=== PATIENT | female | born 1970 | race Caucasian/White ===

== ENCOUNTER 2018-05-04 01:43 | Outpatient (CLI) | payer BC, SELFPAY ==
--- NOTE | 2018-05-04 10:44 | DI.RAD_ITS ---
SYMPTOM/DIAGNOSIS: RT HIP PAIN X 10 MONTHS, ? OA, M25.551, G89.29 PELVIS AND RIGHT HIP: The hip joint spaces are well maintained. There is minimal acetabular spurring. There are mild degenerative changes of the inferior S-I joints. IMPRESSION: Mild degenerative changes.
== END 2018-05-04 02:03 ==
PROVIDERS: PCP Family Medicine; Visit Provider Nurse Practitioner Family
DX: M25.551 Pain in right hip (principal); M16.11 Unilateral primary osteoarthritis, right hip; G89.29 Other chronic pain
CPT/HCPCS: 73502

== ENCOUNTER 2018-07-30 00:25 | Outpatient (CLI) | payer BC, SELFPAY ==
--- NOTE | 2018-07-30 08:15 | DI.MAMMO_ITS ---
SYMPTOMS/DIAGNOSIS: SCREENING, Z12.39 MAMMOGRAMS: Mammograms were interpreted according to the usual protocol including computer analysis with CAD system, tomosynthesis and C view imaging. The breasts are heterogeneously dense. No dominant mass or clumped microcalcification is identified in either breast. Current examination is compared with previous examinations including July 2017 and there has been no gross interval change in appearance in comparison with the previous studies. CONCLUSION: No specific evidence of malignancy at this time. Routine screening examinations are suggested at yearly intervals in this age group according to the ACS/ACR guidelines. Category 1, breast density category C. MQSA ASSESSMENT OF FINDINGS: Negative. Category 1. Patient will receive a letter notifying them of these results. Bi-RADS category C. The breasts are heterogeneously dense, which may obscure small masses.
== END 2018-07-30 00:45 ==
PROVIDERS: PCP Family Medicine; Visit Provider Nurse Practitioner Women's Health
DX: Z12.31 Encounter for screening mammogram for malignant neoplasm of breast (principal)
CPT/HCPCS: 77063; 77067

== ENCOUNTER 2020-01-21 04:47 | Outpatient (CLI) | payer BC, SELFPAY ==
--- NOTE | 2020-01-21 16:22 | DI.MAMMO_ITS ---
EXAM: MAMMO SCREENING CLINICAL HISTORY: SCREENING, Z12.39 TECHNIQUE: Mammograms were interpreted according to the usual protocol including computer analysis w [facility] CAD system, tomosynthesis and C-view imaging. COMPARISON: FINDINGS: Breasts are heterogeneously dense. No dominant mass or clumped microcalcification is identified in e ither breast. Current examination is compared with previous examinations including July 2018 and ere has been no gross interval change in appearance in comparison with the prior studies. IMPRESSION: No specific evidence of malignancy at this time. Routine screening examinations are suggested at ye mark intervals due to the family history of breast carcinoma. BI-RADS Category 1 - Negative Breast Density - Category C - Heterogeneously dense
== END 2020-01-21 05:07 ==
PROVIDERS: PCP Family Medicine; Visit Provider Nurse Practitioner Women's Health
DX: Z12.31 Encounter for screening mammogram for malignant neoplasm of breast (principal); Z80.3 Family history of malignant neoplasm of breast
CPT/HCPCS: 77063; 77067

== ENCOUNTER 2020-03-31 05:00 | Outpatient (CLI) | payer BC, SELFPAY ==
[2020-03-31 16:15] LABS: Abs Immature Grans 0.01 10^3/uL (0.0-0.06); Absolute Basophil Count 0.05 10^3/uL (0.0-0.2); Absolute Eosinophil Count 0.05 10^3/uL (0.0-0.7); Absolute Lymphocyte Count 2.18 10^3/uL (1.2-3.4); Absolute Monocyte Count 0.57 10^3/uL (0.1-0.8); Absolute Neutrophil Count 3.72 10^3/uL (1.2-6.7); Basophils % 0.8; Eosinophils % 0.8; HCT 36.5 % (36.0-46.0); HGB 12.4 g/dL (11.2-15.7); Immature Grans % 0.2; Lymphocytes % 33.1; MCH 32.2 pg (27.0-33.0); MCV 94.8 fL (80-95); Monocytes % 8.7; Neutrophils % 56.4; Nucleated RBC 0 %; Platelet Count 210 10^3/uL (130-400); RBC 3.85 10^6/uL (3.93-5.22); RDW 12.4 % (11.7-14.6); WBC 6.58 10^3/uL (4.4-10.8)
[2020-03-31 17:24] LABS: ALT 22 U/L (14-59); AST 15 U/L (15-37); Albumin 3.6 g/dL (3.4-5.0); Alkaline Phosphatase 67 U/L (46-116); Anion Gap 8.7 mmol/L (3-11); BUN 16 mg/dL (7-18); Bilirubin, Total 0.3 mg/dL (0.2-1.0); CO2 26.3 mmol/L (21.0-32.0); CREATININE 0.98 mg/dL (0.55-1.02); Chloride 102 mmol/L (98-107); Ferritin 41 ng/mL (8-252); Glucose 94 mg/dL (74-106); Potassium 3.8 mmol/L (3.5-5.1); Sodium 137 mmol/L (136-145); TSH 2.03 uIU/mL (0.36-3.74); Total Protein 7.3 g/dL (6.4-8.2); Vitamin B12 891 pg/mL (193-986)
[2020-03-31 17:25] LABS: Folate > 20.0 ng/mL (8.6-20.0)
[2020-03-31 17:41] LABS: FREE T4 1.06 ng/dL (0.76-1.46)
[2020-03-31 17:56] LABS: Iron 63 ug/dL (50-170); Total Iron Binding Capacity 388 ug/dL (250-450); Transferrin Sat 16 % (15-50)
[2020-03-31 21:40] LABS: T3,Free 2.9 pg/mL (2.8-5.3)
[2020-04-04 16:34] LABS: 25-Hydroxy D Total 71 ng/mL; 25-Hydroxy D2 <4.0 ng/mL; 25-Hydroxy D3 71 ng/mL
== END 2020-03-31 05:20 ==
PROVIDERS: PCP Family Medicine; Visit Provider Naturopath
DX: R53.83 Other fatigue (principal); E55.9 Vitamin D deficiency, unspecified; R00.2 Palpitations
CPT/HCPCS: 36415; 80053; 82306; 82607; 82728; 82746; 83540; 83550; 83735; 84439; 84443; 84481; 85025

== ENCOUNTER 2021-03-30 00:20 | Outpatient (CLI) | payer BC, SELFPAY ==
--- NOTE | 2021-03-30 08:05 | DI.MAMMO_ITS ---
Exam(s) MAMMO SCREENING EXAM: MAMMO SCREENING CLINICAL HISTORY: SCREENING FOR BREAST CANCER Z12.39 TECHNIQUE: Bilateral full field digital CC and MLO mammographic images were obtained with 3D tomosyn thesis and utilizing computer aided detection (CAD). COMPARISON: Available for comparison. FINDINGS: Masses/Architectural Distortion: None seen. Microcalcifications: No suspicious pleomorphic-type are seen. Skin Thickening/Nipple Retraction: None. IMPRESSION: 1. No significant interval change with no specific features of malignancy noted. 2. Unless there is more urgent need, screening mammography is recommended, as per [employer] guidelines. BI-RADS Category 1 - Negative Breast Density - Category C - Heterogeneously dense Breast density category C or D implies that the patient has dense breast tissue. Dense breast tissue is very common and is not abnormal but dense breast tissue can make it harder to find cancer on a ma mmogram. Also, dense breast tissue may increase their breast cancer risk. This information about the result of the mammogram report was provided to the patient to raise their awareness. Use this report when you speak with the patient about their risks for breast cancer, which includes their family hist ory. At that time, you may recommend for more screening tests (Ultrasound or MRI) as they might be us eful based on their risk. A negative radiographic report should not delay biopsy if a dominant or clinically suspicious mass is present. Up to ten percent of cancers are not identified on mammography. A negative report may reinforce clinical impression. Adenosis and dense breasts may obscure an underlying neoplasm. False positive reports average 6 to 10%. Patient will receive a letter notifying them of these results.
== END 2021-03-30 00:40 ==
PROVIDERS: PCP Family Medicine; Visit Provider Nurse Practitioner Women's Health
DX: Z12.31 Encounter for screening mammogram for malignant neoplasm of breast (principal); R92.8 Other abnormal and inconclusive findings on diagnostic imaging of breast
CPT/HCPCS: 77063; 77067

== ENCOUNTER 2021-06-29 16:42 | Outpatient (REF) | payer BC, SELFPAY | END 2021-06-29 16:43 | disposition home or self-care (01) | LOC: LBN 16:42 | PROVIDERS: PCP Family Medicine; Visit Provider Family Medicine | DX: J34.89 Other specified disorders of nose and nasal sinuses (principal) | CPT/HCPCS: 87077; 87070; 87186; 87205 ==

== ENCOUNTER 2021-11-16 01:15 | Outpatient (CLI) | payer BC, SELFPAY ==
--- OUTSIDE RECORDS SUMMARY | 2021-11-16 01:18 | XMS_ITS | Clinical Summary ---
:1970 Author Organization [facility] [place] [address] Care Team Providers Name Role Phone Mariluz Vargas MD Primary Care Provider Allergies Active Allergy Reactions Severity Noted Date Comments Prochlorperazine muscle spas ms Sulfa (Sulfonamide Antibiotics) Rash Medications Medication Sig Dispensed Refills Start Date End Date Status DESOG-E.ESTRADIOL/E.ES Take by mouth 0 Active TRADIOL (KARIVA, 28, daily. ORAL) magnesium 250 mg Take by mouth 0 Active Tablet daily. cyanocobalamin, Inject as 0 Acti ve vitamin B-12, 1,000 directed. mcg/mL Solution cholecalciferol, Take 2,000 Units 0 Active Vitamin D3, by mouth every (CHOLECALCIFEROL, other day. VITAMIN D3,) 2,000 unit Capsule calcium citrate Take 1 tablet by 0 Active (CALCITRATE) 200 mg mouth daily. (950 mg) Tablet Active Problems Problem Noted Date Nephrolithiasis 07/09/2016 Recurrent UTI (urinary tract infection) 07/13/2015 IC (interstitial cystitis) 07/13/2015 Resolved Problems Problem Noted Date Resolved Date Recurrent UTI 08/13/2010 07/09/2016 Immunizations Name Administration Dates Next Due Moderna Covid-19 (Private Duty Rn 100mcg) Vaccine 03/28/2021, 2020, 07/18/2020 Family History Medical History Relation Comments Hyperlipidemia Father Alcohol Use Disorder Mother Mental Illness Mother Cancer Other in extended family Heart Disease Other in extended family Relation Status Comments Father Mother Other Social History Tobacco Use Types Packs/Day Years Used Date Never Smoker Smokeless Tobacco: Never Used Alcohol Use Standard Drinks/Week Comments Yes 1 (1 standard drink = 0.6 oz pure alcoho l) couple times a month Alcohol Habits Answer Date Recorded How often do you have a drink containing alcohol? Not asked How many drinks containing alcohol do you have on Not asked a typical day when you are drinking? How often do you have six or more drinks on one Not asked occasion? Comment: couple times a month 05/11/2019 Sex Assigned at Date Recorded Not on file Last Filed Vital Signs Vital Sign Reading Time Taken Comments Blood Pressure 105/64 05/11/2019 8:40 AM EST Pulse 60 05/11/2019 8:20 AM EST Temperature 36.6 ??C (97.9 ??F) 05/11/2019 7:13 AM EST Respiratory Rate 18 05/11/2019 8:50 AM EST Oxygen Saturation 99% 05/11/2019 8:50 AM EST Inhaled Oxygen Concentration - - Weight 56.7 kg (125 lb) 05/11/2019 7:13 AM EST Height 167.6 cm (5' 6) 05/11/2019 7:13 AM EST Body Mass Index 20.18 05/11/2019 7:13 AM EST Plan of Treatment Health Maintenance Due Date Last Done Comments HIV screen 1989 Hepatitis C Screening 1989 Tdap adult 1990 Tetanus vaccine 1990 HPV test 2001 PAP Smear 2001 Breast Cancer Share Decision Needed 2011 Breast Cancer screening 2021 Zoster vaccine (1 of 2) 2021 Covid-19 Vaccine (4 - Booster for 07/27/2021 03/28/2021, , Moderna series) 07/18/2020 Influenza (Flu) vaccine (1 of 1 - 12/20/2021 Influenza standard series) Colonoscopy 05/11/2029 05/11/2019, 05/11/2019 Medical Devices Implanted Type Area Contract Clerk Automobile Device Shelf Model / Identifier Expiration Serial / Lot Date Stent,Contour-Vl,[id number] ([id number]) - [id number] IMPLANTS DO NOT USE Pradeep 06/06/2019 [id number] / Implanted: Qty: 1 on 09/24/2016 by Raheem Murphy Jr., MD at [facility] Urological - / [id number] Insurance Payer Benefit Plan Subscriber ID Effective Dates Phone Address Type / Group [facility] [employer] [id number] 2018-[id number] [phone] [address] [employer] [place] [address] [facility] [id number] Advance Directives Latest Code Status on File Code Status Date Activated Date Inactivated Comments Full Code 09/24/2016 3:34 PM 09/24/2016 10:13 PM Does patient have capacity to make decision: Yes Care Teams Senior Hr Business Partner Relationship Specialty Start Date End Date Mariluz Vargas MD PCP - General Family Medicine 11/20/[address] [place], [place] [address]
--- OUTSIDE RECORDS SUMMARY | 2021-11-16 01:19 | XMS_ITS | Encounter Summary ---
:1970 Author Organization [facility] [place] [address] Care Team Providers Name Role Phone Mariluz Vargas MD Primary Care Provider Encounter Details Date Type Department Care Team Description 05/22/2016 Notes Only Urology at [facility] Arely Preciado, [facility] [place] [address] [address] [facility] [phone] UROLOGY DEPT. [place], [place] [address] (Wo rk) Social History Tobacco Use Types Packs/Day Years Used Date Never Smoker Smokeless Tobacco: Never Used Alcohol Use Standard Drinks/Week Comments Yes 1 (1 standard drink = 0.6 oz pure alcoho l) Sex Assigned at Date Recorded Not on file documented as of this encounter Progress Notes Arely Preciado APRN - 05/22/2016 7:26 AM EST Urine culture dated 04/23/2016 indicates 10-50 K e.coli. This is what she had in 03/2016 and did not opt for treatment as she felt ok. It is unclear if she was treated by [facility]/Dr. Strickland for this urinary infection. I will have my nurse call her to see how she is doing. documented in this encounter Plan of Treatment Not on filedocumented as of this encounter Visit Diagnoses Not on filedocumented in this encounter Care Teams Charcoal Burner Beehive Kiln Relationship Specialty Start Date End Date Mariluz Vargas MD PCP - General Family Medicine 11/20/[address] [place] [address] documented as of this encounter
--- OUTSIDE RECORDS SUMMARY | 2021-11-16 01:19 | XMS_ITS | Encounter Summary ---
:1970 Author Organization [facility] [place] [address] Care Team Providers Name Role Phone Mariluz Vargas MD Primary Care Provider Encounter Details Date Type Department Care Team Description 04/02/2016 Telephone Urology at [facility] Arely Preciado, [facility] [place] [address] [facility] [phone] UROLOGY DEPT. [place], [place] [address] (Wo rk) Social History Tobacco Use Types Packs/Day Years Used Date Never Smoker Smokeless Tobacco: Never Used Alcohol Use Standard Drinks/Week Comments Yes 1 (1 standard drink = 0.6 oz pure alcoho l) Sex Assigned at Date Recorded Not on file documented as of this encounter Miscellaneous Notes Telephone Encounter - Chrystal Holley - 04/02/2016 10:59 AM EST 04/02 LM for pt & entered a reminder Telephone Encounter - Arely Preciado APRN - 04/02/2016 9:12 AM EST Talked to Ms. Clouatre. She has no fever/chills or flank pain. She has urgency/frequency, but no hematuria or other symptoms. Her culture indicates: 03/28/2016: 10-50 K e.coli ackerman sensitive-she wanted macrobid called in, but will not start this 02/27/2016: e.coli 06/09/15: 10-50K e.coli tx with cefpodox 05/30/15: < 10 K gm neg 05/23/15: contam and no UA. 04/18/15: no growth 04/03/15: neg Repeat culture proves she clears. 03/15/15: 10-50 K e.coli ackerman sensitive 03/01/15: 50-99K e.coli tx with keflex We discussed her cultures have been intermittently positive. She states that this summer, she had symptoms with urgency/frequency and so may have had a UTI for longer than she has known. We discussed treatment options: monitoring vs treating and considering abx prophylaxis. She opts to defer treatment at this time and monitor her symptoms. I reviewed her 02/2016 CT. This shows nonobstructing stones on both sides. Contrast in kidneys and no kidney masses. The stones may or may not be infected. We discussed managing her stones surgically vs monitoring in 6 months with renal US. She prefers to defer and monitor. She will call if she changes her mind. We discussed cystoscopy, but if she has her stones managed, she would have ureteroscopy and laser lithotripsy likely, which would determine how her bladder looks. I offered her a cysto prior given her UTI history. She will decline for now. She will hydrate and monitor, she will try to do a homeopathic treatment to break up her stones. Sheknows we do not know what types of stones she has so the treatment may not help. epf with me in 6 months with renal US. Hydration with water. documented in this encounter Plan of Treatment Not on filedocumented as of this encounter Results US Retroperitoneal Complete (07/09/2016 1:11 PM EDT) Anatomical Region Laterality Modality Abdomen Ultrasound Specimen (Source) Anatomical Collection Method Collection Time Re ceived Time Location / / Volume Laterality 07/09/2016 1:06 PM EDT Impressions 07/09/2016 1:28 PM EDT ??Ultrasound Dictation: Small bilateral nonobstructive renal calculi, 2 each side largest 7mm ?Chelsea Glass MD Electronically Signed Final Report ?? 01:27 pm Narrative 07/09/2016 1:28 PM EDT Renal ?(Signed Final 07/09/2016 01:27 pm) PATIENT INFO: ID #: ? [id number] ?: ??[birth year] (46 yrs) Name: ? TARI Cabrales ? Visit Date: 07/09/2016 01:06 pm ? CLOUATRE PERFORMED BY: Performed By: ? Vandana LOWERY, ??Enio johnson Attending: ?Rufus VILLASENOR, Chelsea Boogie Referred By: ?QUENTIN MURPHY MD Location: ? [place] SERVICE(S) PROVIDED: ??URETRO - Retroperitoneal Complete - I [id number] ? [id number] INDICATIONS: ??changes in stone size from CT scan in ??02/2016. COMPARISON: CT scan: 03/14/16 RIGHT KIDNEY: Size (cm) ?L: ??8.8 Cortical Thickness: ?Normal Cortical Echogenicity: ?? Normal Hydronephrosis: ?No sonogr aphic evidence Comment: ?Two non-obstructing renal calculi located in the ? superior and inferior pole measuring 7mm each. LEFT KIDNEY: Size (cm) ?L: ??9.3 Cortical Thickness: ?Normal Cortical Echogenicity: ?? Normal Hydronephrosis: ?No sonogr aphic evidence Comment: ?Two non-obstructing renal calculi seen mid and ? inferior pole, larges t inferior pole measuring ??5mm. URINARY BLADDER: Pre-void (cm) ? L: ??6.5 ? A P: ??3.3 ? TV: ??5.8 Vol (ml): ?65.1 Comment: ?Partially distended, norm al contour Procedure Note Chelsea Hooper MD - 07/09/2016Formattchalo g of this note might be different from the original. Renal (Signed Final 07/09/2016 01:27 pm ) PATIENT INFO: ID #: [id number] : [birth year] (46 y rs) Name: TARI Cabrales Visit Date: 07/09/2016 0 1:06 pm CLOUATRE PERFORMED BY: Performed By: Ana Ross RDMS Attending: Chelsea Hooper MD Referred By: QUENTIN MURPHY MD Location: [place] SERVICE(S) PROVIDED: URETRO - Retroperitoneal Complete - IMG [id number] INDICATIONS: changes in stone size from CT scan in 02/2016. COMPARISON: CT scan: 03/14/16 RIGHT KIDNEY: Size (cm) L: 8.8 Cortical Thickness: Normal Cortical Echogenicity: Normal Hydronephrosis: No sonographic evidence Comment: Two non-obstructing renal calc desiree located in the superior and inferior pole measuring 7m m each. LEFT KIDNEY: Size (cm) L: 9.3 Cortical Thickness: Normal Cortical Echogenicity: Normal Hydronephrosis: No sonographic evidence Comment: Two non-obstructing renal calc desiree seen mid and inferior pole, largest inferior pole me asuring 5mm. URINARY BLADDER: Pre-void (cm) L: 6.5 AP: 3.3 TV: 5.8 Vol (ml): 65.1 Comment: Partially distended, normal co ntour IMPRESSION Ultrasound Dictation: Small bilateral n onobstructive renal calculi, 2 each side largest 7mm Chelsea Hooper MD Electronically Signed Final Report 07/09 01:27 pm Quentin Murphy Jr., MD IMG US GEN ORDERABLES documented in this encounter Visit Diagnoses Diagnosis Nephrolithiasis Calculus of kidney Nephrolithiasis Calculus of kidney documented in this encounter Care Teams House Sitter Relationship Specialty Start Date End Date Mariluz Vargas MD PCP - General Family Medicine 11/20/[address] [place] [address] documented as of this encounter
--- OUTSIDE RECORDS SUMMARY | 2021-11-16 01:19 | XMS_ITS | Encounter Summary ---
:1970 Author Organization [facility] [place] [address] Care Team Providers Name Role Phone Mariluz Vargas MD Primary Care Provider Encounter Details Date Type Department Care Team Description 05/07/2019 Telephone Gastroenterology at [facility] [place] [address] Social History Tobacco Use Types Packs/Day Years Used Date Never Smoker Smokeless Tobacco: Never Used Alcohol Use Standard Drinks/Week Comments Yes 1 (1 standard drink = 0.6 oz pure alcoho l) Sex Assigned at Date Recorded Not on file documented as of this encounter Miscellaneous Notes Telephone Encounter - Adalgisa Morrow - 05/07/2019 11:15 AM EST Adela Mosley [id number] Diagnosis/Indication: Rectal hemorrhage 1. Have you ever had a/an Colonoscopy before? Yes: Date 19 years ago in [place] If yes, did you have any problems with the procedure? No What type of sedation was used: Other: Unknown 2. Do you take any Blood Thinners? No 3. Do you have a Pacemaker or Defibrillator device? No 4. Are you a diabetic? No 5. Do you have any Allergies to Eggs, Latex or Medications? Yes: See EDH 6. Do you take any Oral Iron Supplements (Including multi-vitamins)? No 7. Do you have a history of three or more abdominal surgeries? No 8. Have you had a problem with sedation or anesthesia? No 9. Do you have a c-pap machine or oxygen tank? Neither 10. Do you take prescription narcotic pain medications? No 11. Say to patient: You must have a responsible libertarian who will drive you to your procedure, stay on campus for the entire duration of your procedure, and drive you home from your procedure? 12. Is there any other information you would like to give us to aid in scheduling? No Height: 5'6 Weight: 128 BMI: 20.7 Age:49 y.o. documented in this encounter Plan of Treatment Not on filedocumented as of this encounter Visit Diagnoses Not on filedocumented in this encounter Care Teams Capping Machine Operator Relationship Specialty Start Date End Date Mariluz Vargas MD PCP - General Family Medicine 11/20/[address] [place] [address] [address] [place] [address] documented as of this encounter
--- OUTSIDE RECORDS SUMMARY | 2021-11-16 01:19 | XMS_ITS | Encounter Summary ---
:1970 Author Organization [facility] [place] [address] Care Team Providers Name Role Phone Mariluz Vargas MD Primary Care Provider Encounter Details Date Type Department Care Team Description 03/26/2016 Telephone Urology at [facility] Arely Preciado, [facility] [place] [address] [facility] [phone] UROLOGY DEPT. [place], [place] [address] (Wo rk) Social History Tobacco Use Types Packs/Day Years Used Date Never Smoker Smokeless Tobacco: Never Used Alcohol Use Standard Drinks/Week Comments Yes 1 (1 standard drink = 0.6 oz pure alcoho l) Sex Assigned at Date Recorded Not on file documented as of this encounter Miscellaneous Notes Telephone Encounter - Chrystal Holley - 04/02/2016 8:41 AM EST Spoke with the Film Library, Images are loaded Telephone Encounter - Chrystal Holley - 03/27/2016 1:28 PM EST 03/[address] report & Images Called for urine results to be faxed to us Telephone Encounter - Arely Preciado APRN - 03/26/2016 3:24 PM EST Pt was put on abx for urine infection. She was in the ED-[facility]. For the past 2 months, she has had rectal cramping/also suprapubically. She had some sternal and back pain as well. When in ER, she had a CT done. She saw COPPER ETCHER and was told the CT showed that cysts, bilateral renal scarring and nonobstructing renal stones. Will get report and imaging. She will do repeat UA/culture 2 days after she finishesabx. Renal US in 2009 showed no stones. She is on keflex. Past cultures: U/A and Urine Culture History: 06/09/15: 10-50K e.coli tx with cefpodox 05/30/15: < 10 K gm neg 05/23/15: contam and no UA. 04/18/15: no growth 04/03/15: neg Repeat culture proves she clears. 03/15/15: 10-50 K e.coli ackerman sensitive 03/01/15: 50-99K e.coli tx with keflex She is not sure if a formal culture was sent at [facility]. Will get CT report and imaging and culture report. documented in this encounter Plan of Treatment Not on filedocumented as of this encounter Visit Diagnoses Not on filedocumented in this encounter Care Teams Multimedia Services Manager Relationship Specialty Start Date End Date Mariluz Vargas MD PCP - General Family Medicine 11/20/[address] [place] [address] documented as of this encounter
--- OUTSIDE RECORDS SUMMARY | 2021-11-16 01:19 | XMS_ITS | Encounter Summary ---
:1970 Author Organization [place] [address] Care Team Providers Name Role Phone Mariluz Vargas MD Primary Care Provider Reason for Visit Reason Comments Nephrolithiasis Encounter Details Date Type Department Care Team Description 10/01/2016 Office Visit Urology at [facility] Raheem Murphy Jr., Nephrolithiasis [facility] [place] [address] [facility] [phone] UROLOGY DEPT. [place], [place] [address] (Wo rk) Social History Tobacco Use Types Packs/Day Years Used Date Never Smoker Smokeless Tobacco: Never Used Alcohol Use Standard Drinks/Week Comments Yes 1 (1 standard drink = 0.6 oz pure alcoho l) Sex Assigned at Date Recorded Not on file documented as of this encounter Last Filed Vital Signs Vital Sign Reading Time Taken Comments Blood Pressure 120/66 10/01/2016 9:27 AM EDT Pulse 58 10/01/2016 9:27 AM EDT Temperature 36.6 ??C (97.9 ??F) 10/01/2016 9:27 AM EDT Respiratory Rate - - Oxygen Saturation 100% 10/01/2016 9:27 AM EDT Inhaled Oxygen Concentration - - Weight - - Height - - Body Mass Index - - documented in this encounter Procedure Notes Raheem Murphy Jr., MD - 10/01/2016 9:20 AM EDTAssociated Order(s): CYSTO, STENT REMOVAL Pre-Procedure Diagnose(s): Nephrolithiasis HPI: Adela Mosley is a 46 y.o. female who returns for bilateral ureteral stent removal after undergoing bilateral ureteroscopy. She had recurrent e coli UTIs and was referred by Arely Maguire APRN to obtain bilateral upper tract urine cultures and consider bilateral renal stone removal She underwent bilateral ureteroscopy on . Intraoperative findings were notable for negative bladder and bilateral renal pelvic urine cultures. Bilateral stones removed (right sided stone required lithotripsy and removal). Left sided stone culture negative; right sided stone culture revealed small volume ackerman-sensitive e coli.. She had a postoperative course notable for right sided stent pain. Shepresents today for planned stent removal. Past Medical History: Persistent E. Coli UTI Possible interstitial cystitis Genital HSV ?? Past Surgical History: LEEP 2005 for cervical cancer ?? Social History: , no children. 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 Non-smoker, non-drinker ?? Family History: Father has kidney stones Stone Analysis: Right: 100% Calcium oxalate monohydrate Left: 50% CaOx monohydrate; 40% CaPhos (apatite); 10% CaOx dihydrate We discussed the procedure, risks and planned benefit. We discussed the need to remove the stent as they cannot stay in indefinitely, as well as the risk of possible need for stent or nephrostomy replacement if there was any residual or future ureteral obstruction. Informed consent was obtained. Adela Mosley was taken to the cystoscopy room and prepped and draped by our urology nurse. Prophylactic antibiotic administration was confirmed. Topical viscous lidocaine gel was applied to the urethra for local anesthetic. A timeout was performed. Flexible cystoscopy was performed. The urethra waswithout abnormality. The bladder was entered and inspected. No focal mucosal abnormality was seen. The stents were seen emanating from each ureteral orifice. Eachwas grasped and extracted. Each was inspected and found to be intact. She tolerated the procedure well. I instructed Adela Mosley of the need to return in approximately 6 weeks for renal ultrasound to ensure that there is no residual hydronephrosis. I cautioned her to contact us immediately with increasing pain, fever, or chills as this could suggest obstruction and may need to be further evaluated on an urgent or emergent basis. I have asked her to call with any additional questions. Impression/Plan: Doing well s/p bilateral ureteroscopy . Stents removed without difficulty. 1) Plan reimaging in 6 weeks to assess for resolution of any hydronephrosis; plan follow up with Arely Maguire APRN 2)Mixed CaOx stone. We reviewedgeneral dietary modifications for those with CaOx stones. We discussed the role of a low oxalate, low sodium diet with increased hydration, targeting 2 liters urine output daily. We discussed role of 24h urine. She will consider and revisit if she wishes to proceed. documented in this encounter Plan of Treatment Not on filedocumented as of this encounter Procedures Procedure Name Priority Date/Time Associated Diagnosis Comme nts CYSTO, STENT Routine 10/01/2016 11:16 Nephrolithiasis Results for this REMOVAL AM EDT procedure are i n the results section. documented in this encounter Results Cysto, Stent Removal, clinic (10/01/2016 11:16 AM EDT) Narrative Raheem Murphy Jr., MD - 10/01/2016 11:1 6 AM EDT Raheem Murphy Jr., MD ? 10/01/2016 11:16 AM HPI: ??Adela Mosley is a 46 y.o. fe male who returns for bilateral ureteral stent removal after u ndergoing bilateral ureteroscopy. ?? She had recurrent e col i UTIs and was referred by Arely Maguire APRN to obtain bila teral upper tract urine cultures and consider bilateral renal st one removal She underwent bilateral ureteroscopy on . ??Intraoperative findings were notable for negative bladd er and bilateral renal pelvic urine cultures. Bilateral stones removed (right sided stone required lithotripsy and removal). Left sided stone culture negative; right sided stone culture reve aled small volume ackerman-sensitive e coli.. ??She had a ??pos toperative course notable for right sided stent pain. Shepresents today for planned stent removal. Past Medical History: Persistent E. Coli UTI Possible interstitial cystitis Genital HSV ?? Past Surgical History: LEEP 2006 for cervical cancer ?? Social History: , no children. 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 Non-smoker, non-drinker ?? Family History: Father has kidney stones Stone Analysis: Right: 100% Calcium oxalate monohydrate Left: 50% CaOx monohydrate; 40% CaPhos ( apatite); 10% CaOx dihydrate We discussed the procedure, risks and pl anned benefit. We discussed the need to remove the stent a s they cannot stay in indefinitely, as well as the risk of pos sible need for stent or nephrostomy replacement if there was any residual or future ureteral obstruction. Informed consent w as obtained. Adela Mosley was taken to the cystosc opy room and prepped and draped by our urology nurse. ??Prophylac tic antibiotic administration was confirmed. ??Topical viscous lidocaine gel was applied to the urethra for local anesthe tic. A timeout was performed. ??Flexible cystoscopy was per formed. ??The urethra was without abnormality. ??The bladder was e ntered and inspected. ??No focal mucosal abnormality was seen. ??Th e stents were seen emanating from each ureteral orifice. ?? Eachwas grasped and extracted. Each was inspected and found to be intact. ??She tolerated the procedure well. ?? I instructed ??Adela Mosley ??of the need to return in approximately 6 weeks for renal ultrasou nd to ensure that there is no residual hydronephrosis. ??I cauti oned her to contact us immediately with increasing pain, fever, or chills as this could suggest obstruction and may need to be f urther evaluated on an urgent or emergent basis. ??I have asked her to call with any additional questions. Impression/Plan: Doing well s/p bilatera l ureteroscopy . ??Stents removed without difficulty. 1) Plan reimaging in 6 weeks to assess f or resolution of any hydronephrosis; plan follow up with Akilah Maguire, TONYA 2)Mixed CaOx stone. We reviewedgeneral d ietary modifications for those with CaOx stones. We ??discussed t he role of ??a low oxalate, low sodium diet with increased hydration , targeting 2 liters urine output daily. ??We discussed role of 24h urine. She will consider and revisit if she wishes to pr oceed. Raheem Murphy Jr., MD UROLOGY ORDERABLES documented in this encounter Visit Diagnoses Diagnosis Nephrolithiasis Calculus of kidney documented in this encounter Care Teams Automatic Centrifugal Station Operator Relationship Specialty Start Date End Date Mariluz Vargas MD PCP - General Family Medicine 11/20/[address] [place] [address] [address] [place] [address] documented as of this encounter
--- OUTSIDE RECORDS SUMMARY | 2021-11-16 01:19 | XMS_ITS | Encounter Summary ---
:1970 [place] [address] Care Team Providers Name Role Phone Mariluz Vargas MD Primary Care Provider Encounter Details Date Type Department Care Team Description 09/24/2016 Hospital Encounter Same Day Program at [facility] Nephrolithiasis Ellen Cassidy Jr., MD [facility] DR Gomez UROLOGY DEPT. [place] [phone] Social History Tobacco Use Types Packs/Day Years Used Date Never Smoker Smokeless Tobacco: Never Used Alcohol Use Standard Drinks/Week Comments Yes 1 (1 standard drink = 0.6 oz pure alcoho l) Sex Assigned at Date Recorded Not on file documented as of this encounter Last Filed Vital Signs Vital Sign Reading Time Taken Comments Blood Pressure 124/74 09/24/2016 7:07 PM EDT Pulse 68 09/24/2016 7:07 PM EDT Temperature 36.6 ??C (97.9 ??F) 09/24/2016 5:59 PM EDT Respiratory Rate 16 09/24/2016 7:07 PM EDT Oxygen Saturation 100% 09/24/2016 7:07 PM EDT Inhaled Oxygen Concentration - - Weight 56.7 kg (125 lb) 09/24/2016 1:09 PM EDT Height 167.6 cm (5' 6) 09/24/2016 1:09 PM EDT Body Mass Index 20.18 09/24/2016 1:09 PM EDT documented in this encounter Discharge Instructions Discharge InstructionsToshia Gibson RN - 09/24/2016 6:29 PM EDT POST ANESTHESIA INSTRUCTIONS Go home, rest, use caution on stairs. Change positions slowly. Do not smoke if you are alone. Diet light to regular as tolerated today. If nausea occurs start with clear liquids and progress slowly. No driving, operating machinery, alcoholic beverages and no important decisions for 24 hours. Monitor IV site for signs and symptoms of infection: increasing redness, swelling, foul drainage, ifoccurs contact M.D. Patients who have had endotrachial tubes (this tube, used by anesthesia department, is passed down your throat after you are asleep, to ensure safe air passage during your operation). A sore throat is normal due to the tube. Cold liquids or soothing lozenges will help ease the discomfort. The generalized muscle aches are due to the medication given to you just before the tube is inserted. As the medication wears off, you may develop muscle soreness, which usually goes away in 12-24 hours. Patient InstructionsNelly Noguera MD - 09/24/2016 12:09 PM EDT DISCHARGE INSTRUCTIONS CALL YOUR PHYSICIAN IF: ?? You have a fever greater than 101 degrees F within one month of your surgery. ?? You have diarrhea or vomiting for more than 24 hours, or stop having bowel movements or passing gas. ?? You have worsening pain, not controlled with pain medication. ?? You have any other acute change in your health status. MEDICATIONS You have been prescribed an antibiotic (Cipro) to treat your infection. Complete your course of antibiotic therapy. Please complete the entire course as prescribed. You have been prescribed tamsulosin, which may help to decrease the discomfort associated with the indwelling stent. Please take this medication as prescribed. DRIVING RESTRICTIONS Do not operate a vehicle if you are too sore from surgery to enter or exit your vehicle comfortably,or if you are too sore to easily check your blind spot. ACTIVITIES Your activities may be determined by how well your tolerate the discomfort associated with your stent. Most patients experience some degree of discomfort, and this is normal. Symptoms include flank pain (increased during urination), frequency and urgency of urination, burning or pain in the bladder orurethral with urination, pelvic discomfort, and blood in the urine. To manage your stent symptoms, drink plenty of fluids (~2 liters daily) and take acetaminophen or ibuprofen. DIET Eat a well-balanced diet. Fresh fruits, vegetables and fiber-containing foods are recommended. This will assist in wound healing. COMFORT Some patients experience irritation or discomfort associated with the stent. Take your medication asneeded and prescribed. Slowly decrease your use of pain medication as pain lessens. CONTACT INFORMATION To contact your provider or change your appointment, please call the Urology clinic at during business hours or during off-hours. FOLLOW-UP APPOINTMENT You will be arrange for a stent removal in 10-14 days in the clinic. You will be contacted regardingthe exact date and time of this. If you do not hear from us in a timely manner, please call the Urology Clinic during business hours. You will also be arrange for a follow-up with Dr. Murphy in 6 weeks with a renal ultrasound beforehand. You will be contacted regarding the exact date and time of this. If you do not hear from us in a timely manner, please call the Urology Clinic during business hours. Please remember that you have a ureteral stent in place. A stent is not a permanent device and must be removed by your urologist; failure to remove a stent may result in the need for more procedures. documented in this encounter Medications at Time of Discharge Medication Sig Dispensed Refills Start Date End Date DESOG-E.ESTRADIOL/E.ESTRA Take by mouth daily. 0 DIOL (KARIVA, 28, ORAL) tamsulosin (FLOMAX) 0.4 Take 1 capsule by 90 tablet 3 09/2411/15/2016 mg Capsule, Sust. Release mouth daily. 24 hr ciprofloxacin (CIPRO) 500 Take 1 tablet by 14 tablet 0 08/201609/30/2016 mg Tablet mouth 2 times daily for 7 days. d-mannose Powder Take by mouth. 0 10/20 UNABLE TO FIND Estrogen cream 0 2016 fish oil-omega-3 fatty Take 2 g by mouth 0 02/25/2019 acids 1,000 mg Capsule daily. magnesium citrate Take by mouth. 0 Solution PROGESTERONE, BULK, by Misc.(Non-Drug; 0 11/15/2016 MISCIndications: topical Combo Route) route. cream Indications: topical cream documented as of this encounter H&P Notes Nelly Noguera MD - 09/24/2016 11:50 AM EDT Urology Pre-operative H&P Update ID: Tari Mosley is a 46 y.o. woman with non-obstructing bilateral renal stones, who prssents today for right (possibly left) ureteroscopy, laser lithotripsy and stent placement with Dr. Murphy. Subjective: Denies any change in health since last clinic visit on 09/04/2016. Denies chest pain, shortness of breath, nausea, vomiting, dysuria. She started taking Cipro 500 mg BID yesterday. Objective: General: pleasant, conversant, alert and oriented CV: RRR, no murmurs, rubs or gallops appreciated Pulm: CTAB Urine culture 09/23/2016 Escherichia coli 10,000 - 50,000 colonies/mL A/P: Tari Mosley is a 46 y.o. woman with non-obstructing bilateral renal stones, who prssents todayfor right (possibly left) ureteroscopy, laser lithotripsy and stent placement with Dr. Murphy. This procedure has been fully reviewed with the patient and written informed consent has been obtained. We wi ll proceed with planned operation. Nelly Noguera MD Urology PGY-3 Pager: [phone] documented in this encounter Miscellaneous Notes Op Note - Nelly Noguera MD - 09/24/2016 6:50 PM EDT Operative Note ?? Patient Name: Tari Mosley : [id number] MR#: [id number] ?? Case Date: 09/24/2016 ?? Surgeon: Surgeon(s) and Role: * Quentin Murphy Jr., MD - Primary * Nelly Noguera MD ?? Preoperative diagnosis: right renal stone ?? Postoperative diagnosis: bilateral renal stones ?? Procedure(s) (LRB): CYSTOURETEROSCOPY,DIAGNOSTIC,W/ LITHOTRIPSY INC. INSERTION OF INDWELLING URETERAL STENT (WRVU 8) (Right) CYSTOURETHROSCOPY, W\REMOVAL, MANIPULATION OF CALCULUS (WRVU 6.75) (Left) CYSTO, STENT PLACEMENT (WRVU 2.82) (Left) FLUOROSCOPY (WRVU 0.17) (N/A) MODIFIER HOLMIUM LASER (Right) ? Anesthesia: General ?? Findings: 1. Bilateral orthotopic UOs 2. No hydronephrosis bilateral on RPGs 3. Small stones in upper and mid calyces on the right, fragmented and extracted 4. 6 F x 28 cm right ureteral stent placed 5. Small lower pole stone on the left, extracted 6. 6 F V left ureteral stent placed 7. Cystoscopic bladder urine, left and right renal pelvis urine sent for culture 8. Right and left renal stones sent for culture and stone analysis ?? Complications: none ?? Estimated Blood Loss: minimal ? Fluids: Intraprocedure Crystalloid Total None PRBCs: none (See Anesthesia Record/Report for Other Blood Products) ? Urine Output: (no blood products) ?? Drains: 6 F x 26 cm right ureteral stent 6 F V left ureteral stent ?? Disposition: awakened from anesthesia, extubated and taken to the recovery room in a stable condition, having suffered no apparent untoward event. ?? Condition: doing well without problems ?? (Please see the Surgical Encounter Summary for any Implant and Specimen details pertinent to this patient.) ?? Infection Bundle used? N/A HPI/Surgica Indications: Tari Mosley is a 46 y.o. woman with non-obstructing bilateral renal stones, who prssents todayfor right (possibly left) ureteroscopy, laser lithotripsy and stent placement with Dr. Murphy. Description of Procedure: Tari Mosley was identified in the pre-operative holding area. Consent was verified. The correct side of the procedure was marked. The patient was taken to the operating room and placed supine on the operating table. General anesthesia was induced. The patient was then moved to the dorsal lithotomy position and prepped and draped in the usual sterile fashion. A timeout was performed involving all members of the OR team confirming the patient's identity and planned procedure. Preoperative antibiotics (2 grams Ancef and 80 mg Gent) were administered. A 22 Fr rigid cystoscope was inserted into the bladder and urine was collected and sent for culture.Cystitis cystica was identified along the mucosa of the trigone. UOs were orthotopic bilaterally with ureteral jets. Next, we inserted a 5 Fr pollack into the left UO and advanced the pollack without difficulty. Urinewas aspirated from the left renal pelvis for culture. Retrograde pyelogram was performed. No hydronephrosis was seen. The same procedure was performed on the right. A glidewire was then passed via the pollack in the right ureter without difficulty, and the pollack was removed. A semi-rigid ureteroscope was introduced. The ureter was navigated easily to the right renal pelvis. We then removed the semi-rigid scope. The flexible scope was used and navigated to the renal pelvis. Small renal stones were identified in the mid calyx, which were extracted using an NGagebasket. A larger stone was seen in the upper calyx, which was removed to the distal ureter. Holmium laser was used at 6 Hz and 6 J for fragmentation of the stone. The fragments were extracted using a NGage basket; these were collected and sent to Pathology as a specimen for stone analysis and stone culture. We then switched back to to the flexible scope. Retrograde pyelography was performed to assistin inspecting the entire pyelocaliceal system. No further stones were found. The ureteroscope was slowly removed to inspect the ureter; no further calculi were seen. Using the cystoscope, a 6 Fr x 26 cm ureteral stent was inserted over the wire. The proximal coil was visualized on fluoroscopy to be within the renal pelvis, and the distal coil was seen with direct visualization in the bladder. We then performed the same procedure on the left. A glidewire was passed via a pollack in the left ureter without difficulty, and the pollack was removed. A semi-rigid ureteroscope was introduced. The distal ureter was navigated easily, but there was resistance in the proximal ureter. We then placed awire via the scope and exchanged for a flexible ureteroscope, advanced under fluoroscopic guidance. One small renal stone was identified in the lower calyx, which was extracted using an NGage basket. This was sent to Pathology for culture and stone analysis. Retrograde pyelography was performed to assist in inspecting the entire pyelocaliceal system. No further stones were found. The ureteroscope was slowly removed to inspect the ureter; no further calculi were seen. Using the cystoscope, a 6 Fr V ureteral stent was inserted over the wire. The proximal coil was visualized on fluoroscopy to be within the renal pelvis, and the distal coil was seen with direct visualization in the bladder. The bladder was emptied. The cystoscope was removed. The patient tolerated the procedure well and was awakened from anesthesia with no adverse events. The patient was taken to the recovery area in stable condition. Dr. Murphy, the attending surgeon, was present for the entire procedure. Plan: 1. RTC in 10-14 days for stent removal 2. Follow-up intra-op urine cultures and treat if positive prior to stent removal 3. Follow-up with Dr. Murphy in 6 weeks with renal US prior Nelly Noguera MD Urology PGY-3 Pager: [phone] Brief Op Note - Nelly Noguera MD - 09/24/2016 5:53 PM EDT Brief Operative Note Patient Name: Tari Mosley : [id number] MR#: [id number] Case Date: 09/24/2016 Surgeon: Surgeon(s) and Role: * Quentin Murphy Jr., MD - Primary * Nelly Noguera MD Preoperative diagnosis: right renal stone Postoperative diagnosis: bilateral renal stones Procedure(s) (LRB): CYSTOURETEROSCOPY,DIAGNOSTIC,W/ LITHOTRIPSY INC. INSERTION OF INDWELLING URETERAL STENT (WRVU 8) (Right) CYSTOURETHROSCOPY, W\REMOVAL, MANIPULATION OF CALCULUS (WRVU 6.75) (Left) CYSTO, STENT PLACEMENT (WRVU 2.82) (Left) FLUOROSCOPY (WRVU 0.17) (N/A) MODIFIER HOLMIUM LASER (Right) Anesthesia: General Findings: 1. Bilateral orthotopic UOs 2. No hydronephrosis bilateral on RPGs 3. Small stones in upper and mid calyces on the right, fragmented and extracted 4. 6 F x 28 cm right ureteral stent placed 5. Small lower pole stone on the left, extracted 6. 6 F V left ureteral stent placed 7. Cystoscopic bladder urine, left and right renal pelvis urine sent for culture 8. Right and left renal stones sent for culture and stone analysis Complications: none Estimated Blood Loss: minimal Fluids: Intraprocedure Crystalloid Total None PRBCs: none (See Anesthesia Record/Report for Other Blood Products) Urine Output: (no blood products) Drains: 6 F x 26 cm right ureteral stent 6 F V left ureteral stent Disposition: awakened from anesthesia, extubated and taken to the recovery room in a stable condition, having suffered no apparent untoward event. Condition: doing well without problems (Please see the Surgical Encounter Summary for any Implant and Specimen details pertinent to this patient.) Infection Bundle used? N/A Associated attestation - Quentin Murphy Jr., MD - 09/24/2016 6:47 PM EDT I was present and I participated during the entire procedure. documented in this encounter Plan of Treatment Not on filedocumented as of this encounter Procedures Procedure Name Priority Date/Time Associated Comments Diagnosis ANAEROBIC CULTURE Routine 09/24/2016 6:08 Results for this PM EDT procedure are i n the results section. ANAEROBIC CULTURE Routine 09/24/2016 6:08 Results for this PM EDT procedure are i n the results section. TISSUE CULTURE, AEROBIC & Routine 09/24/2016 6:08 ANAEROBIC PM EDT TISSUE CULTURE, AEROBIC & Routine 09/24/2016 6:08 ANAEROBIC PM EDT TISSUE CULTURE Routine 09/24/2016 6:08 Results fo r this PM EDT procedure are i n the results section. TISSUE CULTURE Routine 09/24/2016 6:08 Results fo r this PM EDT procedure are i n the results section. URINE CULTURE Routine 09/24/2016 6:08 Results for this PM EDT procedure are i n the results section. XR FLUORO NO RAD <1HR - Routine 09/24/2016 6:07 R esults for this OR USE PM EDT procedure are i n the results section. KIDNEY STONE ANALYSIS Routine 09/24/2016 5:34 Res ults for this PM EDT procedure are i n the results section. KIDNEY STONE ANALYSIS Routine 09/24/2016 5:09 Res ults for this PM EDT procedure are i n the results section. URINE CULTURE Routine 09/24/2016 4:26 Results for this PM EDT procedure are i n the results section. URINE CULTURE Routine 09/24/2016 4:26 Results for this PM EDT procedure are i n the results section. MODIFIER HOLMIUM LASER Yes 09/24/2016 3:47 right renal sto ne PM EDT FLUOROSCOPY (WRVU 0.17) Yes 09/24/2016 3:[address] one PM EDT CYSTO, STENT PLACEMENT Yes 09/24/2016 3:47 right renal sto ne (WRVU 2.82) PM EDT CYSTOURETHROSCOPY WITH Yes 09/24/2016 3:47 right renal sto ne UTETEROSCOPY, W\REMOVAL, PM EDT MANIPULATION OF CALCULUS (WRVU 6.75) CYSTOURETEROSCOPY,DIAGNOS Yes 09/24/2016 3:47 right renal stone TIC,W/ LITHOTRIPSY INC. PM EDT INSERTION OF INDWELLING URETERAL STENT (WRVU 8) documented in this encounter Results US Retroperitoneal Complete (11/15/2016 1:08 PM EDT) Anatomical Region Laterality Modality Abdomen Ultrasound Specimen (Source) Anatomical Collection Method Collection Time Re ceived Time Location / / Volume Laterality 11/15/2016 1:09 PM EDT Impressions 11/15/2016 1:40 PM EDT ??Small, nonobstructing left interpolar renal stone.Both kidneys and bladder are otherwise mandi l.I have personally reviewed the image(s) and e residents interpretation andagree with the Aguila chris at 11/15/2016 1:31 PM ? Aguila albarran MD Electronically Signed Final Report ?? 01:39 pm Narrative 11/15/2016 1:40 PM EDT Renal ? (Signed Final 11/15/2016 01:39 pm) PATIENT INFO: ID #: ? [id number] ?: ??[birth year] (46 yrs) Name: ? TARI V ? Visit Date: 11/15/2016 01:09 pm ? CLOUATRE PERFORMED BY: Performed By: ? Juancho Romero RDMS Attending: ?iKrk VILLASENOR, Chris Martinez Referred By: ?QUENTIN MURPHY Location: ? [place] SERVICE(S) PROVIDED: ??URETRO - Retroperitoneal Complete - I [id number] ? [id number] INDICATIONS: ??s/p bilateral URS 09/24/2016. ?hydro COMPARISON: Ultrasound: RENAL/BLADDER 07/09/16 RIGHT KIDNEY: Size (cm) ?L: ??9.2 Cortical Thickness: ?Normal Cortical Echogenicity: ?? Normal Hydronephrosis: ?No sonogr aphic evidence Comment: ?No stone seen LEFT KIDNEY: Size (cm) ?L: ??11.0 Cortical Thickness: ?Normal Cortical Echogenicity: ?? Normal Hydronephrosis: ?No sonogr aphic evidence Comment: ?Single nonobstructing star al calculus seen in the ? mid pole measuring 3. 0 mm. URINARY BLADDER: Pre-void (cm) ? L: ??2.7 ? A P: ??3.7 ? TV: ??6.1 Vol (ml): ?31.9 Comment: ?Partially distended, norm al contour Procedure Note Aguila Bradley MD - 11/15/2016Format ting of this note might be different from the original. Renal (Signed Final 11/15/2016 01:39 pm ) PATIENT INFO: ID #: [id number] : [birth year] (46 y rs) Name: TARI Cabrales Visit Date: 11/15/2016 0 1:09 pm CLOUATRE PERFORMED BY: Performed By: Juancho Romero RDMS Attending: Aguila Bradley MD Referred By: QUENTIN MURPHY JR Location: [place] SERVICE(S) PROVIDED: URETRO - Retroperitoneal Complete - [facility] [id number] INDICATIONS: s/p bilateral URS 09/24/2016. ?hydro COMPARISON: Ultrasound: RENAL/BLADDER 07/09/16 RIGHT KIDNEY: Size (cm) L: 9.2 Cortical Thickness: Normal Cortical Echogenicity: Normal Hydronephrosis: No sonographic evidence Comment: No stone seen LEFT KIDNEY: Size (cm) L: 11.0 Cortical Thickness: Normal Cortical Echogenicity: Normal Hydronephrosis: No sonographic evidence Comment: Single nonobstructing renal ca lculus seen in the mid pole measuring 3.0 mm. URINARY BLADDER: Pre-void (cm) L: 2.7 AP: 3.7 TV: 6.1 Vol (ml): 31.9 Comment: Partially distended, normal co ntour IMPRESSION Small, nonobstructing left interpolar r enal stone.Both kidneys and bladder are otherwise mandi l.I have personally reviewed the image(s) and e residents interpretation andagree with the Aguila chris at 11/15/2016 1:31 PM Aguila Bradley MD Electronically Signed Final Report 11/15 01:39 pm Quentin Murphy Jr., MD IM US GEN ORDERABLES Anaerobic Culture (09/24/2016 6:08 PM EDT) [facility] Method Time Signature Anaerobic No anaerobic [facility] Culture organisms [facility] LABORATORY Specimen Anatomical Collection Method Collection Time Receive d Time (Source) Location / / Volume Laterality Specimen of 09/24/2016 6:08 PM 7 7:12 unknown material EDT PM EDT (specimen) Comment: LEFT RENAL CRUSHED STONE Resulting Agency Comment Spec In Lab Quentin Murphy Jr., MD MICROBIOLOGY - GENERAL ORDER PATRICK Performing Organization Address City/[facility]/ZIP Code Phon e Number [address] Tissue culture (09/24/2016 6:08 PM EDT) Component Value Ref Test Analysis Performed At Patholo gist Range Method Time Signature Tissue No growth ELLEN Culture [facility] LABORATORY Gram Stain No WBC's seen. ELLEN No microorganisms seen. [facility] LABORATORY Specimen Anatomical Collection Method Collection Time Receive d Time (Source) Location / / Volume Laterality Specimen of 09/24/2016 6:08 PM 7 7:12 unknown material EDT PM EDT (specimen) Comment: LEFT RENAL CRUSHED STONE Resulting Agency Comment Spec In Lab Quentin Murphy Jr., MD MICROBIOLOGY - GENERAL ORDER PATRICK Performing Organization Address City/[facility]/ZIP Code Phon e Number [address] Anaerobic Culture (09/24/2016 6:08 PM EDT) [facility] Method Time Signature Anaerobic No anaerobic [place] Culture organisms [facility] LABORATORY Specimen Anatomical Collection Method Collection Time Receive d Time (Source) Location / / Volume Laterality Specimen of 09/24/2016 6:08 PM 7 7:23 unknown material EDT PM EDT (specimen) Comment: RIGHT RENAL CRUSHED STONE Resulting Agency Comment Spec In Lab Quentin Murphy Jr., MD MICROBIOLOGY - GENERAL ORDER PATRICK Performing Organization Address City/[facility]/[place] [address] (ABNORMAL) Tissue culture (09/24/2016 6:08 PM EDT) Component Value Ref Test Analysis Performed At Patholo gist Range Method Time Signature Tissue Few Escherichia ELLEN Culture coli (A) [facility] LABORATORY Gram Stain Few White Blood Cells seen MA RY No microorganisms seen. [facility] LABORATORY Organism Escherichia coli ELLEN (A) [facility] LABORATORY Specimen Anatomical Collection Method Collection Time Receive d Time (Source) Location / / Volume Laterality Specimen of 09/24/2016 6:08 PM 7 7:23 unknown material EDT PM EDT (specimen) Comment: RIGHT RENAL CRUSHED STONE Resulting Agency Comment Spec In Lab Organism Antibiotic Method Susceptibility Escherichia coli Amikacin MICROSCAN METHOD Sensitive Escherichia coli Ampicillin MICROSCAN METHOD Sensitive Escherichia coli Ampicillin + Sulbactam MICROSCAN METHOD Sensiti ve Escherichia coli Aztreonam MICROS[facility] METHOD Sensitive Escherichia coli Cefazolin MICROSCAN METHOD Sensitive Escherichia coli Cefepime MICROSCAN METHOD Sensitive Escherichia coli Ceftazidime MICROSCAN METHOD Sensitive Escherichia coli Ceftriaxone MICR[facility] METHOD Sensitive Escherichia coli Cefuroxime MICROSCAN METHOD Sensitive Escherichia coli Ciprofloxacin MICROS[facility] METHOD Sensitive Escherichia coli Gentamicin MICROS[facility] METHOD Sensitive Escherichia coli Levofloxacin MICROS[facility] METHOD Sensitive Escherichia coli Meropenem MICROSCAN METHOD Sensitive Escherichia coli Piperacillin/Tazobactam MICROSCAN METHOD Sensit martin Escherichia coli Tetracycline MICROSCAN METHOD Sensitive Escherichia coli Tigecycline MICROSCAN METHOD Sensitive Escherichia coli Tobramycin MICROSCAN METHOD Sensitive Escherichia coli Trimethoprim/Sulfa MICROSCAN METHOD Sensitive Quentin Murphy Jr., MD MICROBIOLOGY - GENERAL ORDER PATRICK Performing Organization Address City/[facility] Phon e Number [address] Urine culture Cystoscopic Urine (09/24/2016 6:08 PM EDT) [facility] Method Time Signature Urine Culture No growth ELLEN CASSIDY (Less than [facility] 1,000 [facility] cfu/ml). LABORATORY Specimen Anatomical Collection Method Collection Time Receive d Time (Source) Location / / Volume Laterality Urine specimen 09/24/2016 6:08 PM 017 7:15 (specimen) EDT PM EDT Comment: RIGHT RENAL URINE Resulting Agency Comment Spec In Lab Quentin Murphy Jr., MD MICROBIOLOGY - GENERAL ORDER PATRICK Performing Organization Address City/[facility] Phon e Number [address] XR Fluoro No Rad <1Hr - OR Use (09/24/2016 6:07 PM EDT) Specimen (Source) Anatomical Location Collection Method / Collectio n Time Received Time / Laterality Volume Narrative DH RAD - 09/24/2016 6:07 PM EDT This order does not need a radiologist i nterpretation. ?? MD ERIC Cross Jr.G FLUORO ORDERABLES Performing Organization Address City/State/ZIP Code Phon e Number RAD BIN [place] Kidney Stone Analysis (09/24/2016 5:34 PM EDT) Component Value Ref Test Analysis Performed At [facility] Method Time Signature Kidney Stone ELLEN Analysis Test ? Result ?Flag ??Unit ??RefValue [employer] [facility] Kidney Stone Analysis [facility] ??Source: ?Lef t Renal LABORATORY ??1st Constituent: ?50% Calcium oxalate monohydrate ??2nd Constituent: ?40% Calcium phosphate (apatite) ??3rd Constituent: ?10% Calcium oxalate dihydrate ? ADDITIONAL INFORMATION ------ ?This test was developed and its performance characteri stics ?determined by [facility] in a manner consistent with CLIA ?requirements. This test has not been cleared or approv ed by ?the U.S. Food and Drug Administration. ?Test Performed by: ?[facility] [employer] [facility] ?[address] [place] [address] Specimen Anatomical Collection Method Collection Time Receive d Time (Source) Location / / Volume Laterality Calculus 09/24/2016 5:34 PM 7 8:56 specimen EDT AM EDT (specimen) Resulting Agency Comment Spec In Lab Quentin Murphy Jr., MD BODY FLUIDS AND STOOLS ORDER PATRICK Performing Organization Address City/[facility]/ZIP Code Phon [place] [address] Kidney Stone Analysis (09/24/2016 5:09 PM EDT) Component Value Ref Test Analysis Performed At [facility] Range Method Time Signature Kidney Stone ELLEN Analysis Test ? Result ?Flag ??Unit ??RefValue LANA [facility] Kidney Stone Analysis [facility] ??Source: ?Rig Renal LABORATORY ??1st Constituent: ?100% Calcium oxalate monohydrate ? ADDITIONAL INFORMATION ------ ?This test was developed and its performance characteri stics ?determined by [facility] in a manner consistent with CLIA ?requirements. This test has not been cleared or approv ed by ?the U.S. Food and Drug Administration. ?Test Performed by: ?[facility] ?[address] [place] [address] Specimen Anatomical Collection Method Collection Time Receive d Time (Source) Location / / Volume Laterality Calculus 09/24/2016 5:09 PM 7 8:56 specimen EDT AM EDT (specimen) Resulting Agency Comment Spec In Lab Quentin Murphy Jr., MD BODY FLUIDS AND STOOLS ORDER PATRICK Performing Organization Address City/State/ZIP Code Phon e Number [address] Urine culture (09/24/2016 4:26 PM EDT) [facility] gist Method Time Signature Urine Culture No growth ELLEN CASSIDY (Less than [address] cfu/ml). LABORATORY Specimen Anatomical Collection Method Collection Time Receive d Time (Source) Location / / Volume Laterality Urine specimen 09/24/2016 4:26 PM 017 7:27 (specimen) EDT PM EDT Comment: BLADDER URINE Resulting Agency Comment Spec In Lab Quentin Murphy Jr., MD MICROBIOLOGY - GENERAL ORDER PATRICK Performing Organization Address City/[facility]/ZIP Code Phon e Number [address] Urine culture (09/24/2016 4:26 PM EDT) [facility] Method Time Signature Urine Culture No growth ELLEN CASSIDY (Less than [address] cfu/ml). LABORATORY Specimen Anatomical Collection Method Collection Time Receive d Time (Source) Location / / Volume Laterality Urine specimen 09/24/2016 4:26 PM 017 7:24 (specimen) EDT PM EDT Comment: LEFT RENAL URINE Resulting Agency Comment Spec In Lab Quentin Murphy Jr., MD MICROBIOLOGY - GENERAL ORDER PATRICK Performing Organization Address City/[facility]/ZIP Code Phon e Number [address] documented in this encounter Visit Diagnoses Diagnosis Nephrolithiasis Calculus of kidney Nephrolithiasis Calculus of kidney documented in this encounter Administered Medications Inactive Administered Medications - up to 3 most recent administrations Medication Order MAR Action Action Date Dose Rate Site acetaminophen (TYLENOL) tablet Given 09/24/2016 7:45 PM EDT 1,00 0 mg 1,000 mg 1,000 mg, Oral, EVERY 6 HOURS PRN, Starting on Fri09/24/16 at 1938, Until Fri09/24/16 at 2213, Pain, Maximum dose of acetaminophen is 4000 mg from all sources in 24 hours., Routine fentaNYL 50mcg/mL injection Given 09/24/2016 6:54 PM EDT 25 mcg 25 mcg, Intravenous, EVERY 5 MIN PRN, Starting on 09/24/16 at 1811, Until e 09/24/16 at 1948, Pain, for 1-4 pain score, for 1-4 pain score Hold for respiratory rate less than 10 per minute. Maximum dose: 250 mcg over one hour., PACU Recovery, Routine Given 09/24/2016 6:00 PM EDT 25 mcg lactated Ringers infusion 1,000 New Bag 09/24/2016 1:30 PM EDT 1,000 mLs 100 mL/hr mL 1,000 mL, at 100 mL/hr, Intravenous, CONTINUOUS, Starting on Fri09/24/16 at 1330, Until Fri09/24/16 at 1948, Day of Surgery (Day of Procedure) documented in this encounter Active and Recently Administered Medications Times are shown in EDT. Scheduled Medication Order 09/22/2016 09/23/2016 09/24/2016 ceFAZolin (ANCEF) 2g in dextrose 5% 100 mL (COMPLETED) 1601 (Given - Provider: Ann Marie Hand CRNA) 2 g, Intravenous, ONCE, 1 dose, e at 1330, Administer over 30 Minutes, Day of Surgery (Day of Procedure), Indication for (Active or Suspected): Prophylaxis gentamicin (GARAMYCIN) 80 mg in sodium chloride 0.9% 102 mL (COM PLETED) 1601 (New Bag - Provider: Ann Marie Hand CRNA) 80 mg, Intravenous, ONCE, 1 dose, e 09/24/16 at 1330, Administer over 60 Minutes, This medication may have an associated drug lab level. Please check for lab orders. Warning Vesicant/Irritant Medicat ion , Day of Surgery (Day of Procedur e), Indication for (Active or Suspected): Prophylaxis Continuous Medication Order 09/22/2016 09/23/2016 09/24/2016 lactated Ringers infusion 1,000 mL (CANCELED) 1330 (New Bag - Provider: Starla Hoang RN)1749 (Anesthesia Volume Adjustment - Provider: Ann Marie Bautista CRNA) 1,000 mL, at 100 mL/hr, Intravenous, CON TINUOUS, Starting e 09/24/16 at 1330, Until Tu09/24/16 at 1948, Day of Surgery (Day of Procedure) PRN Medication Order 09/22/2016 09/23/2016 09/24/2016 acetaminophen (TYLENOL) tablet 1,000 mg 1945 (Given - Provider: Luna Messina, JENNIFER) 1,000 mg, Oral, EVERY 6 HOURS PRN, Start ing Fri09/24/16 at 1938, Until Fri09/24/16 at 2213, Pain, Maximum dose of acetaminophen is 4000 mg from all sources in 24 hours., Routine fentaNYL 50mcg/mL injection (CANCELED) 1800 (Given - Provider: Toshia Gibson, RN)1854 (Given - Provider: Toshia Gibson, RN) 25 mcg, Intravenous, EVERY 5 [address] PRN, St arting e 09/24/16 at 1811, Until Fri09/24/16 at 1948, Pain, for 1-4 pain score, for 1-4 pain score Hold for respiratory rate less than 10 per minute. Maximum dose: 250 mcg over one hour., PACU Recovery, Routine No Frequency Medication Order 09/22/2016 09/23/2016 09/24/2016 fentaNYL Citrate (PF) 100 mcg/2 mL (50 mcg/mL) syringe 1900 (Due) 1 dose, Starting e 09/24/16 at 1851, Unt il 09/25/16 at 0659, TOSHIA GIBSON: cabinet override documented in this encounter Care Teams Perfusionist Relationship Specialty Start Date End Date Mariluz Vargas MD PCP - General Family Medicine 11/20/[address] [place] [address] documented as of this encounter
--- OUTSIDE RECORDS SUMMARY | 2021-11-16 01:19 | XMS_ITS | Encounter Summary ---
:1970 Author Organization [place] [address] Care Team Providers Name Role Phone Mariluz Vargas MD Primary Care Provider Encounter Details Date Type Department Care Team Description 07/09/2016 Office Visit Urology at [facility] Dayron Jauregui, Recurrent UTI (urinary tract infection); [facility] TONYA Mcgee [address] [place], [place] CENTER [address] UROLOGY DEPT. [phone] [place], [place] [address] Social History Tobacco Use Types Packs/Day Years Used Date Never Smoker Smokeless Tobacco: Never Used Alcohol Use Standard Drinks/Week Comments Yes 1 (1 standard drink = 0.6 oz pure alcoho l) Sex Assigned at Date Recorded Not on file documented as of this encounter Last Filed Vital Signs Vital Sign Reading Time Taken Comments Blood Pressure 112/70 07/09/2016 1:27 PM EDT Pulse 63 07/09/2016 1:27 PM EDT Temperature - - Respiratory Rate - - Oxygen Saturation - - Inhaled Oxygen Concentration - - Weight 54.9 kg (121 lb) 07/09/2016 1:27 PM EDT Height 167.6 cm (5' 6) 07/09/2016 1:27 PM EDT Body Mass Index 19.53 07/09/2016 1:27 PM EDT documented in this encounter Progress Notes Arely Preciado, CELL OPERATION SUPERVISOR - 07/09/2016 1:40 PM EDT UROLOGY CLINIC History of Present Illness: Ms. Adela Mosley is a 46 year old woman here for follow up of UTIsand possibly IC. She was previously seen by urology in 2010 for e.coli UTIs. She underwent a normal renal U/S on 04/09/10; this also demonstrated a low PVR of 36 ccs. Her culture indicates: 04/23/2016: 10-50 K e.coli 04/17/2016: e.coli 03/28/2016: 10-50 K e.coli ackerman sensitive-she wanted macrobid called in, but will not start this 02/27/2016: e.coli 06/09/15: 10-50K e.coli tx with cefpodox 05/30/15: < 10 K gm neg 05/23/15: contam and no UA. 04/18/15: no growth 04/03/15: neg Repeat culture proves she clears. 03/15/15: 10-50 K e.coli ackerman sensitive 03/01/15: 50-99K e.coli tx with keflex She was dx with IC when she saw Rosaura, but was put on abx prophylaxis which worked. If she has a flare she is more irritated by the irritant foods. She has had an 02/2016 CT, nonobstructing stones bilaterally, no renal masses Renal US due in 08/2015 Cystoscopy has been discussed as had management of her stones with ureteroscopy/laser lithotripsy. She has opted to defer in the past. She feels she may be ready for this now Some intermittent UTI symptoms took full course of macrobid in early 06/2016 given dysuria and fatigue. Some symptoms today but she can overall manage them. No gross hematuria. She wonders if she passedstones in 02/2016. She has seen a homeopath, so will start a new med soon to see if this helps dissolve her stones. Her urinary/UTI symptoms are intermittent, mostly in the night and evening. In 05/2016, she had intercourse and had UTI symptoms, but delayed treatment and then did the abx in 06/2016. Hydrates still a ton +64 oz per day. Bowels are intermittent, eating habits changed a bit. With stress. She has IBS, no diverticulosis. She is very fatigued. She is on dmannos. She is on transdermal estrogen. She has been given a script for amitriptyline, but did not take this. She has noticed that her bladder is worse with lemon/cayenne pepper, or hi protein drink, sometimes exercise as well. cran has been ok. She voids every 1-2 hours during the day and double voids to get all of her urine out. Her stream isok. She wakes 1 time at night. Voiding often helps her symptoms. She drinks no coffee, rare 8 oz of dark tea intermittently but often none per day, 64 oz of water, except slightly less recently given her urge. PAST MEDICAL/SURGICAL HISTORY: Genital HSV Cervical cancer (?CIS) treated with LEEP 2005 , no regular menses now SOCIAL HISTORY: , no children. 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 She is a non-smoker, non-drinker. FAMILY HISTORY: Negative for cancers. Her father has kidney stones. PHYSICAL EXAM: General: Thin but healthy appearing woman, A+Ox3 in NAD. Abdomen: No CVA tenderness. Pelvic: deferred (02/2015: The external genitalia are normal with normal hair distribution and no lesions. The meatus is in a normal location with a normal configuration. There is no mobility of the bladder neck. The urethra is nontender. There are no urethral masses. The patient does not leak in the supine position with a valsalva and with coughing. There is a Gr. 0 cystocele and a Gr. 0 rectocele. There are no pelvic masses. The patient can Kegal effectively. Rectal: normal rectal tone and no rectal masses) Musculoskeletal: grossly normal Neurologic: grossly normal PVR with bladder scanner: deferred 64 cc on renal US today 02/2015: 20-30 cc with scanner U/A: Sent for culture Renal US: 06/2016; two stones, nonobstructing bilaterally. No renal masses. She empties her bladder well. IMPRESSION Ultrasound Dictation: Small bilateral nonobstructive renal calculi, 2 each side largest 7mm IMPRESSION: ??? Persistent e.coli UTIs and nonobstructing renal stones Urine for culture today. If positive, she will consider treatment prior to stone surgery At this time, she would like to consider surgical options for her stones to see if this helps her infections. We discussed her persistent e.coli and cystoscopy. She will defer in clinic but will have this at the time of ureteroscopy and laser lithotripsy if Dr. Murphy feels she is a candidate. We discussed risks of procedure, that it could be staged, also bleeding, infection, readmission, stroke, RI, , prolonged hospital stay, risk of injury to bladder, ureter, kidneys and surrounding structures. She understands one kidney would likely be done at a time, and that she will have a stent after procedure. She understands this. Hydration with water and timed voiding as she has been. Moderation of bowels She will stay on dmannose We discussed tx of culture and then 6 months of prophylaxis. She will consider this. She would liketo stay off abx if possible, but she is feeling fatigued enough that she would consider a intermediate project manager management option for her UTIs/stones. ??? OAB and mild KWAN Hydration with water and timed voiding every 2-3 hours We discussed the likelihood of fistula contributing to urine output, possible pneumaturia and vaginal discharge. She has had cervical cancer. We discussed imaging looking for a fistula. At this time, we will defer and she will track her symptoms. Cysto in the OR if she goes. She will call if she has questions or concerns, if she feels her symptoms are worsening. All questions answered to her apparent satisfaction. She will call me if she does not hear from me. Arely Jauregui APRN documented in this encounter Miscellaneous Notes Addendum Note - Roxi Hendricks LPN - 07/09/2016 2:32 PM EDT Addended by: ROXI HENDRICKS on: 07/09/2016 02:32 PM Modules accepted: Orders documented in this encounter Plan of Treatment Not on filedocumented as of this encounter Procedures Procedure Name Priority Date/Time Associated Diagnosis Comme nts URINE CULTURE Routine 07/09/2016 2:27 PM Recurrent UTI Results for this EDT (urinary tract procedure are in the infection) results section . documented in this encounter Results (ABNORMAL) Urine culture Clean Catch Urine (07/09/2016 2:27 PM EDT) [facility] Method Time Signature Urine Culture 10,000-49,000 NATALIA cfu/ml [facility] (A) [facility] Organism Escherichia NATALIA coli (A) [facility] Specimen (Source) Anatomical Collection Method Collection Time Re ceived Time Location / / Volume Laterality Urine specimen 07/09/2016 2:27 07/09/2016 2:48 obtained by clean PM EDT PM EDT catch procedure (specimen) Resulting Agency Comment Spec In Lab Organism [...] coli Meropenem MICROSCAN METHOD Sensitive Escherichia coli Nitrofurantoin MICROSCAN METHOD Sensitive Escherichia coli Piperacillin/Tazobactam MICROSCAN METHOD Sensit martin Escherichia coli Tetracycline MICROSCAN METHOD Sensitive Escherichia coli Tobramycin MICROSCAN METHOD Sensitive Escherichia coli Trimethoprim/Sulfa MICROSCAN METHOD Sensitive Isma Farooq III, MD MICROBIOLOGY - GENERAL ORDER PATRICK Performing Organization Address City/State/[place] [address] documented in this encounter Visit Diagnoses Diagnosis Recurrent UTI (urinary tract infection) Urinary tract infection, site not specif ied Nephrolithiasis Calculus of kidney documented in this encounter Care Teams Chief Psychology Relationship Specialty Start Date End Date Mariluz Vargas MD PCP - General Family Medicine 11/20/[address] [place] [address] documented as of this encounter
--- OUTSIDE RECORDS SUMMARY | 2021-11-16 01:19 | XMS_ITS | Encounter Summary ---
:1970 Author Organization [facility] [place] [address] Care Team Providers Name Role Phone Mariluz Vargas MD Primary Care Provider Encounter Details Date Type Department Care Team Description 03/05/2019 Telephone Dermatology at [facility] Roxi Gaona MD [address] [facility] [place] [address] [facility] [phone] [place], [place] [address] (Wo rk) Social History Tobacco Use Types Packs/Day Years Used Date Never Smoker Smokeless Tobacco: Never Used Alcohol Use Standard Drinks/Week Comments Yes 1 (1 standard drink = 0.6 oz pure alcoho l) Sex Assigned at Date Recorded Not on file documented as of this encounter Miscellaneous Notes Telephone Encounter - Kelly Morgan CCMA - 03/05/2019 5:29 PM EST Returned patient's call, okay per Dr. Dutton to d/c Joe's toothpaste and switch to baking soda. Encouraged her to follow up for new or worsening symptoms. Telephone Encounter - Luna Leach - 03/05/2019 2:10 PM EST Received call from Adela Samra Mosley stating that she thinks she is having an allergic reaction to the Joe's of Pamela Fennel toothpaste. Adela states that she is going to use straight baking soda, andwanted to verify that that would be ok. Please call [phone] documented in this encounter Plan of Treatment Not on filedocumented as of this encounter Visit Diagnoses Not on filedocumented in this encounter Care Teams Farebox Repairer Relationship Specialty Start Date End Date Mariluz Vargas MD PCP - General Family Medicine 11/20/[address] [place] [address] documented as of this encounter
--- OUTSIDE RECORDS SUMMARY | 2021-11-16 01:19 | XMS_ITS | Encounter Summary ---
:1970 Author Organization [facility] [place] [address] Care Team Providers Name Role Phone Mariluz Vargas MD Primary Care Provider Encounter Details Date Type Department Care Team Description 04/29/2017 Office Visit Urology at [facility] Alvaro Muñiz MD Nephrolithiasis [facility] [place] [address] NEPHROLOGY DEPT. [phone] [place], [place] [address] (Wo rk) Social History Tobacco Use Types Packs/Day Years Used Date Never Smoker Smokeless Tobacco: Never Used Alcohol Use Standard Drinks/Week Comments Yes 1 (1 standard drink = 0.6 oz pure alcoho l) Sex Assigned at Date Recorded Not on file documented as of this encounter Last Filed Vital Signs Vital Sign Reading Time Taken Comments Blood Pressure 110/70 04/29/2017 10:33 AM EST Pulse - - Temperature - - Respiratory Rate - - Oxygen Saturation - - Inhaled Oxygen Concentration - - Weight - - Height - - Body Mass Index - - documented in this encounter Progress Notes Alvaro Muñiz MD - 04/29/2017 11:00 AM EST 47 y/o woman seen at the request of for nephrolithiasis The patient had operative removal of bilateral nephrolithiasis because of recurrent UTIs, stone analysis revealed Right: 100% Calcium oxalate monohydrate Left: 50% CaOx monohydrate; 40% CaPhos (apatite); 10% CaOx dihydrate The patient had a 24hr urine collection in November of last year Has not had UTIs, some flank pain on right side 24hr urine in November 2016: 4.2liter, SSCaOx 4.2 Ca 245 Ox 55 citrate 730 SSCaP 0.53 pH 6.5 UA 628 Past Medical Hx: Nephrolithiasis HSV Cone biopsy for cervical cancer asthma Fam Hx: aunt had nephrolithiasis Soc Hx: , 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 magnesium 250 mg Tablet, Take by mouth., Disp: , Rfl: ??? cyanocobalamin, vitamin B-12, 1,000 mcg/mL Solution, Inject as directed., Disp: , Rfl: ??? cholecalciferol, Vitamin D3, (CHOLECALCIFEROL, VITAMIN D3,) 2,000 unit Capsule, Take by mouth., Disp: , Rfl: ??? potassium chloride (KAYCIEL) 20 mEq/15 mL Liquid, Take by mouth daily., Disp: , Rfl: ??? DESOG-E.ESTRADIOL/E.ESTRADIOL (KARIVA, 28, ORAL), Take by mouth daily., Disp: , Rfl: ??? fish oil-omega-3 fatty acids 1,000 mg Capsule, Take 2 g by mouth daily., Disp: , Rfl: Allergies Allergen Reactions ??? Prochlorperazine muscle spasms ??? Sulfa (Sulfonamide Antibiotics) Rash Physical exam: Most Recent Vitals: 04/29/17 1033 BP: 110/70 lean Normal color Lungs clears Heart regular rhythm, No costophrenic angle tenderness Abdomen soft Limbs no edema Labs: Results for CLOUATRE, ADELA V ( ) as of 04/29/2017 10:35 Ref. Range 11/15/2016 15:03 Sodium Latest Ref Range: 135 - 145 mmol/L 142 Potassium Latest Ref Range: 3.5 - 5.0 mmol/L 4.3 Chloride Latest Ref Range: 98 - 107 mmol/L 102 CO2 Latest Ref Range: 22 - 31 mmol/L 26 Anion Gap Latest Ref Range: 5 - 15 mmol/L 14 BUN Latest Ref Range: 8 - 18 mg/dL 15 Creatinine Latest Ref Range: 0.70 - 1.20 mg/dL 0.87 Estimated GFR Latest Ref Range: >=60 >60 Glucose Lvl Latest Ref Range: 65 - 199 mg/dL 103 Calcium Latest Ref Range: 8.5 - 10.5 mg/dL 9.5 Uric Acid Latest Ref Range: 2.5 - 6.5 mg/dL 4.9 Total Protein Latest Ref Range: 6.1 - 8.0 gm/dL 7.6 Albumin Latest Ref Range: 3.2 - 5.2 gm/dL 4.3 Total Bilirubin Latest Ref Range: 0.2 - 1.3 mg/dL 0.5 Alk Phos Latest Ref Range: 40 - 104 unit/L 55 AST Latest Ref Range: 0 - 30 unit/L 20 ALT Latest Ref Range: 0 - 30 unit/L 14 Renal ultrasound: INDICATIONS: history of nephrolithiasis and infected stone. ? stones or hydro COMPARISON: Ultrasound: 11/15/16 RIGHT KIDNEY: Size (cm) L: 9.7 Cortical Thickness: Normal Cortical Echogenicity: Normal Hydronephrosis: No sonographic evidence ?? LEFT KIDNEY: Size (cm) L: 10.3 Cortical Thickness: Normal Cortical Echogenicity: Normal Hydronephrosis: No sonographic evidence ?? URINARY BLADDER: Pre-void (cm) L: 5.1 AP: 1.9 TV: 5.8 Vol (ml): 29.4 ?? Comment: Partially distended, normal contour IMPRESSION 1. Normal renal parenchymal thickness and echogenicity bilaterally. Nohydronephrosis or nephrolithiasis.2. The previously noted sub-5 mm left nonobstructing nephrolithiasis is notvisualized on today's exam.3. Normal partially distended bladder.I have personally reviewed the image(s) and the residents interpretation andagree with the findings, Svitlana Thao MD at 04/29/2017 10:41 AM A/P: Patient with calcium oxalate/calcium phosphate stones with risk factor oxalate intake The patient is following a diet with multiple restriction, gluten, lactose, sugar which makes reducing oxalate more difficult Dietary advice was offered but she has her own java j2ee technical lead The patient is drinking plenty of water, was encouraged to persist with her efforts Recent operative stone extractions because of recurrent UTIs, the patient has no more UTI since RTC in a year documented in this encounter Plan of Treatment Not on filedocumented as of this encounter Visit Diagnoses Diagnosis Nephrolithiasis Calculus of kidney documented in this encounter Care Teams Bottom Ironer Relationship Specialty Start Date End Date Mariluz Vargas MD PCP - General Family Medicine 11/20/[address] [place] [address] documented as of this encounter
--- OUTSIDE RECORDS SUMMARY | 2021-11-16 01:19 | XMS_ITS | Encounter Summary ---
:1970 Author Organization [facility] [place] [address] Care Team Providers Name Role Phone Mariluz Vargas MD Primary Care Provider Encounter Details Date Type Department Care Team Description 10/14/2016 Notes Only Urology at [facility] José Luis Block MD [facility] [place] [address] UROLOGY DEPT [phone] [place], [place] [address] (Wo rk) Social History Tobacco Use Types Packs/Day Years Used Date Never Smoker Smokeless Tobacco: Never Used Alcohol Use Standard Drinks/Week Comments Yes 1 (1 standard drink = 0.6 oz pure alcoho l) Sex Assigned at Date Recorded Not on file documented as of this encounter Progress Notes Mayte Abbasi LNA - 10/14/2016 1:57 PM EDT Urine Culture on 10/11/2016 is a no treat per Dr. Mabry. Letter sent out Gram positive rina <10,000 colonies/ ml documented in this encounter Plan of Treatment Not on filedocumented as of this encounter Visit Diagnoses Not on filedocumented in this encounter Care Teams Senior Hardware Engineer Relationship Specialty Start Date End Date Mariluz Vargas MD PCP - General Family Medicine 11/20/[address] [place] [address] documented as of this encounter
--- OUTSIDE RECORDS SUMMARY | 2021-11-16 01:19 | XMS_ITS | Encounter Summary ---
:1970 [place] [address] Care Team Providers Name Role Phone Mariluz Vargas MD Primary Care Provider Encounter Details Date Type Department Care Team Description 03/15/2016 Hospital Encounter Radiology Library at [facility]t Mcclellan MD [facility] [place] [address] [place] [address] [phone] (Wo rk) Social History Tobacco Use Types Packs/Day Years Used Date Never Smoker Smokeless Tobacco: Never Used Alcohol Use Standard Drinks/Week Comments Yes 1 (1 standard drink = 0.6 oz pure alcoho l) Sex Assigned at Date Recorded Not on file documented as of this encounter Medications at Time of Discharge Medication Sig Dispensed Refills Start Date End Date d-mannose Powder Take by mouth. 0 10/20 UNABLE TO FIND Estrogen cream 0 2016 fish oil-omega-3 fatty Take 2 g by mouth 0 02/25/2019 acids 1,000 mg Capsule daily. magnesium citrate Take by mouth. 0 Solution PROGESTERONE, BULK, by Misc.(Non-Drug; 0 11/15/2016 MISCIndications: topical Combo Route) route. cream Indications: topical cream documented as of this encounter Plan of Treatment Not on filedocumented as of this encounter Procedures Procedure Name Priority Date/Time Associated Diagnosis Comme nts FILM LIBRARY Routine 03/15/2016 12:00 AM Pain Results for this STORAGE ONLY CT EST procedure ar e in ABDOMEN AND PELVIS the resul ts section. documented in this encounter Results Film Library- Storage Only CT Abdomen & Pelvis (03/15/2016 12:00 AM EST) Specimen (Source) Anatomical Location Collection Method / Collectio n Time Received Time / Laterality Volume Narrative [facility] - 03/27/2016 4:44 PM EST This exam is for storage only and is aut o-finalizing. Oliver Mcclellan MD IMG FILM LIBRARY ORDERABLES Performing Organization Address City/State/ZIP Code Phon e Number [place], [place] documented in this encounter Visit Diagnoses Diagnosis Pain Generalized pain documented in this encounter Care Teams Buttoner Relationship Specialty Start Date End Date Mariluz Vargas MD PCP - General Family Medicine 11/20/[address] [place] [address] documented as of this encounter
--- OUTSIDE RECORDS SUMMARY | 2021-11-16 01:19 | XMS_ITS | Encounter Summary ---
:1970 Author Organization [facility] [place] [address] Care Team Providers Name Role Phone Mariluz Vargas MD Primary Care Provider Encounter Details Date Type Department Care Team Description 04/04/2016 Orders Only Urology at [facility] Arely Preciado, [facility] [place] [address] [facility] [phone] UROLOGY DEPT. [place], [place] [address] (Wo rk) Social History Tobacco Use Types Packs/Day Years Used Date Never Smoker Smokeless Tobacco: Never Used Alcohol Use Standard Drinks/Week Comments Yes 1 (1 standard drink = 0.6 oz pure alcoho l) Sex Assigned at Date Recorded Not on file documented as of this encounter Plan of Treatment Not on filedocumented as of this encounter Visit Diagnoses Not on filedocumented in this encounter Care Teams Senior Linux Systems Engineer Relationship Specialty Start Date End Date Mariluz Vargas MD PCP - General Family Medicine 11/20/[address] [place], [place] [address] documented as of this encounter
--- OUTSIDE RECORDS SUMMARY | 2021-11-16 01:19 | XMS_ITS | Encounter Summary ---
:1970 Author Organization [facility] [place] [address] Care Team Providers Name Role Phone Mariluz Vargas MD Primary Care Provider Encounter Details Date Type Department Care Team Description 11/15/2016 Office Visit Urology at [facility] Dayron Hollins, Dg UTI (urinary tract infection); [facility] TONYA Mcgee Nephrolithiasis; Drive [facility] IC (interstitial [place]stitis) [place] [address] UROLOGY DEPT. [phone] [place], [place] [address] Social History Tobacco Use Types Packs/Day Years Used Date Never Smoker Smokeless Tobacco: Never Used Alcohol Use Standard Drinks/Week Comments Yes 1 (1 standard drink = 0.6 oz pure alcoho l) Sex Assigned at Date Recorded Not on file documented as of this encounter Last Filed Vital Signs Vital Sign Reading Time Taken Comments Blood Pressure 128/71 11/15/2016 2:26 PM EDT Pulse 52 11/15/2016 2:26 PM EDT Temperature 36.8 ??C (98.2 ??F) 11/15/2016 2:26 PM EDT Respiratory Rate - - Oxygen Saturation 100% 11/15/2016 2:26 PM EDT Inhaled Oxygen Concentration - - Weight - - Height - - Body Mass Index - - documented in this encounter Progress Notes Bowen Preciado, LAUNDRY PRESS OPERATOR - 11/15/2016 2:20 PM EDT UROLOGY CLINIC History of Present Illness: Ms. Tari Mosley is a 46 year old woman here for follow up of UTIsand possibly IC. She had surgery with Dr. Murphy to manage her stone and infection. Her stone was infected. Her repeat urine culture was contaminated. Stone formation: Kidney Stone Analysis ?? Source: ?Left Renal ?? 1st Constituent: ? 50% Calcium oxalate monohydrate ?? 2nd Constituent: ? 40% Calcium phosphate (apatite) ?? 3rd Constituent: ? 10% Calcium oxalate dihydrate She has no dysuria, but has bladder pressure, irritation, intermittent. Morning and night, but very minor. No gross hematuria. No fever/chills/flank pain. No pain with intercourse like she used to have. She was previously seen by urology in 2010 for e.coli UTIs. She underwent a normal renal U/S on 04/09/10; this also demonstrated a low PVR of 36 ccs. Her culture indicates: 10/14/2016: contam 09/24/2016: no growth 09/04/2016: e.coli 04/23/2016: 10-50 K e.coli 04/17/2016: e.coli 03/28/2016: 10-50 K e.coli ackerman sensitive-she wanted macrobid called in, but will not start this 02/27/2016: e.coli 06/09/15: 10-50K e.coli tx with cefpodox 05/30/15: < 10 K gm neg 05/23/15: contam and no UA. 04/18/15: no growth 04/03/15: neg Repeat culture proves she clears. 03/15/15: 10-50 K e.coli ackerman sensitive 03/01/15: 50-99K e.coli tx with keflex She overall feels a lot better. Her flank pain may be back related, but is less constant than it used to be. She was dx with IC when she [...] she may be ready for this now Hydrates still a ton +64 oz per day. Bowels are intermittent, eating habits changed a bit. With stress. She has IBS, no diverticulosis. Less fatigued overall. Feels she is starting to normalize. She is on dmannos. She is on transdermal estrogen. She has been given a script for amitriptyline, but did not take this. She has noticed that her bladder is worse with lemon/cayenne pepper, or hi protein drink, sometimes exercise as well. cran has been ok. Has not tried to restart irritant foods yet. PAST MEDICAL/SURGICAL HISTORY: Genital HSV Cervical cancer (?CIS) treated with LEEP 2005 Patient Active Problem List Diagnosis Code ??? Recurrent UTI (urinary tract infection) N39.0 ??? IC (interstitial cystitis) N30.10 ??? Nephrolithiasis N20.0 , no regular menses now SOCIAL HISTORY: , no children. 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 She is a non-smoker, non-drinker. FAMILY HISTORY: Negative for cancers. Her father has kidney stones. PHYSICAL EXAM: General: Thin but healthy appearing woman, A+Ox3 in NAD. Abdomen: No CVA tenderness. abd soft, tender suprapubically Pelvic: deferred (02/2015: The external genitalia are [...] grossly normal PVR with bladder scanner: deferred 32 cc on renal US today 02/2015: 20-30 cc with scanner U/A: neg but culture sent Renal US: 10/2016: renal US with one left 3 mm nonobstructing rneal stone per imaging and report 06/2016; two stones, nonobstructing bilaterally. No renal masses. She empties her bladder well. IMPRESSION Ultrasound Dictation: Small bilateral nonobstructive renal calculi, 2 each side largest 7mm IMPRESSION: ??? Persistent e.coli UTIs and nonobstructing renal stones, and OAB symptoms Urine for culture today. If negative, consider treatments for IC vs bladder irritation/oab Hydration with water and timed voiding as she has been, putting out 2 litres. Moderation of bowels and irritants She will stay on dmannose at this time Will defer prophylaxis at this time. Renal US in [address] Murphy in metabolic stone clinic We discussed metabolic workup and she wanted to pursue. Blood work ordered, form for litholink given. She will do this in the next month All questions answered to her apparent satisfaction. She will call me if she does not hear from me. Bowen Hollins APRN documented in this encounter Miscellaneous Notes Addendum Note - Adalgisa Butler RN - 11/15/2016 4:23 PM EDT Addended by: ADALGISA BUTLER on: 11/15/2016 04:23 PM Modules accepted: Orders Addendum Note - Dorothy Shen - 11/15/2016 2:58 PM EDT Addended by: DOROTHY SHEN on: 11/15/2016 02:58 PM Modules accepted: Orders documented in this encounter Plan of Treatment Not on filedocumented as of this encounter Procedures Procedure Name Priority Date/Time Associated Diagnosis Comme nts LAB SCAN 12/10/2016 12:00 Results for this AM EDT procedure are i n the results section. URINE CULTURE Routine 11/15/2016 6:18 Recurrent UTI (urinary R esults for this PM EDT tract infection) procedure a re in the results section. URIC ACID Routine 11/15/2016 3:03 Nephrolithiasis Results f or this PM EDT procedure are i n the results section. COMPREHENSIVE STAT 11/15/2016 3:03 Nephrolithiasis Results for this METABOLIC PANEL PM EDT procedure ar e in (NON-FASTING) the results section. documented in this encounter Results US Retroperitoneal Complete (04/29/2017 9:55 AM EST) Anatomical Region Laterality Modality Abdomen Ultrasound Specimen (Source) Anatomical Collection Method Collection Time Re ceived Time Location / / Volume Laterality 04/29/2017 9:54 AM EST Impressions 04/29/2017 10:49 AM EST ??1. ??Normal renal parenchymal thickne ss and echogenicity bilaterally. Nohydronephro sis or nephrolithiasis.2. ??The previously not ed sub-5 mm left nonobstructing nephrolithiasis is notvi sualized on today's exam.3. ??Normal partially dist ended bladder.I have personally reviewed the image(s) a nd the residents interpretation andagree with the findings, Svitlana Thao MD at 04/29/2017 10:41 A M ? Svitlana pérez MD Electronically Signed Final Report ?? 10:48 am Narrative 04/29/2017 10:49 AM EST Renal ? (Signed Final 04/29/2017 10:48 am) PATIENT INFO: ID #: ? [id number] ?: ??[birth year] (47 yrs) Name: ? TARI V ? Visit Date: 04/29/2017 09:54 am ? CLOUATRE PERFORMED BY: Performed By: ? Vandana LOWERY, ??Enio johnson Attending: ?Master VILLASENOR, Kieran Pratt. Resident: ? Heaven VILLASENOR, Krista Strange Referred By: ?BOWEN Noriega Location: ? [place] SERVICE(S) PROVIDED: ??URETRO - Retroperitoneal Complete - I [id number] ? [id number] INDICATIONS: ??history of nephrolithiasis and infect ed stone. ??? stones or hydro COMPARISON: Ultrasound: 11/15/16 RIGHT KIDNEY: Size (cm) ?L: ??9.7 Cortical Thickness: ?Normal Cortical Echogenicity: ?? Normal Hydronephrosis: ?No sonogr aphic evidence LEFT KIDNEY: Size (cm) ?L: ??10.3 Cortical Thickness: ?Normal Cortical Echogenicity: ?? Normal Hydronephrosis: ?No sonogr aphic evidence URINARY BLADDER: Pre-void (cm) ? L: ??5.1 ? A P: ??1.9 ? TV: ??5.8 Vol (ml): ?29.4 Comment: ?Partially distended, norm al contour Procedure Note Svitlana Thao MD - 04/29/2017Forma tting of this note might be different from the original. Renal (Signed Final 04/29/2017 10:48 am ) PATIENT INFO: ID #: [id number] : [birth year] (47 y rs) Name: TARI Cabrales Visit Date: 04/29/2017 0 9:54 am CLOUATRE PERFORMED BY: Performed By: Ana Ross RDMS Attending: Svitlana Thao MD Resident: Mejia Collado MD Referred By: BOWEN HOLLINS Location: [place] SERVICE(S) PROVIDED: URETRO - Retroperitoneal Complete - [facility] [id number] INDICATIONS: history of nephrolithiasis and infected stone. ? stones or hydro COMPARISON: Ultrasound: 11/15/16 RIGHT KIDNEY: Size (cm) L: 9.7 Cortical Thickness: Normal Cortical Echogenicity: Normal Hydronephrosis: No sonographic evidence LEFT KIDNEY: Size (cm) L: 10.3 Cortical Thickness: Normal Cortical Echogenicity: Normal Hydronephrosis: No sonographic evidence URINARY BLADDER: Pre-void (cm) L: 5.1 AP: 1.9 TV: 5.8 Vol (ml): 29.4 Comment: Partially distended, normal co ntour IMPRESSION 1. Normal renal parenchymal thickness a nd echogenicity bilaterally. Nohydronephro sis or nephrolithiasis.2. The previously noted sub-5 mm left nonobstructing nephrolithiasis is notvi sualized on today's exam.3. Normal partially disten ded bladder.I have personally reviewed the image(s) a nd the residents interpretation andagree with the findings, Svitlana Thao MD at 04/29/2017 10:41 A M Svitlana Thao MD Electronically Signed Final Report 04/29 10:48 am Bowen Hollins APRN IMG US GEN ORDERABLES SCAN DOC: LAB (12/10/2016 12:00 AM EDT) Narrative 12/10/2016 12:00 AM EDT This result has an attachment that is no t available. Ordered by an unspecified provider. Scanning Provider MEDIA MGR SCAN EXT ORDR/RSLT (ABNORMAL) Urine culture Clean Catch Urine (11/15/2016 6:18 PM EDT) [facility] Method Time Signature Urine Culture 1,000-9,000 NATALIA cfu/ml [facility] probable LABORATORY contaminant (A) Specimen (Source) Anatomical Collection Method Collection Time Re ceived Time Location / / Volume Laterality Urine specimen 11/15/2016 6:18 11/15/2016 6:18 obtained by clean PM EDT PM EDT catch procedure (specimen) Resulting Agency Comment Spec In Lab Bowen Hollins APRN MICROBIOLOGY - GENERAL ORDER PATRICK Performing Organization Address City/State/ZIP Code Phon e Number [place] [phone] [facility] [address] Uric acid (11/15/2016 3:03 PM EDT) athologist Signature Uric Acid 4.9 2.5 - 6.5 [facility] mg/dL [facility] LABORATORY Specimen Anatomical Collection Method Collection Time Receive d Time (Source) Location / / Volume Laterality Blood specimen 11/15/2016 3:03 PM 017 3:06 (specimen) EDT PM EDT Resulting Agency Comment Spec In Lab Bowen Dayron Hollins APRN CHEMISTRY ORDERABLES Performing Organization Address City/State/ZIP Code Phon e Number [address] Comprehensive metabolic panel (non-fasting) (11/15/2016 3:03 PM EDT) athologist Signature Glucose Lvl 103 65 - 199 [facility] mg/dL [facility] Comment: Diabetes: >=200 mg/dL plus symp toms BUN 15 8 - 18 mg/dL [facility] Creatinine 0.87 0.70 - 1.20 mg/dL [facility] Comment: Please note that the pediatric reference intervals supplied above were not validated at [facility]. Results from pediatri c patients should be interpreted in conjunction to the patient's age, height and muscle mass. Sodium 142 135 - 145 mmol/L [facility] Potassium 4.3 3.5 - 5.0 mmol/L [facility] Comment: Please note: ??Patients with WBC >100,00 0 may have falsely elevated Potassium levels. ??For accurate Potassium quantif ication in these patients send serum separator tube (gold top) for subsequent determinations. ??Contact the Clinical Chemistry Laboratory if there are any qu estions. Chloride 102 98 - 107 mmol/L [facility] CO2 26 22 - 31 mmol/L [facility] Anion Gap 14 5 - 15 mmol/L [facility] Calcium 9.5 8.5 - 10.5 mg/dL [facility] Total Protein 7.6 6.1 - 8.0 gm/dL [facility] Albumin 4.3 3.2 - 5.2 gm/dL [facility] AST 20 0 - 30 unit/L [facility] ALT 14 0 - 30 unit/L [facility] Alk Phos 55 40 - 104 unit/L [facility] Total Bilirubin 0.5 0.2 - 1.3 mg/dL [facility] Estimated GFR >60 >=60 [facility] Comment: This estimated GFR (eGFR) value was calc ulated using the MDRD equation which has been validated on patients between t he ages of 18 and 70. The MDRD should not be used to assess kidney function in patients < 18 years of age or in patients with extremes of body mass, or in patients with acute kidney failure. This value should be multiplied by 1.2 f or patients. For further information please copy and past e the following links into your internet browser. http://Lyft/DHnkdep http://Lyft/DHMCnkf Specimen Anatomical Collection Method Collection Time Receive d Time (Source) Location / / Volume Laterality Blood specimen 11/15/2016 3:03 PM 017 3:06 (specimen) EDT PM EDT Resulting Agency Comment Spec In Lab Bowen Hollins APRN CHEMISTRY ORDERABLES Performing Organization Address City/State/ZIP [place] [address] documented in this encounter Visit Diagnoses Diagnosis Recurrent UTI (urinary tract infection) Urinary tract infection, site not specif ied Nephrolithiasis Calculus of kidney IC (interstitial cystitis) Chronic interstitial cystitis Nephrolithiasis Calculus of kidney documented in this encounter Care Teams Patcher Bowling Ball Relationship Specialty Start Date End Date Mariluz Vargas MD PCP - General Family Medicine 11/20/[address] [place] [address] documented as of this encounter
--- OUTSIDE RECORDS SUMMARY | 2021-11-16 01:19 | XMS_ITS | Encounter Summary ---
:1970 Author Organization [facility] [place] [address] Care Team Providers Name Role Phone Mariluz Vargas MD Primary Care Provider Encounter Details Date Type Department Care Team Description 04/02/2016 Orders Only Urology at [facility] Arely Preciado, [facility] [place] [address] [facility] [phone] UROLOGY DEPT. [place], [place] [address] (Wo rk) Social History Tobacco [...] on filedocumented in this encounter Care Teams Program Associate Relationship Specialty Start Date End Date Mariluz Vargas MD PCP - General Family Medicine 11/20/[address] [place], [place] [address] documented as of this encounter
--- OUTSIDE RECORDS SUMMARY | 2021-11-16 01:19 | XMS_ITS | Encounter Summary ---
:1970 Author Organization [facility] [address] Care Team Providers Name Role Phone Mariluz Vargas MD Primary Care Provider Encounter Details Date Type Department Care Team Description 02/23/2016 Telephone Urology at [facility] Jocelyn Navarro, [place] [address] Social History Tobacco Use Types Packs/Day Years Used Date Never Smoker Smokeless Tobacco: Never Used Alcohol Use Standard Drinks/Week Comments Yes 1 (1 standard drink = 0.6 oz pure alcoho l) Sex Assigned at Date Recorded Not on file documented as of this encounter Miscellaneous Notes Telephone Encounter - Jocelyn Navarro LPN - 02/23/2016 10:54 AM EDT The patient said she was told by Arely Maguire APRN to give a first catch urine sample locally. The patient will do this tomorrow at [facility]. I have sent an order to them for culture and have added this to the weekend culture list. JOCELYN NAVARRO LPN documented in this encounter Plan of Treatment Not on filedocumented as of this encounter Visit Diagnoses Not on filedocumented in this encounter Care Teams Power And Recovery Supervisor Relationship Specialty Start Date End Date Mariluz Vargas MD PCP - General Family Medicine 11/20/15 [address] [place] [address] documented as of this encounter
--- OUTSIDE RECORDS SUMMARY | 2021-11-16 01:19 | XMS_ITS | Encounter Summary ---
:1970 Author Organization [facility] [place] [address] Care Team Providers Name Role Phone Mariluz Vargas MD Primary Care Provider Encounter Details Date Type Department Care Team Description 09/24/2016 Surgery Main Operating Room Quentin Murphy Jr., CYSTOURETEROSCOPY,[facility] OSTIC,W/ LITHOTRIPSY [facility]. INSERTION OF [facility] [address] [place] URETERAL [facility] UROLOGY DEPT. STENT ([address]) [place] [address] [place] [address] [phone] (Wo rk) Social History Tobacco Use Types Packs/Day Years Used Date Never Smoker Smokeless Tobacco: Never Used Alcohol Use Standard Drinks/Week Comments Yes 1 (1 standard drink = 0.6 oz pure alcoho l) Sex Assigned at Date Recorded Not on file documented as of this encounter Last Filed Vital Signs Vital Sign Reading Time Taken Comments Blood Pressure 119/74 09/24/2016 1:09 PM EDT Pulse 64 09/24/2016 1:09 PM EDT Temperature 37.4 ??C (99.3 ??F) 09/24/2016 1:09 PM EDT Respiratory Rate 12 09/24/2016 1:09 PM EDT Oxygen Saturation 100% 09/24/2016 1:09 PM EDT Inhaled Oxygen Concentration - - [...] operation. Nelly Noguera MD Urology PGY-3 Pager: [phone] documented in this encounter Miscellaneous Notes Op Note - Nelly Noguera MD - 09/24/2016 6:50 PM EDT Operative Note ?? Patient Name: Tari Mosley : [id number] MR#: [id number] ?? Case Date: 09/24/2016 ?? Surgeon: Surgeon(s) [...] prior Nelly Noguera MD Urology PGY-3 Pager: [phone] Brief Op Note - Nelly Noguera MD - 09/24/2016 5:53 PM EDT Brief Operative Note Patient Name: Tari Mosley : [id number] MR#: [id number] Case Date: 09/24/2016 Surgeon: Surgeon(s) and Role: [...] l.I have personally reviewed the image(s) and emily residents interpretation andagree with the Aguila chris at 11/15/2016 1:31 PM ? Aguila albarran MD Electronically Signed Final Report ?? 01:39 pm Narrative 11/15/2016 1:40 PM EDT Renal ? (Signed Final 11/15/2016 01:39 pm) PATIENT INFO: ID #: ? [id number] ?: ??[birth year] (46 yrs) Name: ? TARI Samra ? Visit Date: 11/15/2016 01:09 pm ? CLOUATRE PERFORMED BY: Performed By: ? Juancho Romero RDMS Attending: ?Kirk VILLASENOR, Chris Hatch. Referred By: ?QUENTIN MURPHY JR Location: ? [place] SERVICE(S) PROVIDED: ??URETRO - Retroperitoneal Complete - I [id number] ? [id number] INDICATIONS: ??s/p bilateral URS 09/24/2016. ?hydro COMPARISON: [...] 01:39 pm ) PATIENT INFO: ID #: [id number] : [birth year] (46 y rs) Name: TARI Cabrales Visit Date: 11/15/2016 0 1:09 pm CLOUATRE PERFORMED BY: Performed By: Juancho Romero RDMS Attending: Aguila Bradley MD Referred By: QUENTIN MURPHY Location: [place] SERVICE(S) PROVIDED: URETRO - Retroperitoneal Complete - [facility] [place] [id number] INDICATIONS: s/p bilateral URS 09/24/2016. ?hydro COMPARISON: [...] l.I have personally reviewed the image(s) and th e residents interpretation andagree with the Aguila chris at 11/15/2016 1:31 PM Aguila Bradley MD Electronically Signed Final Report 11/15 01:39 pm Quentin Murphy Jr., MD IM US GEN ORDERABLES Anaerobic Culture (09/24/2016 6:08 PM EDT) [facility] Method Time Signature Anaerobic No anaerobic [facility] Culture organisms [facility] LABORATORY Specimen Anatomical Collection Method Collection Time Receive d Time (Source) Location / / Volume Laterality Specimen of 09/24/2016 6:08 PM 7 7:12 unknown material EDT PM EDT (specimen) Comment: LEFT RENAL CRUSHED STONE Resulting Agency Comment Spec In Lab Quentin Murphy Jr., MD MICROBIOLOGY - GENERAL ORDER PATRICK Performing Organization Address City/State/[place] [address] Tissue culture (09/24/2016 6:08 PM EDT) Component Value Ref Test Analysis Performed At [facility] gist Range Method Time Signature Tissue No growth NATALIA Culture [facility] LABORATORY Gram Stain No WBC's seen. NATALIA No microorganisms seen. [facility] LABORATORY Specimen Anatomical Collection Method Collection Time Receive d Time (Source) Location / / Volume Laterality Specimen of 09/24/2016 6:08 PM 7 7:12 unknown material EDT PM EDT (specimen) Comment: LEFT RENAL CRUSHED STONE Resulting Agency Comment Spec In Lab Quentin Murphy Jr., MD MICROBIOLOGY - GENERAL ORDER PATRICK Performing Organization Address City/State/[place] [address] Anaerobic Culture (09/24/2016 6:08 PM EDT) [facility] gist Method Time Signature Anaerobic No anaerobic NATALIA GLIDDEN Culture organisms [facility] LABORATORY Specimen Anatomical Collection Method Collection Time Receive d Time (Source) Location / / Volume Laterality Specimen of 09/24/2016 6:08 PM 7 7:23 unknown material EDT PM EDT (specimen) Comment: RIGHT RENAL CRUSHED STONE Resulting Agency Comment Spec In Lab Quentin Murphy Jr., MD MICROBIOLOGY - GENERAL ORDER PATRICK Performing Organization Address City/State/[place] [address] (ABNORMAL) Tissue culture (09/24/2016 6:08 PM EDT) Component Value Ref Test Analysis Performed At [facility] DS [employer] Range Method Time Signature Tissue Few Escherichia NATALIA Culture coli (A) [facility] LABORATORY Gram Stain Few White Blood Cells seen MA RY No microorganisms seen. [facility] Organism Escherichia coli NATALIA (A) [facility] LABORATORY Specimen Anatomical Collection Method [...] - GENERAL ORDER PATRICK Performing Organization Address City/[facility] Code Phon e Number [address] Urine culture Cystoscopic Urine (09/24/2016 6:08 PM EDT) [facility] Method Time Signature Urine Culture No growth [facility] (Less than [facility] 1,000 [facility] cfu/ml). LABORATORY Specimen Anatomical Collection Method Collection Time Receive d Time (Source) Location / / Volume Laterality Urine specimen 09/24/2016 6:08 PM 017 7:15 (specimen) EDT PM EDT Comment: RIGHT RENAL URINE Resulting Agency Comment Spec In Lab Quentin Murphy Jr., MD MICROBIOLOGY - GENERAL ORDER PATRICK Performing Organization Address City/[facility] Code Phon e Number [address] XR Fluoro No Rad <1Hr - OR Use (09/24/2016 6:07 PM EDT) Specimen (Source) Anatomical Location Collection Method / Collectio n Time Received Time / Laterality Volume Narrative DH RAD - 09/24/2016 6:07 PM EDT This order does not need a radiologist i nterpretation. ?? Quentin Murphy Jr., IMG FLUORO ORDERABLES Performing Organization Address City/State/ZIP Code Phon e Number [place]IN B[place], [place] Kidney Stone Analysis (09/24/2016 5:34 PM EDT) Component Value Ref Test Analysis Performed At [facility] Range Method Time Signature Kidney Stone NATALIA Analysis Test ? Result ?Flag ??Unit ??RefValue [employer] [facility] Kidney Stone Analysis [facility] ??Source: ?Lef t Renal LABORATORY ??1st Constituent: ?50% Calcium oxalate monohydrate ??2nd Constituent: ?40% Calcium phosphate (apatite) ??3rd Constituent: ?10% Calcium oxalate dihydrate ? ADDITIONAL INFORMATION ------ ?This test was developed and its performance characteri stics ?determined by [facility] in a manner consistent with CLIA ?requirements. This test has not been cleared or approv ed by ?the U.S. Food and Drug Administration. ?Test Performed by: ?[facility] [employer] [facility] [place] [address] [place] [address] Specimen Anatomical Collection Method Collection Time Receive d Time (Source) Location / / Volume Laterality Calculus 09/24/2016 5:34 PM 7 8:56 specimen EDT AM EDT (specimen) Resulting Agency Comment Spec In Lab Quentin Murphy Jr., MD BODY FLUIDS AND STOOLS ORDER PATRICK Performing Organization Address City/State/ZIP Code Phon [place] [address] Kidney Stone Analysis (09/24/2016 5:09 PM EDT) Component Value Ref Test Analysis Performed At [facility] Range Method Time Signature Kidney Stone NATALIA Analysis Test ? Result ?Flag ??Unit ??RefValue LANA [facility] Kidney Stone Analysis [facility] ??Source: ?Rig Renal LABORATORY ??1st Constituent: ?100% Calcium oxalate monohydrate ? ADDITIONAL INFORMATION ------ ?This test was developed and its performance characteri stics ?determined by [facility] in a manner consistent with CLIA ?requirements. This test has not been cleared or approv ed by ?the U.S. Food and Drug Administration. ?Test Performed by: ?[facility] [employer] [facility] ?[address] [place] [address] Specimen Anatomical Collection Method Collection Time Receive d Time (Source) Location / / Volume Laterality Calculus 09/24/2016 5:09 PM 7 8:56 specimen EDT AM EDT (specimen) Resulting Agency Comment Spec In Lab Quentin Murphy Jr., MD BODY FLUIDS AND STOOLS ORDER PATRICK Performing Organization Address City/[facility]/ZIP Code Phon e Number [address] Urine culture (09/24/2016 4:26 PM EDT) [facility] Method Time Signature Urine Culture No growth NATALIA MARTE (Less than [address] cfu/ml). LABORATORY Specimen Anatomical Collection Method Collection Time Receive d Time (Source) Location / / Volume Laterality Urine specimen 09/24/2016 4:26 PM 017 7:27 (specimen) EDT PM EDT Comment: BLADDER URINE Resulting Agency Comment Spec In Lab Quentin Murphy Jr., MD MICROBIOLOGY - GENERAL ORDER PATRICK Performing Organization Address [facility]/ZIP Code Phon e Number [address] Urine culture (09/24/2016 4:26 PM EDT) [facility] Method Time Signature Urine Culture No growth NATALIA MARTE (Less than [address] cfu/ml). LABORATORY Specimen Anatomical Collection Method Collection Time Receive d Time (Source) Location / / Volume Laterality Urine specimen 09/24/2016 4:26 PM 017 7:24 (specimen) EDT PM EDT Comment: LEFT RENAL URINE Resulting Agency Comment Spec In Lab Quentin Murphy Jr., MD MICROBIOLOGY - GENERAL ORDER PATRICK Performing Organization Address City/[facility]/ZIP [facility] Phon e Number [address] documented in this encounter Visit Diagnoses Not on filedocumented in this encounter Administered Medications Inactive Administered [...] Intravenous, EVERY 5 MIN PRN, Starting on e 09/24/16 at 1811, Until e 09/24/16 at [...] at 100 mL/hr, Intravenous, CONTINUOUS, Starting on e 09/24/16 at 1330, Until Fri09/24/16 at 1948, Day of Surgery (Day of Procedure) documented in this encounter Active and Recently Administered Medications Times are shown in EDT. Scheduled Medication Order 09/22/2016 09/23/2016 09/24/2016 ceFAZolin (ANCEF) 2g in dextrose 5% 100 mL (COMPLETED) 1601 (Given - Provider: Ann Marie Hand CRNA) 2 g, Intravenous, ONCE, 1 dose, Tue at 1330, Administer over 30 Minutes, Day of Surgery (Day of Procedure), Indication for (Active or Suspected): Prophylaxis gentamicin (GARAMYCIN) 80 mg in sodium chloride 0.9% 102 mL (COM PLETED) 1601 (New Bag - Provider: Ann Marie Hand CRNA) 80 mg, Intravenous, ONCE, 1 dose, 09/24/16 at 1330, Administer over 60 Minutes, [...] Oral, EVERY 6 HOURS PRN, Start ing e 09/24/16 at 1938, Until 09/24/16 at 2213, Pain, Maximum dose of acetaminophen is 4000 mg from all sources in 24 hours., Routine fentaNYL 50mcg/mL injection (CANCELED) 1800 (Given - Provider: Toshia Gibson, RN)1854 (Given - Provider: Toshia Gibson, RN) 25 mcg, Intravenous, EVERY 5 MIN PRN, St arting e 09/24/16 at 1811, Until 09/24/16 at 1948, Pain, for 1-4 pain score, for 1-4 pain score Hold for respiratory rate less than 10 per minute. Maximum dose: 250 mcg over one hour., PACU Recovery, Routine No Frequency Medication Order 09/22/2016 09/23/2016 09/24/2016 fentaNYL Citrate (PF) 100 mcg/2 mL (50 mcg/mL) syringe 1900 (Due) 1 dose, Starting 09/24/16 at 1851, Unt il 09/25/16 at 0659, TOSHIA GIBSON: cabinet override documented in this encounter Care Teams Environmental Emergencies Planner Relationship Specialty Start Date End Date Mariluz Vargas MD PCP - General Family Medicine 11/20/[address] [place] [address] documented as of this encounter
--- OUTSIDE RECORDS SUMMARY | 2021-11-16 01:19 | XMS_ITS | Encounter Summary ---
:1970 Author Organization [facility] [place] [address] Care Team Providers Name Role Phone Mariluz Vargas MD Primary Care Provider Encounter Details Date Type Department Care Team Description 07/09/2016 Hospital Encounter Ultrasound at [facility] Quentin Murphy Nephrolithiasis [facility] [place] [address] UROLOGY DEPT. [phone] [place], [place] [address] Social History Tobacco Use Types [...] Name Priority Date/Time Associated Diagnosis Comme nts US RETROPERITONEAL Routine 07/09/2016 1:11 Nephrolithiasis Res ults for this COMPLETE PM EDT procedure are i n the results section. documented in this encounter Results US Retroperitoneal Complete (07/09/2016 [...] 01:27 pm) PATIENT INFO: ID #: ? [id number] ?: ??[birth year] (46 yrs) Name: ? ADELA Cabrales ? Visit Date: 07/09/2016 01:06 pm ? CLOUATRE PERFORMED BY: Performed By: ? Vandana LOWERY, ??Enio johnson Attending: ?Rufus VILLASENOR, Chelsea Boogie Referred By: ?QUENTIN MURPHY MD Location: ? [place] SERVICE(S) PROVIDED: ??URETRO - Retroperitoneal Complete - I [id number] ? [id number] INDICATIONS: ??changes in stone size from CT [...] contour Procedure Note Chelsea Hooper MD - 07/09/2016Formattin g of this note might be different from the original. Renal (Signed Final 07/09/2016 01:27 pm ) PATIENT INFO: ID #: [id number] : [birth year] (46 y rs) Name: ADELA Cabrales Visit Date: 07/09/2016 0 1:06 pm CLOUATRE PERFORMED BY: Performed By: Ana Ross RDMS Attending: Chelsea Hooper MD Referred By: QUENTIN MURPHY MD Location: [place] SERVICE(S) PROVIDED: URETRO - Retroperitoneal Complete - [facility] [id number] INDICATIONS: changes in stone size from CT [...] kidney documented in this encounter Care Teams Warehouse Receiving Clerk Relationship Specialty Start Date End Date Mariluz Vargas MD PCP - General Family Medicine 11/20/[address] [place] [address] [address] [place] [address] documented as of this encounter
--- OUTSIDE RECORDS SUMMARY | 2021-11-16 01:19 | XMS_ITS | Encounter Summary ---
:1970 Author Organization [facility] [place] [address] Care Team Providers Name Role Phone Mariluz Vargas MD Primary Care Provider Encounter Details Date Type Department Care Team Description 09/06/2016 Orders Only Urology at [facility] José Luis Block, Recurrent UTI (urinary [facility] MD tract infection) [place] [address] UROLOGY DEPT [place], [place] [address] Social History Tobacco Use Types Packs/Day Years Used Date Never Smoker Smokeless Tobacco: Never Used Alcohol Use Standard Drinks/Week Comments Yes 1 (1 standard drink = 0.6 oz pure alcoho l) Sex Assigned at Date Recorded Not on file documented as of this encounter Plan of Treatment Not on filedocumented as of this encounter Visit Diagnoses Diagnosis Recurrent UTI (urinary tract infection) Urinary tract infection, site not specif ied documented in this encounter Care Teams Research Editor Relationship Specialty Start Date End Date Mariluz Vargas MD PCP - General Family Medicine 11/20/[address] [place], [place] [id number] documented as of this encounter
--- OUTSIDE RECORDS SUMMARY | 2021-11-16 01:19 | XMS_ITS | Encounter Summary ---
:1970 Author Organization [facility] [place] [address] Care Team Providers Name Role Phone Mariluz Vargas MD Primary Care Provider Encounter Details Date Type Department Care Team Description 05/11/2019 Hospital Encounter Gastroenterology at [facility] Aguila Cervantes, [facility] [place] [address] [facility] [phone] CENTER GASTROENTEROLOGY [place], [place] [address] Social History Tobacco Use Types [...] Mass Index 20.18 05/11/2019 7:13 AM EST documented in this encounter Discharge Instructions Discharge Gabe Wong RN - 05/11/2019 8:30 AM EST Colonoscopy: What to Expect at Home Your Recovery Your doctor will talk to you about when you will need your next colonoscopy. Your doctor can help you decide how often you need to be checked. This will depend on the results of your test and your riskfor colorectal cancer. After the test, you may be bloated or have gas pains. You may need to pass gas. If a biopsy was doneor a polyp was removed, you may have streaks of blood in your stool (feces) for a few days. Problemssuch as heavy rectal bleeding may not occur until several weeks after the test. This isn't common. But it can happen after polyps are removed. This care sheet gives you a general idea about how long it will take for you to recover. But each person recovers at a different pace. Follow the steps below to get better as quickly as possible. How can you care for yourself at home? Activity Rest when you feel tired. ?? You can do your normal activities when it feels okay to do so. Diet ?? Follow your doctor's directions for eating. ?? Unless your doctor has told you not to, drink plenty of fluids. This helps to replace the fluidsthat were lost during the colon prep. ?? Do not drink alcohol. Medicines ?? Your doctor will tell you if and when you can restart your medicines. He or she will also give you instructions about taking any new medicines. ?? If you take blood thinners, such as warfarin (Coumadin), clopidogrel (Plavix), or aspirin, be sure to talk to your doctor. He or she will tell you if and when to start taking those medicines again.Make sure that you understand exactly what your doctor wants you to do. ?? If polyps were removed or a biopsy was done during the test, your doctor may tell you not to take aspirin or other anti-inflammatory medicines for a few days. These include ibuprofen (Advil, Motrin) and naproxen (Aleve). Other instructions ?? For your safety, do not drive or operate machinery until the medicine wears off and you can think clearly. Your doctor may tell you not to drive or operate machinery until the day after your test. ?? Do not sign legal documents or make major decisions until the medicine wears off and you can think clearly. The anesthesia can make it hard for you to fully understand what you are agreeing to. Additional Information for Sedation Patients For patients who received sedation: ?? You may have received medications before and/or during your procedure which effects your judgement and reaction time. ?? Do not drive, operate machinery, drink alcoholic beverages or make important decisions for 24 hours. ?? Be careful on stairs as you may be unsteady on your feet. ?? You may eat a regular diet as tolerated. ?? Do not smoke if you are alone. ?? IV site: Slight redness or tenderness is normal, you can use a warm compress if you would like. If tenderness and/or redness increase or if foul drainage occurs, please contact your Doctor. Please call [phone] before 8pm Mon-Fri with problems, questions or concerns. If you call after 8pm or on weekends, call the Hospital at [phone] and ask to speak to the Circular Knitter ultrasonic hand solderer and the dye automation operator will contact that person for you. When should you call for help? Call [phone] anytime you think you may need emergency care. For example, call if: ?? You passed out (lost consciousness). ?? You pass maroon or bloody stools. ?? You have trouble breathing. Call your doctor now or seek immediate medical care if: ?? You have pain that does not get better after you take pain medicine. ?? You are sick to your stomach or cannot drink fluids. ?? You have new or worse belly pain. ?? You have blood in your stools. ?? You have a fever. ?? You cannot pass stools or gas. Watch closely for changes in your health, and be sure to contact your doctor if you have any problems. Where can you learn more? [email or web address] View your After Visit Summary and more online at [email or web address] If you would like to provide feedback about your hospital experience, please call the Office of Patient and Family Relations at . If you have received this After Visit Summary in error, please immediately return it in person to the department, or notify the [facility] Privacy Office by calling toll free at between the hours of 8AM and 5PM to arrange for our retrieval of the documents at no cost to you. Content Version: 12.2 ?? [id number] [employer]. Care instructions adapted under license by [facility]. If you have questions about a medical condition or this instruction, always ask your healthcare professional. [employer] disclaims any warranty or liability for your use of this information. documented in this encounter Medications at Time of Discharge Medication Sig Dispensed Refills Start Date End Date calcium citrate Take 1 tablet by 0 (CALCITRATE) 200 mg (950 mouth daily. mg) Tablet magnesium 250 mg Tablet Take by mouth daily. 0 cyanocobalamin, vitamin Inject as directed. 0 B-12, 1,000 mcg/mL Solution cholecalciferol, Vitamin Take 2,000 Units by 0 D3, (CHOLECALCIFEROL, mouth every other VITAMIN D3,) 2,000 unit day. Capsule DESOG-E.ESTRADIOL/E.ESTRAD Take by mouth daily. 0 IOL (KARIVA, 28, ORAL) documented as of this encounter H&P Notes Deena Mclain PA - 05/11/2019 7:27 AM EST Patient Name: Adela Mosley Patient Age: 49 y.o. Birthdate: 1970 Admit date: 05/11/2019 Attending Physician: Aguila Cervantes MD Gastroenterology and Hepatology Pre-Procedure History and Physical Exam Procedure: Colonoscopy: Indication: Hematochezia Patient Active Problem List Diagnosis Code ??? Recurrent UTI (urinary tract infection) N39.0 ??? IC (interstitial cystitis) N30.10 ??? Nephrolithiasis N20.0 EXAM: HEENT: Airway examined, oropharynx clear Mallampati Score: II (soft palate, uvula, fauces visible) LUNGS: Clear to auscultation HEART: Regular rate and rhythm, normal S1, S2 ABDOMEN: Normal bowel sounds, soft, non tender, non distended, A/P Proceed with the planned endoscopic procedure. ASA 2 - Patient with mild systemic disease with no functional limitations Sedation Plan: moderate (conscious sedation) Risks and benefits of the procedure explained to the patient. Consent signed. Deena Mclain PA-C Section of Gastroenterology [place] [address] documented in this encounter Plan of Treatment Not on filedocumented as of this encounter Procedures Procedure Name Priority Date/Time Associated Comments Diagnosis SPECIMEN TO PATHOLOGY Routine 05/11/2019 8:25 AM Results for this EST procedure are i n the results section. SURGICAL PATHOLOGY Routine 05/11/2019 8:15 AM Res ults for this REPORT EST procedure are i n the results section. COLONOSCOPY FLEXIBLE, 05/11/2019 7:56 AM Rectal hemorr cathi WITH BX (WRVU 3.66) EST COLONOSCOPY Routine 05/11/2019 7:38 AM Results f or this EST procedure are i n the results section. documented in this encounter Results Specimen to Pathology (05/11/2019 8:25 AM EST) Specimen Anatomical Collection Method Collection Time Receive d Time (Source) Location / / Volume Laterality AP Specimen 05/11/2019 8:25 AM 0 8:25 EST AM EST Narrative [facility] - 05/11/2019 8:25 AM EST Specimen requisition ordered. ??Separate Pathology report to follow Aguila Cervantes MD PATHOLOGY/CYTOLOGY ORDERABLE S Performing Organization Address City/State/Z[place] [address] Surgical Pathology Report (05/11/2019 8:15 AM EST) Component Value Ref Test Analysis Performed At [facility] Method Time Signature Surgical [id number] ? Location: 4T; EA07; A [facility] Report The signing pathologist has (i) examined the relevant preparation(s) for the MEMORIAL specimen(s) and (ii) rendered or confirmed the diagnosis(es) . HOSPITAL LABORATORY . ?Surgic al Pathology DIAGNOSIS Random colon, ??biopsy: Colonic mucosa with focal no nspecific mild chronic inflammation in lamina propria. CR-[id number] Electronically signed by: ??Mariana Fox MD Verified: ??05/13/2019 ?Pathologist Performed at: ??-[facility] Dept. of Pathology, [place], [place] CLINICAL INFORMATION Specimen Submitted: A - Random colon Clinical History and Diagnosis: 49-year-old female with indeterminate hematochezia SPECIMEN PROCESSING A - Labeled/Fixative: Random colon, formalin. Quantity/Size: Multiple, 0.2-0.3 cm. Tissue Description: Soft, yellow-cassidy tissues. Sections/Processing: Submitted en toto ??in 2 cassettes labeled A1-A2. ??ejr Specimen (Source) Anatomical Collection Method Collection Time Re ceived Time Location / / Volume Laterality 05/11/2019 8:15 AM EST Aguila Cervantes MD PATHOLOGY/CYTOLOGY ORDERABLE S Performing Organization Address City/State/[place] [address] [facility] COLONOSCOPY (05/11/2019 7:38 AM EST) [facility] gist Method Time Signature COLONOSCOPY [facility] Endoscopy Procedure Date: 05/11/2019 7:38 AM ? Patient Name: Adela Mosley ? Date of : 1970 ? Age: 49 ? Order #: [id number] ? Instrument Name: [id number] ? Procedure: ? Colonoscopy Indications: ? Hematochezia, Alternating ? constipation and diarrhea, bu rning ? pain with defecation Providers: ? Aguila Cervantes MD, Lee singleton, ? RN, Simona Ingram, Indu Pardo MD: ?Mariluz Vargas MD Medicines: ? Midazolam 4 mg IV, Fentanyl 200 ? micrograms IV Complications: ? No immediate complications. Procedure: ? The procedure, indications, benefi ts, ? risks and alternatives were e xplained ? to the patient. Specifically ? discussed were potential ? complications including, but not ? limited to, bleeding, perfora tion, ? infection, missing a cancer, and ? adverse medication reactions. The ? patient was placed in the lef t ? lateral decubitus position, a nd a ? digital rectal exam was perfo rmed. ? The Colonoscope was inserted in the ? anus and under direct visuali zation, ? advanced to the terminal ileu m. ? Careful inspection was made a s the ? colonoscope was withdrawn. Th e ? colonoscopy was performed wit hernandezut ? difficulty. The patient arelis ated the ? procedure well. The quality o f the ? bowel preparation was evaluat ed using ? the BBPS ([place] Bowel Prepar ation ? Scale) with scores of: Right Colon = ? 3, Transverse Colon = 3 and L eft ? Colon = 3 (entire mucosa seen well ? with no residual staining, sm all ? fragments of stool or opaque liquid). ? The total BBPS score equals 9 . Scope ? withdrawal time was 10 minute s. ? Findings: ? The perianal and digital rectal examinations were ? normal. ? The colon (entire examined portion) appeared normal. ? Biopsies were taken with a cold forceps for histology . ? The terminal ileum appeared normal. ? Internal hemorrhoids were found during endoscopy. The ? hemorrhoids were medium-sized. ? Moderate Sedation: ? I was present during the intraservice time as ? documented by the sedation RN. Impression: ?- The entire examined colon is ? normal. Biopsied. ? - The examined portion of the ileum ? was normal. ? - Internal hemorrhoids. These are ? likely source of bleeding Recommendation: ?- Await pathology results. ? Add fiber to diet, Metamucil ? Attending Participation: ? I personally performed the entire procedure. ? Aguila Cervantes MD 05/11/2019 8:33:24 AM This report has been signed electronically. Number of Addenda: 0 Note Initiated On: 05/11/2019 7:38 AM Specimen (Source) Anatomical Collection Method Collection Time Re ceived Time Location / / Volume Laterality 05/11/2019 7:38 AM EST Mariluz Vargas MD GENERAL SURGICAL ORDERABLES Performing Organization Address City/State/ZIP Code Phon e Number [facility] documented in this encounter Visit Diagnoses Not on filedocumented in this encounter Administered Medications Inactive Administered Medications - up to 3 most recent administrations Medication Order MAR Action Action Date Dose Rate Site lactated ringers infusion New Bag 05/11/2019 7:22 AM EST 100 mL/hr 100 mL/hr 100 mL/hr, Intravenous, CONTINUOUS, Starting on Fri05/11/19 at 0730, Until Fri05/11/19 at 0857, Endoscopy (Day of Procedure) documented in this encounter Active and Recently Administered Medications Times are shown in EST. Continuous Medication Order 05/09/2019 05/10/2019 05/11/2019 lactated ringers infusion (CANCELED) 721 (New Bag - Provider: Estee Strickland RN) 100 mL/hr, at 100 mL/hr, Intravenous, CO NTINUOUS, Starting Fri05/11/19 at 0730, Until Fri05/11/19 at 0857, Endo (Day of Procedure) PRN Medication Order 05/09/2019 05/10/2019 05/11/2019 fentaNYL 50 mcg/mL multi-dose injection (CANCELED) 08 (Given - Provider: Lee Benites RN)0806 (Given - Provider: Lee Benites, RN)0809 (Given - Provider: Lee Benites RN)0812 (Given - Provider: Lee Benites, RN) ONCE PRN, Starting Fri05/11/19 at 0803, Until Fri05/11/19 at 1118, Intra- Operative (Intra-Procedure), Routine midazolam (PF) (VERSED) multi-dose injection (CANCELED) 08 (Given - Provider: Lee Benites RN)08 (Given - Provider: Lee Benites, RN)0812 (Given - Provider: Lee Benites, RN) ONCE PRN, Starting e 05/11/19 at 0803, Until Fri05/11/19 at 1118, Intra- Operative (Intra-Procedure), Routine documented in this encounter Care Teams Bark Tanner Relationship Specialty Start Date End Date Mariluz Vargas MD PCP - General Family Medicine 11/20/15 [address] [place] [address] documented as of this encounter
--- OUTSIDE RECORDS SUMMARY | 2021-11-16 01:19 | XMS_ITS | Encounter Summary ---
:1970 Author Organization [facility] [place] [address] Care Team Providers Name Role Phone Mariluz Vargas MD Primary Care Provider Encounter Details Date Type Department Care Team Description 09/18/2016 Orders Only Urology at [facility] Raheem Murphy Symptom involving [facility] MD [place] [address] UROLOGY DEPT. [place], [place] [address] Social History Tobacco Use Types Packs/Day Years Used Date Never Smoker Smokeless Tobacco: Never Used Alcohol Use Standard Drinks/Week Comments Yes 1 (1 standard drink = 0.6 oz pure alcoho l) Sex Assigned at Date Recorded Not on file documented as of this encounter Plan of Treatment Not on filedocumented as of this encounter Visit Diagnoses Diagnosis Symptom involving bladder documented in this encounter Care Teams Editing Internship Relationship Specialty Start Date End Date Mariluz Vargas MD PCP - General Family Medicine 11/20/[address] [place], [place] [address] documented as of this encounter
--- OUTSIDE RECORDS SUMMARY | 2021-11-16 01:19 | XMS_ITS | Encounter Summary ---
:1970 Author Organization [facility] [place] [address] Care Team Providers Name Role Phone Mariluz Vargas MD Primary Care Provider Encounter Details Date Type Department Care Team Description 12/23/2017 Office Visit [place] [facility] Dayron Hollins, Nephrolithiasis; [facility] TONYA Mcgee History [place] [address] UROLOGY DEPT. [place], [place] [address] (Wo rk) Social History Tobacco Use Types Packs/Day Years Used Date Never Smoker Smokeless Tobacco: Never Used Alcohol Use Standard Drinks/Week Comments Yes 1 (1 standard drink = 0.6 oz pure alcoho l) Sex Assigned at Date Recorded Not on file documented as of this encounter Last Filed Vital Signs Vital Sign Reading Time Taken Comments Blood Pressure 108/74 12/23/2017 2:13 PM EDT Pulse 69 12/23/2017 2:13 PM EDT Temperature - - Respiratory Rate - - Oxygen Saturation 100% 12/23/2017 2:13 PM EDT Inhaled Oxygen Concentration - - Weight - - Height - - Body Mass Index - - documented in this encounter Progress Notes Arely Preciado APRN - 12/23/2017 2:40 PM EDT HPI: Adela Mosley is a 47 year old woman who is here for follow up of UTIs. Her UTIs have resolved s/p treatment of Ca Ox/Ca Phos urolithiasis. She had recurrent e coli UTIs in [address] was found to have bilateral renal stones. She underwent bilateral ureteroscopy on 09/24/2016. Intraoperative findings were notable for negativebladder and bilateral renal pelvic urine cultures. Bilateral stones removed (right sided stone required lithotripsy and removal). Left sided stone culture negative; right sided stone culture revealed small volume ackerman- sensitive e coli. She is doing really well. No UTIs since I saw her last. No voiding issues. She feels great, does notfeel she has passed stones since she was last seen. Given her allergies, the oxalate restrictions are tough for her. However, she is putting out 2 litres of fluids, drinking water, with some intermittent lemon. She is pairing dairy with oxalates, moderating salt. She is doing the best she can and is being very mindful. Past Medical History: Persistent E. Coli UTI-resolved s/p stone management Possible interstitial cystitis Genital HSV Past Surgical History:LEEP 2006 for cervical cancer ; Bilateral ureteroscopy Social History: , no children. 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 Non-smoker, non-drinker Family History: Father has kidney stones DietHx: 64oz water/day ObHx: Physical Exam Constitutional: She is oriented to person, place, and time. She appears well- developed and well-nourished. No distress. Head: Normocephalic and atraumatic. Pulmonary/Chest: Effort normal. abd soft, nontender, no masses or CVA tenderness Neurological: She is alert and oriented to person, place, and time. Skin: She is not diaphoretic. Psychiatric: She has a normal mood and affect. Her behavior is normal. Imaging studies: 04/2017: renal US: no stones Stone Analysis: Right: 100% Calcium oxalate monohydrate Left: 50% CaOx monohydrate; 40% CaPhos (apatite); 10% CaOx dihydrate 24h urine: borderline hypercalciuria with mildly elevated urinary sodium Impression/Plan: Mixed CaOx stone. Persistent UTIs resolved s/p stone management We reviewed general dietary modifications for those with CaOx stones. She is working as well on these. We discussed her UTIs, she will call with symptoms or if she feels she is passing a stone US in 04/2018, then hopefully yearly checks. All questions answered to her apparent satisfaction. Arely Hollins APRN Urologic Surgery documented in this encounter Plan of Treatment Not on filedocumented as of this encounter Results US Retroperitoneal Complete (07/16/2018 2:56 PM EDT) Anatomical Region Laterality Modality Abdomen Ultrasound Specimen (Source) Anatomical Collection Method Collection Time Re ceived Time Location / / Volume Laterality 07/16/2018 2:57 PM EDT Impressions 07/16/2018 3:40 PM EDT ?? Comparison 04/29/2017. 1. ??Both kidneys appear normal in size and morphology with limited evaluation of superior and inferior pole on the right . There are areas of twinkle artifact that are not associated with discrete e chogenic foci and therefore no discrete renal calculi are identified. No eviden ce of pelviectasis. 2. ??Mildly distended bladder is normal in contour. Thank you for letting us participate in the care of this patient. For questions regarding this report, please contact t he number below. Electronically signed by: Sudha navas [facility] ([phone]), at 3:32 PM ? Sudha Das [facility] Physician Electronically Signed Final Report ?? 03:40 pm Narrative 07/16/2018 3:40 PM EDT Renal ?(Signed Final 07/16/2018 03:40 pm) PATIENT INFO: ID #: ? [id number] ?: ??[birth year] (48 yrs) Name: ? ADELA Cabrales ? Visit Date: 07/16/2018 02:57 pm ? CLOUATRE PERFORMED BY: Performed By: ? Juancho Romero RDMS Attending: ?Rosario VILLASENOR, Joselito Tavera Referred By: ?ARELY Noriega Location: ? [facility] SERVICE(S) PROVIDED: ??URETRO - Retroperitoneal Complete - I [id number] ? [id number] INDICATIONS: ??hx of nephrolithiasis-? new stone bur den COMPARISON: Ultrasound: RENAL / BLADDER 04/29/17 RIGHT KIDNEY: Size (cm) ?L: ??8.7 Cortical Thickness: ?Normal Cortical Echogenicity: ?? Normal Hydronephrosis: ?No sonogr aphic evidence Comment: ?Limited views due to over lying bowel gas. No renal ? calculi seen. LEFT KIDNEY: Size (cm) ?L: ??10.8 Cortical Thickness: ?Normal Cortical Echogenicity: ?? Normal Hydronephrosis: ?No sonogr aphic evidence Comment: ?No renal calculi seen. URINARY BLADDER: Pre-void (cm) ? L: ??2.3 ? A P: ??3.4 ? TV: ??5.6 Vol (ml): ?22.9 Comment: ?Partially distended, norm al contour Procedure Note Sudha Harris MD - 06/20 Renal (Signed Final 07/16/2018 03:40 pm ) PATIENT INFO: ID #: [id number] : [birth year] (48 y rs) Name: ADELA Cabrales Visit Date: 07/16/2018 0 2:57 pm CLOUATRE PERFORMED BY: Performed By: Juancho Romero RDMS Attending: Sudha Ponce MD Referred By: ARELY HOLLINS Location: [facility] SERVICE(S) PROVIDED: URETRO - Retroperitoneal Complete - [facility] [address]17 [id number] INDICATIONS: hx of nephrolithiasis-? new stone burde n COMPARISON: Ultrasound: RENAL / BLADDER 04/29/17 RIGHT KIDNEY: Size (cm) L: 8.7 Cortical Thickness: Normal Cortical Echogenicity: Normal Hydronephrosis: No sonographic evidence Comment: Limited views due to overlying bowel gas. No renal calculi seen. LEFT KIDNEY: Size (cm) L: 10.8 Cortical Thickness: Normal Cortical Echogenicity: Normal Hydronephrosis: No sonographic evidence Comment: No renal calculi seen. URINARY BLADDER: Pre-void (cm) L: 2.3 AP: 3.4 TV: 5.6 Vol (ml): 22.9 Comment: Partially distended, normal co ntour IMPRESSION Comparison 04/29/2017. 1. Both kidneys appear normal in size a nd morphology with limited evaluation of superior and inferior pole on the right . There are areas of twinkle artifact that are not associated with discrete e chogenic foci and therefore no discrete renal calculi are identified. No eviden ce of pelviectasis. 2. Mildly distended bladder is normal i n contour. Thank you for letting us participate in the care of this patient. For questions regarding this report, please contact t he number below. Electronically signed by: Sudha navas [facility] ([phone]), at 3:32 PM Sudha aDs, Staff Lisa hernandez Electronically Signed Final Report 07/16 03:40 pm Arely Hollins APRN IMG US GEN ORDERABLES documented in this encounter Visit Diagnoses Diagnosis Nephrolithiasis Calculus of kidney History of UTI Personal history of urinary (tract) infe ction Nephrolithiasis Calculus of kidney History of UTI Personal history of urinary (tract) infe ction documented in this encounter Care Teams Collet Gluer Relationship Specialty Start Date End Date Mariluz Vargas MD PCP - General Family Medicine 11/20/[address] [place] [address] documented as of this encounter
--- OUTSIDE RECORDS SUMMARY | 2021-11-16 01:19 | XMS_ITS | Encounter Summary ---
:1970 Author Organization [facility] [address] Care Team Providers Name Role Phone Mariluz Vargas MD Primary Care Provider Encounter Details Date Type Department Care Team Description 03/26/2016 Orders Only Urology at [facility] Dayron Jauregui, Kidney stones; [facility] TONYA Mcgee Acute UTI (urinary tract infection) [place] [address] UROLOGY DEPT. [place], [place] 0[address] Social History Tobacco Use Types Packs/Day Years Used Date Never Smoker Smokeless Tobacco: Never Used Alcohol Use Standard Drinks/Week Comments Yes 1 (1 standard drink = 0.6 oz pure alcoho l) Sex Assigned at Date Recorded Not on file documented as of this encounter Plan of Treatment Not on filedocumented as of this encounter Visit Diagnoses Diagnosis Kidney stones Calculus of kidney Acute UTI (urinary tract infection) Urinary tract infection, site not specif ied documented in this encounter Care Teams Chemical Machine Tender Relationship Specialty Start Date End Date Mariluz Vargas MD PCP - General Family Medicine 11/20/[address] [place], [place] [id number] documented as of this encounter
--- OUTSIDE RECORDS SUMMARY | 2021-11-16 01:19 | XMS_ITS | Encounter Summary ---
:1970 Author Organization [facility] [place] [address] Care Team Providers Name Role Phone Mariluz Vargas MD Primary Care Provider Encounter Details Date Type Department Care Team Description 07/04/2016 Telephone Urology at [facility] Arely Preciado, [facility] [place] [address] [facility] [phone] UROLOGY DEPT. [place], [place] [address] (Wo rk) Social History Tobacco Use Types Packs/Day Years Used Date Never Smoker Smokeless Tobacco: Never Used Alcohol Use Standard Drinks/Week Comments Yes 1 (1 standard drink = 0.6 oz pure alcoho l) Sex Assigned at Date Recorded Not on file documented as of this encounter Miscellaneous Notes Telephone Encounter - Arely Preciado APRN - 07/10/2016 7:40 AM EDT Discussed at visit yesterday. Telephone Encounter - Roseline Harris - 07/04/2016 8:49 AM EDT Pt called to ask about a test that checks the permeability of the mucosal layer of the bladder. Is there one, and if so, can she have it? Please call on [phone]. Thanks. documented in this encounter Plan of Treatment Not on filedocumented as of this encounter Visit Diagnoses Not on filedocumented in this encounter Care Teams Organizational Effectiveness Consultant Relationship Specialty Start Date End Date Mariluz Vargas MD PCP - General Family Medicine 11/20/[address] [place] [address] documented as of this encounter
--- OUTSIDE RECORDS SUMMARY | 2021-11-16 01:19 | XMS_ITS | Encounter Summary ---
:1970 Author Organization [facility] [place] [address] Care Team Providers Name Role Phone Mariluz Vargas MD Primary Care Provider Encounter Details Date Type Department Care Team Description 09/26/2016 Telephone Urology José Luis Block MD [facility] [place] [address] UROLOGY DEPT [phone] [place], [place] [address] (Wo rk) Social History Tobacco Use Types Packs/Day Years Used Date Never Smoker Smokeless Tobacco: Never Used Alcohol Use Standard Drinks/Week Comments Yes 1 (1 standard drink = 0.6 oz pure alcoho l) Sex Assigned at Date Recorded Not on file documented as of this encounter Miscellaneous Notes Telephone Encounter - José Luis Mabry MD - 09/26/2016 10:29 AM EDT Adela Mosley called again. She is still having pain. Her baseline is 3-4 but when she is due for another round of tylenol or motrin her pain shoots to a 10. She is miserable. Since the ibuprofen has worked well for her I suggested toradol for a few days. I told her to take the tylenol with this, and to not take ibuprofen until the toradol course is done. She'll try this and call back if it isn'tworking. I again discouraged narcotics for stent pain. documented in this encounter Plan of Treatment Not on filedocumented as of this encounter Visit Diagnoses Diagnosis Kidney stones Calculus of kidney documented in this encounter Care Teams Firer Bisque Kiln Relationship Specialty Start Date End Date Mariluz Vargas MD PCP - General Family Medicine 11/20/[address] [place] [address] [address] [place] [address] documented as of this encounter
--- OUTSIDE RECORDS SUMMARY | 2021-11-16 01:19 | XMS_ITS | Encounter Summary ---
:1970 Author Organization [facility] [place] [address] Care Team Providers Name Role Phone Mariluz Vargas MD Primary Care Provider Encounter Details Date Type Department Care Team Description 04/29/2017 Office Visit [place] [facility] [place] Raheem Murphy Jr., Nephrolithiasis [facility] [place] [address] [facility] [phone] UROLOGY DEPT. [place], [place] [address] (Wo rk) Social History Tobacco Use Types Packs/Day Years Used Date Never Smoker Smokeless Tobacco: Never Used Alcohol Use Standard Drinks/Week Comments Yes 1 (1 standard drink = 0.6 oz pure alcoho l) Sex Assigned at Date Recorded Not on file documented as of this encounter Last Filed Vital Signs Vital Sign Reading Time Taken Comments Blood Pressure 110/71 04/29/2017 10:20 AM EST Pulse 67 04/29/2017 10:20 AM EST Temperature - - Respiratory Rate - - Oxygen Saturation - - Inhaled Oxygen Concentration - - Weight - - Height - - Body Mass Index - - documented in this encounter Progress Notes Raheem Murphy Jr., MD - 04/29/2017 10:30 AM EST HPI: Adela Mosley is a 47 year old woman who returns to multi-disciplinary metabolic stone clinic for follow up regarding mixed CaOx/CaPhos urolithiasis. She had recurrent e coli UTIs and was referred by Arely Maguire APRN to obtain bilateral upper tract urine cultures and consider bilateral renal stone removal ?? She underwent bilateral ureteroscopy on . Intraoperative findings were notable for negative bladder and bilateral renal pelvic urine cultures. Bilateral stones removed (right sided stone required lithotripsy and removal). Left sided stone culture negative; right sided stone culture revealed small volume ackerman-sensitive e coli. In the interval since her last visit, she has been well. She denies interval UTI, stone passage, suspected renal colic, or new complaints. She is comfortable today. She notes right sidedshoulder / upper back pain (2-5/10), does not radiate, described as soreness Review of Systems Constitution: Negative for fever. Gastrointestinal: Negative for abdominal pain. Genitourinary: Negative for flank pain and hematuria. Past Medical History: Persistent E. Coli UTI Possible interstitial cystitis Genital HSV Past Surgical History:LEEP 2005 for cervical cancer ; Bilateral ureteroscopy Social History: , no children. 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 Non-smoker, non-drinker Family History: Father has kidney stones DietHx: 64oz water/day ObHx: Physical Exam Constitutional: She is oriented to person, place, and time. She appears well- developed and well-nourished. No distress. HENT: Head: Normocephalic and atraumatic. Cardiovascular: Normal rate. Pulmonary/Chest: Effort normal. Neurological: She is alert and oriented to person, place, and time. Skin: She is not diaphoretic. Psychiatric: She has a normal mood and affect. Her behavior is normal. Imaging studies: I independently reviewed the renal ultrasound from today. This reveals no evidence of hydronephrosis, hydroureter, or new stones. Stone Analysis: Right: 100% Calcium oxalate monohydrate Left: 50% CaOx monohydrate; 40% CaPhos (apatite); 10% CaOx dihydrate 24h urine: borderline hypercalciuria with mildly elevated urinary sodium Impression/Plan: Mixed CaOx stone. We reviewed general dietary modifications for those with CaOx stones. We reviewed her 24h urine and discussed role of low sodium diet with increased hydration, targeting 2 liters urine output daily. She will see Yong Lacey RD, ANGELO for nutrition consult as well. She wishes to continue follow up with Arely Maguire APRN. She will have annual renal u/s withher; will see us in multi-disciplinary metabolic stone clinic Prn Gwen Lacey RD - 04/29/2017 10:30 AM EST Nutrition Intervention for the Management of Kidney Stone Disease Assessment/Nutrition Diagnosis: Pt at increased nutritional lithogenic risk related to: - sub optimal fluid intake - sub optimal calcium intake not timed with meals - excessive sodium intake - intake of high-oxalate foods (with low calcium intake) 24-hour Urine Results (mL/24 hours): Oxalate 55, Calcium 245, Sodium 185 Estimated body mass index is 20.18 kg/(m^2) as calculated from the following: Height as of 09/24/16: 167.6 cm (5' 6). Weight as of 09/24/16: 56.7 kg (125 lb). Patient Interview: Adela is seen in kidney stone clinic for review of high oxalate foods and low sodium diet. She has cut out dairy and processed foods from her diet which relieved asthma, is gluten-free, and has been eating more nuts and high protein foods lately. Reviewed all sources of calcium-containing foods and highlighted non-dairy sources of Calcium: fortified OJ, rice milk or lactaid milk, fortified breakfast cereals, fish with bones (sardines/salmon). Adela feels that she could probably add in a cup of yogurt and a cup of fortified rice or coconut milk into her diet. We also reviewed high oxalate foods and many of these foods are ones that she loves and eats on a regular basis. Reducing oxalate intake is going to be a challenge for her, but increasing her calcium intake and reducing her sodium intake may help. Adela adds a lot of salt to her foods, but is not eating any processed foods currently. Discussed that 1 tsp of salt contains about 2300 mg of sodium. Recommend that she limit sodium intake to 2295-0593 mg per day. Intervention: - Recommended timing of dietary calcium with meals (3-400 grams/serving) - Instructed pt on Low Sodium Food Choices (under 2 grams/day) - Instructed pt on Low-Oxalate Food choices - Provided diet education materials on low sodium diet, low oxalate diet. Monitor/Evaluate: 1) Pt will try to add sources of calcium to her diet and reduce salt intake. 2) Follow up 24 hour urine analysis will show progress towards meeting goals ANGELO HSIEH documented in this encounter Plan of Treatment Not on filedocumented as of this encounter Visit Diagnoses Diagnosis Nephrolithiasis Calculus of kidney documented in this encounter Care Teams Satellite Installer Relationship Specialty Start Date End Date Mariluz Vargas MD PCP - General Family Medicine 11/20/15 [address] [place] [address] documented as of this encounter
--- OUTSIDE RECORDS SUMMARY | 2021-11-16 01:19 | XMS_ITS | Encounter Summary ---
:1970 Author Organization [facility] [place] [address] Care Team Providers Name Role Phone Mariluz Vargas MD Primary Care Provider Encounter Details Date Type Department Care Team Description 06/17/2016 Telephone Urology at [facility] Arely Preciado, [facility] [place] [address] [facility] [phone] UROLOGY DEPT. [place], [place] [address] (Wo rk) Social History Tobacco Use Types Packs/Day Years Used Date Never Smoker Smokeless Tobacco: Never Used Alcohol Use Standard Drinks/Week Comments Yes 1 (1 standard drink = 0.6 oz pure alcoho l) Sex Assigned at Date Recorded Not on file documented as of this encounter Miscellaneous Notes Telephone Encounter - Arely Preciado APRN - 06/21/2016 9:00 AM EST Pt has macrobid at home. She as culture dated 06/18/2016 which shows > 100 K e.coli ackerman sensitive to cipro, cefalosporins, macrobid, bactrim, amp, tobramycin. She has allergies to sulfa. Her culture indicates: 03/28/2016: 10-50 K e.coli ackerman sensitive-she wanted macrobid called in, but will not start this 02/27/2016: e.coli 06/09/15: 10-50K e.coli tx with cefpodox 05/30/15: < 10 K gm neg 05/23/15: contam and no UA. 04/18/15: no growth 04/03/15: neg Repeat culture proves she clears. 03/15/15: 10-50 K e.coli ackerman sensitive 03/01/15: 50-99K e.coli tx with keflex She has had an 02/2016 CT, nonobstructing stones bilaterally, no renal masses Renal US in 6 months. Cystoscopy has been discussed as had management of her stones with ureteroscopy/laser lithotripsy. She has opted to defer in the past. LM for her. Asked her to take the macrobid she has at home for full course, or call the urology resident family preservation worker. I asked her to call me about cystoscopy/stone mgt etc. Will wait to hear from her. Telephone Encounter - Arely Preciado APRN - 06/19/2016 2:41 PM EST We called the lab, the results are still pending. Will likely finalize tomorrow. Lm for her to call Telephone Encounter - Emperatriz Luke - 06/18/2016 8:24 AM EST Pt is looking for results of the urine sample given this morning at [facility]. Pt knows it will not be ready but leaving on vacation Friday and currently has medication -nitrofurantoin - to take. Pt is informing Arely of the UTI. Pt would like a call on her Cell Telephone Encounter - Ronan Rojas - 06/17/2016 4:08 PM EST Patient feels she has a UTI - needs slip sent to [facility] for first clean catch in morning on 06/18/16. Pt's #[phone]. documented in this encounter Plan of Treatment Not on filedocumented as of this encounter Visit Diagnoses Not on filedocumented in this encounter Care Teams Spray Painter Relationship Specialty Start Date End Date Mariluz Vargas MD PCP - General Family Medicine 11/20/15 [facility] [address] [place] [address] documented as of this encounter
--- OUTSIDE RECORDS SUMMARY | 2021-11-16 01:19 | XMS_ITS | Encounter Summary ---
:1970 Author Organization [facility] [place] [address] Care Team Providers Name Role Phone Mariluz Vargas MD Primary Care Provider Encounter Details Date Type Department Care Team Description 07/13/2016 Telephone Urology Franck Peter MD [facility] [place] [address] UROLOGY DEPT [phone] [place], [place] [address] (Wo rk) Social History Tobacco Use Types Packs/Day Years Used Date Never Smoker Smokeless Tobacco: Never Used Alcohol Use Standard Drinks/Week Comments Yes 1 (1 standard drink = 0.6 oz pure alcoho l) Sex Assigned at Date Recorded Not on file documented as of this encounter Miscellaneous Notes Telephone Encounter - Franck Peter MD - 07/13/2016 2:13 PM EDT I called Ms. Mosley with the following urine culture results: Urine Culture (Abnormal) 10,000-49,000 cfu/ml Escherichia coli Specimen Source Information Specimen Type: Clean Catch Urine Susceptibility Escherichia coli MICROSCAN METHOD Amikacin Sensitive Ampicillin Sensitive Ampicillin + Sulbactam Sensitive Aztreonam Sensitive Cefazolin Sensitive Cefepime Sensitive Ceftazidime Sensitive Ceftriaxone Sensitive Cefuroxime Sensitive Ciprofloxacin Sensitive Gentamicin Sensitive Levofloxacin Sensitive Meropenem Sensitive Nitrofurantoin Sensitive Piperacillin/Tazobactam Sensitive Tetracycline Sensitive Tobramycin Sensitive Trimethoprim/Sulfa Sensitive Plan is to treat prior to possible stone surgery. She has not yet decided whether to pursue surgery. No answer. Left message to call back. documented in this encounter Plan of Treatment Not on filedocumented as of this encounter Visit Diagnoses Not on filedocumented in this encounter Care Teams Senior Medical Technologist Relationship Specialty Start Date End Date Mariluz Vargas MD PCP - General Family Medicine 11/20/15 [address] [place] [address] documented as of this encounter
--- OUTSIDE RECORDS SUMMARY | 2021-11-16 01:19 | XMS_ITS | Encounter Summary ---
:[address] [facility] [place] [address] Care Team Providers Name Role Phone Mariluz Vargas MD Primary Care Provider Encounter Details Date Type Department Care Team Description 09/25/2016 Telephone Urology José Luis Block MD [facility] [place] [address] UROLOGY DEPT [phone] [place], [place] [address] (Wo rk) Social History Tobacco Use Types Packs/Day Years Used Date Never Smoker Smokeless Tobacco: Never Used Alcohol Use Standard Drinks/Week Comments Yes 1 (1 standard drink = 0.6 oz pure alcoho l) Sex Assigned at Date Recorded Not on file documented as of this encounter Miscellaneous Notes Telephone Encounter - José Luis Mabry MD - 09/25/2016 10:14 AM EDT Adela Mosley called. She is having right sided stent pain. She is s/p bilateral URS and LL withbilateral 6F stents. She started taking ibuprofen in addition to the tylenol and says now her pain is a 3. I told her to keep alternating these medications. I reminded her that she will not be completely pain free. I also told her to stay hydrated and that this will help with the stent irritation. documented in this encounter Plan of Treatment Not on filedocumented as of this encounter Visit Diagnoses Not on filedocumented in this encounter Care Teams Fire Marshal Refinery Relationship Specialty Start Date End Date Mariluz Vargas MD PCP - General Family Medicine 11/20/[address] [place] [address] [address] [place] [address] documented as of this encounter
--- OUTSIDE RECORDS SUMMARY | 2021-11-16 01:19 | XMS_ITS | Encounter Summary ---
:1970 Author Organization [facility] [place] [address] Care Team Providers Name Role Phone Mariluz Vargas MD Primary Care Provider Encounter Details Date Type Department Care Team Description 04/29/2017 Hospital Encounter Ultrasound at [facility] [place] Shania, Nephrolithiasis [facility] [place] [address] UROLOGY DEPT. [phone] [place], [place] [address] Social History Tobacco Use Types Packs/Day Years Used Date Never Smoker Smokeless Tobacco: Never Used Alcohol Use Standard Drinks/Week Comments Yes 1 (1 standard drink = 0.6 oz pure alcoho l) Sex Assigned at Date Recorded Not on file documented as of this encounter Medications at Time of Discharge Medication Sig Dispensed Refills Start Date End Date magnesium 250 mg Tablet Take by mouth daily. 0 cyanocobalamin, vitamin Inject as directed. 0 B-12, 1,000 mcg/mL Solution cholecalciferol, Vitamin Take 2,000 Units by 0 D3, (CHOLECALCIFEROL, mouth every other VITAMIN D3,) 2,000 unit day. Capsule DESOG-E.ESTRADIOL/E.ESTRA Take by mouth daily. 0 DIOL (KARIVA, 28, ORAL) potassium chloride Take by mouth daily. 0 02/25/2019 (NAVYA) 20 mEq/15 mL Liquid fish oil-omega-3 fatty Take 2 g by mouth 0 02/25/2019 acids 1,000 mg Capsule daily. documented as of this encounter Plan of Treatment Not on filedocumented as of this encounter Procedures Procedure Name Priority Date/Time Associated Diagnosis Comme nts US RETROPERITONEAL Routine 04/29/2017 9:55 Nephrolithiasis Res ults for this COMPLETE AM EST procedure are i n the results [...] 10:48 am) PATIENT INFO: ID #: ? [id number] ?: ??[birth year] (47 yrs) Name: ? TARI V ? Visit Date: 04/29/2017 09:54 am ? CLOUATRE PERFORMED BY: Performed By: ? Vandana LOWERY, ??Enio johnson Attending: ?Master VILLASENOR, Kieran Stephens Resident: ? Heaven VILLASENOR, Krista Strange Referred By: ?BOWEN Noriega Location: ? [place] SERVICE(S) PROVIDED: ??URETRO - Retroperitoneal Complete - I [id number] ? [id number] INDICATIONS: ??history of nephrolithiasis and infect ed [...] 10:48 am ) PATIENT INFO: ID #: [id number] : [birth year] (47 y rs) Name: TARI Cabrales Visit Date: 04/29/2017 0 9:54 am CLOUATRE PERFORMED BY: Performed By: Ana Ross RDMS Attending: Svitlana Thao MD Resident: Mejia Collado MD Referred By: BOWEN HOLLINS Location: [place] SERVICE(S) PROVIDED: URETRO - Retroperitoneal Complete - [facility] [id number] INDICATIONS: history of nephrolithiasis and infected stone. [...] Bowen Hollins APRN IMG US GEN ORDERABLES documented in this encounter Visit Diagnoses Diagnosis Nephrolithiasis Calculus of kidney documented in this encounter Care Teams Rn Admission Relationship Specialty Start Date End Date Mariluz Vargas MD PCP - General Family Medicine 11/20/[address] [place] [address] documented as of this encounter
--- OUTSIDE RECORDS SUMMARY | 2021-11-16 01:19 | XMS_ITS | Encounter Summary ---
:1970 Author Organization [facility] [place] [address] Care Team Providers Name Role Phone Mariluz Vargas MD Primary Care Provider Encounter Details Date Type Department Care Team Description 09/23/2016 Telephone [place] [facility] [place] Feliz Okeefe, [place] [address] Social History Tobacco Use Types Packs/Day Years Used Date Never Smoker Smokeless Tobacco: Never Used Alcohol Use Standard Drinks/Week Comments Yes 1 (1 standard drink = 0.6 oz pure alcoho l) Sex Assigned at Date Recorded Not on file documented as of this encounter Miscellaneous Notes Telephone Encounter - Feliz Malloy LPN - 09/23/2016 3:42 PM EDT Recent urine culture results relayed to patient via telephone. Rx for Cipro 500mg BID x7 days e-faxed to pharmacy per verbal order Dr. Torrez. 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 Escherichia coli 10,000 - 50,000 colonies/mL FELIZ MALLOY LPN documented in this encounter Plan of Treatment Not on filedocumented as of this encounter Visit Diagnoses Not on filedocumented in this encounter Care Teams Cnc Router Operator Relationship Specialty Start Date End Date Mariluz Vargas MD PCP - General Family Medicine 11/20/15 [address] [place] [address] documented as of this encounter
--- OUTSIDE RECORDS SUMMARY | 2021-11-16 01:19 | XMS_ITS | Encounter Summary ---
:1970 Author Organization [facility] [place] [address] Care Team Providers Name Role Phone Mariluz Vargas MD Primary Care Provider Encounter Details Date Type Department Care Team Description 05/11/2019 Surgery Gastroenterology at [facility] Aguila Cervantes, COLONOSCOPY FLEXIBLE, [facility] Teja bone MD WITH BX (WRVU 3.66) [place] [address] [facility] [phone] DR GASTROENTEROLOGY [place], [place] [address] Social History Tobacco Use Types [...] 7:13 AM EST Respiratory Rate 18 05/11/2019 8:40 AM EST Oxygen Saturation 97% 05/11/2019 8:40 AM EST Inhaled Oxygen Concentration - - [...] occurs, please contact your Doctor. Please call [phone] before 8pm Mon-Fri with problems, questions or concerns. If you call after 8pm or on weekends, call the Hospital at [phone] and ask to speak to the Manager Critical Care Unit fitness consultant and the low pressure kettle operator will contact that person for you. When should you call for help? Call [phone] anytime you think you may need emergency [...] any problems. Where can you learn more? [facility] View your After Visit Summary and more online at [email or web address] If you would like to provide feedback about your hospital experience, please call the Office of Patient and Family Relations at . If you have received this After Visit Summary in error, please immediately return it in person to the department, or notify the - Privacy Office by calling toll free at between the hours of 8AM and 5PM to arrange for our retrieval of the documents at no cost to you. Content Version: 12.2 ?? [id number] [employer]. Care instructions adapted under license by [facility]. If you have questions about a medical condition or this instruction, always ask your healthcare professional. [employer] disclaims any warranty or liability for your [...] Mclain PA-C Section of Gastroenterology [place] [address] documented in this encounter Plan of Treatment [...] AM 0 8:25 EST AM EST Narrative [facility] - 05/11/2019 8:25 AM EST Specimen requisition ordered. ??Separate Pathology report to follow Aguila Cervantes MD PATHOLOGY/CYTOLOGY ORDERABLE S Performing Organization Address City/State/[place] [address] Surgical Pathology Report (05/11/2019 8:15 AM EST) Component Value Ref Test Analysis Performed At [facility] Range Method Time Signature Surgical [id number] ? Location: 4T; EA07; A [facility] Report The signing pathologist has (i) examined the relevant preparation(s) for the MEMORIAL specimen(s) and (ii) rendered or confirmed the diagnosis(es) . HOSPITAL LABORATORY . ?Surgic al Pathology DIAGNOSIS Random colon, ??biopsy: Colonic mucosa with focal no nspecific mild chronic inflammation in lamina propria. CR-PX Electronically signed by: ??Mariana Fox MD Verified: ??05/13/2019 ?Pathologist Performed at: ??-[facility] Dept. of Pathology, [place], [place] CLINICAL INFORMATION Specimen Submitted: A - [...] Organization Address City/State/[place] [address] [facility] [address] COLONOSCOPY (05/11/2019 7:38 AM EST) [facility] Method Time Signature COLONOSCOPY [facility] Endoscopy Procedure Date: 05/11/2019 7:38 AM ? Patient Name: Adela Mosley ? Date of : 1970 ? Age: 49 ? Order #: [id number] ? Instrument Name: [id number] ? Procedure: ? Colonoscopy Indications: ? Hematochezia, Alternating ? constipation and diarrhea, bu rning ? pain with defecation Providers: ? Aguila Cervantes MD, Lee singleton, ? RN, Simona K. Indu Ingram MD: ?Mariluz Vargas MD Medicines: ? Midazolam [...] Th e ? colonoscopy was performed wit hout ? difficulty. The patient arelis ated the ? procedure well. The quality o f the ? bowel preparation was evaluat ed using ? the BBPS (Marsing Bowel Prepar ation ? Scale) with scores [...] MAR Action Action Date Dose Rate Site fentaNYL 50 mcg/mL multi-dose Given 05/11/2019 8:12 AM EST 50 mc g injection ONCE PRN, Starting on Fri05/11/19 at 0803, Until Fri05/11/19 at 1118, Intra-Operative (Intra-Procedure), Routine Given 05/11/2019 8:09 AM EST 50 mcg Given 05/11/2019 8:06 AM EST 50 mcg lactated ringers infusion New Bag 05/11/2019 7:22 AM EST 100 mL/hr 100 mL/hr 100 mL/hr, Intravenous, CONTINUOUS, Starting on Fri05/11/19 at 0730, Until Fri05/11/19 at 0857, Endoscopy (Day of Procedure) midazolam (PF) (VERSED) multi-dose injec tion Given 05/11/2019 8:12 AM EST 1 mg ONCE PRN, Starting on Fri05/11/19 at 0803, Until Fri05/11/19 at 1118, Intra-Operative (Intra-Procedure), Routine Given 05/11/2019 8:06 AM EST 1 mg Given 05/11/2019 8:03 AM EST 2 mg documented in this encounter Active and Recently Administered Medications Times are shown in EST. Continuous Medication Order 05/09/2019 05/10/2019 05/11/2019 lactated ringers infusion (CANCELED) 0722 (New Bag - Provider: Estee Strickland RN) 100 mL/hr, at 100 mL/hr, Intravenous, CO NTINUOUS, Starting Fri05/11/19 at 0730, Until Fri05/11/19 at 0857, Endo (Day of Procedure) PRN Medication Order 05/09/2019 05/10/2019 05/11/2019 fentaNYL 50 mcg/mL multi-dose injection (CANCELED) 0803 (Given - Provider: Lee Benites RN)0806 (Given - Provider: Lee Benites RN)0809 (Given - Provider: Lee Benites RN)0812 (Given - Provider: Lee Benites RN) ONCE PRN, Starting 05/11/19 at 0803, Until 05/11/19 at 1118, Intra- Operative (Intra-Procedure), Routine midazolam (PF) (VERSED) multi-dose injection (CANCELED) 08 (Given - Provider: Lee Benites RN)08 (Given - Provider: Lee Benites RN)08 (Given - Provider: Lee Benites RN) ONCE PRN, Starting 05/11/19 at 0803, Until 05/11/19 at 1118, Intra- Operative (Intra-Procedure), Routine documented in this encounter Care Teams First Aid Teacher Relationship Specialty Start Date End Date Mariluz Vargas MD PCP - General Family Medicine 11/20/[address] [place] [address] [address] [place] [address] documented as of this encounter
--- OUTSIDE RECORDS SUMMARY | 2021-11-16 01:19 | XMS_ITS | Encounter Summary ---
:1970 Author Organization [facility] [place] [address] Care Team Providers Name Role Phone Mariluz Vargas MD Primary Care Provider Encounter Details Date Type Department Care Team Description 07/16/2018 Office Visit Urology at [facility] Dayron Jauregui, Recurrent UTI (urinary tract infection); [facility] TONYA Mcgee [address] [place], [place] CENTER [address] UROLOGY DEPT. [phone] [place] [id number] Social History Tobacco Use Types Packs/Day Years Used Date Never Smoker Smokeless Tobacco: Never Used Alcohol Use Standard Drinks/Week Comments Yes 1 (1 standard drink = 0.6 oz pure alcoho l) Sex Assigned at Date Recorded Not on file documented as of this encounter Last Filed Vital Signs Vital Sign Reading Time Taken Comments Blood Pressure 115/74 07/16/2018 3:42 PM EDT Pulse 59 07/16/2018 3:42 PM EDT Temperature 36.8 ??C (98.2 ??F) 07/16/2018 3:42 PM EDT Respiratory Rate 16 07/16/2018 3:42 PM EDT Oxygen Saturation 95% 07/16/2018 3:42 PM EDT Inhaled Oxygen Concentration - - Weight - - Height - - Body Mass Index - - documented in this encounter Progress Notes Arely Preciado, SHREDDER TENDER PEAT - 07/16/2018 3:40 PM EDT HPI: Adela Mosley is a [...] she can and is being very mindful. She is using a vaginal compounded estrace cream, started about a year ago. She was having vaginal changes. Had a colposcopy and had a dry cervix and erosion. Past Medical History: Persistent E. Coli UTI-resolved s/p stone management Possible interstitial cystitis Genital HSV Past Surgical History:LEEP 2006 for cervical cancer ; Bilateral ureteroscopy Social History: , no children. 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 Non-smoker, non-drinker Family History: Father has [...] affect. Her behavior is normal. Imaging studies: 06/2018: renal US: no obvious stones. Report pending 04/2017: renal US: no stones Stone Analysis: Right: 100% Calcium oxalate monohydrate Left: 50% CaOx monohydrate; 40% CaPhos (apatite); 10% CaOx dihydrate 24h urine: borderline hypercalciuria with mildly elevated urinary sodium Impression/Plan: Mixed CaOx stone. Persistent UTIs resolved s/p stone management We reviewed general dietary modifications for those with CaOx stones. She is working as well on these. No obvious stones on imaging today. Will wait for report We discussed her UTIs, she will call with symptoms or if she feels she is passing a stone US in 06/2020 if normal today All questions answered to her apparent satisfaction. Addendum: renal US report: IMPRESSION Comparison 04/29/2017. 1. Both kidneys appear normal in size and morphology with limited evaluation of superior and inferior pole on the right. There are areas of twinkle artifact that are not associated with discrete echogenic foci and therefore no discrete renal calculi are identified. No evidence of pelviectasis. 2. Mildly distended bladder is normal in contour. No change in plan Arely Jauregui APRN Urologic Surgery documented in this encounter Plan of Treatment Not on filedocumented as of this encounter Visit Diagnoses Diagnosis Recurrent UTI (urinary tract infection) Urinary tract infection, site not specif ied Nephrolithiasis Calculus of kidney documented in this encounter Care Teams Cable Worker Helper Relationship Specialty Start Date End Date Mariluz Vargas MD PCP - General Family Medicine 11/20/[address] [place] [address] [address] [place] [address] documented as of this encounter
--- OUTSIDE RECORDS SUMMARY | 2021-11-16 01:19 | XMS_ITS | Encounter Summary ---
:1970 Author Organization [facility] [place] [address] Care Team Providers Name Role Phone Mariluz Vargas MD Primary Care Provider Reason for Visit Reason Comments Skin Lesion Encounter Details Date Type Department Care Team Description 02/25/2019 Office Visit Dermatology at [facility] oRxi Dutton, Al lergic contact dermatitis, unspecified trigger; Road Fibrous papule of nose [address] [place] [address] [address] [facility] [place], [place] [address] Social History Tobacco Use Types Packs/Day Years Used Date Never Smoker Smokeless Tobacco: Never Used Alcohol Use Standard Drinks/Week Comments Yes 1 (1 standard drink = 0.6 oz pure alcoho l) Sex Assigned at Date Recorded Not on file documented as of this encounter Progress Notes Roxi Dutton MD - 02/25/2019 2:45 PM EST DERMATOLOGY NEW PATIENT NOTE Date of service: 02/25/2019 Adela Mosley : 1970 Provider: Roxi Dutton MD Chief Complaint Patient presents with ??? 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 female, new patient, self-referred, here today for evaluation and treatment of a subtle red rash near the border of her vermilion lip, present and unchanged for several years. Rarely pruritic or symptomatic. Cleared with trial of OTC hydrocortisone cream, but recurred soon after discontinuing. Also notes a lesion on her columnella that intermittently scabs and becomes tender present x years.. 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 Started in September, when she had a cortisone shot. face became hot, red, and sore. Spreads to the ears, hands, knees, elbows and joints. Interestingly, area above lip thatshe presents for today also flared during this episode. ADR Prochlorperazine and Sulfa (sulfonamide antibiotics) MEDS Current Outpatient Medications Medication Sig Dispense Refill ??? calcium citrate (CALCITRATE) 200 mg (950 mg) Tablet Take 1 tablet by mouth daily. ??? magnesium 250 mg Tablet Take by mouth daily. ??? cyanocobalamin, vitamin B-12, 1,000 mcg/mL Solution Inject as directed. ??? cholecalciferol, Vitamin D3, (CHOLECALCIFEROL, VITAMIN D3,) 2,000 unit Capsule Take 2,000 Units by mouth every other day. ??? DESOG-E.ESTRADIOL/E.ESTRADIOL (KARIVA, 28, ORAL) Take by mouth daily. No current facility-administered medications for this visit. ROS General: feeling well Skin: denies other skin complaints EXAM General: NAD, pleasant, cooperative Skin: A focused skin examination of the face, significant for??the following: Significant skin findings: A. Columnella: 0.3 cm dome-shaped pink papule. B. Right vermilion border: Very subtle mild erythema. ASSESSMENT/PLAN A. Fibrous Papule - Benign. Patient reassured. - Patient will consider referral to Sudha Schmidt MD, for cosmetic removal. B. Favor Allergic Contact Dermatitis - Discontinue all skin care products contacting affected area. - Recommended fennel-flavored Joe's of shital toothpaste and plain Vaseline for lip emollient. - Patient may continue application of OTC hydrocortisone cream twice daily for 2 weeks PRN. FOLLOW UP: PRN. Instructed patient to call with questions or concerns. I am documenting this encounter acting as the scribe for and in the presence of Dr. Dutton: CODIE Corey and Andrew Nunez I performed the above scribed service and agree with the accuracy of the documentation in this encounter. Roxi Dutton MD Section of Dermatology [facility] cc: Mariluz Vargas MD documented in this encounter Plan of Treatment Not on filedocumented as of this encounter Visit Diagnoses Diagnosis Allergic contact dermatitis, unspecified trigger Fibrous papule of nose Benign neoplasm of skin of other and uns pecified parts of face documented in this encounter Care Teams Resource Forester Relationship Specialty Start Date End Date Mariluz Vargas MD PCP - General Family Medicine 11/20/[address] [place] [address] [address] [facility] [address] [place] [address] documented as of this encounter
--- OUTSIDE RECORDS SUMMARY | 2021-11-16 01:19 | XMS_ITS | Encounter Summary ---
:1970 Author Organization [facility] [place] [address] Care Team Providers Name Role Phone Mariluz Vargas MD Primary Care Provider Encounter Details Date Type Department Care Team Description 04/01/2016 Telephone Urology at [facility] Arely Preciado, [facility] [place] [address] [facility] [phone] UROLOGY DEPT. [place], [place] [address] (Wo rk) Social History Tobacco Use Types Packs/Day Years Used Date Never Smoker Smokeless Tobacco: Never Used Alcohol Use Standard Drinks/Week Comments Yes 1 (1 standard drink = 0.6 oz pure alcoho l) Sex Assigned at Date Recorded Not on file documented as of this encounter Miscellaneous Notes Telephone Encounter - Roxi Le LPN - 04/01/2016 3:57 PM EST Message left about urine sample to give clinic a call. Roxi documented in this encounter Plan of Treatment Not on filedocumented as of this encounter Visit Diagnoses Not on filedocumented in this encounter Care Teams Control Systems Designer Relationship Specialty Start Date End Date Mariluz Vargas MD PCP - General Family Medicine 11/20/[address] [place] [address] documented as of this encounter
--- OUTSIDE RECORDS SUMMARY | 2021-11-16 01:19 | XMS_ITS | Encounter Summary ---
:1970 Author Organization [facility] [place] [address] Care Team Providers Name Role Phone Mariluz Vargas MD Primary Care Provider Encounter Details Date Type Department Care Team Description 02/29/2016 Orders Only Urology at [facility] Rut Gonzales MD [facility] [address] [place] [address] UROLOGY [phone] [place], [place] [address] (Wo rk) Social History Tobacco Use Types Packs/Day Years Used Date Never Smoker Smokeless Tobacco: Never Used Alcohol Use Standard Drinks/Week Comments Yes 1 (1 standard drink = 0.6 oz pure alcoho l) Sex Assigned at Date Recorded Not on file documented as of this encounter Progress Notes Allyn Sunshine RN - 02/29/2016 12:31 PM EST [facility] Urine culture results from 02/27/16: >100,000 Escherichia Coli Called Adela to review recent urine culture and order antibiotics (Keflex 500mg QID x7 days) per Dr. Gonzales. Adela would like to hold off an taking antibiotics now as she is asymptomatic and has been getting recurring bladder bacteria. She is going to be consulting a Window Shade Cutter And Mounter as well. She will start taking her D- Mannos again and push fluids. We reviewed signs and symptoms of a UTI/ kidney infection. I instructed her to call [facility]OMAS if she gets symptoms. She is also taking Cranberry concentrate. Allyn Sunshine, RN documented in this encounter Plan of Treatment Not on filedocumented as of this encounter Visit Diagnoses Not on filedocumented in this encounter Care Teams Family Nurse Practitioner Relationship Specialty Start Date End Date Mariluz Vargas MD PCP - General Family Medicine 11/20/[address] [place] [address] documented as of this encounter
--- OUTSIDE RECORDS SUMMARY | 2021-11-16 01:19 | XMS_ITS | Encounter Summary ---
:1970 Author Organization [facility] [place] [address] Care Team Providers Name Role Phone Mariluz Vargas MD Primary Care Provider Encounter Details Date Type Department Care Team Description 09/25/2016 Telephone Urology at [facility] Raheem Murphy Jr., MD [facility] [place] [address] UROLOGY DEPT. [phone] [place], [place] [address] (Wo rk) Social History Tobacco Use Types Packs/Day Years Used Date Never Smoker Smokeless Tobacco: Never Used Alcohol Use Standard Drinks/Week Comments Yes 1 (1 standard drink = 0.6 oz pure alcoho l) Sex Assigned at Date Recorded Not on file documented as of this encounter Miscellaneous Notes Telephone Encounter - Adalgisa Lee - 10/15/2016 8:55 AM EDT Pt called looking for her urine culture results. You can give her a call at [phone]. Thank you. Telephone Encounter - Cortney Dotson - 09/25/2016 8:17 AM EDT Pt had surgery 09/24 called to report she is in a lot of pain. 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 documented in this encounter Plan of Treatment Not on filedocumented as of this encounter Visit Diagnoses Not on filedocumented in this encounter Care Teams Intermediate Accountant Relationship Specialty Start Date End Date Mariluz Vargas MD PCP - General Family Medicine 11/20/[address] [place] [address] [address] [place] [address] documented as of this encounter
--- OUTSIDE RECORDS SUMMARY | 2021-11-16 01:19 | XMS_ITS | Encounter Summary ---
:1970 Author Organization [facility] [place] [address] Care Team Providers Name Role Phone Mariluz Vargas MD Primary Care Provider Encounter Details Date Type Department Care Team Description 07/10/2016 Telephone Urology at [facility] Arely Preciado, [facility] [place] [address] [facility] [phone] UROLOGY DEPT. [place], [place] [address] (Wo rk) Social History Tobacco Use Types Packs/Day Years Used Date Never Smoker Smokeless Tobacco: Never Used Alcohol Use Standard Drinks/Week Comments Yes 1 (1 standard drink = 0.6 oz pure alcoho l) Sex Assigned at Date Recorded Not on file documented as of this encounter Miscellaneous Notes Telephone Encounter - Arely Preciado TONYA - 07/10/2016 2:36 PM EDT Reviewed her case and persistent e.coli UTIs with Dr. Murphy. She would like to consider surgical therapies for her stones to see if this helps moderate her UTIs. She prefers to stay off abx prophylaxis if possible Dr. Murphy kindly reviewed her imaging. He notes the CT is with contrast, so we may miss small stones on that and the renal US. However, he is willing to try staged ureteroscopy with stents and selectiveurine cultures if needed. He also discussed repeat stone protocol CT. He is willing to see her if she would like. At this time, she will consider her options and let me know what she decides. We again discussed that given her stones in both kidneys, she could have staged procedures and this could end up being 3 total surgeries. documented in this encounter Plan of Treatment Not on filedocumented as of this encounter Visit Diagnoses Not on filedocumented in this encounter Care Teams Psych Therapist Relationship Specialty Start Date End Date Mariluz Vargas MD PCP - General Family Medicine 11/20/[address] [place] [address] [address] [place] [address] documented as of this encounter
--- OUTSIDE RECORDS SUMMARY | 2021-11-16 01:19 | XMS_ITS | Encounter Summary ---
:1970 Author Organization [facility] [place] [address] Care Team Providers Name Role Phone Mariluz Vargas MD Primary Care Provider Reason for Visit Reason Comments Nephrolithiasis Encounter Details Date Type Department Care Team Description 09/04/2016 Office Visit Urology at [facility] [place] Quentin Murphy Jr., Nephrolithiasis [facility] [place] [address] [facility] [phone] UROLOGY DEPT. [place], [place] [address] (Wo rk) Social History Tobacco Use Types Packs/Day Years Used Date Never Smoker Smokeless Tobacco: Never Used Alcohol Use Standard Drinks/Week Comments Yes 1 (1 standard drink = 0.6 oz pure alcoho l) Sex Assigned at Date Recorded Not on file documented as of this encounter Last Filed Vital Signs Vital Sign Reading Time Taken Comments Blood Pressure 115/73 09/04/2016 4:36 PM EDT Pulse 65 09/04/2016 4:36 PM EDT Temperature - - Respiratory Rate - - Oxygen Saturation - - Inhaled Oxygen Concentration - - Weight 56.7 kg (125 lb) 09/04/2016 4:36 PM EDT Height 167.6 cm (5' 6) 09/04/2016 4:36 PM EDT Body Mass Index 20.18 09/04/2016 4:36 PM EDT documented in this encounter Progress Notes Nelly Noguera MD - 09/04/2016 4:30 PM EDT UROLOGY CLINIC NOTE HPI: Adela Mosley is a 46 year old female with persistent E. Coli UTIs in the setting of small bilateral nonobstructive renal calculi, 2 on each side with the largest measuring 7 mm on the left. She isseen as a referral from Arely Jauregui APRN, who she sees for recurrent UTIs and possible interstitial cystitis. She thinks she may have passed a couple of stones in the past, the most recent episode this last . She has never required a procedure for stones. Today, she denies any current flank pain, nausea, vomiting or hematuria. She does report current mild dysuria, but does not think she has a full blown infection right now. She does report occasional right-sided back/flank pain, mild in severity, intermittent in occurence. She thinks that her UTIs have gotten less frequent/intense since starting back on the control pill as a form of estrogen replacement. Past Medical History: Persistent E. Coli UTI Possible interstitial cystitis Genital HSV Past Surgical History: LEEP 2006 for cervical cancer Social History: , no children. 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 Non-smoker, non-drinker Family History: Father has kidney stones Review of Systems Constitution: Negative for chills and fever. Cardiovascular: Negative for chest pain. Respiratory: Negative for shortness of breath. Gastrointestinal: Negative for abdominal pain, nausea and vomiting. Physical Exam Constitutional: She is oriented to person, place, and time. She appears well- developed and well-nourished. No distress. HENT: Head: Normocephalic and atraumatic. Eyes: No scleral icterus. Cardiovascular: Normal rate and regular rhythm. No murmur heard. Pulmonary/Chest: Effort normal and breath sounds normal. No respiratory distress. She has no wheezes. She has no rales. She exhibits no tenderness. Abdominal: Soft. She exhibits no distension. There is no tenderness. There is no rebound and no guarding. Genitourinary: Genitourinary Comments: No CVA tenderness bilaterally Neurological: She is alert and oriented to person, place, and time. Skin: Skin is warm. Psychiatric: She has a normal mood and affect. Her behavior is normal. Imaging: We have reviewed the renal US from June which shows a possible right upper pole renal stone, a right lower pole stone, and at least 1 left renal stone. I have also reviewed the CT from February 2016, which shows one non-obstructing stone on the left and two non-obstructing stones on the right. Impression/Plan: 1. Bilateral, non-obstructing renal stones in the setting of persistent E. Coli infections. We discussed how the the stones might be harboring the E. Coli and leading to the persistent infections. We discussed how removing the stones may or may not help with the persistent infections. We also discussed how her right- sided flank pain is likely not due to a stone, as she does not have any obstructing stones on the renal US. She is interested in pursuing right/possible ureteroscopy with laser lithotripsy with stent placement. We will have her meet with our manufacturing scheduler and schedule the surgery at her earliest convenience. We will collect urine today for culture for pre-operative counseling. Nelly Noguera MD Urology PGY-3 Pager: [phone] STAFF ADDENDUM: I saw and examined Adela Mosley with Dr. Noguera, have independently reviewed her imaging studies, and concur with history, exam, impression, and plan as noted and amended above. QUENTIN MURPHY JR, MD Quentin Murphy Jr., MD - 09/04/2016 4:30 PM EDT I saw and examined Adela Mosley with Dr. Noguera and have independently reviewed her imaging studies. I agree with history, exam, impression, and plan as noted. We reviewed at length that removal of stones may not eliminate her UTIs. She wishes to begin with right ureteroscopy (possible bilateral), understands this may require multiple stages. documented in this encounter Plan of Treatment Not on filedocumented as of this encounter Procedures Procedure Name Priority Date/Time Associated Diagnosis Comme nts URINE CULTURE Routine 09/04/2016 6:13 PM Nephrolithiasis Resul ts for this EDT procedure are i n the results section . documented in this encounter Results (ABNORMAL) Urine culture Clean Catch Urine (09/04/2016 6:13 PM EDT) [facility] Method Time Signature Urine Culture Greater than NATALIA 100,000 cfu/ml [facility] () [facility] Organism Escherichia NATALIA coli (A) [facility] Specimen (Source) Anatomical Collection Method Collection Time Re ceived Time Location / / Volume Laterality Urine specimen 09/04/2016 6:13 09/04/2016 6:13 obtained by clean PM EDT PM EDT [...] Organization Address City/State/ZIP [place] [address] documented in this encounter Visit Diagnoses Diagnosis Nephrolithiasis Calculus of kidney documented in this encounter Care Teams Hat Conditioner Relationship Specialty Start Date End Date Mariluz Vargas MD PCP - General Family Medicine 11/20/[address] [place] [address] documented as of this encounter
--- OUTSIDE RECORDS SUMMARY | 2021-11-16 01:19 | XMS_ITS | Encounter Summary ---
:1970 Author Organization [facility] [place] [address] Care Team Providers Name Role Phone Mariluz Vargas MD Primary Care Provider Encounter Details Date Type Department Care Team Description 07/16/2018 Hospital Encounter [place] [facility] Dayron Shania, Nephrolithiasis; [facility] TONYA Mcgee History of UTI Drive [facility] [address] UROLOGY DEPT. [phone] [place] [id number] Social History Tobacco Use Types Packs/Day Years [...] magnesium 250 mg Tablet Take by mouth 0 daily. cyanocobalamin, vitamin Inject as 0 B-12, 1,000 mcg/mL Solution directed. cholecalciferol, Vitamin Take 2,000 Units 0 D3, (CHOLECALCIFEROL, by mouth every VITAMIN D3,) 2,000 unit other day. Capsule DESOG-E.ESTRADIOL/E.ESTRADI Take by mouth 0 OL (KARIVA, 28, ORAL) daily. cyclobenzaprine (FLEXERIL) 0 9 02/25/2019 5 mg Tablet potassium chloride Take by mouth 0 10/2018 (KAYCIEL) 20 mEq/15 mL daily. Liquid fish oil-omega-3 fatty Take 2 g by mouth 0 02/25/2019 acids 1,000 mg Capsule daily. documented as of this encounter Plan of Treatment Not on filedocumented as of this encounter Procedures Procedure Name Priority Date/Time Associated Comments Diagnosis US RETROPERITONEAL Routine 07/16/2018 2:56 Nephrolithias is Results for this COMPLETE PM EDT History of UTI procedure are in the results section. documented in this encounter Results US Retroperitoneal Complete (07/16/2018 [...] below. Electronically signed by: Sudha navas [facility] ([phone]), at 3:32 PM ? Froy Desir Physician Electronically Signed Final Report ?? 03:40 pm Narrative 07/16/2018 3:40 PM EDT Renal ?(Signed Final 07/16/2018 03:40 pm) PATIENT INFO: ID #: ? [id number] ?: ??[birth year] (48 yrs) Name: ? TARI Cabrales ? Visit Date: 07/16/2018 02:57 pm ? CLOUATRE PERFORMED BY: Performed By: ? Juancho Romero RDMS Attending: ?Rosario VILLASENOR, Joselito Tavera Referred By: ?BOWEN Noriega Location: ? [facility] SERVICE(S) PROVIDED: ??URETRO - Retroperitoneal Complete - I [id number] ? [id number] INDICATIONS: ??hx of nephrolithiasis-? new stone bur [...] 03:40 pm ) PATIENT INFO: ID #: [id number] : [birth year] (48 y rs) Name: TARI Cabrales Visit Date: 07/16/2018 0 2:57 pm CLOUATRE PERFORMED BY: Performed By: Juancho Romero RDMS Attending: Sudha Ponce MD Referred By: BOWNE HOLLINS Location: [facility] SERVICE(S) PROVIDED: URETRO - Retroperitoneal Complete [place] [facility] [id number] INDICATIONS: hx of nephrolithiasis-? new stone burde [...] below. Electronically signed by: Sudha navas [facility] ([phone]), at 3:32 PM Sudha Das, Staff Lisa hernandez Electronically Signed Final Report 07/16 03:40 pm Bowen Hollins APRN IMG US GEN ORDERABLES documented in this encounter Visit Diagnoses Diagnosis Nephrolithiasis Calculus of kidney History of UTI Personal history of urinary (tract) infe ction documented in this encounter Care Teams Electroplater Relationship Specialty Start Date End Date Mariluz Vargas MD PCP - General Family Medicine 11/20/[address] [place] [address] documented as of this encounter
--- OUTSIDE RECORDS SUMMARY | 2021-11-16 01:19 | XMS_ITS | Encounter Summary ---
:1970 Author Organization [facility] [place] [address] Care Team Providers Name Role Phone Mariluz Vargas MD Primary Care Provider Encounter Details Date Type Department Care Team Description 09/06/2016 Telephone [place] [facility] [place] [address] [facility] [phone] UROLOGY DEPT. [place], [place] [address] (Wo rk) Social History Tobacco Use Types Packs/Day Years Used Date Never Smoker Smokeless Tobacco: Never Used Alcohol Use Standard Drinks/Week Comments Yes 1 (1 standard drink = 0.6 oz pure alcoho l) Sex Assigned at Date Recorded Not on file documented as of this encounter Miscellaneous Notes Telephone Encounter - Palmira Reyes LNA - 09/06/2016 3:25 PM EDT Returned patient's call to discuss urine culture results: ?? Urine Culture (Abnormal) Greater than 100,000 cfu/ml Escherichia coli ? Specimen Source Information ? Specimen Type: Clean Catch Urine ? Susceptibility ? Escherichia coli ? MICROSCAN METHOD ? Amikacin Sensitive ? Ampicillin Sensitive ? Ampicillin + Sulbactam Sensitive ? Aztreonam Sensitive ? Cefazolin Sensitive ? Cefepime Sensitive ? Ceftazidime Sensitive ? Ceftriaxone Sensitive ? Cefuroxime Sensitive ? Ciprofloxacin Sensitive ? Gentamicin Sensitive ? Levofloxacin Sensitive ? Meropenem Sensitive ? Nitrofurantoin Sensitive ? Piperacillin/Tazobactam Sensitive ? Tetracycline Sensitive ? Tobramycin Sensitive ? Trimethoprim/Sulfa Sensitive Patient will take Macrobid 100 mg PO BID X [address] Mabry. Patient will do follow up urine culture 48 hour after ABX course. Telephone Encounter - Emperatriz Luke - 09/06/2016 3:07 PM EDT Pt is returning nurses phone call about urine culture results. Please call [phone] documented in this encounter Plan of Treatment Not on filedocumented as of this encounter Visit Diagnoses Not on filedocumented in this encounter Care Teams Ballpoint Pens Assembler Relationship Specialty Start Date End Date Mariluz Vargas MD PCP - General Family Medicine 11/20/[address] [place] [address] documented as of this encounter
--- OUTSIDE RECORDS SUMMARY | 2021-11-16 01:19 | XMS_ITS | Encounter Summary ---
:1970 Author Organization [facility] [place] [address] Care Team Providers Name Role Phone Mariluz Vargas MD Primary Care Provider Encounter Details Date Type Department Care Team Description 11/15/2016 Hospital Encounter Ultrasound at [facility] [place] Quentin Murphy Nephrolithiasis [facility] [place] [address] UROLOGY DEPT. [phone] [place], [place] [address] Social History Tobacco Use Types [...] mouth daily. 0 DIOL (KARIVA, 28, ORAL) fish oil-omega-3 fatty Take 2 g by mouth 0 02/25/2019 acids 1,000 mg Capsule daily. documented as of this encounter Plan of Treatment Not on filedocumented as of this encounter Procedures Procedure Name Priority Date/Time Associated Diagnosis Comme nts US RETROPERITONEAL Routine 11/15/2016 1:08 Nephrolithiasis Res ults for this COMPLETE PM [...] 01:39 pm) PATIENT INFO: ID #: ? [id number] ?: ??[birth year] (46 yrs) Name: ? ADELA V ? Visit Date: 11/15/2016 01:09 pm ? CLOUATRE PERFORMED BY: Performed By: ? Juancho Romero RDMS Attending: ?Kirk VILLASENOR, Chris Martinez Referred By: ?QUENTIN MURPHY JR Location: ? [place] SERVICE(S) PROVIDED: ??URETRO - Retroperitoneal Complete - I [id number] ? [id number] INDICATIONS: ??s/p bilateral URS 09/24/2016. ?hydro COMPARISON: [...] 01:39 pm ) PATIENT INFO: ID #: [id number] : [birth year] (46 y rs) Name: ADELA Cabrales Visit Date: 11/15/2016 0 1:09 pm CLOUATRE PERFORMED BY: Performed By: Juancho Romero RDMS Attending: Aguila Bradley MD Referred By: QUENTIN MURPHY JR Location: [place] SERVICE(S) PROVIDED: URETRO - Retroperitoneal Complete - [facility] [id number] INDICATIONS: s/p bilateral URS 09/24/2016. ?hydro COMPARISON: [...] 11/15 01:39 pm Quentin Murphy Jr., [email or web address] GEN ORDERABLES documented in this encounter Visit Diagnoses Diagnosis Nephrolithiasis Calculus of kidney documented in this encounter Care Teams Assistant Infant Toddler Teacher Relationship Specialty Start Date End Date Mariluz Vargas MD PCP - General Family Medicine 11/20/[address] [place] [address] documented as of this encounter
--- OUTSIDE RECORDS SUMMARY | 2021-11-16 01:19 | XMS_ITS | Encounter Summary ---
:1970 [place] [address] Care Team Providers Name Role Phone Mariluz Vargas MD Primary Care Provider Encounter Details Date Type Department Care Team Description 09/24/2016 Anesthesia Event Main Operating Room Bonifacio Taylor MD [facility] [place] [address] Chris Sosa MD [facility] [place] [address] [place] [address] Anesthesia Record Procedure Summary Procedure Name Responsible Anesthesia Start Anesthesia Stop Anesthesiologist Time Time CYSTOURETEROSCOPY,Gal Mccray MD 09/24/16 1545 10/05 1800 GNOSTIC,W/ LITHOTRIPSY INC. INSERTION OF INDWELLING URETERAL STENT (WRVU 8) (Right Ureter) Events Date Time Event Comment 09/24/2016 1333 1545 AN Verify 1545 Start 1548 An Start Data 1552 An Induction 1553 An Intubation 1559 Anesthesia Ready 1608 Procedure Start 1649 Handoff Intra-procedure anesthesia care was transferred afte r review of the patient's history, current anesthetic/surgical status and plan, accord ing to the [facility] Provider Handoff Checklis t. 1750 Extubation/LMA Out 1754 an stop data 1800 Recovery or ICU Handoff Patient care was transferred to the destination unit staff after review of the patient's medica l history, current anesthetic/surgi gianluca status and plan, according to the Provider Handoff Checklist. 1800 Stop Name Total Propofol 300 mg Propofol INF 398.32 mg fentaNYL 25 mcg Midazolam 2 mg IV Lidocaine 100 mg Dexamethasone 8 mg Ondansetron 8 mg ePHEDrine 15 mg ceFAZolin (ANCEF) 2g in dextrose 5% 100 mL 2 g gentamicin (GARAMYCIN) 80 mg in sodium chloride 0.9% 1 02 mL 80 mg Ketorolac 30 mg lactated Ringers infusion 1,000 mL 800 mL Agents Name O2 Air N2O Sevoflurane (et) Blood No blood administrations on file. Lines, Drains, and Airways Type Details Placement Removal PIV 09/24/16; 1314; cephalic 09/24/16 1314 by Hoang, 09/24/16 194 by vein (lateral side of JENNIFER Duran Del la R, RN arm), right; dxpx-ekh-dhtrtv catheter system; 20 gauge; jennifer Duffy; 09/24/16; 1946 Supraglottic Mask Ventilation: Not 09/24/16 1552 by Peace, 1754 by Attempted (0); LMA Type: SOUTH Sunshine Sarah J, CRNA iGelevi; LMA Size: 3; Inserted by: SOUTH Hand documented in this encounter Social History Tobacco Use Types Packs/Day Years Used Date Never Smoker Smokeless Tobacco: Never Used Alcohol Use Standard Drinks/Week Comments Yes 1 (1 standard drink = 0.6 oz pure alcoho l) Sex Assigned at Date Recorded Not on file documented as of this encounter OR Notes Anesthesia Postprocedure Evaluation - Gal Taylor MD - 09/24/2016 6:12 PM EDT [facility] Department of Anesthesiology Post-procedure Note Patient: Adela V Clouatre Procedure Summary Date Anesthesia Start Anesthesia Stop Room / Location 09/24/16 1545 1800 [facility] MAIN OR Procedure Diagnosis Surgeon Responsible Provider CYSTOURETEROSCOPY,DIAGNOSTIC,W/ LITHOTRIPSY INC. INSERTION OF INDWELLING URETERAL STENT (WRVU 8) (Right Ureter); CYSTOURETHROSCOPY, W\REMOVAL, MANIPULATION OF CALCULUS (WRVU 6.75) (Left Ureter); CYSTO, STENT PLACEMENT (WRVU 2.82) (Left Ureter); FLUOROSCOPY (WRVU 0.17) (N/A ); MODIFIER HOLMIUM LASER (R ight ) (right renal stone) Raheem Murphy Jr., MD Yen, Christopher A, MD All Anesthesia Providers: Anesthesiologist: Chris Hidalgo MD; Gal Taylor MD DIGITAL COMPOSER: Ann Marie Bautista CRNA; Ann Marie Hand CRNA Last (1hr) Vitals: BP Temp Pulse Resp SpO2 Patient Location: PACU/[facility] Level of Consciousness: Conscious but Sleepy Pain Management: Satisfactory Analgesia PONV: None Cardiovascular Status: At Baseline and Hemodynamically Stable Respiratory Status: At Baseline Postoperative Fluid Status: Intravascular EUvolemia Possible Anesthetic Complications: NONE apparent at time of evaluation Final Primary Anesthesia Type: General (The anesthetic type performed was the same as planned.) Comments: Anesthesia Preprocedure Evaluation - Chris Hidalgo MD - 09/24/2016 1:32 PM EDT Pre-Anesthesia Evaluation for: Adela Mosley a 46 y.o. female. Procedure(s): CYSTOURETEROSCOPY,DIAGNOSTIC,W/ LITHOTRIPSY INC. INSERTION OF INDWELLING URETERAL STENT (WRVU 8) MODIFIER HOLMIUM LASER Patient Active Problem List Diagnosis ??? Nephrolithiasis ??? Recurrent UTI (urinary tract infection) ??? IC (interstitial cystitis) Past Medical History: Diagnosis Date ??? Abnormal PFTs (pulmonary function tests) reports 70% of predicted- h/o multiple URIs, allergies, used to use several inhalers ??? Hypoglycemia ??? Multiple food allergies ??? Reactive airway disease pt reports h/o asthma, but does not use inhalers regularly now by choice; was on Advair in past ??? Toxoplasmosis 2003 Past Surgical History: Procedure Laterality Date ??? CERVIX REMOVAL 08/2006 cone biopsy Social History Substance Use Topics ??? Smoking status: Never Smoker ??? Smokeless tobacco: Never Used ??? Alcohol use 0.6 oz/week 1 Standard drinks or equivalent per week History Drug Use No Allergies Allergen Reactions ??? Prochlorperazine muscle spasms ??? Sulfa (Sulfonamide Antibiotics) Rash Medications: MAR and/or home medications have been reviewed. Physical Exam: Vitals: 09/24/16 1309 BP: 119/74 Pulse: 64 Resp: 12 Temp: 37.4 ??C (99.3 ??F) Body mass index is 20.18 kg/(m^2). Height: 167.6 cm (5' 6) Weight - Scale: 56.7 kg (125 lb) Airway Assessment: Mallampati: I TM distance: >3 FB Neck ROM: full Cardiovascular Assessment: cardiovascular exam normal Pulmonary Assessment: breath sounds clear to auscultation pulmonary exam normal Dental Assessment: - normal exam Misc Assessment: Anesthesia Plan: ASA 1 general, with a(n) inhalational and intravenous induction Pt seen chart reviewed Cysto litho PMHx; -CAD -SOB -CP, good exercise tolerance -HTN -DM +RAD Rare exercise induced -Liver/kidney disease -URI -GERD NPO Anes Hx - for complications R & B reviewed Plan Gen LMA Region - Other Informed Consent: Anesthetic plan and risks discussed with patient and spouse. Use of blood products discussed with patient and spouse who consented to blood products. Plan discussed with DIGITAL COMPOSER. PAT Staff Note documented in this encounter Plan of Treatment Not on filedocumented as of this encounter Visit Diagnoses Not on filedocumented in this encounter Administered Medications Inactive Administered Medications - up to 3 most recent administrations Medication Order MAR Action Action Date Dose Rate Site ceFAZolin (ANCEF) 2g in dextrose 5% Given 09/24/2016 4:01 PM EDT 2 g 100 mL 2 g, Intravenous, ONCE, 1 dose, On Fri09/24/16 at 1330, Administer over 30 Minutes, Day of Surgery (Day of Procedure), Indication for (Active or Suspected): Prophylaxis dexamethasone (DECADRON) injection Given 09/24/2016 3:59 PM EDT 8 mg Intravenous, PRN, Starting on Fri09/24/16 at 1559, Until Fri09/24/16 at 1800, Anesthesia Intra-op, Routine ePHEDrine 5 mg/mL multi-dose injection Given 09/24/2016 5:04 PM EDT 5 mg Intravenous, PRN, Starting on Fri09/24/16 at 1619, Until Fri09/24/16 at 1800, Anesthesia Intra-op, Routine Given 09/24/2016 4:37 PM EDT 5 mg Given 09/24/2016 4:19 PM EDT 5 mg fentaNYL 50 mcg/mL multi-dose injection Given 09/24/2016 4:32 PM EDT 25 mcg Intravenous, PRN, Starting on Fri09/24/16 at 1632, Until Fri09/24/16 at 1800, Pain, Anesthesia Intra-op, Routine gentamicin (GARAMYCIN) 80 mg in sodium New Bag 09/24/2016 4:01 PM EDT 80 mg chloride 0.9% 102 mL 80 mg, Intravenous, ONCE, 1 dose, On Fri09/24/16 at 1330, Administer over 60 Minutes, This medication may have an associated drug lab level. Please check for lab orders. Warning Vesicant/Irritant Medication , Day of Surgery (Day of Procedure), Indication for (Active or Suspected): Prophylaxis ketorolac (TORADOL) injection Given 09/24/2016 5:46 PM EDT 30 mg PRN, Starting on Fri09/24/16 at 1746, Until Fri09/24/16 at 1800, Pain, Anesthesia Intra-op, Routine lidocaine (PF) (XYLOCAINE) 100 mg/5 mL (2 %) Given 09/2016 3:52 PM EDT 100 mg injection Intravenous, PRN, Starting on Fri09/24/16 at 1552, Until Fri09/24/16 at 1800, Anesthesia Intra-op, Routine midazolam (PF) (VERSED) 1 mg/mL multi-dose Given 09/24/2016 3:45 PM EDT 2 mg injection Intravenous, PRN, Starting on Fri09/24/16 at 1545, Until Fri09/24/16 at 1800, Sleep, Anesthesia Intra-op, Routine ondansetron (ZOFRAN) injection Given 09/24/2016 5:39 PM EDT 8 mg Intravenous, PRN, Starting on Fri09/24/16 at 1739, Until Fri09/24/16 at 1800, Nausea, Anesthesia Intra-op, Routine propofol (DIPRIVAN) 10 mg/mL bolus injection Given 7 5:44 PM EDT 20 mg (Anesthesia) Intravenous, PRN, Starting on Fri09/24/16 at 1552, Until Fri09/24/16 at 1800, Anesthesia Intra-op Given 09/24/2016 5:24 PM EDT 20 mg Given 09/24/2016 4:53 PM EDT 30 mg propofol (DIPRIVAN) infusion Rate/Dose 09/24/2016 4:53 75 mcg/kg/min 25.5 mL/hr Intravenous, CONTINUOUS PRN, Change PM EDT Starting on Fri09/24/16 at 1555, Until Fri09/24/16 at 1800, Anesthesia Intra-op, Routine New Bag 09/24/2016 3:55 PM EDT 50 mcg/kg/min 17 mL/hr documented in this encounter Care Teams Crime Analyst Relationship Specialty Start Date End Date Mariluz Vargas MD PCP - General Family Medicine 11/20/[address] [place] [address] documented as of this encounter
--- OUTSIDE RECORDS SUMMARY | 2021-11-16 01:20 | XMS_ITS | Encounter Summary ---
:1970 [place] [address] Care Team Providers Name Role Phone Mariluz Vargas MD Primary Care Provider Reason for Visit Reason Comments Skin Check Encounter Details Date Type Department Care Team Description 11/20/2015 Office Visit Dermatology at [facility] Teja Farmer MD Milia; [facility] Vergara angioma; [address] [place] [address] [facility] [phone] [address]-DERMATOLOGY [place], [place] [address] Social History Tobacco Use Types Packs/Day Years Used Date Never Smoker Smokeless Tobacco: Never Used Alcohol Use Standard Drinks/Week Comments Yes 1 (1 standard drink = 0.6 oz pure alcoho l) Sex Assigned at Date Recorded Not on file documented as of this encounter Patient Instructions Patient InstructionsMax Sears, DONOVAN - 11/20/2015 8:30 AM EDT Caring for Your Skin Sun Protection Exposure to ultraviolet (UV) light--from the sun or tanning beds--is the most common modifiable riskfactor for skin cancer. In fact, most skin cancers are found in locations where sun exposure is highest (e.g., face, ears, and hands). Furthermore, UV exposure is associated with skin aging, including wrinkles, brown spots, and leathery skin. Recommendations ?? Generously apply a broad-spectrum water-resistant sunscreen with a Sun Protection Factor (SPF) of30 or more to all exposed skin. ?? Reapply sunscreen every 2 hours, even on cloudy days, and after swimming or sweating. ?? Preferred sunscreens: Sunscreens work by either forming a physical or a chemical barrier to ultraviolet light. Zinc oxide or Titanium dioxide are physical barriers to the sun. We recommend sunscreens that contain at least one physical barrier. Look for these brands: Neutrogena, Blue Lizard, [place] Baby, Russell, Naga VILLASENOR. ?? Wear protective clothing. Long-sleeved shirts, pants, a wide-brimmed hat and sunglasses are all excellent choices. Some companies produce great, breathable SPF clothing (Coolibar, LL Snell, Fridays) ?? Seek shade. The sun's rays are strongest between 10a.m. And 4 p.m. Dry Skin Care Dry skin is more problematic in the winter, when the humidity is lower. Taking measures to maintain the skin's moisture will decrease dryness and itching. Recommendations ?? Bathe in lukewarm water. Wash the skin gently (avoid vigorous scrubbing); use Dove or CeraVe soapto wash dirty areas. Avoid harsh soaps such as Mallorie Spring, Ivory, or Dial as these can be drying. ?? Immediately after bathing, apply a bland, preferably fragrance-free moisturizer to your skin. Ointments work better than creams, which work better than lotions. Look for the following brands: Vaseline 100% petroleum jelly, Vanicream, Neutrogena, CeraVe, Cetaphil, Aveeno, Lubriderm, or Eucerin. ?? For itchy areas, you can apply hydrocortisone 1% cream (wtct-kqu-cxhqtyn product) for 1-2 weeks. Do not use this medication on your face. Skin Cancer screening The incidence of skin cancer has increased dramatically in the past 20 years. The most common skin cancer types include basal cell carcinoma and squamous cell carcinoma. These often look like new moles, and they might be tender, scaly, or prone to bleeding. The most deadly form of skin cancer is melanoma, and it can affect people of all ages and skin types. Recommendations ?? We recommend performing a skin self-examination monthly to become familiar with your moles. This will help you to detect new or changing moles earlier. ?? Remember the ABCDE's of melanoma: ?? Asymmetry - Melanoma tends to grow in an asymmetric (uneven) fashion ?? Border - The border in melanoma tends to be uneven or jagged ?? Color - Melanomas often have different colors (e.g., dark brown, black, red) ?? Diameter - Look for moles that are larger than 0.6 cm (the size of a pencil eraser) ?? Evolution - This is perhaps the most important feature. Any mole that is rapidly growing or changing should be evaluated. documented in this encounter Progress Notes Neville Farmer MD - 11/20/2015 8:30 AM EDT DERMATOLOGY - NEW PATIENT NOTE Date of service: 11/20/2015 Adela Mosley : 1970 Dermatology Resident Note: Neville Farmer MD Chief Complaint Patient presents with ??? Skin Check Ms. Adela Mosley is a 45 y.o. female. This is a new patient to me. Self-referred. HPI: Ms. Mosley presents for a full skin exam. She states concern about lesions on the: - Left shoulder - First appeared about 2-3 years ago. States it originally appeared as a bryson.Confirms picking at it and it would bleed and heal over but the bryson appearance would recur shortly after the scab healed over. States the most recent appearance was more raised and would catch onclothing and be slightly painful. - Dorsal nose - dark brown patch. Inquiring about sun damage. She does wear sunscreen, SPF 15-50, when out in the sun. She confirms use of protective clothing when in the sun, such as hats, mostly to shade her face. She confirms a history of blistering sunburns. She denies any history of tanning bed use. 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 Past Skin History: No known relevant skin history Medical History: Patient Active Problem List Diagnosis Code ??? Recurrent UTI N39.0 ??? Recurrent UTI (urinary tract infection) N39.0 ??? IC (interstitial cystitis) N30.10 Medications: Current Outpatient Prescriptions on File Prior to Visit Medication Sig Dispense Refill ??? UNABLE TO FIND Estrogen cream ??? fish oil-omega-3 fatty acids 1,000 mg Capsule Take 2 g by mouth daily. ??? magnesium citrate Solution Take by mouth. ??? PROGESTERONE, BULK, MISC by Misc.(Non-Drug; Combo Route) route. Indications: topical cream ??? d-mannose Powder Take by mouth. No current facility-administered medications on file prior to visit. Allergies: Allergies Allergen Reactions ??? Prochlorperazine muscle spasms ??? Sulfa (Sulfonamide Antibiotics) Rash Family History: Family h/o melanoma, or Non Melanoma Skin Cancer - Father - unsure of exact diagnosis - likely NMSC No known family h/o atopy, psoriasis, or other skin disease Social/Occupational History: Occupation: [employer] Review of Systems: General: Feels well Skin: As per HPI; no other skin concerns Examination: Constitutional: Patient was alert, well-appearing and in no noticeable distress. Skin: A full skin examination was performed. This includes the head, neck, face and scalp including behind the ears. The chest, abdomen, back, and axillae, as well as the arms, hands, palms, fingers. Legs, feet, toes and soles were also examined. Buttocks and breasts were also examined with patient consent. Genitalia were not examined. Specific skin findings: 1. Left shoulder: 0.1cm firm, round, white subcutaneous papule. 2. Trunk: Multiple, scattered 0.2-0.4cm bright red, well-demarcated papules. 3. Trunk and extremities: few, 0.3-0.5cm, medium-brown, evenly-pigmented macules and papules. All with regular pigment pattern on dermoscopy. No pigmented lesions suspicious for melanoma. Diagnosis/Assessment/Treatment Plan: 1. Milia: likely, but could not be certain and this was discussed with her. Discussed performing a bx to remove the lesion and verify diagnosis, but explained that the site will be replaced with a scar. After discussion, the pt. Elected to continue to monitor for changes and call and been seen if changes occur or if she decides to have the lesion removed. 2. Vergara Angiomas: Benign, patient reassured. 3. Melanocytic nevi: few benign appearing nevi - patient reassured. - The nature of sun-induced photo-aging and skin cancers was discussed. Discussed the importance of sun avoidance. Sun protection strategies including protective clothing (such as awide-brimmed hat), and the use and frequent reapplication of a broad-spectrum (UVA + UVB) sunscreen with an SPF > 30 were advised. Patient was instructed to observe closely for any skin damage/changes, and call if such occurs. - Discussed warning signs for skin cancer, including the ABCDE's of melanoma. - Educational information provided via pamphlet. AVS printed and handed to the patient upon departure. RTC PRN. Instructed to call for questions, concerns. I am documenting this encounter acting as the scribe for and in the presence of MD [facility] I performed the above scribed service and agree with the accuracy of the documentation in this encounter, Neville Farmer MD Reviewed and signed by Neville Farmer MD Resident in Dermatology [facility] Staff dynamometer tester: Elly Haq MD Section of Dermatology [facility] Elly Haq MD - 11/20/2015 8:30 AM EDT I was the supervising physician working with dermatology resident Dr. Tor Farmer in the dermatology clinic during this patient visit. The level of Resident supervision for this patient visit was indirect supervision with direct supervision immediately available. (definition: [facility] GME Policy Statement on Graduate Medical Education, Supervision of Graduate Medical Trainees) I was immediately available to Dr. Farmer for questions and discussion regarding this visit. I have reviewed his encounter note details and level of service. ELLY HAQ MD Staff Physician documented in this encounter Plan of Treatment Not on filedocumented as of this encounter Visit Diagnoses Diagnosis Milia Sebaceous cyst Vergara angioma Nevus, non-neoplastic Multiple benign nevi Benign neoplasm of skin, site unspecifie d documented in this encounter Care Teams Child Development Assistant Relationship Specialty Start Date End Date Mariluz Vargas MD PCP - General Family Medicine 11/20/[address] [place] [address] documented as of this encounter
--- OUTSIDE RECORDS SUMMARY | 2021-11-16 01:20 | XMS_ITS | Encounter Summary ---
:1970 Author Organization [facility] [place] [address] Care Team Providers Name Role Phone Rocio Jose MD Primary Care Provider Encounter Details Date Type Department Care Team Description 04/20/2015 Notes Only Urology at [facility] Arely Preciado, [facility] [place] [address] [facility] [phone] UROLOGY DEPT. [place], [place] [address] (Wo rk) Social History Tobacco Use Types Packs/Day Years Used Date Never Smoker Sex Assigned at Date Recorded Not on file documented as of this encounter Progress Notes Jocelyn Navarro LPN - 04/20/2015 8:44 AM EST Urine culture collected 04/18 from [facility] is a no growth. A letter has been printed and sent to the patient's home address. JOCELYN NAVARRO LPN documented in this encounter Plan of Treatment Not on filedocumented as of this encounter Visit Diagnoses Not on filedocumented in this encounter Care Teams Change Manager Relationship Specialty Start Date End Date Rocio Jose MD PCP - General 05/21/10 08/20/15 [address] [place] [address] documented as of this encounter
--- OUTSIDE RECORDS SUMMARY | 2021-11-16 01:20 | XMS_ITS | Encounter Summary ---
:1970 Author Organization [facility] Address [facility] [place] [address] Care Team Providers Name Role Phone Rocio Jose MD Primary Care Provider Reason for Visit Consultation (Routine) - Closed Specialty Diagnoses / Procedures Referred By Contact Refer red To Contact Urology Diagnoses urgency of urination Mariluz Vargas MD [facility] [address] [place], [place] [address] [place] [address] Phone: Fax: Referral ID Status Reason Start Date Expiration Date Visits V isits Requested Authorized [id number] Closed Consult, 01/31/2015 01/31/2016 2 2 [facility] Encounter Details Date Type Department Care Team Description 03/01/2015 Office Visit Urology at [facility] Arely Preciado, Recurrent UTI [facility] [place] [address] [facility] [phone] UROLOGY DEPT. [place], [place] [address] (Wo rk) Social History Tobacco Use Types Packs/Day Years Used Date Never Smoker Sex Assigned at Date Recorded Not on file documented as of this encounter Last Filed Vital Signs Vital Sign Reading Time Taken Comments Blood Pressure 108/38 03/01/2015 9:23 AM EST Pulse 73 03/01/2015 9:23 AM EST Temperature 36.9 ??C (98.4 ??F) 03/01/2015 9:23 AM EST Respiratory Rate 18 03/01/2015 9:23 AM EST Oxygen Saturation 100% 03/01/2015 9:23 AM EST Inhaled Oxygen Concentration - - Weight 55.8 kg (123 lb) 03/01/2015 9:23 AM EST Height 168.9 cm (5' 6.5) 03/01/2015 9:23 AM EST Body Mass Index 19.56 03/01/2015 9:23 AM EST documented in this encounter Patient Instructions Patient InstructionsArely Preciado APRN - 03/01/2015 9:57 AM EST Behavioral Therapies The following foods may increase bladder overactivity and contribute to your lower urinary tract symptoms, as well as urinary incontinence. Please moderate in your diet: Alcohol, coffee, tea, citrus fruits and juices, tomatoes, spicy foods, sugar, honey, chocolate, onions, artificial sweeteners (especially nutrasweet), vinegar, aged or fermented foods, highly acidic foods Some fruits may contribute as well: apples, cantaloupe, strawberries, cranberries, grapes, guava, peaches, pineapples and plums Chamomile or peppermint teas are ok. Blueberry and pear juice are ok Please limit fluid to 64 oz per day, mostly water. Cut back on fluids after 6 pm (preferrably sips). If you have dry mouth, try sugar free candies, gum, or oral moisurizers (ie. Biotene) Timed void every 2 hours during the day, double void (take time to feel you empty fully) by getting up and sitting back down, or changing position. Remember, the best time to void is PRIOR to having the urge. Move your bowels daily. Take a fiber supplement like metamucil, or you could try Miralax. Please usethese per the recommendations on the back of the package. Kegels: 3 sets of 10, 3 times per day. Consciously tighten your pelvic floor prior to cough, laugh or sneeze to compress the urethra and minimize leakage Quick flicks: quick kegels to counteract urinary urgency and suppress bladder contractions. When youget the sense of urge, kegel 3-4 quick times. Wait for the urge to subside and then walk slowly to the bathroom. [place] no more than 3 times per week. Void prior to and at least after intercourse. Further Treatment Options pls see your business services intern as planned for your cervical cancer Please get a urine culture when you have an increase in urinary symptoms (burning, fever/chills, kidney pain, blood in your urine) so that we may fax an order to your local hospital or have you come here for a urine culture. This allows us to follow your urine culture results. If your cultures remain positive, we will do some additional testing. If you have intermittent infections that clear, we will consider antibiotic prophylaxis daily for 6 months, postcoitally or self treatment. If your cultures remain negative, we will treat for presumptive IC or pelvic pain syndrome. Therapies would include amitriptyline, neurontin, atarax, feldene, NSAIDS (motrin), elmiron, elmiron instillations or cysto/hydrodistention Please call us to have a repeat urine culture done 2 days after you finish antibiotic therapy. Call us if you have blood in your urine that you can see at any time. If you have persistent urinary infections, we may onsider cranberry tablets or an antibiotic at bedtime to help prevent infections. documented in this encounter Progress Notes Chrystal Holley - 03/08/2015 11:39 AM EST Pt is scheduled to return on 07/04/15 Arely Preciado APRN - 03/01/2015 9:30 AM EST UROLOGY CLINIC NEW PATIENT ASSESSMENT Patient Name: Adela Mosley Patient Primary Care/Referring Provider: Rocio Jose MD History of Present Illness: Ms. Adela Mosley is a 45 year old woman, seen at the request of Rocio Jose MD who presents for evaluation and assessment of urinary urgency. Her notes have been reviewed. Ms. Sherman was last seen at [facility] in 07/2010 by ERMIAS Suárez for e.coli UTIs. Her history included at that time 3 positive e.coli UTIs and then UTI symptoms with 2 negative cultures (onewith <10,000 GNR and one with GPF thought to be a contaminant). She underwent a normal renal U/S on 04/09/10; this also demonstrated a low PVR of 36 ccs. U/A and Urine Culture History: None more recent on file 05/28/10: U/A: 0-1 WBCs, 0 RBCs 05/18/10: U/A: 5-10 WBCs, 20-30 RBCs. Culture: 10-50,000 E. coli 04/10/10: U/A: 0-1 WBC, 0-2 RBCs 04/04/10: Dipstick: many WBCs 02/23/10: Dipstick: trace WBCs She states that she was tentatively dx with IC when she saw Rosaura, but was put on abx prophylaxis postcoitally which worked well for her. She would have intermittent bladder symptoms, but they would resolve on their own and she could manage them. Initially, she states her infections were related to control issues. She does have a history of cervical cancer and sees her DROP WORKER next week. In 07/2014, she saw her PCP for worsening urgency/fequency. The character of her symptoms changed. She started to have more immediacy. She does not leak urine. No bladder pain with holding. Her symptomswere mostly noticeable with travelling or if she woke at night and had to void. She saw her PCP and was given a script for amitriptyline, but she did not take this. She felt she could manage her symptoms without medications. In 09/2014, she started to have even more urge and immediacy. No incontinence still. No gross hematuria. She has not had a urine culture that she knows of recently. No fever/chills, dysuria. She does have odorous and cloudy urine. She voids every 1-2 hours during the day and double voids to get all of her urine out. Her stream is ok. She wakes 1 time at night. She feels quick flicks help her urge at times. She moves her bowels daily, no change, soft, sometimes a few times per day She drinks no coffee, rare 8 oz of dark tea intermittently but often none per day, 64 oz of water, except slightly less recently given her urge. She does note that she has KWAN every other month, with her menses, when she has a tampon in place. This is not particularly bothersome, she just notices it. She can manage it fine. GENERAL HEALTH: Good REVIEW OF SYSTEMS: -- CONST - No fevers, chills, weight loss/gain, excessive fatigue. She feels hot most of the time. -- PROPERTY PRESERVATION SPECIALIST - No headaches, dizziness or loss of consciousness. -- RS - No cough, wheeze or breathing difficulties. -- CVS - No chest pain, palpitations or PORTER. No claudication or ankle swelling. -- GI - Normal appetite and bowels. No nausea, vomiting, abdominal pain, constipation, blood per rectum. PAST MEDICAL/SURGICAL HISTORY: Genital HSV Cervical cancer (?CIS) treated with LEEP 2005 , no regular menses now SOCIAL HISTORY: , no children. 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 She is a non-smoker, non-drinker. FAMILY HISTORY: Negative for cancers. Her father has kidney stones. PHYSICAL EXAM: General: Thin but healthy appearing woman, A+Ox3 in NAD. Neck: supple without LAD. Abdomen: benign without masses, rebound, guarding, or tenderness. No hepatosplenogmegaly. No CVA tenderness. Extremities: well perfused without pedal edema. Pelvic: The external genitalia are normal with normal [...] a Gr. 0 rectocele. There are no pelvicmasses. The patient can [place] effectively. Rectal: normal rectal tone and no rectal masses Musculoskeletal: grossly normal Neurologic: grossly normal PVR with bladder scanner: 20-30 cc with scanner U/A: +WBCs, nitrites-UA/culture sent IMPRESSION: ??? Recurrent UTIs in the past ??? OAB and mild KWAN, but it appears she has an infection today ? IC in the past PLAN: ??? Call with sx of a UTI and we will do a culture at that time, increase in urge as well ??? We will treat per her cx results today and see if that helps her urge/immediacy ??? We discussed timed and double voiding, hydration with water, bladder irritants, moderation of bowels ??? We will defer meds for urgency at this time and see if her symptoms resolve with UTI tx. She will defer therapies for her KWAN. This is really not particularly bothersome ??? We discussed that IC is a dx of exclusion. She may have this. However, she also has a history ofUTIs and was having recurrent UTIs prior to her cultures where no bacteria was seen, so she could have had continued bladder irritation at that time that was resolving from the UTIs. We discussed that we would have an ongoing discussion about this as time goes on and will continue to monitor her cultures. ??? We could also consider postcoital abx or daily prophylaxis if she does have true UTIs that clear. If her UTIs do not clear, CT and cystoscopy ??? F/U in 4 months, sooner with concerns. All questions answered to his apparent satisfaction. Arely Jauregui APRN documented in this encounter Plan of Treatment Not on filedocumented as of this encounter Procedures Procedure Name Priority Date/Time Associated Comments Diagnosis URINALYSIS WITH Routine 03/01/2015 10:34 AM Recurrent UTI Resu lts for this REFLEX CULTURE EST procedure are in the results section. URINE CULTURE Routine 03/01/2015 10:34 AM Recurrent UTI Result s for this EST procedure are i n the results section. documented in this encounter Results (ABNORMAL) Urinalysis with reflex Culture (03/01/2015 10:34 AM EST) [facility] Method Time Signature Glucose UA Negative Negative CERNER mg/dL MILLENNIUM Protein UA Negative Negative CERNER mg/dL MILLENNIUM Bilirubin UA Negative Negative CERNER mg/dL MILLENNIUM Comment: Clinical correlation required for positi ve Urine Bilirubin results as false positive may occur with some drugs and d rug related products. If a false positive is suspected a serum total bili hoyt should be considered if clinically indicated. Urobilinogen UA Normal Normal mg/dL CERNER MILL ENNIUM pH UA 6.0 5.0 - 8.0 [facility] Blood UA Small (A) Negative mg/dL CERNER MILLENNI UM Ketones UA Negative Negative mg/dL [facility] IUM Nitrite UA Positive (A) Negative [facility] MILL[facility]U M Leukocytes UA Large (A) Negative mcL [facility] Appearance UA Hazy (A) Clear CERNER MILLENNIU M Spec [place] UA 1.019 1.002 - 1.030 [facility] MIL LENNIUM Color UA Yellow Yellow [facility] MILL[facility] RBC UA 5 (H) 0 - 4 /HPF [facility] MILLENNIUM WBC UA >182 (H) 0 - 5 /HPF [facility] MILLENNIUM Bacteria UA Many (A) None /HPF [facility] MILLENNIUM Trans Epith UA <1 <=1 /HPF [facility] MILLENNI UM Culture Reflexed Dup Culture [facility] MILL ENNIUM Specimen Anatomical Collection Method Collection Time Receive d Time (Source) Location / / Volume Laterality Urine specimen 03/01/2015 10:34 5 (specimen) AM EST 11:50 AM EST Resulting Agency Comment Spec In Lab Boone Rodriguez MD URINE ORDERABLES Performing Organization Address City/State/[place] [address] CERNER JENNIFERENNIUM (ABNORMAL) Urine culture Clean Catch Urine (03/01/2015 10:34 AM EST) [facility] Method Time Signature Urine Culture 50,000-99,000 [facility] cfu/ml [facility] Escherichia coli (A) Organism Escherichia CERNER coli (A) MILLENNIUM Specimen (Source) Anatomical Collection Method Collection Time Re ceived Time Location / / Volume Laterality Urine specimen 03/01/2015 10:34 5 obtained by clean AM EST 12:[address] catch procedure (specimen) Resulting Agency Comment Spec [...] Sensitive Escherichia coli Trimethoprim/Sulfa MICROSCAN METHOD Sensitive Boone Rodriguez MD MICROBIOLOGY - GENERAL ORDER PATRICK Performing Organization Address City/State/[place] [address] [facility] documented in this encounter Visit Diagnoses Diagnosis Recurrent UTI Urinary tract infection, site not specif ied documented in this encounter Care Teams Type Copy Examiner Relationship Specialty Start Date End Date Rocio Jose MD PCP - General 05/21/10 08/20/15 [address] [place] [address] documented as of this encounter
--- OUTSIDE RECORDS SUMMARY | 2021-11-16 01:20 | XMS_ITS | Encounter Summary ---
:1970 Author Organization [place] [address] Care Team Providers Name Role Phone Rocio Jose MD Primary Care Provider Encounter Details Date Type Department Care Team Description 05/29/2015 Telephone Urology Dima Piña MD [facility] [place] [address] UROLOGY DEPT [phone] [place], [place] [address] (Wo rk) Social History Tobacco Use Types Packs/Day Years Used Date Never Smoker Sex Assigned at Date Recorded Not on file documented as of this encounter Miscellaneous Notes Telephone Encounter - Dima Piña - 05/29/2015 8:16 AM EST Patient calling with s/s of UTI. Some back pain but ut improved after a bath and she feels better this morning. She will drop a urine culture off locally ([facility]) and she would like to hold off on antibiotics until culture results are back which is reasonable. documented in this encounter Plan of Treatment Not on filedocumented as of this encounter Visit Diagnoses Not on filedocumented in this encounter Care Teams Data Officer Relationship Specialty Start Date End Date Rocio Jose MD PCP - General 05/21/10 08/20/15 [address] [place] [address] documented as of this encounter
--- OUTSIDE RECORDS SUMMARY | 2021-11-16 01:20 | XMS_ITS | Encounter Summary ---
:1970 Author Organization [place] [address] Care Team Providers Name Role Phone Rocio Jose MD Primary Care Provider Reason for Visit Reason Comments Other Encounter Details Date Type Department Care Team Description 03/21/2015 Telephone Urology at [facility] Arely Preciado, [facility] [place] [address] [facility] [phone] UROLOGY DEPT. [place], [place] [address] (Wo rk) Social History Tobacco Use Types Packs/Day Years Used Date Never Smoker Sex Assigned at Date Recorded Not on file documented as of this encounter Miscellaneous Notes Telephone Encounter - Arely Preciado APRN - 03/21/2015 5:03 PM EST ----- Message from Chrystal Holley sent at 03/21/2015 11:25 AM EST ----- Regarding: Please call with test results Contact: urine results: 03/15/15: 10-50 K e.coli ackerman sensitive 03/01/15: 50-99K e.coli tx with keflex She has a yeast infection from the first abx. Will give her diflucan 200 mg po x 1, and then repeat dose in 4 days. She will consider vaginal monistat as well cipro 500 mg po twice daily x 10 days, repeat culture 2 days later. Pt content with plan. documented in this encounter Plan of Treatment Not on filedocumented as of this encounter Visit Diagnoses Not on filedocumented in this encounter Care Teams Pool Finisher Relationship Specialty Start Date End Date Rocio Jose MD PCP - General 05/21/10 08/20/15 [address] [place] [address] documented as of this encounter
--- OUTSIDE RECORDS SUMMARY | 2021-11-16 01:20 | XMS_ITS | Encounter Summary ---
:1970 Author Organization [facility] [place] [address] Care Team Providers Name Role Phone Rocio Jose MD Primary Care Provider Reason for Visit Reason Comments Follow-up Encounter Details Date Type Department Care Team Description 08/08/2015 Office Visit Obstetrics and Aimee Gonzalez, Vaginal irritation; Gynecology at [facility] MD Dyspareunia (CODE) [facility] [place] [address] OBSTETRICS & [phone] GYNECOLOGY [place], [place] [address] Social History Tobacco Use Types Packs/Day Years Used Date Never Smoker Alcohol Use Standard Drinks/Week Comments Yes 1 (1 standard drink = 0.6 oz pure alcoho l) Sex Assigned at Date Recorded Not on file documented as of this encounter Last Filed Vital Signs Vital Sign Reading Time Taken Comments Blood Pressure 102/64 08/08/2015 7:56 AM EDT Pulse - - Temperature - - Respiratory Rate - - Oxygen Saturation - - Inhaled Oxygen Concentration - - Weight 58.1 kg (128 lb) 08/08/2015 7:56 AM EDT Height - - Body Mass Index 20.35 03/01/2015 9:23 AM EST documented in this encounter Progress Notes Aimee Gonzalez MD - 08/08/2015 8:04 AM EDT Subjective: Adela Mosley is a 45 y.o. G0 premenopausal female Who returns in f/u of dyspareunia, vaginal discharge, and ?recurrent UTI. Please see my note from 05/23/15 for further history. She has continued her care wth Dr Gisell Strickland at [facility] as well as with Urology at [facility]. Interval hx: She had a good trip to [facility] shortly after her last visit here.. Everything seems to be getting better, not completely better. After doing some Journaling, she made some changes:. Was not changing large tampon often enough, is, using smaller ones now with more changes, also pantiliners.Using less soap, fewer products. Continues to have mucus discharge that is enough ot be problematic, requires her to wipe it out of her underwear, etc. Menses more regular. When finishing menstrual flow, urine becomes smelly, nasty and discharge comes back. Sitz bath in vinegar and water addresses it. Better if pats, not wipes. Being gentle is working. Started back on estrogen and progesterone transdermal creams about 2 months ago; applies to belly and inner thighs. Is aware of option to resume OC but is concerned about possible side effects. Last OCused was Kariva but when used a different generic->had bladder issues. [place], hut something hard in there- Discussed possibility that he is running into her pubicbone, cervix, or posterior uterus. Working with Urology; using D-mannose. 6mos suppressive antibx also recommended but she has chosen not to begin this as wants to avoid effects on vaginal rina. E coli has been more consistently growing from urine cultures. Unclear if interstitial cystitis also; amitryptline offered in past but she has not used. Brief exam Cmo & President: Patient's last menstrual period was 07/29/2015..On OCs for 25 yrs with regular menses- breast tenderness, menorrhagia (changing 4x/hr), back pain, mood lability. Went on OCs around age 21 (did nottolerate at age 17). Went off OCs 3- 4 yrs ago and since then menses started regularly. Used homeopathic meds when came off pills with decreasing amounts of progesterone(over breasts or elbows) and estrogen cream applied to back (over kidneys), wondered if perimenopausal. . Sexually active, using vsectomy for control since 2012. Denies post-coital bleeding. Last PAP 04/18/15 WNL, neg HR HPV (NILM/neg annually x past 3 yrs in records that were sent). Significant history of abnormal paps:see below. No history of other STD's. No new sexual partners. Past OB-Cmo & President Hx:G0. Pap 2005 in [place] HS[place], moved to [place]. 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 Normal since with annual Paps, last 04/04. Review of Systems ROS:See HPI above Patient's medications, allergies, past medical, surgical, social and family histories were reviewed and updated as appropriate. 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 Pelvic exam-External genitalia including Barth[place], urethral, and [place]'s glands are within normal limits; no erythema, lesions, whitening , or thickening of tissues. Vaginalwalls are pink, moist and well rugated. Minimal vaginal discharge noted. The cervix with ectropion Tried to evaluate for hard area noted with intercourse. Pt used her finger to try to illustrate how far up it was. It is clearly above the hymen but it is not clear whether the hard sensation is from her cervix, the posterior uterus, edge of her levator ani or a prominent vaginal rugation. No painor tenderness on exam. Assessment: Assessment: Generally healthy 45 y.o. with complex of symptoms suggestive of either interstitial cystitis or relatively frequent UTI's perhaps exacerbated by vaginitis.Some of her symptoms may be part of normal menstrual cycling (mucus changes). Some improvement over last several months with hygiene changes. Plan: Plan: 6 mo f/u or Prn.Knows that she is due for a pap in 04/05. Aimee Gonzalez M.D. documented in this encounter Plan of Treatment Not on filedocumented as of this encounter Visit Diagnoses Diagnosis Vaginal irritation Unspecified noninflammatory disorder of vagina Dyspareunia (CODE) documented in this encounter Care Teams Machine Leather Trimmer Relationship Specialty Start Date End Date Rocio Jose MD PCP - General 05/21/10 08/20/15 [address] [place] [address] documented as of this encounter
--- OUTSIDE RECORDS SUMMARY | 2021-11-16 01:20 | XMS_ITS | Encounter Summary ---
:1970 Author Organization [facility] [place] [address] Care Team Providers Name Role Phone Rocio Jose MD Primary Care Provider Encounter Details Date Type Department Care Team Description 05/26/2015 Telephone Urology at [facility] Arely Preciado [facility] [place] [address] [facility] [phone] UROLOGY DEPT. [place], [place] [address] (Wo rk) Social History Tobacco Use Types Packs/Day Years Used Date Never Smoker Sex Assigned at Date Recorded Not on file documented as of this encounter Miscellaneous Notes Telephone Encounter - Gabe Alonzo RN - 05/26/2015 4:36 PM EST Verified patient name and date of Called pt as requested by Arely Jauregui in regards to her recent urine culture results. Pt says she is not having any UTI symptoms today but she had them yesterday. Pt says she had urinary frequency and pressure but denies fever, flank pain, burning, urgency and nausea. Pt says she has these offand on symptoms frequently. Told pt that Arely will be made aware and that the office will call her with any further instructions. Pt verbalized understanding. documented in this encounter Plan of Treatment Not on filedocumented as of this encounter Visit Diagnoses Not on filedocumented in this encounter Care Teams District Agent Relationship Specialty Start Date End Date Rocio Jose MD PCP - General 05/21/10 08/20/15 [address] [place] [address] documented as of this encounter
--- OUTSIDE RECORDS SUMMARY | 2021-11-16 01:20 | XMS_ITS | Encounter Summary ---
:1970 Author Organization [facility] Address [facility] [address] [place] [address] Care Team Providers Name Role Phone Rocio Jose MD Primary Care Provider Reason for Referral Consultation (Routine) - Closed Specialty Diagnoses / Procedures Referred By Contact Refer red To Contact Obstetrics and Diagnoses Cervical cancer Dayron Jauregui [facility] Return Agent 5l Gynecology TONYA Mcgee [facility] [address] [place], [place] UROLOGY DEPT. [id number] [place] [address] Referral ID Status Reason Start Date Expiration Date Visits V isits Requested Authorized [id number] Closed Consult, 03/10/2015 03/09/2016 1 1 Test & Treat Reason for Visit Reason Comments Other Encounter Details Date Type Department Care Team Description 03/10/2015 Telephone Urology at [facility] [place] Arely Preciado, [facility] [place] [address] [facility] [phone] UROLOGY DEPT. 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 Ongoing sales service route manager issues. She has a sales service route manager provider, but prefers to move her care to [facility] [place], preferrably with Dr. Aimee Gonzalez or a sales service route manager onc provider. Referral placed per pt request. documented in this encounter Plan of Treatment Scheduled Referrals Name Type Priority Associated Diagnoses Order S chedule Referral to Ob-Pond Worker Outpatient Referral Routine Cervical cancer Ordered: 03/10/2015 documented as of this encounter Visit Diagnoses Diagnosis Cervical cancer Malignant neoplasm of cervix uteri, unsp ecified site documented in this encounter Care Teams Archivist Military History Relationship Specialty Start Date End Date Rocio Jose MD PCP - General 05/21/10 08/20/15 [address] [place] [address] documented as of this encounter
--- OUTSIDE RECORDS SUMMARY | 2021-11-16 01:20 | XMS_ITS | Encounter Summary ---
:1970 Author Organization [facility] [place] [address] Care Team Providers Name Role Phone Rocio Jose MD Primary Care Provider Encounter Details Date Type Department Care Team Description 08/30/2010 External Results Urology at [facility] Rosaura Greenberg, [facility] [place] [address] [facility] [phone] UROLOGY DEPT. [place], [place] [address] Social History Tobacco Use Types Packs/Day Years Used Date Never Assessed Sex Assigned at Date Recorded Not on file documented as of this encounter Progress Notes Rosaura Greenberg PA - 08/30/2010 11:56 AM EDT I received the following urine culture results from [facility]: 05/18/10: 10,000-50,000 CFU E. Coli (ackerman sensitive) 04/10/10: No growth 02/23/10: <10,000 GNRs 01/26/10: <10,000 CFU GP rina 01/10/10: >100,000 CFU E. Coli (ackerman sensitive) 11/06/09: 10,000-50,000 CFU E. Coli (ackerman sensitive) Given that she has had 3 symptomatic UTIs within the last 6 months, if she continues to become infected going forward, I will arrange for a cystoscopy to exclude bladder stones and try treating her with a longer course of antibiotics (6 months) to try and break the cycle. She has had a normal renal U/S already. Rosaura Greenberg PA-C documented in this encounter Plan of Treatment Not on filedocumented as of this encounter Visit Diagnoses Not on filedocumented in this encounter Care Teams Laundrette Owner Relationship Specialty Start Date End Date Rocio Jose MD PCP - General 05/21/10 08/20/15 [address] [place] [address] documented as of this encounter
--- OUTSIDE RECORDS SUMMARY | 2021-11-16 01:20 | XMS_ITS | Encounter Summary ---
:1970 Author Organization [facility] Address [address] [place] [address] Care Team Providers Name Role Phone Rocio Jose MD Primary Care Provider Encounter Details Date Type Department Care Team Description 03/03/2015 Orders Only Urology at [facility] Boone Rodriguez MD Acute UTI ([facility] tra ct infection) [place] [address] UROLOGY [phone] [place], [place] [address] Social History Tobacco Use Types Packs/Day Years Used Date Never Smoker Sex Assigned at Date Recorded Not on file documented as of this encounter Plan of Treatment Not on filedocumented as of this encounter Visit Diagnoses Diagnosis Acute UTI (urinary tract infection) Urinary tract infection, site not specif ied documented in this encounter Care Teams Stage Director Relationship Specialty Start Date End Date Rocio Jose MD PCP - General 05/21/10 08/20/15 [address] [place], [place] [address] documented as of this encounter
--- OUTSIDE RECORDS SUMMARY | 2021-11-16 01:20 | XMS_ITS | Encounter Summary ---
:1970 Author Organization [facility] [place] [address] Care Team Providers Name Role Phone Mariluz Vargas MD Primary Care Provider Encounter Details Date Type Department Care Team Description 01/19/2016 Telephone [place] [facility] Arely Preciado, [facility] [place] [address] [facility] [phone] UROLOGY DEPT. [place], [place] [address] (Wo rk) Social History Tobacco Use Types Packs/Day Years Used Date Never Smoker Smokeless Tobacco: Never Used Alcohol Use Standard Drinks/Week Comments Yes 1 (1 standard drink = 0.6 oz pure alcoho l) Sex Assigned at Date Recorded Not on file documented as of this encounter Miscellaneous Notes Telephone Encounter - Cortney Dotson - 01/19/2016 1:25 PM EDT SECOND CALL TO SCHEDULE FOLLOW UP WITH ARELY. LEFT MESSAGE AND WILL SEND A LETTER documented in this encounter Plan of Treatment Not on filedocumented as of this encounter Visit Diagnoses Not on filedocumented in this encounter Care Teams Fine Unhairer Relationship Specialty Start Date End Date Mariluz Vargas MD PCP - General Family Medicine 11/20/15 [address] [place] [address] documented as of this encounter
--- OUTSIDE RECORDS SUMMARY | 2021-11-16 01:20 | XMS_ITS | Encounter Summary ---
:1970 Author Organization [facility] [place] [address] Care Team Providers Name Role Phone Rocio Jose MD Primary Care Provider Encounter Details Date Type Department Care Team Description 07/13/2015 Office Visit Urology at [facility] [place] Dayron Jauregui, Recurrent UTI (urinary tract infection); [facility] TONYA Mcgee IC (interstitial cystitis) [place] [address] UROLOGY DEPT. [phone] [place], [place] [address] Social History Tobacco Use Types Packs/Day Years Used Date Never Smoker Alcohol Use Standard Drinks/Week Comments Yes 1 (1 standard drink = 0.6 oz pure alcoho l) Sex Assigned at Date Recorded Not on file documented as of this encounter Last Filed Vital Signs Vital Sign Reading Time Taken Comments Blood Pressure 107/63 07/13/2015 1:05 PM EDT Pulse 55 07/13/2015 1:05 PM EDT Temperature - - Respiratory Rate - - Oxygen Saturation 100% 07/13/2015 1:05 PM EDT Inhaled Oxygen Concentration - - Weight 53.5 kg (118 lb) 07/13/2015 1:05 PM EDT Height - - Body Mass Index 18.76 03/01/2015 9:23 AM EST documented in this encounter Progress Notes Chrystal Holley - 07/14/2015 11:01 AM EDT Reminder entered Arely Preciado APRN - 07/13/2015 12:51 PM EDT UROLOGY CLINIC History of Present Illness: Ms. Adela Mosley is a 45 year old woman here for follow up of UTIs. She was previously seen by urology in 2010 for e.coli UTIs. She underwent a normal renal U/S on 04/09/10; this also demonstrated a low PVR of 36 ccs. U/A and Urine Culture History: 06/09/15: 10-50K [...] more irritated by the irritant foods. She is on transdermal estrogen. She has been given a script for amitriptyline, but did not take this. She is not sure if her UTIs are related to intercourse. She had bladder symptoms yesterday, uncomfortable. No dysuria. She has urgency. No blood. Bowels are ok. Has bloating at times. She voids every 1-2 hours during the day and double voids to get all of her urine out. Her stream isok. She wakes 1 time at night. Voiding often helps her symptoms. She just ordered dmannos but has not started taking it. She drinks no coffee, rare 8 oz of dark tea intermittently but often none per day, 64 oz of water, except slightly less recently given her urge. PAST MEDICAL/SURGICAL HISTORY: Genital HSV Cervical cancer (?CIS) treated with LEEP 2005 , no regular menses now SOCIAL HISTORY: , no children. 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 She is a non-smoker, non-drinker. FAMILY HISTORY: Negative for cancers. Her father has kidney stones. PHYSICAL EXAM: General: Thin but healthy appearing woman, A+Ox3 in NAD. Neck: supple without LAD. Abdomen: benign without masses, rebound, guarding, or tenderness. No hepatosplenogmegaly. No CVA tenderness. Extremities: well perfused without pedal edema. Pelvic: deferred (02/2015: The external genitalia are [...] grossly normal PVR with bladder scanner: deferred 02/2015: 20-30 cc with scanner U/A: neg, she opts to not have her urine sent for culture IMPRESSION: ??? Recurrent UTIs Call with sx of a UTI and we can do a culture. We discussed postcoital or 6 months of prophylaxis. She defers. She will try control/estrace, dmannos and will call with persistent infection sytmpoms. She will take probiotics Hydration with water and timed voiding as she has been ??? OAB and mild KWAN, but it appears she has an infection today Hydration with water and timed voiding every 2-3 hours ? IC We discussed amitriptyline for her sx. She prefers not to try this epf in 6 months, sooner with concerns All questions answered to his apparent satisfaction. 20 min spent with pt with 15 min spent in discussion Arely Jauregui APRN documented in this encounter Plan of Treatment Not on filedocumented as of this encounter Visit Diagnoses Diagnosis Recurrent UTI (urinary tract infection) Urinary tract infection, site not specif ied IC (interstitial cystitis) Chronic interstitial cystitis documented in this encounter Care Teams Furnace Combination Analyst Relationship Specialty Start Date End Date Rocio Jose MD PCP - General 05/21/10 08/20/15 [address] [place] [address] documented as of this encounter
--- OUTSIDE RECORDS SUMMARY | 2021-11-16 01:20 | XMS_ITS | Encounter Summary ---
:1970 Author Organization [facility] Address [facility] [place] [address] Care Team Providers Name Role Phone Rocio Jose MD Primary Care Provider Reason for Visit Reason Comments Dyspareunia Consultation (Routine) - Closed Specialty Diagnoses / Procedures Referred By Contact Refer red To Contact Obstetrics and Diagnoses Cervical cancer Dayron Vásquez [facility] [place] 5[place] Gynecology TONYA Mcgee [address] [facility] [address] DR Aguilar [place] UROLOGY DEPT. [id number] [place] [address] Referral ID Status Reason Start Date Expiration Date Visits V isits Requested Authorized [id number] Closed Consult, 03/10/2015 03/09/2016 1 1 Test & Treat Encounter Details Date Type Department Care Team Description 05/23/2015 Office Visit Obstetrics and Oliver Mcclellan MD [facility] [place] [address] Vulvovaginal discomfort; Gynecology at [facility] Aimee Gonzalez MD [facility] OBSTETRICS & [place] [address] Dysuria; [facility] Cervical polyp; Drive [place] of [place] [id number] Social History Tobacco Use Types Packs/Day Years Used Date Never Smoker Alcohol Use Standard Drinks/Week Comments Yes 1 (1 standard drink = 0.6 oz pure alcoho l) Sex Assigned at Date Recorded Not on file documented as of this encounter Last Filed Vital Signs Vital Sign Reading Time Taken Comments Blood Pressure 122/70 05/23/2015 8:09 AM EST Pulse - - Temperature - - Respiratory Rate - - Oxygen Saturation - - Inhaled Oxygen Concentration - - Weight 59.8 kg (131 lb 14.4 oz) 05/23/2015 8:09 AM EST Height - - Body Mass Index 20.97 03/01/2015 9:23 AM EST documented in this encounter Progress Notes Aimee Gonzalez MD - 05/23/2015 8:10 AM EST Subjective: Adela Mosley is a 45 y.o. G0 premenopausal female who presents for new patient evaluation withthe following complaints/concerns: ? Recurrent vs persistent E.coli UTIs, vaginitis, dyspareunia, and ?cervical cancer. Has had care wth Dr Gisell Strickland at [facility] as well as with Urology at [facility] A) UTI's- Reports she has been seen in Urology for past 3 yrs, saw Radha Vásquez. Put on antibx, at least 2 rounds. Has had multiple U/A' s, but many without F/u culture. Unclear to me from her recounting whether sx are usually associated with positive culture results or not, and whether it is the same pathogen, or whether she has been given diagnosis of Interstitial cystitis. Clearly has recurrence of some sx with sex. No hematuria. (Records sent from Dr Strickland document several negative U/As in [id number], as well as +urine cultures in 10/28 and 12/29 with pansensitive E.coli.) B) Vaginitis- reports having had and been treated for yeast (diflucan). Since took antibiotics for UTI, has had vaginal sx- ?yeast vs vaginosis. Was on metronidazole in 2013 B) Dyspareunia.- Sometimes feels like razorblades, sometimes lots of burning. Has tried K-Y jelly, organic olive oil, saliva as lubricants. No benefit. Last sexually active without discomfort about a year ago. Last attempt at intercourse approx 1-2 wksago. At last application administrator visit, very burny. Right now everything is relatively calm, but she is sore to wipe. Has not used estrogen products in vaginal area. Has used acidifying agent, Rephresh, prn, using every 3 d or after bleeding. It does not seem to have been that helpful consistently. C) Discharge- thicker, heavier, sometimes cottage cheesy , so you know your pH is off. Has not noticed consistent change through menstrual cycle . Does ebb and flow. Yellowish/greenish. Some days more runny, can run down legs.Tempted to change underwear at work because of amount of discharge. In reviewing her use of different products, she notes no recent changes. 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 Uses pantiliners- [place]. Usually wears a thong for underwear, tries to wear cotton as much as can. 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 D) Oral cold sores, on Valcyclovir Head Worker: No LMP recorded..On OCs for 25 yrs with regular menses- breast tenderness, menorrhagia (changing 4x/hr), back pain, mood lability. Went on OCs around age 21 (did not tolerate at age 17). Went off OCs 3-4 yrs ago and since then menses started regularly. Used homeopath when came off pills with decreasing amounts of progesterone(over breasts or elbows) and estrogen cream applied to back (over kidneys), wondered if perimenopausal. Now off homeopathic medsx 8 months ; has Less regular menses with bleeding episodes lasting 2 wks. Erratic spotting. Sexually active, using vsectomy for control since 2012. Denies post-coital bleeding. Last PAP 04/18/15 WNL, neg HR HPV (NILM/neg annually x past 3 yrs in records that were sent). 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 No history of STD's. No new sexual partners. 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 Colposcopy 04/27 --> LEEP 06/25 Margins not clear->cold knife cone 08/25 for ?microinvasive vs CIN3. Normal since with annual Paps, last 04/04. Review of Systems ROS: Notes pelvic/bladder pressure frequently (see above), also that she has a long hx of pulmonary issues and has PFT's at 70% but is not currently using any meds for asthma; has been on Advair and multiple inhalers in past. Multiple allergies including food sensitivities- dairy. Denies n/v, change in bowel(diarrhea/constipation, BRBPR) habits. Denies heart(CP, palp), kidney, emotional problems. Patient's medications, allergies, past medical, surgical, social and family histories were reviewed and updated as appropriate. Social Hx: Lives with in [facility]. 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 Back- without CVA or spinal tenderness. Abdomen- soft, without hepatosplenomegaly, masses, or tenderness. Pelvic exam- External genitalia including Bartholin, urethral, and [place]'s glands are within normal limits; no erythema, lesions, whitening , or thickening of tissues. Vaginalwalls are pink, moist and well rugated. Minimal vaginal discharge noted. The cervix with ectropion and small polyp, easily twisted off. Yeast culture taken from vagina. Bimanual exam- Anterior vaginal wall mildly tender. Uterus is small, mobile, and non-tender. Adnexa are without masses, nodularity, or tenderness. Rectovaginal exam-Confirms the above. Assessment: Assessment: Generally healthy 45 y.o. with complex of symptoms suggestive of either interstitial cystitis or relatively frequent UTI's perhaps exacerbated by vaginitis.On exam today, most notable finding was bladder tenderness; no evidence of vulvovaginitis on exam today. Yeast culture done to r/o nonalbicans types. Plan: Plan: Will send for path reports for cone biopsy to be able to public relations counselor appropriately; it appears annual paps for h/o HSIL as Dr Strickland has been doing; HR HPV probably not necessary with every pap. I willnotify her of the results of her path and cultures. Encouraged to minimize products on vulva, rinse t horoughly, use probiotics and allow her normal vaginal floira to reestablish, Encouraged to avoid intercourse for several weeks to minimize discomfort, and to use lubricant when resumes intercourse. I would be happy to see her in f/u if she desires. Aimee Gonzalez M.D. documented in this encounter Plan of Treatment Not on filedocumented as of this encounter Procedures Procedure Name Priority Date/Time Associated Diagnosis Comme nts SPECIMEN TO Routine 05/23/2015 2:52 PM Cervical poly p Results for this PATHOLOGY (NON-OR) EST History of abnormal pr ocedure are in cervical Pap smear the resul ts section. SURGICAL PATHOLOGY Routine 05/23/2015 2:52 PM Res ults for this REPORT EST procedure are i n the results section. YEAST CULTURE Routine 05/23/2015 2:52 PM Vulvovaginal Results for this EST discomfort procedure are i n the results section. URINALYSIS WITH Routine 05/23/2015 8:25 AM Dysuria Result s for this REFLEX CULTURE EST procedure are in the results section. POCT URINE DIPSTICK Routine 05/23/2015 8:25 AM Dysuria Re sults for this EST procedure are i n the results section. URINE CULTURE Routine 05/23/2015 8:25 AM Dysuria Results for this EST procedure are i n the results section. documented in this encounter Results Surgical Pathology Report (05/23/2015 2:52 PM EST) [facility] Method Time Signature Surgical [id number] ? Location: [address] [place] [address] Pathology [facility] Report The signing pathologist has (i) examined the relevant preparation(s) for the specimen(s) and (ii) rendered or confirmed the diagnosis(es) . . ?Surgic al Pathology DIAGNOSIS Benign endocervical polyp. 05/25/15 ARS 05/25/15 Verified by: ? Josefina VILLASENOR, Jus Muse ?Pathologist ?(Electronic Signature ) The attending pathologist whose signature appears on this re port has reviewed all diagnostic slides and has edited the gross and/ or microscopic portion of the report in star dering the final pathologic diagnosis. CLINICAL INFORMATION Specimen Submitted: A - Cervix Clinical History: Cervical polyp found on exam; some postcoital bleeding Clinical Diagnosis: Cervical polyp SPECIMEN PROCESSING A - Labeled/Fixative: Patient demographics, formalin. Quantity/Size: Single, 0.5 x 0.4 x 0.4 cm. Tissue Description: Polypoid, pink and red soft tissue. Sections/Processing: Bisected. (T1) ??pps Specimen (Source) Anatomical Collection Method Collection Time Re ceived Time Location / / Volume Laterality 05/23/2015 2:52 PM EST Aimee Gonzalez MD PATHOLOGY/CYTOLOGY ORDERABLE S Performing Organization Address [facility]/ZIP Code Phon e Number [address] AWAIS RODRIGUEZENNIUM Specimen to Pathology (NON-OR) (05/23/2015 2:52 PM EST) Specimen Anatomical Collection Method Collection Time Receive d Time (Source) Location / / Volume Laterality AP Specimen 05/23/2015 2:52 PM 6 2:52 EST PM EST Narrative CERNER MILLENNIUM - 05/23/2015 2:[address] Specimen requisition ordered. ??Separate Pathology report to follow Aimee Gonzalez MD PATHOLOGY/CYTOLOGY ORDERABLE S Performing Organization Address [facility]/[place] [address] CERNER MILLENNIUM Yeast culture Vaginal (05/23/2015 2:52 PM EST) [facility] gist Method Time Signature Yeast Culture No Yeast CERNER isolated MILLENNIUM Specimen Anatomical Collection Method Collection Time Receive d Time (Source) Location / / Volume Laterality Vaginal 05/23/2015 2:52 PM 6 3:51 EST PM EST Resulting Agency Comment Spec In Lab Aimee Gonzalez MD MICROBIOLOGY - GENERAL ORDER PATRICK Performing Organization Address City/[facility]/[place] [address] CERNER MILLENNIUM (ABNORMAL) Urinalysis with reflex Culture (05/23/2015 8:25 AM EST) [facility] Method Time Signature Glucose UA Negative Negative [...] Normal mg/dL CERNER MILL ENNIUM pH UA 7.0 5.0 - 8.0 CERNER MILLENNIUM Blood UA Negative Negative mg/dL CERNER MILLENNI UM Ketones UA Negative Negative mg/dL CERNER MILLENN IUM Nitrite UA Negative Negative CERNER MILLENNIUM Leukocytes UA Moderate (A) Negative mcL CERNER MIL LENNIUM Appearance UA Clear Clear CERNER MILLENNIU M Spec [place] UA 1.011 1.002 - 1.030 CERNER MIL LENNIUM Color UA Straw Yellow CERNER MILLENNIUM RBC UA 1 0 - 4 /HPF CERNER MILLENNIUM WBC UA 45 (H) 0 - 5 /HPF CERNER MILLENNIUM Squam Epith UA 1 <=4 /HPF CERNER MILLENNI UM Culture Reflexed Dup Culture CERNER MILL ENNIUM Specimen Anatomical Collection Method Collection Time Receive d Time (Source) Location / / Volume Laterality Urine specimen 05/23/2015 8:25 AM 016 9:46 (specimen) EST AM EST Resulting Agency Comment Spec In Lab Aimee Gonzalez MD URINE ORDERABLES Performing Organization Address City/[facility]/[place] [address] CERNER MILLENNIUM (ABNORMAL) POCT urine dipstick (05/23/2015 8:25 AM EST) P athologist Signature POC Sp [place] 1.015 1.002 - 1.030 POC pH, UA 7 5.0 - 8.5 POC Leuk, UA 1+ Negative - Negative POC Nitrite, neg Negative - UA Negative POC Protein, nge Negative - UA Negative mg/dL POC Glucose, neg Normal - UA Normal mg/dL POC Ketone, UA neg Negative - Negative POC Urobil, UA neg 0.2 - 1.0 mg/dL POC Bili, UA neg Negative - Negative POC Blood, UA trace Negative - Negative morales/uL Specimen (Source) Anatomical Collection Method Collection Time Re ceived Time Location / / Volume Laterality 05/23/2015 8:25 AM EST Aimee Gonzalez MD POINT OF CARE TEST ORDERABLE S (ABNORMAL) Urine culture Clean Catch Urine (05/23/2015 8:25 AM EST) Patholo gist Method Time Signature Urine Culture 1,000-9,000 cfu/ml mixed mucosal rina CERNER 1,000-9,000 cfu/ml Gram Negative organisms [facility] Note: Multiple bacterial morphotypes pre sent. Suggest appropriate recollection with timely delivery to the laboratory, if clinically signif icant. (A) Specimen (Source) Anatomical Collection Method Collection Time Re ceived Time Location / / Volume Laterality Urine specimen 05/23/2015 8:25 05/23/2015 obtained by clean AM EST 10:[address] catch procedure (specimen) Resulting Agency Comment Spec In Lab Aimee Gonzalez MD MICROBIOLOGY - GENERAL ORDER PATRICK Performing Organization Address City/State/[place] [address] [facility] documented in this encounter Visit Diagnoses Diagnosis Vulvovaginal discomfort Unspecified symptom associated with fema le genital organs Dysuria Cervical polyp Mucous polyp of cervix History of abnormal cervical Pap smear Personal history of other genital system and obstetric disorders documented in this encounter Care Teams Chef Manager Relationship Specialty Start Date End Date Rocio Jose MD PCP - General 05/21/10 08/20/15 [address] [place] [address] documented as of this encounter
--- OUTSIDE RECORDS SUMMARY | 2021-11-16 01:20 | XMS_ITS | Encounter Summary ---
:1970 Author Organization [facility] [place] [address] Care Team Providers Name Role Phone Rocio Jose MD Primary Care Provider Reason for Visit Reason Comments Follow-up reoccuring UTI's Encounter Details Date Type Department Care Team Description 08/13/2010 Follow-Up Urology at [facility] Rosaura Greenberg Recurrent UTI (Primary [facility] B, [place] Dx) [place] [address] UROLOGY DEPT. [place], [place] [address] Social History Tobacco Use Types Packs/Day Years Used Date Never Assessed Sex Assigned at Date Recorded Not on file documented as of this encounter Last Filed Vital Signs Vital Sign Reading Time Taken Comments Blood Pressure 106/66 08/13/2010 3:37 PM EDT Pulse 65 08/13/2010 3:37 PM EDT Temperature - - Respiratory Rate - - Oxygen Saturation - - Inhaled Oxygen Concentration - - Weight 56.7 kg (125 lb) 08/13/2010 3:37 PM EDT Height - - Body Mass Index - - documented in this encounter Progress Notes Jackie Joy LPN - 08/13/2010 5:29 PM EDT Addended by: JACKIE JOY on: 08/13/2010 Modules accepted: Orders Rosaura Greenberg PA - 08/13/2010 3:45 PM EDT History of Present Illness: Ms. Adela Doan is a 40 year old woman who returns for follow up of recurrent UTIs. She was last seen here in May 2010. The patient presents with a history of 3 E. coli UTIs since last summer. She also had UTI symptoms with 2 negative cultures (one with <10,000 GNR and one with GPF thought to be a contaminant). We donot have all of these culture results available to us; the patient states that they were done at [facility] in [facility] but a request to obtain those records was unsuccessful. Reportedly her E.coli was pansensitive per her PCP. She reportedly has had negative cultures following treatment. Shehas been treated with both Cipro and Bactrim (with the latter she developed a rash). She has also tried treating herself homeopathically with cranberry pills and another homeopathic medication. She underwent a normal renal U/S with no evidence of stones on 04/09/10; this also demonstrated a low PVR of36 ccs. When she is symptomatic she complains of mild intermittent dysuria, frequency up to 4x/hour and nocturia 4x/night, burning after urination, pelvic pressure, and a sense of incomplete emptying. S he also has some right flank/low back pain last summer when the urinary symptoms started but this improved following chiropractic manipulation. Within a week of her last visit, she had a spell with her usual symptoms (dysuria, urethral burning, bladder discomfort and urgency) and took Cipro prophylactically x 5 days with resolution of her symptoms. She did not do a culture because she was leaving for a cruise around that time. She subsequently read on line that many people have had recurrent bladder symptoms on the generic brand of her OCPs. She asked her PCP to change her to brand name Kariva and she is now on her 3rd pack of pills. Since that time she has had symptoms post-intercourse despite taking Macrobid each time. She has been having intercourse <3x/week. Her symptoms recurred on 07/19 and she self-treated with Macrobid x 7 days with complete resolution of her symptoms. She did do a post-treatment culture on 07/26 but we have not yet received those results. Over the last week she has had intercourse twice but chose NOT to take prophylactic antibiotics and has not had recurrent symptoms. She also has not had symptoms with her last period which is when her symptoms tend to be the worst. She attributes this to the change inOCP brand. Currently she is asymptomatic. She denies frequency, urgency, dysuria, nocturia, gross hem aturia. She feels she is emptying normally. She is moving her bowels normally once per day. She has been drinking more water and moderating bladder irritants. There is no history of kidney stones. She is sexually active with one partner. She has a history of genital HSV and HPV with cervical cancer (?CIS) treated with a LEEP in 2005, cone biopsy in 2006. Shedenies other STDs. She uses OCPs for control. She does not use spermicides/jellies/foam. She cannot definitively relate her UTIs to intercourse though she thinks it may make her symptoms worse. She practices post-coital voiding every time. Daily fluid Intake: 64 oz. water, green or peppermint tea. No coffee, soda, juice. Alcohol rarely. U/A and Urine Culture History: 06/01/10: U/A: 2 WBCs, < 1 RBC. Culture: No growth 05/28/10: U/A: 0-1 WBCs, 0 RBCs 05/18/10: U/A: 5-10 WBCs, 20-30 RBCs. Culture: 10-50,000 E. coli 04/10/10: U/A: 0-1 WBC, 0-2 RBCs 04/04/10: Dipstick: many WBCs 02/23/10: Dipstick: trace WBCs REVIEW OF SYSTEMS: Reviewed, no new symptoms since her last visit. PAST MEDICAL/SURGICAL HISTORY: Genital HSV Cervical cancer (?CIS) treated with LEEP 2005 3-4 episodes of gastroenteritis in the last year Allergies Chronic sinus pressure Spondylolisthesis PHYSICAL EXAM: General: Thin but healthy appearing woman, A+Ox3 in NAD. Neck: supple without LAD. Abdomen: benign without masses, rebound, guarding, or tenderness. No hepatosplenogmegaly. No CVA tenderness. No suprapubic tenderness. Extremities: well perfused without pedal edema. U/A: Negative with no WBCs, RBCs IMPRESSION: Recurrent UTIs, likely relapse rather than reinfection PLAN: We again reviewed the options for prophylactic antibiotics, including post- coital, self-treating with symptoms, and long-term daily prophylaxis x 6 months. She would prefer not to be on long-term antibiotics. For now she will continue to limit intercourse to <3x/week. She will also self- treat with 7 daysof Macrobid 100 mg BID with symptoms but will notify us before she starts self-treating so that we can fax a requisition to her local lab to obtain a urine culture at that time. We will also fax an order for post- treatment cultures to document sterility. In the interim, she is going to try and obtain her previous culture results to send to me for review since I have been unsuccessful in obtaining them, even with her faxed release form. If she has documented past infections and continues to become infected going forward, I will arrange for a cystoscopy to exclude bladder stones and try treating her w ith a longer course of antibiotics (6 months) to try and break the cycle. We reviewed behavioral therapies for LUTS including timed voiding, double voiding, hydration with water, moderation of bladder irritants, moderation of bowels, limiting fluids after 6 pm. F/U in 6 months, sooner with concerns. Rosaura Greenberg PA-C documented in this encounter Procedure Notes Provider, Scanning - 09/05/2010 1:53 PM EDTAssociated Order(s): SCAN DOC: MICROBIOLOGY Provider, Scanning - 09/05/2010 1:53 PM EDTAssociated Order(s): SCAN DOC: MICROBIOLOGY documented in this encounter Plan of Treatment Not on filedocumented as of this encounter Procedures Procedure Name Priority Date/Time Associated Diagnosis Comme nts MICROBIOLOGY SCAN 09/05/2010 1:53 PM Resu lts for this EDT procedure are i n the results section. MICROBIOLOGY SCAN 09/05/2010 1:53 PM Resu lts for this EDT procedure are i n the results section. URINE CULTURE Routine 08/13/2010 5:29 PM Recurrent UTI Results for this EDT procedure are i n the results section. documented in this encounter Results SCAN DOC: MICROBIOLOGY (09/05/2010 1:53 PM EDT) Narrative 09/05/2010 1:53 PM EDT Procedure Note Provider, Scanning - 09/05/2010 1:53 PM EDT Scanning Provider MEDIA MGR SCAN EXT ORDR/RSLT SCAN DOC: MICROBIOLOGY (09/05/2010 1:53 PM EDT) Narrative 09/05/2010 1:53 PM EDT Procedure Note Provider, Scanning - 09/05/2010 1:53 PM EDT Scanning Provider MEDIA MGR SCAN EXT ORDR/RSLT Urine culture Clean Catch Urine (08/13/2010 5:29 PM EDT) [facility] Method Time Signature Urine Culture CERNER ? Patient Name: ADELA DOAN ? Ordered By: ROSEANN RODRIGUEZ [facility] ? MR#: [id number] ?LOC: ??5B ? /Sex: ??1970 (40 years), ? Female ? PROCEDURE: Urine Culture ?SOURCE: U CC ? COLLECTED: 08/13/2010 17:29 ? STARTED: 08/13/2010 18:05 ? FINAL REPORT ? Final Report ? Verified:08/14/2010 15:04 ? No growth (Less than 1,000 cfu/ml). ? Specimen (Source) Anatomical Collection Method Collection Time Re ceived Time Location / / Volume Laterality Urine specimen 08/13/2010 5:29 08/13/2010 6:05 obtained by clean PM EDT PM EDT catch procedure (specimen) Roseann Rodriguez MD MICROBIOLOGY - GENERAL ORDER PATRICK Performing Organization Address City/State/[place] [address] [facility] documented in this encounter Visit Diagnoses Diagnosis Recurrent UTI - Primary Urinary tract infection, site not specif ied documented in this encounter Care Teams Steam Pipe Fitter Relationship Specialty Start Date End Date Rocio Jose MD PCP - General 05/21/10 08/20/[address] [place] [id number] documented as of this encounter
--- OUTSIDE RECORDS SUMMARY | 2021-11-16 01:20 | XMS_ITS | Encounter Summary ---
:1970 Author Organization [place] [address] Care Team Providers Name Role Phone Rocio Jose MD Primary Care Provider Encounter Details Date Type Department Care Team Description 09/27/2010 External Results Urology at [facility] Rosaura Greenberg [facility] [place] [address] [facility] [phone] UROLOGY DEPT. [place], [place] [address] Social History Tobacco Use Types Packs/Day Years Used Date Never Assessed Sex Assigned at Date Recorded Not on file documented as of this encounter Progress Notes Rosaura Greenberg PA - 09/27/2010 10:27 AM EDT I received the following results from [facility]: U/A (05/28/10): 0-1 WBC, 0 RBC, no bacteria U/A (07/27/10): 0-1 WBC, 0-1 RBC, no bacteria I received a note from the patient that she has been relatively asymptomatic since her last visit. Rosaura Greenberg PA-C documented in this encounter Plan of Treatment Not on filedocumented as of this encounter Visit Diagnoses Not on filedocumented in this encounter Care Teams Automobile Mechanic Assistant Relationship Specialty Start Date End Date Rocio Jose MD PCP - General 05/21/10 08/20/15 [address] [place] [address] documented as of this encounter
--- OUTSIDE RECORDS SUMMARY | 2021-11-16 01:20 | XMS_ITS | Encounter Summary ---
:1970 Author Organization [facility] [place] [address] Care Team Providers Name Role Phone Rocio Jose MD Primary Care Provider Encounter Details Date Type Department Care Team Description 04/07/2015 Notes Only Urology at [facility] Arely Preciado, [facility] [place] [address] [facility] [phone] UROLOGY DEPT. [place], [place] [address] (Wo rk) Social History Tobacco Use Types Packs/Day Years Used Date Never Smoker Sex Assigned at Date Recorded Not on file documented as of this encounter Progress Notes Palmira Reyes LNA - 04/07/2015 1:33 PM EST Urine culture from [facility] on 04/04/2015 will be a no treat per Dr. Hankins 10,000-50,000 gram positive mixed rina documented in this encounter Plan of Treatment Not on filedocumented as of this encounter Visit Diagnoses Not on filedocumented in this encounter Care Teams Hospital Plan Administrator Relationship Specialty Start Date End Date Rocio Jose MD PCP - General 05/21/10 08/20/15 [address] [place] [address] documented as of this encounter
--- OUTSIDE RECORDS SUMMARY | 2021-11-16 01:20 | XMS_ITS | Encounter Summary ---
:1970 Author Organization [facility] [place] [address] Care Team Providers Name Role Phone Rocio Jose MD Primary Care Provider Encounter Details Date Type Department Care Team Description 06/01/2010 Office Visit Urology at [facility] Fazal Byrne PA [facility] Teja [facility] [place] [address] UROLOGY DEPT. [phone] [place], [place] [address] Social History Tobacco Use Types Packs/Day Years Used Date Never Assessed Sex Assigned at Date Recorded Not on file documented as of this encounter Plan of Treatment Not on filedocumented as of this encounter Procedures Procedure Name Priority Date/Time Associated Comments Diagnosis URINALYSIS WITH Routine 06/01/2010 12:23 PM Resul ts for this REFLEX CULTURE EST procedure are in the results section. URINE CULTURE Routine 06/01/2010 11:00 AM Results for this EST procedure are i n the results section. documented in this encounter Results URINALYSIS WITH MICROSCOPIC (06/01/2010 12:23 PM EST) [facility] Method Time Signature Glucose UA Negative Negative CERNER mg/dL MILLENNIUM Protein UA Negative mg/dL CERNER MILLENNIUM Bilirubin UA Negative Negative CERNER mg/dL MILLENNIUM Urobilinogen UA Normal mg/dL CERNER MILLENNIUM pH UA 6.0 5.0 - 8.0 CERNER MILLENNIUM Blood UA Negative mg/dL CERNER MILLENNIUM Ketones UA Negative mg/dL CERNER MILLENNIUM Nitrite UA Negative CERNER MILLENNIUM Leukocytes UA Negative mcL CERNER MILLENNIUM Appearance UA Clear Clear CERNER MILLENNIUM Spec Perrin UA 1.006 1.002 - CERNER 1.030 MILLENNIUM Color UA Yellow Yellow CERNER MILLENNIUM RBC UA <1 0 - 4 /HPF CERNER MILLENNIUM WBC UA 2 0 - 5 /HPF CERNER MILLENNIUM Specimen Anatomical Collection Method Collection Time Receive d Time (Source) Location / / Volume Laterality Urine specimen 06/01/2010 12:23 1 (specimen) PM EST 12:23 PM EST Fazal MONSON URINE ORDERABLES Performing Organization Address City/State/ZIP Code Phon e Number [place] [phone] CERNER MILLENNIUM URINE CULTURE (06/01/2010 11:00 AM EST) [facility] Method Time Signature Urine Culture CERNER ? Patient Name: OLIMPIA, ADELA L ? Or dered By: FAZAL BYRNE ? MR#: [id number] ?LOC: ??5B ? /Sex: ??1970 (40 years), ? Female ? PROCEDURE: Urine Culture ?SOURCE: T CC ? COLLECTED: 06/01/2010 11:00 ? STARTED: 06/01/2010 12:09 ? FINAL REPORT ? Final Report ? Verified:06/02/2010 07:32 ? No growth (Less than 1,000 cfu/ml). ? Specimen (Source) Anatomical Collection Method Collection Time Re ceived Time Location / / Volume Laterality Urine specimen 06/01/2010 11:00 1 obtained by clean AM EST 12:[address] catch procedure (specimen) Fazal MONSON MICROBIOLOGY - GENERAL ORDER PATRICK Performing Organization Address City/State/ZIP Code Phon e Number [address] [facility] documented in this encounter Visit Diagnoses Not on filedocumented in this encounter Care Teams Manager Case Relationship Specialty Start Date End Date Rocio Jose MD PCP - General 05/21/10 08/20/[address] [place] [id number] documented as of this encounter
--- OUTSIDE RECORDS SUMMARY | 2021-11-16 01:20 | XMS_ITS | Encounter Summary ---
:1970 Author Organization [facility] [place] [address] Care Team Providers Name Role Phone Rocio Jose MD Primary Care Provider Encounter Details Date Type Department Care Team Description 04/18/2015 Notes Only Urology at [facility] [place] [address] Social History Tobacco Use Types Packs/Day Years Used Date Never Smoker Sex Assigned at Date Recorded Not on file documented as of this encounter Progress Notes Maxi Walls LPN - 04/18/2015 11:19 AM EST Lab called requesting an order for urine culture. Patient stated that Arely Maguire told patient that anytime she felt that she was having symptoms to come for a urine culture. Order faxed for urine culture. documented in this encounter Plan of Treatment Not on filedocumented as of this encounter Visit Diagnoses Not on filedocumented in this encounter Care Teams Corporate Quality Manager Relationship Specialty Start Date End Date Rocio Jose MD PCP - General 05/21/10 08/20/15 [address] [place], [place] [id number] documented as of this encounter
--- OUTSIDE RECORDS SUMMARY | 2021-11-16 01:20 | XMS_ITS | Encounter Summary ---
:1970 Author Organization [facility] [place] [address] Care Team Providers Name Role Phone Rocio Jose MD Primary Care Provider Encounter Details Date Type Department Care Team Description 06/02/2015 Telephone Urology at [facility] Arely Preciado [facility] [place] [address] [address] [facility] [phone] UROLOGY DEPT. [place], [place] [address] (Wo rk) Social History Tobacco Use Types Packs/Day Years Used Date Never Smoker Sex Assigned at Date Recorded Not on file documented as of this encounter Miscellaneous Notes Telephone Encounter - Gabe Alonzo RN - 06/02/2015 4:16 PM EST Lab order faxed to [facility] Lab Telephone Encounter - Gabe Alonzo RN - 06/02/2015 2:36 PM EST Verified patient name and date of Pt returned call and agrees with the plan. Pt would like order sent to [facility] Lab Telephone Encounter - Gabe Alonzo RN - 06/02/2015 2:22 PM EST Left message on pt's voicemail asking her to call back regarding her urine culture results. When pt calls office will tell her that the results of the urine culture are negative and that Arely Jauregui recommends she submit a first of the day urine sample because this one may have been diluted. documented in this encounter Plan of Treatment Not on filedocumented as of this encounter Visit Diagnoses Diagnosis Other symptoms involving urinary system( 788.99) Other symptoms involving urinary system documented in this encounter Care Teams Regional Sales Consultant Relationship Specialty Start Date End Date Rocio Jose MD PCP - General 05/21/10 08/20/15 [address] [place] [address] documented as of this encounter
--- OUTSIDE RECORDS SUMMARY | 2021-11-16 01:20 | XMS_ITS | Encounter Summary ---
:1970 Author Organization [facility] Address [facility] [place] [address] Care Team Providers Name Role Phone Rocio Jose MD Primary Care Provider Encounter Details Date Type Department Care Team Description 05/24/2010 Office Visit Allergy at [facility] Gabe Virgen MD [facility] [place] [address] ALLERGY AND IMMUNOLOGY [phone] [place], [place] [address] (Wo rk) Social History Tobacco Use Types Packs/Day Years Used Date Never Assessed Sex Assigned at Date Recorded Not on file documented as of this encounter Procedure Notes Provider, Scanning - 09/28/2010 10:43 AM EDTAssociated Order(s): SCAN DOC: LAB documented in this encounter Plan of Treatment Not on filedocumented as of this encounter Procedures Procedure Name Priority Date/Time Associated Diagnosis Comme nts LAB SCAN 09/28/2010 10:43 AM Results for this EDT procedure are i n the results section . C4 COMPLEMENT Routine 05/24/2010 3:06 PM Results for this EST procedure are i n the results section . documented in this encounter Results SCAN DOC: LAB (09/28/2010 10:43 AM EDT) Narrative 09/28/2010 10:43 AM EDT Procedure Note Provider, Scanning - 09/28/2010 10:43 AM EDT Scanning Provider MEDIA MGR SCAN EXT ORDR/RSLT C4 COMPLEMENT (05/24/2010 3:06 PM EST) P athologist Signature C4 Complement 38 10 - 40 CERNER mg/dL MILLENNIUM Specimen Anatomical Collection Method Collection Time Receive d Time (Source) Location / / Volume Laterality Blood specimen 05/24/2010 3:06 PM 011 3:09 (specimen) EST PM EST Gabe Virgen MD CHEMISTRY ORDERABLES Performing Organization Address City/State/[place] [address] CERNER MILLENNIUM documented in this encounter Visit Diagnoses Not on filedocumented in this encounter Care Teams Ice Platform Supervisor Relationship Specialty Start Date End Date Rocio Jose MD PCP - General 05/21/10 08/20/15 [address] [place] [address] documented as of this encounter
--- OUTSIDE RECORDS SUMMARY | 2021-11-16 01:20 | XMS_ITS | Encounter Summary ---
:1970 Author Organization [facility] [place] [address] Care Team Providers Name Role Phone Rocio Jose MD Primary Care Provider Encounter Details Date Type Department Care Team Description 03/03/2015 Telephone Urology at [facility] Boone Rodriguez MD [facility] [place] [address] UROLOGY [phone] [place], [place] [address] (Wo rk) Social History Tobacco Use Types Packs/Day Years Used Date Never Smoker Sex Assigned at Date Recorded Not on file documented as of this encounter Miscellaneous Notes Telephone Encounter - Gabe Alonzo RN - 03/03/2015 2:11 PM EST Verified patient name and date of Called pt and gave pt her urine culture results and instructions for treatment and return instructions for follow-up urine culture as per Arely Jauregui. Pt requesting that the lab order be sent to [facility] and the medication, keflex 500mg po 4 x daily for 7 days be sent to [facility] in [facility]. Medication order sent to [facility] as requested and lab order faxed to [facility]. Lab results: Abnormal Status: Final result 03/03/2015 8:44 AM Component Results Component Value Urine Culture (Abnormal) 50,000-99,000 cfu/ml Escherichia coli Specimen Source Clean Catch Urine Susceptibility Escherichia coli MICROSCAN METHOD Amikacin Sensitive Ampicillin Sensitive Ampicillin + Sulbactam Sensitive Aztreonam Sensitive Cefazolin Sensitive Cefepime Sensitive Ceftazidime Sensitive Ceftriaxone Sensitive Cefuroxime Sensitive Ciprofloxacin Sensitive Gentamicin Sensitive Levofloxacin Sensitive Meropenem Sensitive Nitrofurantoin Sensitive Piperacillin/Tazobactam Sensitive Tetracycline Sensitive Tobramycin Sensitive Trimethoprim/Sulfa Sensitive documented in this encounter Plan of Treatment Not on filedocumented as of this encounter Visit Diagnoses Not on filedocumented in this encounter Care Teams Tire Recapping Machine Operator Relationship Specialty Start Date End Date Rocio Jose MD PCP - General 05/21/10 08/20/15 [address] [place] [address] documented as of this encounter
--- OUTSIDE RECORDS SUMMARY | 2021-11-16 01:20 | XMS_ITS | Encounter Summary ---
:1970 Author Organization [facility] [place] [address] Care Team Providers Name Role Phone Rocio Jose MD Primary Care Provider Reason for Visit Reason Comments Other Encounter Details Date Type Department Care Team Description 06/09/2015 Telephone Urology at [facility] [place] [address] [facility] [phone] UROLOGY DEPT. [place], [place] [address] (Wo rk) Social History Tobacco Use Types Packs/Day Years Used Date Never Smoker Sex Assigned at Date Recorded Not on file documented as of this encounter Miscellaneous Notes Addendum Note - Olga Saldivar RN - 06/12/2015 12:54 PM EST Addended by: OLGA SALDVIAR on: 06/12/2015 12:54 PM Modules accepted: Orders Telephone Encounter - Olga Saldivar RN - 06/12/2015 12:52 PM EST Verified patient name and date of Notified pt that a script for cefpodoxime 100 mg PO BID x 7 days was sent to [facility] in [facility]. Also advised pt to always give a first morning urine as the urine specimen if symptoms re-occur. Pt verbalized understanding. Telephone Encounter - Arely Preciado APRN - 06/09/2015 3:57 PM EST Pt supposed to leave first morning urine for culture. The first morning sample was done at [facility] yesterday. The med is Nitrofurantoin [place]-MCR that worked for her. Adela is about to leave for vacation on Friday evening, and won't be back until 06/25. She would like to get a script in before then for abx if necessary or to take with her. She has an appt on 07/04/15with id. Will keep that until we get her culture results. documented in this encounter Plan of Treatment Not on filedocumented as of this encounter Visit Diagnoses Not on filedocumented in this encounter Care Teams Steam Press Operator Relationship Specialty Start Date End Date Rocio Jose MD PCP - General 05/21/10 08/20/15 [address] [place] [address] documented as of this encounter
--- OUTSIDE RECORDS SUMMARY | 2021-11-16 01:20 | XMS_ITS | Encounter Summary ---
:1970 Author Organization [facility] [place] [address] Care Team Providers Name Role Phone Rocio Jose MD Primary Care Provider Reason for Visit Reason Onset Date Comments Dysuria 03/21/2015 Encounter Details Date Type Department Care Team Description 03/21/2015 Telephone Obstetrics and Gynecology at Tory Jennings Dysuria [facility] [place] [address] Social History Tobacco Use Types Packs/Day Years Used Date Never Smoker Sex Assigned at Date Recorded Not on file documented as of this encounter Miscellaneous Notes Telephone Encounter - Tory Jennings RN - 03/21/2015 12:51 PM EST Caller: Tory Jennings RN Learning Needs Assessment Reviewed: Yes Subjective Patient presents with: Dysuria Objective/Assessment Patient has been having menopause symptoms and recently had BV. She had called in with UTI symptoms. Attempting to call patient back. Symptom onset:NA Duration:NA Characteristics:UTI symptoms Aggravating factors:NA Relieving factors:NA Timing:Na Severity:NA Pertinent Past Medical History:Recurrent UTI's Plan Intervention/Plan/ Follow Up: Attempted to call patient and message left for patient to call back toclinic. Awaiting call back from patient. documented in this encounter Plan of Treatment Not on filedocumented as of this encounter Visit Diagnoses Not on filedocumented in this encounter Care Teams Technology Lab Teacher Relationship Specialty Start Date End Date Rocio Jose MD PCP - General 05/21/10 08/20/15 [address] [place] [address] documented as of this encounter
--- OUTSIDE RECORDS SUMMARY | 2021-11-16 01:21 | XMS_ITS | Encounter Summary ---
:1970 Author Organization [facility] Address [address] [place] [address] Care Team Providers Name Role Phone Unavailable Primary Care Provider Unavailable Encounter Details Date Type Department Care Team Description 12/02/2007 Before PRISM Converted [facility], Visit (Maple) Maple conversion ELECTRIC STOP INSTALLER [address] [place] [address] Social History Tobacco Use Types Packs/Day Years Used Date Never Assessed Sex Assigned at Date Recorded Not on file documented as of this encounter Plan of Treatment Not on filedocumented as of this encounter Procedures Procedure Name Priority Date/Time Associated Comments Diagnosis HPV DETECTION, HIGH Routine 12/02/2007 7:49 Resul ts for this RISK TYPES EDT procedure are i n the results section. CYTOPATHOLOGY Routine 12/02/2007 0:00 Results for this EDT procedure are i n the results section. documented in this encounter Results HUMAN PAPILLOMA VIRUS DNA TEST (12/02/2007 7:49 EDT) Specimen Description Cervix, ThinPrep MICHELINE Oakes AB vial Result Negative for HPV [facility] types 16, 18, 31, 33, 35, 39, 45, 51, 52, 56, 58, 59, and 68. Report Status Final [facility] [id number] Specimen Performing Organization Address City/State/ZIP Code Phon e Number [facility] [address] [place] [address] SERVICES [facility] [address] [place] [address] CYTOPATHOLOGY (12/02/2007 0:00 EDT) Pathology Report: CYTOPATHOLOGY REPORT ? [facility] ? LAB Reports generated via electr onic interface contain original data; ? however they are lacking the format of the original report. ? Caution should be taken when reading/interpreting unformatted reports. ? Name: ? ADELA DOAN L ? Accession #: ? [id number] ? : ? 1970 (Age: 37) ??F ?Collect Date: ? 12/02/2007 ? Location: ? [facility] ? Receive Date: ? 12/03/2007 ? Provider: ?DREA M RO WLETT ELECTRIC STOP INSTALLER ? Copy to: ? Specimen/Source: ? ThinPrep Pap Test, Cervix/Endocervix, processed on [employer] ThinPrep Imaging System, wit h manual evaluation ? Last Menstrual Period: ? 08/06/08 ? Hormonal/Contraceptive Statu s: ? Oral contraceptives ? Previous Gynecologic Patholo gy: ? YASHIRA III: 04/07 & 05/07 ? YASHIRA II: 04/07 ? Treatment History: ? Cervical biopsy: 06/25 YASHIRA I II with endocervical gland ext. ? LEEP: A-1 YASHIRA III suspicious for microinvasive sq. cell ca. B-1 YASHIRA II 2-ectocx. & endocx. margins neg. for H G dysplasia ? Cone biopsy: 1-YASHIRA III 2-no def. invasion 3-margins ??(More) ? Other: ? Additional clinical informat ion: / & 02/08 paps neg. ? SPECIMEN ADEQUACY ? Satisfactory for Eval uation ? - transformation zone compon ent present ? GENERAL CATEGORIZATION ? Epithelial Cell Abnor mality ? INTERPRETATION ? Squamous Cell Abnorma lity - Atypical squamous cells, undetermined ? significance (ASC-US). ? EDUCATIONAL NOTES/RECOMMENDA TIONS ? FOR[facility]LY [facility] recommends follo wing the 2005 Consensus Guidelines for the Management of Women with Abnormal Cervi gianluca Cancer Screening Tests (JLGTD, ? 2007;11(4):201-222). ??Conse nsus guidelines are available online at ? www.ASCCP.org. ? Document reviewed and electr onically signed by: ? Abdelmonem Elhosseiny , MD ? Report Date: ??08/18/ 2008 13:53 ? End of Report ? Specimen Performing Organization Address City/State/ZIP Code Phon e Number [facility] [address] [place] [address] SERVICES [facility] [address] [place] [address] documented in this encounter Visit Diagnoses Not on filedocumented in this encounter
--- OUTSIDE RECORDS SUMMARY | 2021-11-16 01:21 | XMS_ITS | Encounter Summary ---
:1970 Author Organization [facility] Address [address] [place] [address] Care Team Providers Name Role Phone Unavailable Primary Care Provider Unavailable Encounter Details Date Type Department Care Team Description 09/03/2006 Results Only [facility] - Leana Strickland MD Maple conversion [address] [place] [address] [place] [address] Social History Tobacco Use Types Packs/Day Years Used Date Never Assessed Sex Assigned at Date Recorded Not on file documented as of this encounter Plan of Treatment Not on filedocumented as of this encounter Procedures Procedure Name Priority Date/Time Associated Diagnosis Comme nts SURGICAL PATHOLOGY Routine 09/03/2006 0:00 EDT Re sults for this procedure are i n the results section. documented in this encounter Results SURGICAL PATHOLOGY (09/03/2006 0:00 EDT) Pathology Report: SURGICAL PATHOLOGY REPORT [facility] Reports generated via electronic interface contain allen ginal data; LAB however they are lacking the format of the original re port. Caution should be taken when reading/interpreting unfo rmatted reports. Name: ? ADELA DOAN ? Accession #: ? [id number] ? : ? 1970 (Age: 36) ??F ? Collect Date: ? 09/03/2006 ? Location: ? [facility] ? Receive Date: ? 007 ? Provider: SANDIE STRICKLAND MD Copy to: SOCO CAZARES MD ? Final Pathologic Diagnosis: ? Cervix, cone biopsy: 1. ?Focal resid ual high grade squamous intraepithelial lesion (YASHIRA III). 2. ? No definitive invasion identified. See commen t. ? 3. ?? Margins of resection negative for dysplas ia. ? 4. ?? Acute and chron ic cervicitis with features of previous biopsy site. Comment: ? The residual high grade squamous intraepithelia l lesion is focal and present on section (A5). ??T here is a single focus identified which measures 0.25 mm in greatest dimension which has a suggestion of paradoxical maturation. No definitive invasion, however , is identified. ??Deeper levels have been examined on section (A5) and this gely e was reviewed at the intradepartmental consultation conference. ??(Dr. Canales)/[facility] Document reviewed and electronically signed by: KRISTIE CANALES MD Report ??Date: 09/05/2006 17:02 By the signature above, the attending physician certif ies that he/she has personally conducted a gross and/or microscopic examin ation of the described specimens and rendered or confirmed the above diagnosi s. Specimen(s) Received: ? Cervical cone bx (suture @ twelve o'clock ??sma ll piece) Clinical History: ? YASHIRA III microinvasive; squamous cell carcinoma Gross Description: ? Received in formalin labelled Veilleux and c ervical cone bx is an oriented conization of cervi x measuring 2.4 cm from 12 to 6 o'clock, 0.9 cm from 3 to 9 o'clock, and is excised to a depth of 1.2 cm. ? ?There is a suture designating the 12 o'clock aspect as per the accompany ing requisition slip. There is a central 1.2 cm patent os. ??T he ectocervix is last-white, smooth to wrinkled. ??There are 0.5 cc of attached cassidy-last, muc inous material. ??The endocervical margin is inked black and ectocervical inked blue. ??Also received is a cassidy-last, rubbery portion of cervix measuring 1.2 x 0.8 cm and is excised to a depth of 0.3 cm. ??One aspect is surfaced by a ta n, smooth to wrinkled mucosa. ??The endocervical margin is inked black and ectocervical inked blue. The annular tissue is radially sectioned from 12 to 11 o'clock and is entirely submitted as (A1) ??(A7) wit h the 12 o'clock aspect in cassette (A1) progressing to the 11 o'clock aspect in cassette (A7). ??The additional portion of cervix is serially sectioned and entirely submitted as (A8) and (A9). ??The attached mucinous material is submitted as (A10). ??(Liang suárez)/[facility] End of Report Specimen Performing Organization Address City/State/ZIP Code Phon e Number [facility] [address] [phone] SERVICES [facility] [address] [place] [address] documented in this encounter Visit Diagnoses Not on filedocumented in this encounter
--- OUTSIDE RECORDS SUMMARY | 2021-11-16 01:21 | XMS_ITS | Encounter Summary ---
:1970 Author Organization [facility] Address [address] [place] [address] Care Team Providers Name Role Phone Unavailable Primary Care Provider Unavailable Encounter Details Date Type Department Care Team Description 01/30/2011 Results Only [facility] Tania Webster, MADELINE Laboratory Services - [address] [address] Social History Tobacco Use Types Packs/Day Years Used Date Never Assessed Sex Assigned at Date Recorded Not on file documented as of this encounter Plan of Treatment Not on filedocumented as of this encounter Procedures Procedure Name Priority Date/Time Associated Diagnosis Comme nts PAP TEST- RESULT Routine 01/30/2011 0:00 EDT Resu lts for this ONLY procedure are i n the results section. documented in this encounter Results PAP TEST- RESULT ONLY (01/30/2011 0:00 EDT) Pathology Report: CYTOPATHOLOGY REPORT [facility] Reports generated via electronic interface contain allen ginal data; however they are lacking the format of the original re port. Caution should be taken when reading/interpreting unfo rmatted reports. Name: ? ADELA DOAN ? Accession #: ? [id number] ? : ? 1970 (Age: 41) ??F ?Collect Da te: ? 01/30/2011 ? Location: ? [facility] ? Receive Date: ? 011 ? Provider: TANIA WEBSTER LICENSED PRACTICAL NURSE INSTRUCTOR Copy to: KRISTIE PIZANO MD ? Final Report SPECIMEN ADEQUACY ? Satisfactory for Evaluation - transformation zone component present GENERAL CATEGORIZATION ? Negative for Intraepithelial Lesion or Malignan cy ?? Last Menstural Period: 01/15/11 Previous Gynecologic Pathology: YASHIRA III: 06/25 ASC-US: 11/26 Treatment History: Miscellaneous treatment: cold knife 06/25- YASHIRA III Cone biopsy Other: Additional clinical information: 01/10/10 pap ne gative, - HPV Specimen/Source: ??Pap Test, Cervix/Endocervix, ThinPr ep Imaging System with manual evaluation Document reviewed and electronically signed by: ? Lydia Disla, [facility](ASCP) ? Report ??Date: 02/07/2011 11:13 HPV with Pap Test ? Date Ordered: ? 02/07/2011 ? Status: ?? Signed Out ?Date Complete: ? 02/11/2011 ? By: ??S ystem Interface ? Date Reported: ? 02/11/2011 ? Interpretation RESULT: Negative for HPV types 16, 18, 31, 33, 35, 39, 45, 51, 52, 56, 58, 59, and 68. Comments Document reviewed and electronically signed by: ? System Interface ? Report date: 02/11/2011 By the signature above, the attending physician certif ies that he/she has personally conducted a gross and/or microscopic examin ation of the described specimens and rendered or confirmed the above diagnosi s. End of Report Specimen Performing Organization Address City/State/ZIP Code Phon e Number [facility] [address] [place] [address] SERVICES [facility] [address] [place] [address] documented in this encounter Visit Diagnoses Not on filedocumented in this encounter
--- OUTSIDE RECORDS SUMMARY | 2021-11-16 01:21 | XMS_ITS | Encounter Summary ---
:1970 Author Organization [facility] Address [address] [place] [address] Care Team Providers Name Role Phone Unavailable Primary Care Provider Unavailable Encounter Details Date Type Department Care Team Description 05/27/2007 Results Only [facility] - Tania Dyson NP conversion [address] [id number] Social History Tobacco Use Types Packs/Day Years Used Date Never Assessed Sex Assigned at Date Recorded Not on file documented as of this encounter Plan of Treatment Not on filedocumented as of this encounter Procedures Procedure Name Priority Date/Time Associated Diagnosis Comme nts CYTOPATHOLOGY Routine 05/27/2007 0:00 EST Results for this procedure are i n the results section . documented in this encounter Results CYTOPATHOLOGY (05/27/2007 0:00 EST) Pathology Report: CYTOPATHOLOGY REPORT [facility] Reports generated via electronic interface contain allen ginal data; however they are lacking the format of the original re port. Caution should be taken when reading/interpreting unfo rmatted reports. Name: ? ADELA DOAN ? Accession #: ? [id number] : ? 1970 (Age: 37) ??F ?Collect Date: ? 09/2007 Location: ? [facility] ? Receive Date : ? 05/28/2007 Provider: ?TANIA RAMESH HOOF AND SHOE INSPECTOR Copy to: ? Specimen/Source: ? ThinPrep Pap Test, Cervix/Endocervix, processed on [employer] ThinPrep Imaging System, with manual evaluation Last Menstrual Period: ? 05/12/07 Hormonal/Contraceptive Status: ? Oral contraceptives Treatment History: ? LEEP: 07/26 suspicious for micro-invasive sq. cell ca- cold knife cone Other: ? Additional clinical information: 12/26 pap neg. ? SPECIMEN ADEQUACY ? Satisfactory for Evaluation - transformation zone component present GENERAL CATEGORIZATION ? Negative for Intraepithelial Lesion or Malignan cy INTERPRETATION ? Reactive cellular karuna nges associated with inflammation present (includes repair). ? Document reviewed and electronically signed by: ? KRISTIE CANALES MD ? Report Date: ??06/02/2007 18:11 End of Report Specimen Performing Organization Address City/State/ZIP Code Phon e Number [facility] [address] [place] [address] SERVICES [facility] [address] [place] [address] documented in this encounter Visit Diagnoses Not on filedocumented in this encounter
--- OUTSIDE RECORDS SUMMARY | 2021-11-16 01:21 | XMS_ITS | Encounter Summary ---
:1970 Author Organization [facility] Address [address] [place] [address] Care Team Providers Name Role Phone Unavailable Primary Care Provider Unavailable Encounter Details Date Type Department Care Team Description 03/02/2014 Results Only [facility] Gisell Strickland MD Laboratory Services - [address] [place] [address] [address] [place] [address] Social History Tobacco Use Types Packs/Day Years Used Date Never Assessed Sex Assigned at Date Recorded Not on file documented as of this encounter Plan of Treatment Not on filedocumented as of this encounter Procedures Procedure Name Priority Date/Time Associated Diagnosis Comme nts PAP TEST- RESULT Routine 03/02/2014 0:00 EST Resu lts for this ONLY procedure are i n the results section. documented in this encounter Results PAP TEST- RESULT ONLY (03/02/2014 0:00 EST) Pathology Report: CYTOPATHOLOGY REPORT [facility] Reports generated via electronic interface contain allen ginal data; SERVICES however they are lacking the format of the original re port. Caution should be taken when reading/interpreting unfo rmatted reports. Name: ? ADELA DOAN ? Accession #: ? [id number] ? : ? 1970 (Age: 44) ??F ?Collect Da te: ? 03/02/2014 ? Location: ? [facility] ? Receive Date: ? 014 ? Provider: GISELL STRICKLAND MD Copy to: GABY MITCHELL MD ? Final Report SPECIMEN ADEQUACY ? Satisfactory for Evaluation - transformation zone component present GENERAL CATEGORIZATION ? Negative for Intraepithelial Lesion or Malignan cy INTERPRETATION ? Reactive cellular karuna nges associated with inflammation present (includes repair). Previous Gynecologic Pathology: YASHIRA III: 2006 Specimen/Source: ??Pap Test, Cervix/Endocervix, ThinPr ep Imaging System with manual evaluation Document reviewed and electronically signed by: ? ERIN BRO MD ? Report ??Date: 03/13/2014 09:27 HPV with Pap Test ? Date Ordered: ? 03/11/2014 ? Status: ?? Signed Out ?Date Complete: ? 03/15/2014 ? By: ??S ystem Interface ? Date Reported: ? 03/15/2014 ? Interpretation RESULT: Negative for HPV. No E6 or E7 mRNA is detected from HPV types 16,18,31,3 3,35, 39,45,51,52,56,58,59,66, and 68 by performance improvement analyst media hany amplification. Comments Document reviewed and electronically signed by: ? System Interface ? Report date: 03/15/2014 By the signature above, the attending physician certif ies that he/she has personally conducted a gross and/or microscopic examin ation of the described specimens and rendered or confirmed the above diagnosi s. End of Report Specimen Performing Organization Address City/State/ZIP Code Phon e Number [facility] [address] [place] [address] SERVICES documented in this encounter Visit Diagnoses Not on filedocumented in this encounter
--- OUTSIDE RECORDS SUMMARY | 2021-11-16 01:21 | XMS_ITS | Encounter Summary ---
:1970 Author Organization [facility] Address [address] [place] [address] Care Team Providers Name Role Phone Unavailable Primary Care Provider Unavailable Encounter Details Date Type Department Care Team Description 07/31/[address] [facility] - Leana Strickland MD Maple conversion [address] [place] [address] [place] [address] Social History Tobacco Use Types Packs/Day Years Used Date Never Assessed Sex Assigned at Date Recorded Not on file documented as of this encounter Plan of Treatment Not on filedocumented as of this encounter Procedures Procedure Name Priority Date/Time Associated Diagnosis Comme [facility] SURGICAL PATHOLOGY Routine 07/31/2006 0:00 EDT Re sults for this procedure are i n the results section. documented in this encounter Results SURGICAL PATHOLOGY (07/31/2006 0:00 EDT) Pathology Report: SURGICAL PATHOLOGY REPORT TOBIAS Maggie MCKINLEY Reports generated via electronic interface contain geo ginal data; LAB however they are lacking the format of the original re port. Caution should be taken when reading/interpreting unfo rmatted reports. Name: ? ADELA DOAN ? Accession #: ? [id number] ? : ? 1970 (Age: 36) ??F ? Collect Date: ? 07/31/2006 ? Location: ? [facility] ? Receive Date: ? 007 ? Provider: SANDIE STRICKLAND MD Copy to: ? Final Pathologic Diagnosis: A. ?Cervix, 6 o'clock, LEEP: 1. 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 See comment. ? - High grade squamous intraepithe lial lesion extends to tissue edge. ? B. ?? Cervix, 12 o'clock, LEEP: ?1. ?? Focal h igh grade squamous intraepithelial lesion (YASHIRA II). ?2. ?? Ectocer vical and endocervical margins negative for high grade dysplasia. Comment: ? Specimen (A) consists only of endocervical tissue with patchy involvement by high grade squamous intraepithelial lesion. The foc us in question shows paradoxical maturation and an irregular interface with surrounding tissue, raising the suspicion for microinvasion. The area in q uestion is partially obscured by chronic follicular cervicitis. ??Lack of s pecimen orientation precludes assessment of margins, but high grade dyspla peter extends to one cauterized tissue edge in (A). ??Clinical correl ation is essential. ??Cautery artifact obscures portion of both specimens. ??This ca se was reviewed at intradepartmental consultation conferenc e. Deeper levels have been examined in (A). Dr. Rocio Alcantar has seen this case in consultati on and concurs. ??(Dr. Patiño)/[facility] Document reviewed and electronically signed by: Juan Patiño MD Report ??Date: 08/05/2006 14:54 By the signature above, the attending physician certif ies that he/she has personally conducted a gross and/or microscopic examin ation of the described specimens and rendered or confirmed the above diagnosi s. Specimen(s) Received: A. ?LEEP 6:00 B. ? LEEP 12:00 Clinical History: ? 06/25/06 cx bx ??YASHIRA III; control pills; LM P: 07/16/06 Gross Description: ? Received in formalin labelled Zeus and LEEP 6:00 is an unoriented, 0.9 cm in diameter product o f a focally fragmented partial LEEP excision excised to a maximum depth of 0.1 cm. ??The muco sa is pink-cassidy and nodular; there is a marked amount of cautery artifact. ??Geo entation of the ecto- and endocervical regions cannot be determined . ??The specimen is trisected and entirely submitted as (A). Received in formalin aura brittany Schulz and LEEP 12:00 is an unoriented 1.3 x 1.0 cm product of a partial LEEP excision excised to a maximum depth of 0.3 cm. The mucosa is white-cassidy, smo oth and glistening along one half and cassidy-brown and granular along the opposing half. ??The orientation of the ecto- and endocervical region cannot be determined. ??The specimen is quadris ected and entirely submitted as (B1) and (B2). ??(Sagrario Prajapati)/[facility] End of Report Specimen Performing Organization Address City/State/ZIP Code Phon e Number [facility] [address] [place] [address] SERVICES [facility] [address] [place] [address] documented in this encounter Visit Diagnoses Not on filedocumented in this encounter
--- OUTSIDE RECORDS SUMMARY | 2021-11-16 01:21 | XMS_ITS | Encounter Summary ---
:1970 Author Organization [facility] Address [address] [place] [address] Care Team Providers Name Role Phone Unavailable Primary Care Provider Unavailable Encounter Details Date Type Department Care Team Description 06/25/2006 Results Only [facility] - Leana Strickland MD Maple conversion [address] [place] [address] [place] [address] Social History Tobacco Use Types Packs/Day Years Used Date Never Assessed Sex Assigned at Date Recorded Not on file documented as of this encounter Plan of Treatment Not on filedocumented as of this encounter Procedures Procedure Name Priority Date/Time Associated Diagnosis Comme [facility] SURGICAL PATHOLOGY Routine 06/25/2006 0:00 EST Re sults for this procedure are i n the results section. documented in this encounter Results SURGICAL PATHOLOGY (06/25/2006 0:00 EST) Pathology Report: SURGICAL PATHOLOGY REPORT [facility] Reports generated via electronic interface contain allen ginal data; LAB however they are lacking the format of the original re port. Caution should be taken when reading/interpreting unfo rmatted reports. Name: ? ADELA DOAN ? Accession #: ? [id number] ? : ? 1970 (Age: 36) ??F ? Collect Date: ? 06/25/2006 ? Location: ? [facility] ? Receive Date: ? 007 ? Provider: SANDIE STRICKLAND MD Copy to: ? Final Pathologic Diagnosis: ? Cervix, 6 o'clock, biopsy: - High grade squamous intraepithelial le lolly (YASHIRA III) with endocervical gland extension. Document reviewed and electronically signed by: Iona Mccauley MD Report ??Date: 06/27/2006 16:23 By the signature above, the attending physician certif ies that he/she has personally conducted a gross and/or microscopic examin ation of the described specimens and rendered or confirmed the above diagnosi s. Specimen(s) Received: ? Cx bx @ 6:00 Clinical History: ? Colpo; 03/18/06 Pap ??ASCUS, (+) HPV on BCP; LM P: 06/18/06 Gross Description: ? Received in formalin labelled [place]illeux and cx bx at 6 o'clock is a 0.5 x 0.3 x 0.2 cm pale cassidy glis tening portion of mucosa. ??The specimen is submitted intact in one cassette. ??(Sagrario Del Castillo/[facility] End of Report Specimen Performing Organization Address City/State/ZIP Code Phon e Number [facility] [address] [place] [address] SERVICES [facility] [address] [place] [address] documented in this encounter Visit Diagnoses Not on filedocumented in this encounter
--- OUTSIDE RECORDS SUMMARY | 2021-11-16 01:21 | XMS_ITS | Encounter Summary ---
:[address] [facility] Address [address] [place] [address] Care Team Providers Name Role Phone Unavailable Primary Care Provider Unavailable Encounter Details Date Type Department Care Team Description 01/29/2012 Results Only [facility] Tania Webster, MADELINE Laboratory Services - [address] [address] Social History Tobacco Use Types Packs/Day Years Used Date Never Assessed Sex Assigned at Date Recorded Not on file documented as of this encounter Plan of Treatment Not on filedocumented as of this encounter Procedures Procedure Name Priority Date/Time Associated Diagnosis Comme nts PAP TEST- RESULT Routine 01/29/2012 0:00 EDT Resu lts for this ONLY procedure are i n the results section. documented in this encounter Results PAP TEST- RESULT ONLY (01/29/2012 0:00 EDT) Pathology Report: CYTOPATHOLOGY REPORT [facility] Reports generated via electronic interface contain allen ginal data; however they are lacking the format of the original re port. Caution should be taken when reading/interpreting unfo rmatted reports. Name: ? ADELA DOAN ? Accession #: ? [id number] : ? 1970 (Age: 42) ??F ?Collect Date: ? 01/19 Location: ? [facility] ? Receive Date : ? 01/31/2012 Provider: ?TANIA WEBSTER ICT SALES REPRESENTATIVE Copy to: ? Specimen/Source: ? Pap Test, Cervix/Endocervix, ThinPrep Imaging System with manual evaluation Last Menstrual Period: ? 01/08/2012 Hormonal/Contraceptive Status: ? Oral contraceptives Previous Gynecologic Pathology: ? YASHIRA III: pt hx microinvasion ASC-US: 2007 Treatment History: ? LEEP: cold knife cone 08/25 Other: ? Additional clinical information: paps hpv negative sin ce ? SPECIMEN ADEQUACY ? Satisfactory for Evaluation - transformation zone component present GENERAL CATEGORIZATION ? Negative for Intraepithelial Lesion or Malignan cy ? Document reviewed and electronically signed by: ? GLORIA Dowling(ASCP) ? Report Date: ??02/05/2012 13:27 End of Report Specimen Performing Organization Address City/State/ZIP Code Phon e Number [facility] [address] [place] [address] SERVICES [facility] [address] [place] [address] documented in this encounter Visit Diagnoses Not on filedocumented in this encounter
--- OUTSIDE RECORDS SUMMARY | 2021-11-16 01:21 | XMS_ITS | Encounter Summary ---
:1970 Author Organization [facility] Address [address] [place] [address] Care Team Providers Name Role Phone Gabe Oscar MD Primary Care Provider Unavailable Encounter Details Date Type Department Care Team Description 03/31/2020 Lab Requisition [facility] Outr Resulting Lab, Pathology & Laboratory Provider [facility] [address] [place] [address] Social History Tobacco Use Types Packs/Day Years Used Date Never Assessed Sex Assigned at Date Recorded Not on file documented as of this encounter Plan of Treatment Not on filedocumented as of this encounter Procedures Procedure Name Priority Date/Time Associated Diagnosis Comme nts T3 FREE Routine 03/31/2020 16:02 EST Results for this procedure are i n the results section . documented in this encounter Results T3 FREE (03/31/2020 16:02 EST) Pathologist Sig nature T3, Free 2.9 2.8 - 5.3 pg/mL [facility] Specimen Blood - Venous blood (substance) Performing Organization Address City/State/ZIP Code Phon e Number [facility] [address] [place] [address] SERVICES documented in this encounter Visit Diagnoses Not on filedocumented in this encounter Care Teams Income Tax Return Preparer Relationship Specialty Start Date End Date Gabe Oscar MD PCP - General 02/25/15 documented as of this encounter
--- OUTSIDE RECORDS SUMMARY | 2021-11-16 01:21 | XMS_ITS | Clinical Summary ---
:1970 Author Organization [facility] Address [address] [place] [address] Care Team Providers Name Role Phone Gabe Oscar MD Primary Care Provider Unavailable Social History Tobacco Use Types Packs/Day Years Used Date Never Assessed Sex Assigned at Date Recorded Not on file Plan of Treatment Not on file Care Teams Bookkeeper Relationship Specialty Start Date End Date Gabe Oscar MD PCP - General 02/25/15
--- OUTSIDE RECORDS SUMMARY | 2021-11-16 01:21 | XMS_ITS | Encounter Summary ---
:1970 Author Organization [facility] Address [address] [place] [address] Care Team Providers Name Role Phone Unavailable Primary Care Provider Unavailable Encounter Details Date Type Department Care Team Description 02/01/2013 Results Only [facility] Tania Webster, MADELINE Laboratory Services - [address] [address] Social History Tobacco Use Types Packs/Day Years Used Date Never Assessed Sex Assigned at Date Recorded Not on file documented as of this encounter Plan of Treatment Not on filedocumented as of this encounter Procedures Procedure Name Priority Date/Time Associated Diagnosis Comme nts PAP TEST- RESULT Routine 02/01/2013 0:00 EDT Resu lts for this ONLY procedure are i n the results section. documented in this encounter Results PAP TEST- RESULT ONLY (02/01/2013 0:00 EDT) Pathology Report: CYTOPATHOLOGY REPORT [facility] Reports generated via electronic interface contain allen ginal data; however they are lacking the format of the original re port. Caution should be taken when reading/interpreting unfo rmatted reports. Name: ? ADELA DOAN ? Accession #: ? [id number] ? : ? 1970 (Age: 43) ??F ?Collect Da te: ? 02/01/2013 ? Location: ? [facility] ? Receive Date: ? 013 ? Provider: TANIA WEBSTER SANITARY INSPECTOR Copy to: TANA GIRON MD ? Final Report SPECIMEN ADEQUACY ? Satisfactory for Evaluation - transformation zone component present GENERAL CATEGORIZATION ? Negative for Intraepithelial Lesion or Malignan cy INTERPRETATION ? Reactive cellular karuna nges associated with inflammation present (includes repair). Last Menstrual Period: 01/21/2013 Previous Gynecologic Pathology: YASHIRA III: PHX Treatment History: Cone biopsy: COLD KNIFE 2006 Specimen/Source: ??Pap Test, Cervix/Endocervix, ThinPr ep Imaging System with manual evaluation Document reviewed and electronically signed by: ? MINDY STARR MD PHD ? Report ??Date: 02/08/2013 13:38 HPV with Pap Test ? Date Ordered: ? 02/08/2013 ? Status: ?? Signed Out ?Date Complete: ? 02/10/2013 ? By: ??S ystem Interface ? Date Reported: ? 02/10/2013 ? Interpretation RESULT: Negative for HPV. No E6 or E7 mRNA is detected from HPV types 16,18,31,3 3,35, 39,45,51,52,56,58,59,66, and 68 by electric arc welder media hany amplification. Comments Document reviewed and electronically signed by: ? System Interface ? Report date: 02/10/2013 By the signature above, the attending physician certif ies that he/she has personally conducted a gross and/or microscopic examin ation of the described specimens and rendered or confirmed the above diagnosi s. End of Report Specimen Performing Organization Address City/State/ZIP Code Phon e Number [facility] [address] [place] [address] SERVICES [facility] [address] [place] [address] documented in this encounter Visit Diagnoses Not on filedocumented in this encounter
--- OUTSIDE RECORDS SUMMARY | 2021-11-16 01:21 | XMS_ITS | Encounter Summary ---
:1970 Author Organization [facility] Address [address] [place] [address] Care Team Providers Name Role Phone Unavailable Primary Care Provider Unavailable Encounter Details Date Type Department Care Team Description 12/14/2008 Orders Only [facility] Laboratory Eleni Webster, SILVERWARE BUFFING MACHINE OPERATOR Services - [place] [address] [address] Social History Tobacco Use Types Packs/Day Years Used Date Never Assessed Sex Assigned at Date Recorded Not on file documented as of this encounter Plan of Treatment Not on filedocumented as of this encounter Procedures Procedure Name Priority Date/Time Associated Comments Diagnosis HPV DETECTION, HIGH Routine 12/14/2008 9:47 Resul ts for this RISK TYPES EDT procedure are i n the results section. CYTOPATHOLOGY Routine 12/14/2008 0:00 Results for this EDT procedure are i n the results section. documented in this encounter Results HUMAN PAPILLOMA VIRUS DNA TEST (12/14/2008 9:47 EDT) Specimen Description Cervix, ThinPrep [facility] AB vial Result Negative for HPV [facility] types 16, 18, 31, 33, 35, 39, 45, 51, 52, 56, 58, 59, and 68. Report Status Final [facility] 12/28/2008 Specimen Performing Organization Address City/State/ZIP Code Phon e Number [facility] [address] [place] [address] SERVICES [facility] [address] [place] [address] CYTOPATHOLOGY (12/14/2008 0:00 EDT) Pathology Report: CYTOPATHOLOGY REPORT ? [facility] ? LAB Reports generated via electr onic interface contain original data; ? however they are lacking the format of the original report. ? Caution should be taken when reading/interpreting unformatted reports. ? Name: ? ADELA DOAN L ? Accession #: ? [id number] ? : ? 1970 (Age: 38) ??F ?Collect Date: ? 12/14/2008 ? Location: ? [facility] ? Receive Date: ? 12/15/2008 ? Provider: ?DREA M RO WLETT SILVERWARE BUFFING MACHINE OPERATOR ? Copy to: ? Specimen/Source: ? Pap Test, Cervix/Endocervix, ThinPrep Imaging System ? with manual evaluation ? Last Menstrual Period: ? 8/5/09 ? Previous Gynecologic Patholo gy: ? YASHIRA III: 3/07 ? YASHIRA II: 2 ectocx and endocx. margins neg for HG dysplasia ? ASC-US: 8/08 ? Treatment History: ? Cervical biopsy: with endocx . gland ext 3/07 ? 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 Cone biopsy: no. def. invasi on margins ? Other: ? Additional clinical informat ion: 9/07, 2/08 paps neg, HPV neg 8/08 ? HPVDX - HPV testing requeste d regardless of diagnosis on current ThinPrep Pap ?? test. ? SPECIMEN ADEQUACY ? Satisfactory for Eval uation ? - transformation zone compon ent present ? GENERAL CATEGORIZATION ? Negative for Intraepi thelial Lesion or Malignancy ? Document reviewed and electr onically signed by: ? Hemalatha Alejandro, CT(ASCP) ? Report Date: ??09/02/ 2009 15:33 ? End of Report ? Specimen Performing Organization Address City/State/ZIP Code Phon e Number [facility] [address] [place] [address] SERVICES [facility] [address] [place] [address] documented in this encounter Visit Diagnoses Not on filedocumented in this encounter
--- OUTSIDE RECORDS SUMMARY | 2021-11-16 01:21 | XMS_ITS | Encounter Summary ---
:1970 Author Organization [facility] Address [address] [place] [address] Care Team Providers Name Role Phone Unavailable Primary Care Provider Unavailable Encounter Details Date Type Department Care Team Description 01/10/2010 Results Only [facility] Tania Webster, MADELINE Laboratory Services - [address] [address] Social History Tobacco Use Types Packs/Day Years Used Date Never Assessed Sex Assigned at Date Recorded Not on file documented as of this encounter Plan of Treatment Not on filedocumented as of this encounter Procedures Procedure Name Priority Date/Time Associated Diagnosis Comme nts CYTOPATHOLOGY Routine 01/10/2010 0:00 EDT Results for this procedure are i n the results section . documented in this encounter Results CYTOPATHOLOGY (01/10/2010 0:00 EDT) Pathology Report: CYTOPATHOLOGY REPORT ? [facility] ? LAB Reports generated via [employer] interface contain original data; ? however they are lacking the format of the original report. ? Caution should be taken when reading/interpreting unformatted reports. ? Name: ? RAYSHAWNVIRGINIAELIO, ADELA L ? Accession #: ? [id number] ? : ? 1970 (Age: 40) ??F ?Collect Date: ? 01/10/2010 ? Location: ? [facility] ? R eceive Date: ? 01/11/2010 ? Provider: TANIA M GADIEL COVERING MACHINE OPERATOR HELPER ? Copy to: ? Final Report ? SPECIMEN ADEQUACY ? Satisfactory for Eval uation ? - transformation zone compon ent present ? GENERAL CATEGORIZATION ? Negative for Intraepi thelial Lesion or Malignancy ? Last Menstural Period: 9*1/1 0 ? Hormonal/Contraceptive statu s: Oral contraceptives: user ? Treatment History: Cervical biopsy: 06/25 with endocx. gland extension ? 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 Cone biopsy: no def. invasio n margins ? Other: Additional clinical i nformation: 12/26, 05/29 paps negative, 11/26 and 11/27 pap neg. HPV neg ? HPVDX - HPV testing requeste d regardless of diagnosis on current ThinPrep Pap ?? test. ? Specimen/Source: ??Pap Test, Cervix/Endocervix, ThinPrep Imaging System with ? manual evaluation ? Document reviewed and electr onically signed by: ? Hemalatha Alejandro, CT(ASCP) ? Report ??Date: 09/29/ 2010 13:18 ? HPV with Pap Test ? Date Ordered: ? 0 01/17/2010 ? Status: ?? Signed Out ?Date Complete: ? 01/22/2010 ? By: ??System Interface ? Date Reported: ? 01/22/2010 ? Interpretation ? RESULT: Negative for HPV typ es 16, 18, 31, 33, 35, 39, 45, 51, 52, ? 56, 58, 59, and 68. ? Comments ? Document reviewed and electr onically signed by: ? System Interface ? Report date: 10/20 10 ? By the signature above, the attending physician certifies that he/she has ? personally conducted a gross and/or microscopic examination of the described ? specimens and rendered or co nfirmed the above diagnosis. ? End of Report ? Specimen Performing Organization Address City/State/ZIP Code Phon e Number [facility] [address] [place] [address] SERVICES [facility] [address] [place] [address] documented in this encounter Visit Diagnoses Not on filedocumented in this encounter
[2021-11-16 14:11] LABS: ESR 4 mm/hr (0-20)
[2021-11-16 15:40] LABS: Ferritin 32 ng/mL (8-252)
[2021-11-16 20:18] LABS: Vitamin D 25 Total 44.1 ng/mL (30-100)
[2021-11-16 22:07] LABS: Rheumatoid Factor <8.6 IU/mL (<12.0)
[2021-11-16 23:01] LABS: LH 7.3 mIU/mL (See Note)
[2021-11-19 09:44] LABS: EBNA IgG Positive (Negative); EBV Interpretation (See Note); VCA IgG Positive (Negative); VCA IgM Negative (Negative)
[2021-11-19 14:39] LABS: ANA Interpretation Positive (Negative); ANA Titer Pattern 1:160 Homogeneous
[2021-11-20 09:39] LABS: EBV EA IgG Positive (Negative)
== END 2021-11-16 01:16 | disposition home or self-care (01) ==
LOC: LBO 01:15
PROVIDERS: PCP Nurse Practitioner Family; Visit Provider Naturopath
DX: E55.9 Vitamin D deficiency, unspecified (principal); N92.6 Irregular menstruation, unspecified; R49.9 Unspecified voice and resonance disorder
CPT/HCPCS: 36415; 82306; 85652; 86663; 82728; 83001; 83002; 86038; 86140; 86431; 86664; 86665

== ENCOUNTER → 2021-12-19 01:48 | Outpatient (CLI) | payer BC, SELFPAY ==
--- NOTE | 2021-12-19 08:15 | DI.RAD_ITS ---
Exam(s) XR LUMBAR SPINE COMPLETE EXAM: XR LUMBAR SPINE COMPLETE CLINICAL HISTORY: chronic low back pain, M54.50, G89.29. TECHNIQUE: 2D digital imaging was performed. COMPARISON: CT ABD PELVIS WITH CONTRAST from 03/14/2016 FINDINGS: Five views There are no compression fractures but there is significant anterolisthesis L5 upon S1 due to pars de fects at L5 level. There is 1.2 cm anterior slippage of L5 upon S1 as well as advanced narrowing of the disc space at this level. L4-5 and other disc spaces above this level exhibit normal height. Fa cet joints unremarkable. Sacroiliac joints unremarkable. IMPRESSION: Significant anterolisthesis L5 upon S1 due to pars defects at L5 level. Also advanced disc space lucia rowing at L5-S1 level. If clinically indicated follow-up flexion and extension lateral views can be performed to determine the true amount of slippage of L5 upon S1 during everyday activity. I note that pars defects were evident at L5 level on an abdominal CT scan of the femora 2015 but ther e is only minimal anterior slippage of L5 upon S1 at that time and no disc space narrowing at this le jaime. In addition, if clinically indicated MRI can be performed to determine amount of disc involvement and amount of foraminal stenosis/impingement of exiting nerve roots at this level. DATA REPOSITORY: RADIATION DOSE DELIVERED:
== END ==
PROVIDERS: PCP Nurse Practitioner Family; Visit Provider Nurse Practitioner Family
DX: M54.59 Other low back pain (principal); G89.29 Other chronic pain; M43.16 Spondylolisthesis, lumbar region; M51.37 Other intervertebral disc degeneration, lumbosacral region
CPT/HCPCS: 72110

== ENCOUNTER 2022-01-04 01:39 | Outpatient (CLI) | payer BC, SELFPAY ==
--- OUTSIDE RECORDS SUMMARY | 2022-01-04 01:40 | XMS_ITS | Encounter Summary ---
:1970 Author Organization [facility] Address [address] [place] [address] Care Team Providers Name Role Phone Unavailable Primary Care Provider Unavailable Encounter Details Date Type Department Care Team Description 12/14/2008 Orders Only [facility] Eleni Webster, VARNISH MIXER Services - [place] [address] [address] Social History Tobacco Use Types [...] Organization Address City/State/ZIP Code Phon e Number [facility] [address] [place] [address] SERVICES [facility] [address] [place] [address] CYTOPATHOLOGY (12/14/2008 0:00 EDT) Pathology Report: CYTOPATHOLOGY REPORT ? [facility] ? LAB Reports generated via electr onic interface contain original data; ? however they are lacking the format of the original report. ? Caution should be taken when reading/interpreting unformatted reports. ? Name: ? ADELA DOAN L ? Accession #: ? [id number] ? : ? 1970 (Age: 38) ??F ?Collect Date: ? 12/14/2008 ? Location: ? [facility] ? Receive Date: ? 12/15/2008 ? Provider: ?DREA M RO WLETT VARNISH MIXER ? Copy to: ? Specimen/Source: ? Pap [...] Organization Address City/State/ZIP Code Phon e Number [facility] [address] [place] [address] SERVICES [facility] [address] [place] [address] documented in this encounter Visit Diagnoses Not on filedocumented in this encounter
--- OUTSIDE RECORDS SUMMARY | 2022-01-04 01:40 | XMS_ITS | Encounter Summary ---
:1970 Author Organization [facility] Address [address] [place] [address] Care Team Providers Name Role Phone Unavailable Primary Care Provider Unavailable Encounter Details Date Type Department Care Team Description 12/02/2007 Before PRISM Converted [facility] - Manohar Webster, Visit (Maple) Maple conversion OR RN [address] [place] [address] Social History Tobacco Use Types Packs/Day Years [...] 68. Report Status Final [facility] [id number] Specimen Performing Organization Address City/State/ZIP Code Phon e Number [facility] [address] [place] [address] SERVICES [facility] [address] [place] [address] CYTOPATHOLOGY (12/02/2007 0:00 EDT) Pathology Report: CYTOPATHOLOGY REPORT ? [facility] ? LAB Reports generated via electr onic interface contain original data; ? however they are lacking the format of the original report. ? Caution should be taken when reading/interpreting unformatted reports. ? Name: ? ADELA DOAN L ? Accession #: ? [id number] ? : ? 1970 (Age: 37) ??F ?Collect Date: ? 12/02/2007 ? Location: ? [facility] ? Receive Date: ? 12/03/2007 ? Provider: ?DERA M RO WLETT OR RN ? Copy to: ? Specimen/Source: ? ThinPrep [...] significance (ASC-US). ? EDUCATIONAL NOTES/RECOMMENDA TIONS ? [facility] recommends follo wing the 2005 Consensus Guidelines [...] Organization Address City/State/ZIP Code Phon e Number [facility] [address] [place] [address] SERVICES [facility] [address] [place] [address] documented in this encounter Visit Diagnoses Not on filedocumented in this encounter
--- OUTSIDE RECORDS SUMMARY | 2022-01-04 01:40 | XMS_ITS | Encounter Summary ---
:1970 Author Organization [facility] [place] [address] Care Team Providers Name Role Phone Mariluz Vargas MD Primary Care Provider Encounter Details Date Type Department Care Team Description 05/11/2019 Hospital Encounter Gastroenterology at [facility] Aguila Cervantes, [facility] [place] [address] [facility] [phone] CENTER GASTROENTEROLOGY [place], [place] [address] Social History Tobacco Use Types [...] documented in this encounter Discharge Instructions Discharge Gaeb Wong RN - 05/11/2019 8:30 AM EST [...] occurs, please contact your Doctor. Please call [phone] before 8pm Mon-Fri with problems, questions or concerns. If you call after 8pm or on weekends, call the Hospital at [phone] and ask to speak to the Operations Research Manager abalone fisherman and the picked edge sewing machine operator will contact that person for you. When should you call for help? Call [phone] anytime you think you may need emergency [...] After Visit Summary and more online at [email or web address] If you would like to provide feedback about your hospital experience, please call the Office of Patient and Family Relations at . If you have received this After Visit Summary in error, please immediately return it in person to the department, or notify the [facility] Privacy Office by calling toll free at between the hours of 8AM and 5PM to arrange for our retrieval of the documents at no cost to you. Content Version: 12.2 ?? [id number] [employer]. Care instructions adapted under license by [facility]. If you have questions about a medical condition or this instruction, always ask your healthcare professional. [employer] disclaims any warranty or liability for your [...] Mclain PA-C Section of Gastroenterology [place] [address] documented in this encounter Plan of Treatment [...] AM 0 8:25 EST AM EST Narrative [facility] - 05/11/2019 8:25 AM EST Specimen requisition ordered. ??Separate Pathology report to follow Aguila Cervantes MD PATHOLOGY/CYTOLOGY ORDERABLE S Performing Organization Address City/State/ZIP [place] [address] Surgical Pathology Report (05/11/2019 8:15 AM EST) Component Value Ref Test Analysis Performed At [facility] Method Time Signature Surgical [id number] ? Location: 4T; EA07; [facility] Report The signing pathologist has (i) examined the relevant preparation(s) for the [facility]IAL specimen(s) and (ii) rendered or confirmed the diagnosis(es) . HOSPITAL LABORATORY . ?Surgic al Pathology DIAGNOSIS Random colon, ??biopsy: Colonic mucosa with focal no nspecific mild chronic inflammation in lamina propria. CR-PX Electronically signed by: ??Mariana Fox MD Verified: ??05/13/2019 ?Pathologist Performed at: ??-[facility] Dept. of Pathology, [place], [place] CLINICAL INFORMATION Specimen Submitted: A - [...] Organization Address City/State/ZIP [place] [address] [facility] [address] COLONOSCOPY (05/11/2019 7:38 AM EST) [facility] gist Method Time Signature COLONOSCOPY [facility]OVATION Endoscopy Procedure Date: 05/11/2019 7:38 AM ? Patient Name: Adela Mosley ? Date of : 1970 ? Age: 49 ? Order #: [id number] ? Instrument Name: [id number] ? Procedure: ? Colonoscopy Indications: ? Hematochezia, [...] was evaluat ed using ? the BBPS ([place] Bowel Prepar ation ? Scale) with scores [...] Routine documented in this encounter Care Teams Escalator Operator Relationship Specialty Start Date End Date Mariluz Vargas MD PCP - General Family Medicine 11/20/15 [address] [place] [address] documented as of this encounter
--- OUTSIDE RECORDS SUMMARY | 2022-01-04 01:40 | XMS_ITS | Encounter Summary ---
:1970 Author Organization [facility] [place] [address] Care Team Providers Name Role Phone Mariluz Vargas MD Primary Care Provider Encounter Details Date Type Department Care Team Description 03/05/2019 Telephone Dermatology at [facility] Roxi Gaona MD [address] [facility] [place] [address] [facility] [phone] [place], [place] [address] (Wo rk) Social History Tobacco [...] that that would be ok. Please call [phone] documented in this encounter Plan of Treatment Not on filedocumented as of this encounter Visit Diagnoses Not on filedocumented in this encounter Care Teams Pipe Puller Relationship Specialty Start Date End Date Mariluz Vargas MD PCP - General Family Medicine 11/20/[address] [place] [address] documented as of this encounter
--- OUTSIDE RECORDS SUMMARY | 2022-01-04 01:40 | XMS_ITS | Encounter Summary ---
:1970 Author Organization [facility] Address [address] [place] [address] Care Team Providers Name Role Phone Unavailable Primary Care Provider Unavailable Encounter Details Date Type Department Care Team Description 02/01/2013 Results Only [facility] Tania Webster, MADELINE Laboratory Services - [address] [address] Social History Tobacco Use Types [...] ADELA DOAN ? Accession #: ? [id number] ? : ? 1970 (Age: 43) ??F ?Collect Da te: ? 02/01/2013 ? Location: ? [facility] ? Receive Date: ? 013 ? Provider: TANIA WEBSTER TMD TEACHER ASSISTANT Copy to: TANA GIRON MD ? Final [...] types 16,18,31,3 3,35, 39,45,51,52,56,58,59,66, and 68 by furniture duster media hany amplification. Comments Document reviewed and electronically signed by: ? System Interface ? Report date: 02/10/2013 By the signature above, the attending physician certif ies that he/she has personally conducted a gross and/or microscopic examin ation of the described specimens and rendered or confirmed the above diagnosi s. End of Report Specimen Performing Organization Address City/State/ZIP Code Phon e Number [facility] [address] [place] [address] SERVICES [facility] [address] [place] [address] documented in this encounter Visit Diagnoses Not on filedocumented in this encounter
--- OUTSIDE RECORDS SUMMARY | 2022-01-04 01:40 | XMS_ITS | Clinical Summary ---
:1970 Author Organization [facility] Address [address] [place] [address] Care Team Providers Name Role Phone Gabe Oscar MD Primary Care Provider Unavailable Encounters Date Type Specialty Care Team Description 11/16/2021 Lab Requisition Clinical Laboratory Outr Resulting Lab , Provider from Last 3 Months Social History Tobacco Use Types Packs/Day Years Used Date Never Assessed Sex Assigned at Date Recorded Not on file Plan of Treatment Not on file Procedures Procedure Name Priority Date/Time Associated Comments Diagnosis LH Routine 11/16/2021 13:45 Results for this EDT procedure are i n the results section. FSH Routine 11/16/2021 13:45 Results for this EDT procedure are i n the results section. DAV-NARAYAN PANEL Routine 11/16/2021 13:45 Resul ts for this EDT procedure are i n the results section. RHEUMATOID FACTOR Routine 11/16/2021 13:45 Result s for this EDT procedure are i n the results section. ANTI NUCLEAR AB Routine 11/16/2021 13:45 Results for this (MARIANNA), IFA EDT procedure are i n the results section. from Last 3 Months Results (ABNORMAL) DAV-NARAYAN PANEL (11/16/2021 13:45 EDT) EBV VCA IgM, Antibody NegativeComment: Negative [facility] Absence of CENTER LABORATORY detectable VCA IgM SERVICES antibodies. EBV VCA IgG, Antibody Positive Negative [facility] (A)Comment: [facility]ENTER [facility] Presence of SERVICES detectable VCA IgG antibodies. EBNA IgG Antibody Positive Negative [facility] (A)Comment: CENTER LAB[facility]ORY Presence of SERVICES detectable EBNA IgG antibodies. EBV Interpretation Results would [facility] indicate past [facility]ENTER [facility] infection with SERVICES Dav-Narayan virus Specimen Blood - Venous blood (substance) Performing Organization Address City/State/ZIP Code Phon e Number [facility] [address] [place] [address] SERVICES RHEUMATOID FACTOR (11/16/2021 13:45 EDT) Pathologist Sig nature Rheumatoid Factor <8.6 <12.0 IU/mL [facility] SERVICES Specimen Blood - Venous blood (substance) Performing Organization Address [facility] Phon e Number [facility] [address] [place] [address] SERVICES (ABNORMAL) ANTI NUCLEAR AB (MARIANNA), IFA (11/16/2021 13:45 EDT) MARIANNA Interpretation Positive (A) Negative [facility] Comment: [facility] For titers greater than or e qual to 1:160 (except the centromere and nucleolar patterns) it is recommended that specific follow-up autoantibody testing ??(such as for dsDNA and Extractable Nuclear Antig SERVICES ens) be performed on all diffuse and/or speckled patterns NOTE: For add-on testing dsD NA is stable for 7 days refrigerated while Extractable Nuclear Antigens are only stable for 48 hours refrigerated. MARIANNA Titer and Pattern 1:[address] LABORATORY SERVICES Specimen Blood - Venous blood (substance) Narrative [facility] SERVICES - 11/19/2021 14:34 EDT Results were obtained with the INOVA NOV A Lite HEp-2 MARIANNA Kit by indirect immunofluorescence. Performing Organization Address City/[facility] Code Phon e Number [facility] [address] [place] [address] SERVICES LH (11/16/2021 13:45 EDT) Luteinizing Hormone 7.3 See Note [facility] MEDICAL Comment: mIU/mL CENTER [facility] NOTE: SERVICES Female Reference Ranges: Pre-Pubertal: ?<6.0 mIU/mL Menstruating: Follicular Phase(-12 to -4 days: ??1.9 - 12.5 mIU/mL Midcycle(-3 to +2 days): ?8.7 - 76.3 mIU/ mL Luteal Phase(+4 to +12 days): ? 0.5 - 16.9 mIU/mL Post Menopausal: 15.9 - 54.0 mIU/mL Specimen Blood - Venous blood (substance) Performing Organization Address [facility] Phon e Number [facility] [address] [place] [address] SERVICES FSH (11/16/2021 13:45 EDT) Pathologist Robert lee FSH 5.0 See Note mIU/mL [facility] SERVICES Specimen Blood - Venous blood (substance) Narrative [facility] SERVICES - 11/16/2021 22:56 EDT NOTE: Female FSH Reference Ranges (>= 13 Menst ruating): PHYSIOLOGICAL STATUS ? REFE RENCE RANGE ? ---- Follicular (-12 to -4 days): ?? 2.5 - 1 0.2 mIU/mL Midcycle (-3 to +2 days): ?3.4 - 33.4 mIU/mL Luteal (+4 to +12 days): ? 1.5 - 9.1 mIU/mL Postmenopausal: ? 23.0 - 116.3 mIU/mL Reference Ranges for female patients <13 years old have not been established. Performing Organization Address City/[facility] Code Phon e Number [facility] [address] [place] [address] SERVICES from Last 3 Months Care Teams Pedigree Researcher Relationship Specialty Start Date End Date Gabe Oscar MD PCP - General 02/25/15
--- OUTSIDE RECORDS SUMMARY | 2022-01-04 01:40 | XMS_ITS | Encounter Summary ---
:1970 Author Organization [facility] Address [address] [place] [address] Care Team Providers Name Role Phone Unavailable Primary Care Provider Unavailable Encounter Details Date Type Department Care Team Description 09/03/2006 Results Only [facility] - Leana Strickland MD Maple conversion [address] [place] [address] [place] [address] Social History Tobacco Use Types Packs/Day Years [...] ADELA DOAN ? Accession #: ? [id number] ? : ? 1970 (Age: 36) ??F [...] reviewed at the intradepartmental consultation conference. ??(Dr. Canales)/[facility] Document reviewed and electronically signed by: [...] mucinous material is submitted as (A10). ??(Liang suárez)/[facility] End of Report Specimen Performing Organization Address City/State/ZIP Code Phon e Number [facility] [address] [place] [phone] SERVICES [facility] [address] [place] [address] documented in this encounter Visit Diagnoses Not on filedocumented in this encounter
--- OUTSIDE RECORDS SUMMARY | 2022-01-04 01:40 | XMS_ITS | Encounter Summary ---
:1970 Author Organization [facility] Address [address] [place] [address] Care Team Providers Name Role Phone Unavailable Primary Care Provider Unavailable Encounter Details Date Type Department Care Team Description 01/10/2010 Results Only [facility] Tania Webster, MADELINE Laboratory Services - [address] [address] Social History Tobacco Use Types [...] ALL EN ? LAB Reports generated via Backlift interface contain original data; ? however they are lacking the format of the original report. ? Caution should be taken when reading/interpreting unformatted reports. ? Name: ? RAYSHAWNVIRGINIAELIO, ADELA L ? Accession #: ? [id number] ? : ? 1970 (Age: 40) ??F ?Collect Date: ? 01/10/2010 ? Location: ? [facility] ? R eceive Date: ? 01/11/2010 ? Provider: TANIA M GADIEL PIPE BOWLS PAINT TRIMMER ? Copy to: ? Final Report ? [...] Organization Address City/State/ZIP Code Phon e Number [facility] [address] [place] [address] SERVICES [facility] [address] [place] [address] documented in this encounter Visit Diagnoses Not on filedocumented in this encounter
--- OUTSIDE RECORDS SUMMARY | 2022-01-04 01:40 | XMS_ITS | Clinical Summary ---
:1970 Author Organization [facility] [place] [address] Care Team Providers Name Role Phone Mariluz [...] Name Administration Dates Next Due Moderna Covid-19 (Bone Density Technician 100mcg) Vaccine 03/28/2021, 2020, 07/18/2020 Family History [...] 05/11/2019, 05/11/2019 Medical Devices Implanted Type Area School Fundraising Director Device Shelf Model / Identifier Expiration Serial / Lot Date Stent,Contour-Vl,[id number] ([id number]) - [id number] IMPLANTS DO NOT USE Pradeep 06/06/2019 [id number] / Implanted: Qty: 1 on 09/24/2016 by Raheem Murphy Jr., MD at [facility] Urological - / [id number] Insurance Payer Benefit Plan Subscriber ID Effective Dates Phone Address Type / Group [facility] [id number] 2018-[id number] [phone] [address] BLUE [employer]IELD t [address] [facility] [id number] Advance Directives Latest Code Status on File Code Status Date Activated Date Inactivated Comments Full Code 09/24/2016 3:34 PM 09/24/2016 10:13 PM Does patient have capacity to make decision: Yes Care Teams Chief Medical Technologist Relationship Specialty Start Date End Date Mariluz Vargas MD PCP - General Family Medicine 11/20/[address] [place], [place] [address]
--- OUTSIDE RECORDS SUMMARY | 2022-01-04 01:40 | XMS_ITS | Encounter Summary ---
:1970 Author Organization [facility] [address] Care Team Providers Name Role Phone Mariluz Vargas MD Primary Care Provider Encounter Details Date Type Department Care Team Description 05/07/2019 Telephone Gastroenterology at [facility] [place] [place] [address] Social History Tobacco Use Types Packs/Day Years Used Date Never Smoker Smokeless Tobacco: Never Used Alcohol Use Standard Drinks/Week Comments Yes 1 (1 standard drink = 0.6 oz pure alcoho l) Sex Assigned at Date Recorded Not on file documented as of this encounter Miscellaneous Notes Telephone Encounter - Adalgisa Morrow - 05/07/2019 11:15 AM EST Adela Mosley [id number] Diagnosis/Indication: Rectal hemorrhage 1. Have you ever had a/an Colonoscopy before? Yes: Date 19 years ago in [place] If yes, did you have any problems [...] to patient: You must have a responsible constitution party who will drive you to your procedure, [...] on filedocumented in this encounter Care Teams Judo Teacher Relationship Specialty Start Date End Date Mariluz Vargas MD PCP - General Family Medicine 11/20/[address] [place] [address] [address] [place] [address] documented as of this encounter
--- OUTSIDE RECORDS SUMMARY | 2022-01-04 01:40 | XMS_ITS | Encounter Summary ---
:1970 Author Organization [facility] Address [address] [place] [address] Care Team Providers Name Role Phone Unavailable Primary Care Provider Unavailable Encounter Details Date Type Department Care Team Description 01/30/2011 Results Only [facility] Tania Webster, MADELINE Laboratory Services - [address] [address] Social History Tobacco Use Types [...] ADELA DOAN ? Accession #: ? [id number] ? : ? 1970 (Age: 41) ??F ?Collect Da te: ? 01/30/2011 ? Location: ? [facility] ? Receive Date: ? 011 ? Provider: TANIA WEBSTER SYSTEM CONFIGURATION SPECIALIST Copy to: KRISTIE PIZANO MD ? Final [...] and electronically signed by: ? Lydia Disla, [facility](ASCP) ? Report ??Date: 02/07/2011 11:13 HPV with [...] City/State/ZIP Code Phon e Number [facility] [address] [place] [address] SERVICES [facility] [address] [place] [address] documented in this encounter Visit Diagnoses Not on filedocumented in this encounter
--- OUTSIDE RECORDS SUMMARY | 2022-01-04 01:40 | XMS_ITS | Encounter Summary ---
:1970 Author Organization [facility] Address [address] [place] [address] Care Team Providers Name Role Phone Unavailable Primary Care Provider Unavailable Encounter Details Date Type Department Care Team Description 07/31/2006 Results Only [facility] - Leana Strickland MD Maple conversion [address] [place] [address] [place] [address] Social History Tobacco Use Types Packs/Day Years Used Date Never Assessed Sex Assigned at Date Recorded Not on file documented as of this encounter Plan of Treatment Not on filedocumented as of this encounter Procedures Procedure Name Priority Date/Time Associated Diagnosis Comme [facility] SURGICAL PATHOLOGY Routine 07/31/2006 0:00 EDT Re [...] ADELA DOAN ? Accession #: ? [id number] ? : ? 1970 (Age: 36) ??F [...] case in consultati on and concurs. ??(Dr. Patiño)/[facility] Document reviewed and electronically signed by: Juan [...] entirely submitted as (B1) and (B2). ??(Sagrario Prajapati)/[facility] End of Report Specimen Performing Organization Address City/State/ZIP Code Phon e Number [facility] [address] [place] [address] SERVICES [facility] [address] [place] [address] documented in this encounter Visit Diagnoses Not on filedocumented in this encounter
--- OUTSIDE RECORDS SUMMARY | 2022-01-04 01:40 | XMS_ITS | Encounter Summary ---
:1970 Author Organization [facility] [place] [address] Care Team Providers Name Role Phone Mariluz Vargas MD Primary Care Provider Encounter Details Date Type Department Care Team Description 05/11/2019 Surgery [place] at [facility] Aguila Cervantes, COLONOSCOPY FLEXIBLE, [facility] Teja bone MD WITH BX (WRVU 3.66) [place] [address] [facility] [phone] DR GASTROENTEROLOGY [place], [place] [address] Social History Tobacco Use Types [...] occurs, please contact your Doctor. Please call [phone] before 8pm Mon-Fri with problems, questions or concerns. If you call after 8pm or on weekends, call the Hospital at [phone] and ask to speak to the Machine Molder talent acquisition program manager and the tool planer set up operator will contact that person for you. When should you call for help? Call [phone] anytime you think you may need emergency [...] any problems. Where can you learn more? [facility] View your After Visit Summary and more online at [email or web address] If you would like to provide feedback [...] cost to you. Content Version: 12.2 ?? [id number] [employer]. Care instructions adapted under license by [facility]. If you have questions about a medical condition or this instruction, always ask your healthcare professional. [employer] disclaims any warranty or liability for your [...] Mclain PA-C Section of Gastroenterology [place] [address] documented in this encounter Plan of Treatment [...] AM 0 8:25 EST AM EST Narrative [facility] - 05/11/2019 8:25 AM EST Specimen requisition ordered. ??Separate Pathology report to follow Aguila Cervantes MD PATHOLOGY/CYTOLOGY ORDERABLE S Performing Organization Address City/State/[place] [address] Surgical Pathology Report (05/11/2019 8:15 AM EST) Component Value Ref Test Analysis Performed At [facility] Range Method Time Signature Surgical [id number] ? Location: 4T; EA07; A [facility] Report The signing pathologist has (i) examined the relevant preparation(s) for the MEMORIAL specimen(s) and (ii) rendered or confirmed the diagnosis(es) . HOSPITAL LABORATORY . ?Surgic al Pathology DIAGNOSIS Random colon, ??biopsy: Colonic mucosa with focal no nspecific mild chronic inflammation in lamina propria. CR-PX Electronically signed by: ??Mariana Fox MD Verified: ??05/13/2019 ?Pathologist Performed at: ??-[facility] Dept. of Pathology, [place], [place] CLINICAL INFORMATION Specimen Submitted: A - [...] Organization Address City/State/[place] [address] [facility] [address] COLONOSCOPY (05/11/2019 7:38 AM EST) [facility] Method Time Signature COLONOSCOPY [facility] PROVATION Endoscopy Procedure Date: 05/11/2019 7:38 AM ? Patient Name: Adela Mosley ? Date of : 1970 ? Age: 49 ? Order #: [id number] ? Instrument Name: [id number] ? Procedure: ? Colonoscopy Indications: ? Hematochezia, [...] was evaluat ed using ? the BBPS (Moira Bowel Prepar ation ? Scale) with scores [...] Routine documented in this encounter Care Teams Back Shoe Operator Relationship Specialty Start Date End Date Mariluz Vargas MD PCP - General Family Medicine 11/20/[address] [place] [address] [address] [place] [address] documented as of this encounter
--- OUTSIDE RECORDS SUMMARY | 2022-01-04 01:40 | XMS_ITS | Encounter Summary ---
:1970 Author Organization [facility] [place] [address] Care Team Providers Name Role Phone Mariluz Vargas MD Primary Care Provider Reason for Visit Reason Comments Skin Lesion Encounter Details Date Type Department Care Team Description 02/25/2019 Office Visit Dermatology at [facility] Roxi Dutton, Al lergic contact dermatitis, unspecified trigger; Road Fibrous papule of nose [address] [place] [address] [facility] [place], [place] [address] Social History Tobacco Use Types [...] No known Social History: Marital status: 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 female, [...] encounter. Roxi Dutton MD Section of Dermatology [facility] cc: Mariluz Vargas MD documented in this encounter Plan of Treatment Not on filedocumented as of this encounter Visit Diagnoses Diagnosis Allergic contact dermatitis, unspecified trigger Fibrous papule of nose Benign neoplasm of skin of other and uns pecified parts of face documented in this encounter Care Teams Endocrinology Nurse Relationship Specialty Start Date End Date Mariluz Vargas MD PCP - General Family Medicine 11/20/[address] [place] [address] [address] [facility] 1 [place] [address] documented as of this encounter
--- OUTSIDE RECORDS SUMMARY | 2022-01-04 01:40 | XMS_ITS | Encounter Summary ---
:1970 Author Organization [facility] Address [address] [place] [address] Care Team Providers Name Role Phone Unavailable Primary Care Provider Unavailable Encounter Details Date Type Department Care Team Description 06/25/2006 Results Only [facility] - Leana Strickland MD Maple conversion [address] [place] [address] [place] [address] Social History Tobacco Use Types Packs/Day Years Used Date Never Assessed Sex Assigned at Date Recorded Not on file documented as of this encounter Plan of Treatment Not on filedocumented as of this encounter Procedures Procedure Name Priority Date/Time Associated Diagnosis Comme [facility] SURGICAL PATHOLOGY Routine 06/25/2006 0:00 EST Re [...] ? ADELA DOAN ? Accession #: ? [id number] ? : ? 1970 (Age: 36) ??F [...] submitted intact in one cassette. ??(Sagrario Del Castillo/[facility] End of Report Specimen Performing Organization Address City/State/ZIP Code Phon e Number [facility] [address] [place] [address] SERVICES [facility] [address] [place] [address] documented in this encounter Visit Diagnoses Not on filedocumented in this encounter
--- OUTSIDE RECORDS SUMMARY | 2022-01-04 01:40 | XMS_ITS | Encounter Summary ---
:[address] [facility] Address [address] [place] [address] Care Team Providers Name Role Phone Gabe Oscar MD Primary Care Provider Unavailable Encounter Details Date Type Department Care Team Description 03/31/2020 Lab Requisition [facility] Outr Resulting Lab, Pathology & Laboratory Provider [facility] [address] [place] [address] Social History Tobacco Use Types Packs/Day Years [...] T3, Free 2.9 2.8 - 5.3 pg/mL [facility] SERVICES Specimen Blood - Venous blood (substance) Performing Organization Address City/State/ZIP Code Phon e Number [facility] [address] [place] [address] SERVICES documented in this encounter Visit Diagnoses Not on filedocumented in this encounter Care Teams Inspector Canned Food Reconditioning Relationship Specialty Start Date End Date Gabe Oscar MD PCP - General 02/25/15 documented as of this encounter
--- OUTSIDE RECORDS SUMMARY | 2022-01-04 01:40 | XMS_ITS | Encounter Summary ---
:1970 Author Organization [facility] Address [address] [place] [address] Care Team Providers Name Role Phone Gabe Oscar MD Primary Care Provider Unavailable Encounter Details Date Type Department Care Team Description 04/18/2015 Results Only [facility] Gisell Strickland MD [phone] [address] [place] [address] Social History Tobacco Use Types Packs/Day Years Used Date Never Assessed Sex Assigned at Date Recorded Not on file documented as of this encounter Plan of Treatment Not on filedocumented as of this encounter Procedures Procedure Name Priority Date/Time Associated Diagnosis Comme nts PAP TEST- RESULT Routine 04/18/2015 0:00 EST Resu lts for this ONLY procedure are i n the results section. documented in this encounter Results PAP TEST- RESULT ONLY (04/18/2015 0:00 EST) Pathology Report: CYTOPATHOLOGY REPORT [facility] Reports generated via electronic interface contain allen ginal data; SERVICES however they are lacking the format of the original re port. Caution should be taken when reading/interpreting unfo rmatted reports. Name: ? ADELA DOAN ? Accession #: ? [id number] ? : ? 1970 (Age: [age]) ??F ?Collect Da te: ? 04/18/2015 ? Location: ? [facility] ? Receive Date: ? 015 ? Provider: GISELL STRICKLAND MD Copy to: GABY MITCHELL MD ? Final Report SPECIMEN ADEQUACY ? Satisfactory for Evaluation - transformation zone component present GENERAL CATEGORIZATION ? Negative for Intraepithelial Lesion or Malignan cy INTERPRETATION ? Reactive cellular karuna nges associated with inflammation present (includes repair). Previous Gynecologic Pathology: YASHIRA III Treatment History: LEEP: H/O Specimen/Source: ??Pap Test, Cervix/Endocervix, ThinPr ep Imaging System with manual evaluation Document reviewed and electronically signed by: ? KIKA ACEVEDO MD ? Report ??Date: 04/26/2015 18:12 HPV with Pap Test ? Date Ordered: ? 04/26/2015 ? Status: ?? S igned Out ?Date Complete: ? 04/28/2015 ? By: ??Sys tem Interface ? Date Reported: ? 04/28/2015 ? Interpretation RESULT: Negative for HPV. No E6 or E7 mRNA is detected from HPV types 16,18,31,3 3,35, 39,45,51,52,56,58,59,66, and 68 by community health worker media hany amplification. Comments Document reviewed and electronically signed by: ? System Interface ? Report date: 04/28/2015 By the signature above, the attending physician certif ies that he/she has personally conducted a gross and/or microscopic examin ation of the described specimens and rendered or confirmed the above diagnosi s. End of Report Specimen Performing Organization Address City/State/ZIP Code Phon e Number [facility] [address] [place] [address] SERVICES documented in this encounter Visit Diagnoses Not on filedocumented in this encounter Care Teams Workday Manager Relationship Specialty Start Date End Date Gabe Oscar MD PCP - General 02/25/15 documented as of this encounter
--- OUTSIDE RECORDS SUMMARY | 2022-01-04 01:40 | XMS_ITS | Encounter Summary ---
:1970 Author Organization [facility] Address [address] [place] [address] Care Team Providers Name Role Phone Unavailable Primary Care Provider Unavailable Encounter Details Date Type Department Care Team Description 01/12/2007 Results Only [facility] - Leana Strickland MD Maple conversion [address] [place] [address] [place] [address] Social History Tobacco Use Types Packs/Day Years Used Date Never Assessed Sex Assigned at Date Recorded Not on file documented as of this encounter Plan of Treatment Not on filedocumented as of this encounter Procedures Procedure Name Priority Date/Time Associated Diagnosis Comme nts CYTOPATHOLOGY Routine 01/12/2007 0:00 EDT Results for this procedure are i n the results section . documented in this encounter Results CYTOPATHOLOGY (01/12/2007 0:00 EDT) Pathology Report: CYTOPATHOLOGY REPORT [facility] Reports generated via electronic interface contain allen ginal data; however they are lacking the format of the original re port. Caution should be taken when reading/interpreting unfo rmatted reports. Name: ? ADELA DOAN ? Accession #: ? [id number] : ? 1970 (Age: 37) ??F ?Collect Date: ? 12/21 Location: ? [facility] ? Receive Date : ? 01/13/2007 Provider: ?SANDIE STRICKLAND MD Copy to: ? Specimen/Source: ? ThinPrep Pap Test, Cervix/Endocervix, processed on EidoSearch ThinPrep Imaging System, with manual evaluation Last Menstrual Period: ? 12/17/06 Previous Gynecologic Pathology: ? YASHIRA III: Microinvasive squamous cell carcinoma Other: ? HPVA - HPV testing requested if ASC-US on the current ThinPrep Pap test. ? SPECIMEN ADEQUACY ? Satisfactory for Evaluation - transformation zone component present GENERAL CATEGORIZATION ? Negative for Intraepithelial Lesion or Malignan cy INTERPRETATION ? Reactive cellular karuna nges associated with inflammation present (includes repair). ? Document reviewed and electronically signed by: ? VERNON BARNETT MD [facility] ? Report Date: ??01/19/2007 16:55 End of Report Specimen Performing Organization Address City/State/ZIP Code Phon e Number [facility] [address] [place] [address] SERVICES [facility] [address] [place] [address] documented in this encounter Visit Diagnoses Not on filedocumented in this encounter
--- OUTSIDE RECORDS SUMMARY | 2022-01-04 01:40 | XMS_ITS | Encounter Summary ---
:1970 Author Organization [facility] Address [address] [place] [address] Care Team Providers Name Role Phone Unavailable Primary Care Provider Unavailable Encounter Details Date Type Department Care Team Description 01/29/2012 Results Only [facility] Tania Webster, MADELINE Laboratory Services - [address] [address] Social History Tobacco Use Types [...] ? ADELA DOAN ? Accession #: ? [id number] : ? 1970 (Age: 42) ??F ?Collect Date: ? 01/19 Location: ? [facility] ? Receive Date : ? 01/31/2012 Provider: ?TANIA WEBSTER NEUROSCIENTIST Copy to: ? Specimen/Source: ? Pap Test, [...] Organization Address City/State/ZIP Code Phon e Number [facility] [address] [place] [address] SERVICES [facility] [address] [place] [address] documented in this encounter Visit Diagnoses Not on filedocumented in this encounter
--- OUTSIDE RECORDS SUMMARY | 2022-01-04 01:41 | XMS_ITS | Encounter Summary ---
:1970 Author Organization [facility] [place] [address] Care Team Providers Name Role Phone Rocio Jose MD Primary Care Provider Reason for Visit Reason Comments Follow-up Encounter Details Date Type Department Care Team Description 08/08/2015 Office Visit Obstetrics and Aimee Gonzalez, Vaginal irritation; Gynecology at [facility] MD Dyspareunia (CODE) [facility] [address] [place] [address] OBSTETRICS & [phone] GYNECOLOGY [place], [place] [address] Social History Tobacco Use [...] her care wth Dr Gisell Strickland at [facility] as well as with Urology at [facility]. Interval hx: She had a good trip to [facility] shortly after her last visit [...] when used a different generic->had bladder issues. [place], hut something hard in there- Discussed [...] but she has not used. Brief exam Senior Tax Specialist: Patient's last menstrual period was 07/29/2015..On OCs [...] other STD's. No new sexual partners. Past OB-Senior Tax Specialist Hx:G0. Pap 2005 in [place], moved to [place]. 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 Normal since with annual Paps, last 04/04. Review of Systems ROS:See HPI above Patient's medications, allergies, past medical, surgical, social and family histories were reviewed and updated as appropriate. 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 Pelvic exam-External genitalia including Bartholin, urethral, and Boron's glands are within normal limits; no erythema, [...] (CODE) documented in this encounter Care Teams Assembler Garment Form Relationship Specialty Start Date End Date Rocio Jose MD PCP - General 05/21/10 08/20/15 [address] [place] [address] documented as of this encounter
--- OUTSIDE RECORDS SUMMARY | 2022-01-04 01:41 | XMS_ITS | Encounter Summary ---
:1970 Author Organization [facility] [place] [address] Care Team Providers Name Role Phone Mariluz Vargas MD Primary Care Provider Encounter Details Date Type Department Care Team Description 01/19/2016 Telephone [place] [facility] Arely Preciado, [facility] [place] [address] [facility] [phone], [place] [address] (Wo rk) Social History Tobacco [...] on filedocumented in this encounter Care Teams Slurry Tank Tender Relationship Specialty Start Date End Date Mariluz Vargas MD PCP - General Family Medicine 11/20/15 [address] [place] [address] documented as of this encounter
--- OUTSIDE RECORDS SUMMARY | 2022-01-04 01:41 | XMS_ITS | Encounter Summary ---
:1970 Author Organization [facility] [place] [address] Care Team Providers Name Role Phone Mariluz Vargas MD Primary Care Provider Reason for Visit Reason Comments Nephrolithiasis Encounter Details Date Type Department Care Team Description 10/01/2016 Office Visit Urology at [facility] Raheem Murphy Jr., Nephrolithiasis [facility] [place] [address] [facility] [phone] UROLOGY DEPT. [place], [place] [address] (Wo rk) Social History Tobacco [...] Social History: , no children. 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 Non-smoker, non-drinker ?? Family History: Father [...] kidney documented in this encounter Care Teams Ampoule Sealer Relationship Specialty Start Date End Date Mariluz Vargas MD PCP - General Family Medicine 11/20/[address] [place] [address] [address] [place] [address] documented as of this encounter
--- OUTSIDE RECORDS SUMMARY | 2022-01-04 01:41 | XMS_ITS | Encounter Summary ---
:1970 Author Organization [facility] [place] [address] Care Team Providers Name Role Phone Rocio Jose MD Primary Care Provider Reason for Visit Reason Comments Other Encounter Details Date Type Department Care Team Description 06/09/2015 Telephone Urology at [facility] Arely Preciado, [facility] [place] [address] [facility] [phone] UROLOGY DEPT. [place], [place] [address] (Wo rk) Social History Tobacco Use Types Packs/Day Years Used Date Never Smoker Sex Assigned at Date Recorded Not on file documented as of this encounter Miscellaneous Notes Addendum Note - Olga Saldivar RN - 06/12/2015 12:54 PM EST Addended by: OLGA SALDIVAR on: 06/12/2015 12:54 PM Modules accepted: Orders Telephone Encounter - Olga Saldivar RN - 06/12/2015 12:52 PM EST Verified patient name and date of Notified pt that a script for cefpodoxime 100 mg PO BID x 7 days was sent to [facility] in [facility]. Also advised pt to always give a first morning urine as the urine specimen if symptoms re-occur. Pt verbalized understanding. Telephone Encounter - Arely Preciado APRN - 06/09/2015 3:57 PM EST Pt supposed to leave first morning urine for culture. The first morning sample was done at [facility] yesterday. The med is Nitrofurantoin [place]-MCR that worked for her. Adela is about to leave for vacation on Friday evening, and won't be back until 06/25. She would like to get a script in before then for abx if necessary or to take with her. She has an appt on 07/04/15with hi. Will keep that until we get her culture results. documented in this encounter Plan of Treatment Not on filedocumented as of this encounter Visit Diagnoses Not on filedocumented in this encounter Care Teams Handbell Choir Director Relationship Specialty Start Date End Date Rocio Jose MD PCP - General 05/21/10 08/20/15 [address] [place] [address] documented as of this encounter
--- OUTSIDE RECORDS SUMMARY | 2022-01-04 01:41 | XMS_ITS | Encounter Summary ---
:1970 Author Organization [facility] [place] [address] Care Team Providers Name Role Phone Mariluz Vargas MD Primary Care Provider Encounter Details Date Type Department Care Team Description 12/23/2017 Office Visit Urology at [facility] Dayron Hollins, Nephrolithiasis; [facility] TONYA Mcgee [place] [address] UROLOGY DEPT. [place], [place] [address] (Wo rk) Social History Tobacco [...] Social History: , no children. 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 Non-smoker, non-drinker Family History: Father has [...] below. Electronically signed by: Sudha navas [facility] [place] ([phone]), at 3:32 PM ? Sudha Das [facility] Physician Electronically Signed Final Report ?? 03:40 pm Narrative 07/16/2018 3:40 PM EDT Renal ?(Signed Final 07/16/2018 03:40 pm) PATIENT INFO: ID #: ? [id number] ?: ??[birth year] (48 yrs) Name: ? ADELA Cabrales ? Visit Date: 07/16/2018 02:57 pm ? CLOUATRE PERFORMED BY: Performed By: ? Juancho Romero RDMS Attending: ?Rosario VILLASENOR, Joselito Tavera Referred By: ?ARELY Noriega Location: ? [place] SERVICE(S) PROVIDED: ??URETRO - Retroperitoneal Complete - I [id number] ? [id number] INDICATIONS: ??hx of nephrolithiasis-? new stone bur [...] 03:40 pm ) PATIENT INFO: ID #: [id number] : [birth year] (48 y rs) Name: ADELA Cabrales Visit Date: 07/16/2018 0 2:57 pm CLOUATRE PERFORMED BY: Performed By: Juancho Romero RDMS Attending: Sudha Ponce MD Referred By: ARELY HOLLINS Location: [place] SERVICE(S) PROVIDED: URETRO - Retroperitoneal Complete - [facility] [id number] INDICATIONS: hx of nephrolithiasis-? new stone burde [...] below. Electronically signed by: Sudha navas [facility] [place] ([phone]), at 3:32 PM Sudha Das, Staff Lisa hernandez Electronically Signed Final Report 07/16 03:40 pm Arely Hollins APRN IMG US GEN ORDERABLES documented in this encounter Visit Diagnoses Diagnosis Nephrolithiasis Calculus of kidney History of UTI Personal history of urinary (tract) infe ction Nephrolithiasis Calculus of kidney History of UTI Personal history of urinary (tract) infe ction documented in this encounter Care Teams Pesticide Applicator Relationship Specialty Start Date End Date Mariluz Vargas MD PCP - General Family Medicine 11/20/[address] [place] [address] documented as of this encounter
--- OUTSIDE RECORDS SUMMARY | 2022-01-04 01:41 | XMS_ITS | Encounter Summary ---
:1970 [place] [address] Care Team Providers Name Role Phone Mariluz Vargas MD Primary Care Provider Encounter Details Date Type Department Care Team Description 09/24/2016 Anesthesia Event Main Operating Room Bonifacio Taylor MD [facility] [place] [address] [facility] [place] [address] [place] [address] Anesthesia Record Procedure Summary Procedure Name [...] status and plan, accord ing to the [facility] Provider Handoff Checklis t. 1750 Extubation/LMA Out [...] Duran Del la R, RN arm), right; qbcw-fww-qlzfih catheter system; 20 gauge; jennifer Duffy; 09/24/16; [...] Taylor MD - 09/24/2016 6:12 PM EDT [facility] Department of Anesthesiology Post-procedure Note Patient: Adela V Clouatre Procedure Summary Date Anesthesia Start Anesthesia Stop Room / Location 09/24/16 1545 1800 [facility] OR [facility] MAIN OR Procedure Diagnosis Surgeon Responsible Provider [...] Anesthesiologist: Chris Hidalgo MD; Gal Taylor MD EMPLOYMENT SECURITY OFFICER: Ann Marie Bautista CRNA; Ann Marie Hand CRNA Last (1hr) Vitals: BP Temp Pulse Resp SpO2 Patient Location: PACU/[facility] Level of Consciousness: Conscious but Sleepy Pain [...] consented to blood products. Plan discussed with EMPLOYMENT SECURITY OFFICER. PAT Staff Note documented in this encounter [...] mL/hr documented in this encounter Care Teams Assembler Camper Relationship Specialty Start Date End Date Mariluz Vargas MD PCP - General Family Medicine 11/20/[address] [place] [address] documented as of this encounter
--- OUTSIDE RECORDS SUMMARY | 2022-01-04 01:41 | XMS_ITS | Encounter Summary ---
:1970 [place] [address] Care Team Providers Name Role Phone Mariluz Vargas MD Primary Care Provider Reason for Visit Reason Comments Skin Check Encounter Details Date Type Department Care Team Description 11/20/2015 Office Visit Dermatology at [facility] Teja Farmer MD Milia; [facility] Vergara angioma; [address] [place] [address] [facility] [phone] RD-DERMATOLOGY [place], [place] [address] Social History Tobacco Use Types Packs/Day Years Used Date Never Smoker Smokeless Tobacco: Never Used Alcohol Use Standard Drinks/Week Comments Yes 1 (1 standard drink = 0.6 oz pure alcoho l) Sex Assigned at Date Recorded Not on file documented as of this encounter Patient Instructions Patient InstructionsMax Seras, DONOVAN - 11/20/2015 8:30 AM EDT Caring [...] areas, you can apply hydrocortisone 1% cream (vdin-xzd-trepder product) for 1-2 weeks. Do not use [...] or other skin disease Social/Occupational History: Occupation: [employer] Review of Systems: General: Feels well Skin: [...] in the presence of MD Max García [facility] I performed the above scribed service and agree with the accuracy of the documentation in this encounter, Neville Farmer MD Reviewed and signed by Neville Framer MD Resident in Dermatology [facility] Staff pleating supervisor: Elly Haq MD Section of Dermatology [facility] Elly Haq MD - 11/20/2015 8:30 AM EDT I was the supervising physician working with dermatology resident Dr. Tor Farmer in the dermatology clinic during this patient visit. The level of Resident supervision for this patient visit was indirect supervision with direct supervision immediately available. (definition: [facility] GME Policy Statement on Graduate Medical Education, [...] d documented in this encounter Care Teams It Sales Representative Relationship Specialty Start Date End Date Mariluz Vargas MD PCP - General Family Medicine 11/20/[address] [place] [address] documented as of this encounter
--- OUTSIDE RECORDS SUMMARY | 2022-01-04 01:41 | XMS_ITS | Encounter Summary ---
:1970 Author Organization [facility] [place] [address] Care Team Providers Name Role Phone Mariluz Vargas MD Primary Care Provider Reason for Visit Reason Comments Nephrolithiasis Encounter Details Date Type Department Care Team Description 09/04/2016 Office Visit Urology at [facility] Quentin Murphy Jr., Nephrolithiasis [facility] [place] [address] [facility] [phone] UROLOGY DEPT. [place], [place] [address] (Wo rk) Social History Tobacco [...] Social History: , no children. 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 Non-smoker, non-drinker Family History: Father has [...] We will have her meet with our surgical asst and schedule the surgery at her earliest convenience. We will collect urine today for culture for pre-operative counseling. Nelly Noguera MD Urology PGY-3 Pager: [phone] STAFF ADDENDUM: I saw and examined Adela [...] Clean Catch Urine (09/04/2016 6:13 PM EDT) [facility] Method Time Signature Urine Culture Greater than NATALIA 100,000 cfu/ml [facility] () [facility] Organism Escherichia NATALIA coli (A) [facility] Specimen (Source) Anatomical Collection Method [...] Organization Address City/State/[place] [address] documented in this encounter Visit Diagnoses Diagnosis Nephrolithiasis Calculus of kidney documented in this encounter Care Teams Printing Gray Cloth Tender Relationship Specialty Start Date End Date Mariluz Vargas MD PCP - General Family Medicine 11/20/[address] [place] [address] documented as of this encounter
--- OUTSIDE RECORDS SUMMARY | 2022-01-04 01:41 | XMS_ITS | Encounter Summary ---
:1970 Author Organization [facility] [place] [address] Care Team Providers Name Role Phone Rocio Jose MD Primary Care Provider Encounter Details Date Type Department Care Team Description 05/29/2015 Telephone Urology Dima Piña MD [facility] [place] [address] UROLOGY DEPT [phone] [place], [place] [address] (Wo rk) Social History Tobacco [...] will drop a urine culture off locally ([facility]) and she would like to hold off on antibiotics until culture results are back which is reasonable. documented in this encounter Plan of Treatment Not on filedocumented as of this encounter Visit Diagnoses Not on filedocumented in this encounter Care Teams Corrugator Operator Relationship Specialty Start Date End Date Rocio Jose MD PCP - General 05/21/10 08/20/15 [address] [place] [address] documented as of this encounter
--- OUTSIDE RECORDS SUMMARY | 2022-01-04 01:41 | XMS_ITS | Encounter Summary ---
:1970 Author Organization [facility] [place] [address] Care Team Providers Name Role Phone Mariluz Vargas MD Primary Care Provider Encounter Details Date Type Department Care Team Description 04/04/2016 Orders Only Urology at [facility] Arely Preciado, [facility] [place] [address] [facility] [phone] UROLOGY DEPT. [place], [place] [address] (Wo rk) Social History Tobacco [...] on filedocumented in this encounter Care Teams Stitch Bonding Machine Tender Helper Relationship Specialty Start Date End Date Mariluz Vargas MD PCP - General Family Medicine 11/20/[address] [place], [place] [address] documented as of this encounter
--- OUTSIDE RECORDS SUMMARY | 2022-01-04 01:41 | XMS_ITS | Encounter Summary ---
:1970 Author Organization [facility] [place] [address] Care Team Providers Name Role Phone Mariluz Vargas MD Primary Care Provider Encounter Details Date Type Department Care Team Description 07/16/2018 Office Visit Urology at [facility] Dayron Jauregui, Recurrent UTI (urinary tract infection); [facility] TONYA Mcgee Ne[address] [place], [place] CENTER [address] UROLOGY DEPT. 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
--- OUTSIDE RECORDS SUMMARY | 2022-01-04 01:41 | XMS_ITS | Encounter Summary ---
:1970 Author Organization [facility] [place] [address] Care Team Providers Name Role Phone Mariluz Vargas MD Primary Care Provider Encounter Details Date Type Department Care Team Description 07/16/2018 Hospital Encounter Ultrasound at [facility] Dayron Shania, Nephrolithiasis; [facility] TONYA Mcgee History of UTI Drive [facility] [address] UROLOGY DEPT. [phone] [place] [address] Social History Tobacco Use Types Packs/Day Years [...] below. Electronically signed by: Sudha navas Radiology [place] ([phone]), at 3:32 PM ? Froy Desir Physician Electronically Signed Final Report ?? 03:40 pm Narrative 07/16/2018 3:40 PM EDT Renal ?(Signed Final 07/16/2018 03:40 pm) PATIENT INFO: ID #: ? [id number] ?: ??[birth year] (48 yrs) Name: ? TARI Cabrales ? Visit Date: 07/16/2018 02:57 pm ? CLOUATRE PERFORMED BY: Performed By: ? Juancho Romero RDMS Attending: ?Rosario VILLASENOR, Joselito Tavera Referred By: ?BOWEN Noriega Location: ? [place] SERVICE(S) PROVIDED: ??URETRO - Retroperitoneal Complete - I [id number] ? [id number] INDICATIONS: ??hx of nephrolithiasis-? new stone bur [...] 03:40 pm ) PATIENT INFO: ID #: [id number] : [birth year] (48 y rs) Name: TARI Cabrales Visit Date: 07/16/2018 0 2:57 pm CLOUATRE PERFORMED BY: Performed By: Juancho Romero RDMS Attending: Sudha Ponce MD Referred By: BOWEN HOLLINS Location: [place] SERVICE(S) PROVIDED: URETRO - Retroperitoneal Complete - [facility] [id number] INDICATIONS: hx of nephrolithiasis-? new stone burde [...] below. Electronically signed by: Sudha navas [facility] [place] ([phone]), at 3:32 PM Sudha Das, Staff Lisa hernandez Electronically Signed Final Report 07/16 03:40 pm Bowen Hollins APRN IMG US GEN ORDERABLES documented in this encounter Visit Diagnoses Diagnosis Nephrolithiasis Calculus of kidney History of UTI Personal history of urinary (tract) infe ction documented in this encounter Care Teams Sprinkler Fitter Relationship Specialty Start Date End Date Mariluz Vargas MD PCP - General Family Medicine 11/20/[address] [place] [address] documented as of this encounter
--- OUTSIDE RECORDS SUMMARY | 2022-01-04 01:41 | XMS_ITS | Encounter Summary ---
:1970 Author Organization [facility] [place] [address] Care Team Providers Name Role Phone Mariluz Vargas MD Primary Care Provider Encounter Details Date Type Department Care Team Description 09/25/2016 Telephone Urology at [facility] Raheem Murphy Jr., MD [facility] [place] [address] UROLOGY DEPT. [phone] [place], [place] [address] (Wo rk) Social History Tobacco [...] You can give her a call at [phone]. Thank you. Telephone Encounter - Cortney Dotson - 09/25/2016 8:17 AM EDT Pt had surgery 09/24 called to report she is in a lot of pain. Paged php consultant doctor. documented in this encounter Plan of Treatment Not on filedocumented as of this encounter Visit Diagnoses Not on filedocumented in this encounter Care Teams Scientific Aide Relationship Specialty Start Date End Date Mariluz Vargas MD PCP - General Family Medicine 11/20/[address] [place] [address] [address] [place] [address] documented as of this encounter
--- OUTSIDE RECORDS SUMMARY | 2022-01-04 01:41 | XMS_ITS | Encounter Summary ---
:1970 Author Organization [place] [address] Care Team Providers Name Role Phone Mariluz Vargas MD Primary Care Provider Encounter Details Date Type Department Care Team Description 07/09/2016 Hospital Encounter Ultrasound [place] [facility] [place] Quentin Murphy Nephrolithiasis [facility] [place] [address] UROLOGY DEPT. [phone] [place], [place] [address] Social History Tobacco Use Types [...] 01:27 pm) PATIENT INFO: ID #: ? [id number] ?: ??[birth year] (46 yrs) Name: ? ADELA Cabrales ? Visit Date: 07/09/2016 01:06 pm ? CLOUATRE PERFORMED BY: Performed By: ? Vandana LOWERY, ??Enio johnson Attending: ?Rufus VILLASENOR, Chelsea Boogie Referred By: ?QUENTIN MURPHY MD Location: ? [place] SERVICE(S) PROVIDED: ??URETRO - Retroperitoneal Complete - I [id number] ? [id number] INDICATIONS: ??changes in stone size from CT [...] 01:27 pm ) PATIENT INFO: ID #: [id number] : [birth year] (46 y rs) Name: ADELA Cabrales Visit Date: 07/09/2016 0 1:06 pm CLOUATRE PERFORMED BY: Performed By: Ana Ross RDMS Attending: Chelsea Hooper MD Referred By: QUENTIN MURPHY MD Location: [place] SERVICE(S) PROVIDED: URETRO - Retroperitoneal Complete - [facility] 3517 [address] INDICATIONS: changes in stone size from CT [...] kidney documented in this encounter Care Teams Brush Worker Relationship Specialty Start Date End Date Mariluz Vargas MD PCP - General Family Medicine 11/20/[address] [place] [address] [address] [place] [address] documented as of this encounter
--- OUTSIDE RECORDS SUMMARY | 2022-01-04 01:41 | XMS_ITS | Encounter Summary ---
:1970 Author Organization [facility] [place] [address] Care Team Providers Name Role Phone Mariluz Vargas MD Primary Care Provider Encounter Details Date Type Department Care Team Description 04/29/2017 Office Visit Urology at [facility] Raheem Murphy Jr., Nephrolithiasis [facility] [place] [address] [facility] [phone] UROLOGY DEPT. [place], [place] [address] (Wo rk) Social History Tobacco [...] Social History: , no children. 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 Non-smoker, non-drinker Family History: Father has [...] Recommend that she limit sodium intake to 7998-6399 mg per day. Intervention: - Recommended timing [...] kidney documented in this encounter Care Teams Senior Naval Parachutist Relationship Specialty Start Date End Date Mariluz Vargas MD PCP - General Family Medicine 11/20/15 [address] [place] [address] documented as of this encounter
--- OUTSIDE RECORDS SUMMARY | 2022-01-04 01:41 | XMS_ITS | Encounter Summary ---
:1970 Author Organization [facility] [place] [address] Care Team Providers Name Role Phone Mariluz Vargas MD Primary Care Provider Encounter Details Date Type Department Care Team Description 09/06/2016 Orders Only Urology at [facility] José Luis Block, Recurrent UTI (urinary [facility] MD tract infection) [place] [address] UROLOGY DEPT [place], [place] [address] Social History Tobacco Use Types [...] ied documented in this encounter Care Teams Heavy Mobile Equipment Repairer Relationship Specialty Start Date End Date Mariluz Vargas MD PCP - General Family Medicine 11/20/[address] [place], [place] [address] documented as of this encounter
--- OUTSIDE RECORDS SUMMARY | 2022-01-04 01:41 | XMS_ITS | Encounter Summary ---
:1970 Author Organization [facility] [place] [address] Care Team Providers Name Role Phone Mariluz Vargas MD Primary Care Provider Encounter Details Date Type Department Care Team Description 09/25/2016 Telephone Urology José Luis Block MD [facility] [place] [address] UROLOGY DEPT [phone] [place], [place] [address] (Wo rk) Social History Tobacco [...] on filedocumented in this encounter Care Teams Clinical Statistics Manager Relationship Specialty Start Date End Date Mariluz Vargas MD PCP - General Family Medicine 11/20/[address] [place] [address] [address] [place] [address] documented as of this encounter
--- OUTSIDE RECORDS SUMMARY | 2022-01-04 01:41 | XMS_ITS | Encounter Summary ---
:1970 Author Organization [facility] Address [facility] [place] [address] Care Team Providers Name Role Phone Rocio Jose MD Primary Care Provider Reason for Visit Reason Comments Dyspareunia Consultation (Routine) - Closed Specialty Diagnoses / Procedures Referred By Contact Refer red To Contact Obstetrics and Diagnoses Cervical cancer [facility] Border Inspector 5l Gynecology TONYA Mcgee [facility] [address] [place] UROLOGY [place]PT. [address] [place] [address] Referral ID Status Reason Start Date Expiration Date Visits V isits Requested Authorized [id number] Closed Consult, 03/10/2015 03/09/2016 1 1 Test & Treat Encounter Details Date Type Department Care Team Description 05/23/2015 Office Visit Obstetrics and Oliver Mcclellan MD [facility] [place] [address] Vulvovaginal discomfort; [place]cology at [facility] [place] Aimee Gonzalez MD [facility] OBSTETRICS & [place] [address] Dysuria; [facility] Cervical polyp; Drive [place] of [place] [address] Social History Tobacco Use Types Packs/Day [...] had care wth Dr Gisell Strickland at [facility] as well as with Urology at [facility] [place] A) UTI's- Reports she has been seen [...] Dr Strickland document several negative U/As in [id number], as well as +urine cultures in 10/28 [...] at intercourse approx 1-2 wksago. At last automotive parts clerk visit, very burny. Right now everything is [...] tampons without a problem, Super Playtex, plastic classification control clerk; tries to avoid fragrance. Uses pantiliners- [place]. Usually wears a thong for underwear, tries to wear cotton as much as can. 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 D) Oral cold sores, on Valcyclovir Adult Protective Caseworker: No LMP recorded..On OCs for 25 yrs [...] of STD's. No new sexual partners. Past OB-Adult Protective Caseworker Hx: Pap 2005 in [place], moved to [place]. Colposcopy 04/27 --> LEEP 06/25 Margins not [...] as appropriate. Social Hx: Lives with in [facility]. 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 Location: [address] [place] [address] Pathology [facility] Report The signing pathologist has (i) examined [...] MD PATHOLOGY/CYTOLOGY ORDERABLE S Performing Organization Address [facility]/ZIP Code Phon e Number [address] AWAIS RODRIGUEZENNIUM Specimen to [...] MD PATHOLOGY/CYTOLOGY ORDERABLE S Performing Organization Address [facility]/[place] [address] CERNER MILLENNIUM Yeast culture Vaginal (05/23/2015 2:52 PM EST) [facility] gist Method Time Signature Yeast Culture No Yeast CERNER isolated MILLENNIUM Specimen Anatomical Collection Method Collection Time Receive d Time (Source) Location / / Volume Laterality Vaginal 05/23/2015 2:52 PM 6 3:51 EST PM EST Resulting Agency Comment Spec In Lab Aimee Gonzalez MD MICROBIOLOGY - GENERAL ORDER PATRICK Performing Organization Address City/[facility]/[place] [address] CERNER MILLENNIUM (ABNORMAL) Urinalysis with reflex Culture (05/23/2015 8:25 AM EST) [facility] Method Time Signature Glucose UA Negative Negative [...] UA Clear Clear CERNER MILLENNIU M Spec [place] UA 1.011 1.002 - 1.030 CERNER MIL [...] Gonzalez MD URINE ORDERABLES Performing Organization Address City/[facility]/[place] [address] CERNER MILLENNIUM (ABNORMAL) POCT urine dipstick (05/23/2015 8:25 AM EST) P athologist Signature POC Sp [place] 1.015 1.002 - 1.030 POC pH, UA [...] rina CERNER 1,000-9,000 cfu/ml Gram Negative organisms [facility] Note: Multiple bacterial morphotypes pre sent. Suggest [...] Organization Address City/State/[place] [address] [facility] documented in this encounter Visit Diagnoses Diagnosis Vulvovaginal discomfort Unspecified symptom associated with fema le genital organs Dysuria Cervical polyp Mucous polyp of cervix History of abnormal cervical Pap smear Personal history of other genital system and obstetric disorders documented in this encounter Care Teams Cartridge Loading Operator Relationship Specialty Start Date End Date Rocio Jose MD PCP - General 05/21/10 08/20/15 [address] [place] [address] documented as of this encounter
--- OUTSIDE RECORDS SUMMARY | 2022-01-04 01:41 | XMS_ITS | Encounter Summary ---
:1970 Author Organization [facility] [place] [address] Care Team Providers Name Role Phone Mariluz Vargas MD Primary Care Provider Encounter Details Date Type Department Care Team Description 07/13/2016 Telephone Urology Franck Peter MD [facility] [place] [address] UROLOGY DEPT [phone] [place], [place] [address] (Wo rk) Social History Tobacco [...] on filedocumented in this encounter Care Teams Cooking Show Host Relationship Specialty Start Date End Date Mariluz Vargas MD PCP - General Family Medicine 11/20/15 [address] [place] [address] documented as of this encounter
--- OUTSIDE RECORDS SUMMARY | 2022-01-04 01:41 | XMS_ITS | Encounter Summary ---
:1970 Author Organization [facility] [address] Care Team Providers Name Role Phone Mariluz Vargas MD Primary Care Provider Encounter Details Date Type Department Care Team Description 11/15/2016 Hospital Encounter Ultrasound at [facility] Quentin Murphy Nephrolithiasis [facility] [place] [address] UROLOGY DEPT. [phone] [place], [place] [address] Social History Tobacco Use Types [...] 01:39 pm) PATIENT INFO: ID #: ? [id number] ?: ??[birth year] (46 yrs) Name: ? ADELA V ? Visit Date: 11/15/2016 01:09 pm ? CLOUATRE PERFORMED BY: Performed By: ? Juancho Romero RDMS Attending: ?Kirk VILLASENOR, Chris Martinez Referred By: ?QUENTIN MURPHY JR Location: ? [place] SERVICE(S) PROVIDED: ??URETRO - Retroperitoneal Complete - I [id number] ? [id number] INDICATIONS: ??s/p bilateral URS 09/24/2016. ?hydro COMPARISON: [...] 01:39 pm ) PATIENT INFO: ID #: [id number] : [birth year] (46 y rs) Name: ADELA Cabrales Visit Date: 11/15/2016 0 1:09 pm CLOUATRE PERFORMED BY: Performed By: Juancho Romero RDMS Attending: Aguila Bradley MD Referred By: QUENTIN MURPHY JR Location: [place] SERVICE(S) PROVIDED: URETRO - Retroperitoneal Complete - [facility] 3517 [address] INDICATIONS: s/p bilateral URS 09/24/2016. ?hydro COMPARISON: [...] 11/15 01:39 pm [facility] Murphy Jr., [facility] documented in this encounter Visit Diagnoses Diagnosis Nephrolithiasis Calculus of kidney documented in this encounter Care Teams Wastewater Plant Operator Relationship Specialty Start Date End Date Mariluz Vargas MD PCP - General Family Medicine 11/20/[address] [place] [address] documented as of this encounter
--- OUTSIDE RECORDS SUMMARY | 2022-01-04 01:41 | XMS_ITS | Encounter Summary ---
:1970 Author Organization [facility] [place] [address] Care Team Providers Name Role Phone Mariluz Vargas MD Primary Care Provider Encounter Details Date Type Department Care Team Description 04/29/2017 Office Visit Urology at [facility] Alvaro Muñiz MD Nephrolithiasis [facility] [place] [address] NEPHROLOGY DEPT. 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
--- OUTSIDE RECORDS SUMMARY | 2022-01-04 01:41 | XMS_ITS | Encounter Summary ---
:1970 Author Organization [facility] [place] [address] Care Team Providers Name Role Phone Mariluz Vargas MD Primary Care Provider Encounter Details Date Type Department Care Team Description 07/04/2016 Telephone Urology at [facility] Arely Preciado, [facility] [place] [address] [facility] [phone] UROLOGY DEPT. [place], [place] [address] (Wo rk) Social History Tobacco [...] can she have it? Please call on [phone]. Thanks. documented in this encounter Plan of Treatment Not on filedocumented as of this encounter Visit Diagnoses Not on filedocumented in this encounter Care Teams Tool Dresser Relationship Specialty Start Date End Date Mariluz Vargas MD PCP - General Family Medicine 11/20/[address] [place] [address] documented as of this encounter
--- OUTSIDE RECORDS SUMMARY | 2022-01-04 01:41 | XMS_ITS | Encounter Summary ---
:1970 Author Organization [facility] [place] [address] Care Team Providers Name Role Phone Mariluz Vargas MD Primary Care Provider Encounter Details Date Type Department Care Team Description 04/01/[address] [facility] Arely Preciado, [facility] [place] [address] [facility] [phone] UROLOGY DEPT. [place], [place] [address] (Wo rk) Social History Tobacco [...] on filedocumented in this encounter Care Teams Russian Teacher Relationship Specialty Start Date End Date Mariluz Vargas MD PCP - General Family Medicine 11/20/[address] [place] [address] documented as of this encounter
--- OUTSIDE RECORDS SUMMARY | 2022-01-04 01:41 | XMS_ITS | Encounter Summary ---
:1970 Author Organization [facility] [address] Care Team Providers Name Role Phone Mariluz Vargas MD Primary Care Provider Encounter Details Date Type Department Care Team Description 04/02/2016 Telephone [place] [facility] Arely Preciado, [facility] [place] [address] [facility] [phone] UROLOGY DEPT. [place], [place] [address] (Wo rk) Social History Tobacco [...] 01:27 pm) PATIENT INFO: ID #: ? [id number] ?: ??[birth year] (46 yrs) Name: ? TARI Cabrales ? Visit Date: 07/09/2016 01:06 pm ? CLOUATRE PERFORMED BY: Performed By: ? Vandana LOWERY, ??Enio johnson Attending: ?Rufus VILLASENOR, Chelsea Boogie Referred By: ?QUENTIN MURPHY MD Location: ? [place] SERVICE(S) PROVIDED: ??URETRO - Retroperitoneal Complete - I [id number] ? [id number] INDICATIONS: ??changes in stone size from CT [...] 01:27 pm ) PATIENT INFO: ID #: [id number] : [birth year] (46 y rs) Name: TARI Cabrales Visit Date: 07/09/2016 0 1:06 pm CLOUATRE PERFORMED BY: Performed By: Ana Ross RDMS Attending: Chelsea Hooper MD Referred By: QUENTIN MURPHY MD Location: [place] SERVICE(S) PROVIDED: URETRO - Retroperitoneal Complete - IMG [id number] INDICATIONS: changes in stone size from CT [...] kidney documented in this encounter Care Teams Prover Relationship Specialty Start Date End Date Mariluz Vargas MD PCP - General Family Medicine 11/20/15 [address] [place] [address] documented as of this encounter
--- OUTSIDE RECORDS SUMMARY | 2022-01-04 01:41 | XMS_ITS | Encounter Summary ---
:1970 Author Organization [facility] [place] [address] Care Team Providers Name Role Phone Mariluz Vargas MD Primary Care Provider Encounter Details Date Type Department Care Team Description 09/26/2016 Telephone Urology José Luis Block MD [facility] [place] [address] UROLOGY DEPT [phone] [place], [place] [address] (Wo rk) Social History Tobacco [...] kidney documented in this encounter Care Teams Print Finishing Worker Relationship Specialty Start Date End Date Mariluz Vargas MD PCP - General Family Medicine 11/20/[address] [place] [address] [address] [place] [address] documented as of this encounter
--- OUTSIDE RECORDS SUMMARY | 2022-01-04 01:41 | XMS_ITS | Encounter Summary ---
:1970 Author Organization [place] [address] Care Team Providers Name Role Phone Mariluz Vargas MD Primary Care Provider Encounter Details Date Type Department Care Team Description 11/15/2016 Office Visit Urology at [facility] Dayron Hollins, Dg UTI (urinary tract infection); [facility] TONYA Mcgee Nephrolithiasis; Drive [facility] IC (interstitial cystitis) [place] [address] UROLOGY DEPT. [phone] [place], [place] [address] Social History Tobacco Use Types [...] in this encounter Progress Notes Bowen Preciado, WRAPPER STITCHER - 11/15/2016 2:20 PM EDT UROLOGY CLINIC [...] HISTORY: , no children. 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 She is a non-smoker, non-drinker. FAMILY [...] 10:48 am) PATIENT INFO: ID #: ? [id number] ?: ??[birth year] (47 yrs) Name: ? TARI V ? Visit Date: 04/29/2017 09:54 am ? CLOUATRE PERFORMED BY: Performed By: ? Vandana LOWERY, ??Enio johnson Attending: ?Master VILLASENOR, Kieran Pratt. Resident: ? Heaven VILLASENOR, Krista Strange Referred By: ?BOWEN Noriega Location: ? [place] SERVICE(S) PROVIDED: ??URETRO - Retroperitoneal Complete - I [id number] ? [id number] INDICATIONS: ??history of nephrolithiasis and infect ed [...] 10:48 am ) PATIENT INFO: ID #: [id number] : [birth year] (47 y rs) Name: TARI Cabrales Visit Date: 04/29/2017 0 9:54 am CLOUATRE PERFORMED BY: Performed By: Ana Ross RDMS Attending: Svitlana Thao MD Resident: Mejia Collado MD Referred By: BOWEN HOLLINS Location: [place] SERVICE(S) PROVIDED: URETRO - Retroperitoneal Complete - [facility] [id number] INDICATIONS: history of nephrolithiasis and infected stone. [...] Clean Catch Urine (11/15/2016 6:18 PM EDT) [facility] Method Time Signature Urine Culture 1,000-9,000 NATALIA cfu/ml [facility] probable LABORATORY contaminant (A) Specimen (Source) Anatomical Collection Method Collection Time Re ceived Time Location / / Volume Laterality Urine specimen 11/15/2016 6:18 11/15/2016 6:18 obtained by clean PM EDT PM EDT catch procedure (specimen) Resulting Agency Comment Spec In Lab Bowen Hollins APRN MICROBIOLOGY - GENERAL ORDER PATRICK Performing Organization Address City/State/ZIP Code Phon e Number [place] [phone] [facility] [address] Uric acid (11/15/2016 3:03 PM EDT) athologist Signature Uric Acid 4.9 2.5 - 6.5 [facility] mg/dL [facility] LABORATORY Specimen Anatomical Collection Method Collection Time Receive d Time (Source) Location / / Volume Laterality Blood specimen 11/15/2016 3:03 PM 017 3:06 (specimen) EDT PM EDT Resulting Agency Comment Spec In Lab Bowen Dayron Hollins APRN CHEMISTRY ORDERABLES Performing Organization Address City/State/ZIP Code Phon e Number [address] Comprehensive metabolic panel (non-fasting) (11/15/2016 3:03 PM EDT) athologist Signature Glucose Lvl 103 65 - 199 [facility] mg/dL [facility] Comment: Diabetes: >=200 mg/dL plus symp toms BUN 15 8 - 18 mg/dL [facility] LABORATORY Creatinine 0.87 0.70 - 1.20 mg/dL [facility] Comment: Please note that the pediatric reference intervals supplied above were not validated at [facility]. Results from pediatri c patients should be interpreted in conjunction to the patient's age, height and muscle mass. Sodium 142 135 - 145 mmol/L [facility]ORATORY Potassium 4.3 3.5 - 5.0 mmol/L [facility]OR[facility] Comment: Please note: ??Patients with WBC >100,00 0 may have falsely elevated Potassium levels. ??For accurate Potassium quantif ication in these patients send serum separator tube (gold top) for subsequent determinations. ??Contact the Clinical Chemistry Laboratory if there are any qu estions. Chloride 102 98 - 107 mmol/L [facility] CO2 26 22 - 31 mmol/L [facility] Anion Gap 14 5 - 15 mmol/L [facility] Calcium 9.5 8.5 - 10.5 mg/dL [facility] Total Protein 7.6 6.1 - 8.0 gm/dL [facility] Albumin 4.3 3.2 - 5.2 gm/dL [facility] AST 20 0 - 30 unit/L [facility] ALT 14 0 - 30 unit/L [facility] Alk Phos 55 40 - 104 unit/L [facility] Total Bilirubin 0.5 0.2 - 1.3 mg/dL [facility] Estimated GFR >60 >=60 [facility] Comment: This estimated GFR (eGFR) [...] the following links into your internet browser. [email or web address] [email or web address] Specimen Anatomical Collection Method Collection Time Receive d Time (Source) Location / / Volume Laterality Blood specimen 11/15/2016 3:03 PM 017 3:06 (specimen) EDT PM EDT Resulting Agency Comment Spec In Lab Bowen Hollins APRN CHEMISTRY ORDERABLES Performing Organization Address City/State/[place] [address] documented in this encounter Visit Diagnoses Diagnosis Recurrent UTI (urinary tract infection) Urinary tract infection, site not specif ied Nephrolithiasis Calculus of kidney IC (interstitial cystitis) Chronic interstitial cystitis Nephrolithiasis Calculus of kidney documented in this encounter Care Teams Help Desk Internship Relationship Specialty Start Date End Date Mariluz Vargas MD PCP - General Family Medicine 11/20/[address] [place] [address] documented as of this encounter
--- OUTSIDE RECORDS SUMMARY | 2022-01-04 01:41 | XMS_ITS | Encounter Summary ---
:1970 Author Organization [facility] [place] [address] Care Team Providers Name Role Phone Mariluz Vargas MD Primary Care Provider Encounter Details Date Type Department Care Team Description 07/09/2016 Office Visit Urology at [facility] Dayron Jauregui, Recurrent UTI (urinary tract infection); [facility] TONYA Mcgee Nephrolithiasis Drive [place], [place] CENTER [address] UROLOGY DEPT. [phone] [place], [place] [address] Social History Tobacco Use [...] in this encounter Progress Notes Arely Preciado, STRATEGIC CLIENT EXECUTIVE - 07/09/2016 1:40 PM EDT UROLOGY CLINIC [...] HISTORY: , no children. 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 She is a non-smoker, non-drinker. FAMILY [...] be staged, also bleeding, infection, readmission, stroke, [place], , prolonged hospital stay, risk of injury [...] fatigued enough that she would consider a terminal makeup operator management option for her UTIs/stones. ??? OAB [...] Clean Catch Urine (07/09/2016 2:27 PM EDT) [facility] Method Time Signature Urine Culture 10,000-49,000 NATALIA cfu/ml [facility] (A) [facility] LABOR[facility] Organism Escherichia NATALIA coli (A) [facility] LABORATORY Specimen (Source) Anatomical Collection [...] Organization Address City/State/[place] [address] documented in this encounter Visit Diagnoses Diagnosis Recurrent UTI (urinary tract infection) Urinary tract infection, site not specif ied Nephrolithiasis Calculus of kidney documented in this encounter Care Teams Analyst Relationship Specialty Start Date End Date Mariluz Vargas MD PCP - General Family Medicine 11/20/[address] [place] [address] documented as of this encounter
--- OUTSIDE RECORDS SUMMARY | 2022-01-04 01:41 | XMS_ITS | Encounter Summary ---
:1970 Author Organization [facility] [place] [address] Care Team Providers Name Role Phone Mariluz Vargas MD Primary Care Provider Encounter Details Date Type Department Care Team Description 09/24/2016 Surgery Main Operating Room Quentin Murphy Jr., CYSTOURETEROSCOPY,[facility] [place] OSTIC,W/ LITHOT[facility] INSERTION OF [facility] [address] [place] URETERAL [facility] UROLOGY DEPT. STENT ([address] 8) [place] [address] [place] [address] [phone] (Wo rk) Social History Tobacco Use Types [...] wi ll proceed with planned operation. Nelly Ngouera MD Urology PGY-3 Pager: [phone] documented in this encounter Miscellaneous Notes Op Note - Nelly Noguera MD - 09/24/2016 6:50 PM EDT Operative Note ?? Patient Name: Tari Mosley : [id number] MR#: [id number] ?? Case Date: 09/24/2016 ?? Surgeon: Surgeon(s) [...] prior Nelly Noguera MD Urology PGY-3 Pager: [phone] Brief Op Note - Nelly Noguera MD - 09/24/2016 5:53 PM EDT Brief Operative Note Patient Name: Tari Mosley : [id number] MR#: [id number] Case Date: 09/24/2016 Surgeon: Surgeon(s) and Role: * Quentin Murphy Jr., MD - Primary * Nelly Nogurea MD Preoperative diagnosis: right renal stone Postoperative [...] 01:39 pm) PATIENT INFO: ID #: ? [id number] ?: ??[birth year] (46 yrs) Name: ? TARI Samra ? Visit Date: 11/15/2016 01:09 pm ? CLOUATRE PERFORMED BY: Performed By: ? Juancho Romero RDMS Attending: ?Kirk VILLASENOR, Chris Hatch. Referred By: ?QUNETIN MURPHY JR Location: ? [place] SERVICE(S) PROVIDED: ??URETRO - Retroperitoneal Complete - I [id number] ? [id number] INDICATIONS: ??s/p bilateral URS 09/24/2016. ?hydro COMPARISON: [...] 01:39 pm ) PATIENT INFO: ID #: [id number] : [birth year] (46 y rs) Name: TARI Cabrales Visit Date: 11/15/2016 0 1:09 pm CLOUATRE PERFORMED BY: Performed By: Juancho Romero RDMS Attending: Aguila Bradley MD Referred By: QUENTIN MURPHY Location: [place] SERVICE(S) PROVIDED: URETRO - Retroperitoneal Complete - [facility] [id number] INDICATIONS: s/p bilateral URS 09/24/2016. ?hydro COMPARISON: [...] ORDERABLES Anaerobic Culture (09/24/2016 6:08 PM EDT) [facility] Method Time Signature Anaerobic No anaerobic [facility] Culture organisms [facility] LABORATORY Specimen Anatomical Collection Method Collection Time Receive d Time (Source) Location / / Volume Laterality Specimen of 09/24/2016 6:08 PM 7 7:12 unknown material EDT PM EDT (specimen) Comment: LEFT RENAL CRUSHED STONE Resulting Agency Comment Spec In Lab Quentin Murphy Jr., MD MICROBIOLOGY - GENERAL ORDER PATRICK Performing Organization Address City/State/[place] [address] Tissue culture (09/24/2016 6:08 PM EDT) Component Value Ref Test Analysis Performed At [facility] gist Range Method Time Signature Tissue No growth NATALIA Culture [facility] LABORATORY Gram Stain No WBC's seen. NATALIA No microorganisms seen. [facility] LABORATORY Specimen Anatomical Collection Method Collection Time Receive d Time (Source) Location / / Volume Laterality Specimen of 09/24/2016 6:08 PM 7 7:12 unknown material EDT PM EDT (specimen) Comment: LEFT RENAL CRUSHED STONE Resulting Agency Comment Spec In Lab Quentin Murphy Jr., MD MICROBIOLOGY - GENERAL ORDER PATRICK Performing Organization Address City/State/[place] [address] Anaerobic Culture (09/24/2016 6:08 PM EDT) [facility] gist Method Time Signature Anaerobic No anaerobic NATALIA [place] Culture organisms [facility] LABORATORY Specimen Anatomical Collection Method Collection Time Receive d Time (Source) Location / / Volume Laterality Specimen of 09/24/2016 6:08 PM 7 7:23 unknown material EDT PM EDT (specimen) Comment: RIGHT RENAL CRUSHED STONE Resulting Agency Comment Spec In Lab Quentin Murphy Jr., MD MICROBIOLOGY - GENERAL ORDER PATRICK Performing Organization Address City/State/[place] [address] (ABNORMAL) Tissue culture (09/24/2016 6:08 PM EDT) Component Value Ref Test Analysis Performed At [facility] [employer] Range Method Time Signature Tissue Few Escherichia NATALIA Culture coli (A) [facility] LABORATORY Gram Stain Few White Blood Cells seen [place] RY No microorganisms seen. [facility] [place] ([facility] LABORATORY Organism Escherichia coli NATALIA (A) [facility] LABORATORY Specimen Anatomical Collection Method Collection [...] - GENERAL ORDER PATRICK Performing Organization Address City/[facility] Code Phon e Number [address] Urine culture Cystoscopic Urine (09/24/2016 6:08 PM EDT) [facility] Method Time Signature Urine Culture No growth [facility] (Less than [facility] 1,000 [facility] cfu/ml). LABORATORY Specimen Anatomical Collection Method Collection Time Receive d Time (Source) Location / / Volume Laterality Urine specimen 09/24/2016 6:08 PM 017 7:15 (specimen) EDT PM EDT Comment: RIGHT RENAL URINE Resulting Agency Comment Spec In Lab Quentin Murphy Jr., MD MICROBIOLOGY - GENERAL ORDER PATRICK Performing Organization Address City/[facility] Code Phon e Number [address] XR Fluoro No Rad [...] City/State/ZIP Code Phon e Number [place], [place] Kidney Stone Analysis (09/24/2016 5:34 PM EDT) Component Value Ref Test Analysis Performed At [facility] Range Method Time Signature Kidney Stone NATALIA Analysis Test ? Result ?Flag ??Unit ??RefValue [employer] CK [facility] Kidney Stone Analysis [facility] ??Source: ?Lef t Renal LABORATORY ??1st Constituent: ?50% Calcium oxalate monohydrate ??2nd Constituent: ?40% Calcium phosphate (apatite) ??3rd Constituent: ?10% Calcium oxalate dihydrate ? ADDITIONAL INFORMATION ------ ?This test was developed and its performance characteri stics ?determined by [facility] in a manner consistent with CLIA ?requirements. This test has not been cleared or approv ed by ?the U.S. Food and Drug Administration. ?Test Performed by: ?[facility] [employer] [facility] [employer] ?[address] [place] [address] Specimen Anatomical Collection Method Collection Time Receive d Time (Source) Location / / Volume Laterality Calculus 09/24/2016 5:34 PM 7 8:56 specimen EDT AM EDT (specimen) Resulting Agency Comment Spec In Lab Quentin Murphy Jr., MD BODY FLUIDS AND STOOLS ORDER PATRICK Performing Organization Address City/State/ZIP Code Ph[place] [address] Kidney Stone Analysis (09/24/2016 5:09 PM EDT) Component Value Ref Test Analysis Performed At [facility] Range Method Time Signature Kidney Stone NATALIA Analysis Test ? Result ?Flag ??Unit ??RefValue LANA CK [facility] Kidney Stone Analysis [facility] ??Source: ?Rig Renal LABORATORY ??1st Constituent: ?100% Calcium oxalate monohydrate ? ADDITIONAL INFORMATION ------ ?This test was developed and its performance characteri stics ?determined by [facility] in a manner consistent with CLIA ?requirements. This test has not been cleared or approv ed by ?the U.S. Food and Drug Administration. ?Test Performed by: ?[facility] [employer] [facility] ?[address] [place] [address] Specimen Anatomical Collection Method Collection Time Receive d Time (Source) Location / / Volume Laterality Calculus 09/24/2016 5:09 PM 7 8:56 specimen EDT AM EDT (specimen) Resulting Agency Comment Spec In Lab Quentin Murphy Jr., MD BODY FLUIDS AND STOOLS ORDER PATRICK Performing Organization Address City/[facility]/ZIP Code Phon e Number [address] Urine culture (09/24/2016 4:26 PM EDT) [facility] Method Time Signature Urine Culture No growth NATALIA [place] (Less than [address] cfu/ml). LABORATORY Specimen Anatomical Collection Method Collection Time Receive d Time (Source) Location / / Volume Laterality Urine specimen 09/24/2016 4:26 PM 017 7:27 (specimen) EDT PM EDT Comment: BLADDER URINE Resulting Agency Comment Spec In Lab Quentin Murphy Jr., MD MICROBIOLOGY - GENERAL ORDER PATRICK Performing Organization Address [facility]/ZIP Code Phon e Number [address] Urine culture (09/24/2016 4:26 PM EDT) [facility] Method Time Signature Urine Culture No growth NATALIA [place] (Less than [address] cfu/ml). LABORATORY Specimen Anatomical Collection Method Collection Time Receive d Time (Source) Location / / Volume Laterality Urine specimen 09/24/2016 4:26 PM 017 7:24 (specimen) EDT PM EDT Comment: LEFT RENAL URINE Resulting Agency Comment Spec In Lab Quentin Murphy Jr., MD MICROBIOLOGY - GENERAL ORDER PATRICK Performing Organization Address City/[facility]/ZIP [facility] Phon e Number [address] documented in this encounter [...] override documented in this encounter Care Teams Aircraft Engineer Relationship Specialty Start Date End Date Mariluz Vargas MD PCP - General Family Medicine 11/20/[address] [place] [address] documented as of this encounter
--- OUTSIDE RECORDS SUMMARY | 2022-01-04 01:41 | XMS_ITS | Encounter Summary ---
:1970 Author Organization [facility] [place] [address] Care Team Providers Name Role Phone Rocio Jose MD Primary Care Provider Reason for Visit Reason Comments Other Encounter Details Date Type Department Care Team Description 05/19/2015 Telephone Urology at [facility] Arely Preciado, [facility] [place] [address] [facility] [phone] UROLOGY DEPT. [place], [place] [address] (Wo rk) Social History Tobacco Use Types Packs/Day Years Used Date Never Smoker Sex Assigned at Date Recorded Not on file documented as of this encounter Miscellaneous Notes Telephone Encounter - Arely Preciado APRN - 05/19/2015 4:27 PM EST Pt called to let me know that her urinary symptoms are back. She is seeing [facility] next Friday. She will have urine testing there and will let me know the results. documented in this encounter Plan of Treatment Not on filedocumented as of this encounter Visit Diagnoses Not on filedocumented in this encounter Care Teams Supervisor Paint Relationship Specialty Start Date End Date Rocio Jose MD PCP - General 05/21/10 08/20/15 [address] [place] [address] documented as of this encounter
--- OUTSIDE RECORDS SUMMARY | 2022-01-04 01:41 | XMS_ITS | Encounter Summary ---
:1970 Author Organization [facility] [place] [address] Care Team Providers Name Role Phone Rocio Jose MD Primary Care Provider Reason for Visit Reason Onset Date Comments Results 06/01/2015 Encounter Details Date Type Department Care Team Description 06/01/2015 Telephone Obstetrics and Gynec ology at [facility] [place] [address] Social History Tobacco Use Types Packs/Day Years Used Date Never Smoker Sex Assigned at Date Recorded Not on file documented as of this encounter Miscellaneous Notes Telephone Encounter - Delphine Vick RN - 06/01/2015 10:06 AM EST Caller: patient Learning Needs Assessment Reviewed: Yes Subjective Patient presents with: Results Objective/Assessment Symptom onset: 05/23/2015 Location: n/a Duration: n/a Characteristics: n/a Aggravating factors: n/a Relieving factors: n/a Timing: n/a Severity: n/a Pertinent Past Medical History: recurrent UTI Plan Intervention/Plan/ Follow Up: patient calls wanting results of biopsy taken on 05/23/2015, results reviewed with JENNIFER Roberts, per final report Benign endocervical polyp relayed to patient. Patient will call clinic with further questions or concerns. documented in this encounter Plan of Treatment Not on filedocumented as of this encounter Visit Diagnoses Not on filedocumented in this encounter Care Teams Java Sdet Relationship Specialty Start Date End Date Rocio Jose MD PCP - General 05/21/10 08/20/15 [address] [place] [address] documented as of this encounter
--- OUTSIDE RECORDS SUMMARY | 2022-01-04 01:41 | XMS_ITS | Encounter Summary ---
:1970 Author Organization [facility] [place] [address] Care Team Providers Name Role Phone Mariluz Vargas MD Primary Care Provider Encounter Details Date Type Department Care Team Description 09/18/2016 Orders Only Urology at [facility] Raheem Murphy Symptom involving [facility] [place] [address] UROLOGY DEPT. [place], [place] [address] Social History Tobacco Use Types [...] bladder documented in this encounter Care Teams Electronics Processing Supervisor Relationship Specialty Start Date End Date Mariluz Vargas MD PCP - General Family Medicine 11/20/[address] [place], [place] [address] documented as of this encounter
--- OUTSIDE RECORDS SUMMARY | 2022-01-04 01:41 | XMS_ITS | Encounter Summary ---
:1970 Author Organization [facility] [place] [address] Care Team Providers Name Role Phone Mariluz Vargas MD Primary Care Provider Encounter Details Date Type Department Care Team Description 03/01/2016 Telephone [place] [facility] Arely Preciado, [facility] [place] [address] [facility] [phone] UROLOGY DEPT. [place], [place] [address] (Wo rk) Social History Tobacco Use Types Packs/Day Years Used Date Never Smoker Smokeless Tobacco: Never Used Alcohol Use Standard Drinks/Week Comments Yes 1 (1 standard drink = 0.6 oz pure alcoho l) Sex Assigned at Date Recorded Not on file documented as of this encounter Miscellaneous Notes Telephone Encounter - Arely Preciado APRN - 03/01/2016 8:29 AM EST ----- Message from Allyn Sunshine RN sent at 02/29/2016 12:47 PM EST ----- Called Adela to review recent urine culture and order antibiotics (Keflex 500mg QID x7 days) per Dr. Gonzales. Adela would like to hold off an taking antibiotics now as she is asymptomatic and has been getting recurring bladder bacteria. She is going to be consulting a Warehouse Administrator as well. She will start taking her D- Mannos again and push fluids. We reviewed signs and symptoms of a UTI/ kidney infection. I instructed her to call [facility] if she gets symptoms. She is also taking Cranberry concentrate. Note from my nurse about conversation with pt. Pt will defer abx at this time as she has no UTI symptoms. Call with UTI sx. documented in this encounter Plan of Treatment Not on filedocumented as of this encounter Visit Diagnoses Not on filedocumented in this encounter Care Teams Show Design Supervisor Relationship Specialty Start Date End Date Mariluz Vargas MD PCP - General Family Medicine 11/20/[address] [place] [address] documented as of this encounter
--- OUTSIDE RECORDS SUMMARY | 2022-01-04 01:41 | XMS_ITS | Encounter Summary ---
:1970 Author Organization [facility] [place] [address] Care Team Providers Name Role Phone Mariluz Vargas MD Primary Care Provider Encounter Details Date Type Department Care Team Description 10/14/2016 Notes Only Urology [place] [facility] José Luis Block MD [facility] [place] [address] UROLOGY DEPT [phone] [place], [place] [address] (Wo rk) Social History Tobacco [...] on filedocumented in this encounter Care Teams Church History Teacher Relationship Specialty Start Date End Date Mariluz Vargas MD PCP - General Family Medicine 11/20/[address] [place] [address] documented as of this encounter
--- OUTSIDE RECORDS SUMMARY | 2022-01-04 01:41 | XMS_ITS | Encounter Summary ---
:1970 Author Organization [facility] [place] [address] Care Team Providers Name Role Phone Rocio Jose MD Primary Care Provider Encounter Details Date Type Department Care Team Description 07/13/2015 Office Visit Urology at [facility] Dayron Jauregui, Recurrent UTI (urinary tract infection); [facility] TONYA Mcgee IC (interstitial cystitis) [place] [address] UROLOGY DEPT. [phone] [place], [place] [address] Social History Tobacco Use Types [...] HISTORY: , no children. 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 She is a non-smoker, non-drinker. FAMILY [...] cystitis documented in this encounter Care Teams Covering Machine Operator Helper Relationship Specialty Start Date End Date Rocio Jose MD PCP - General 05/21/10 08/20/15 [address] [place] [address] documented as of this encounter
--- OUTSIDE RECORDS SUMMARY | 2022-01-04 01:41 | XMS_ITS | Encounter Summary ---
:1970 Author Organization [facility] [place] [address] Care Team Providers Name Role Phone Mariluz Vargas MD Primary Care Provider Encounter Details Date Type Department Care Team Description 04/29/2017 Hospital Encounter [place] [facility] [place] Shania, Nephrolithiasis [facility] [place] [address] UROLOGY DEPT. [phone] [place], [place] [address] Social History Tobacco Use Types [...] 10:48 am) PATIENT INFO: ID #: ? [id number] ?: ??[birth year] (47 yrs) Name: ? TARI V ? Visit Date: 04/29/2017 09:54 am ? CLOUATRE PERFORMED BY: Performed By: ? Vandana LOWERY, ??Enio johnson Attending: ?Master VILLASENOR, Kieran Stephens Resident: ? Heaven VILLASENOR, Krista Strange Referred By: ?BOWEN Noriega Location: ? [place] SERVICE(S) PROVIDED: ??URETRO - Retroperitoneal Complete - I [id number] ? [id number] INDICATIONS: ??history of nephrolithiasis and infect ed [...] 10:48 am ) PATIENT INFO: ID #: [id number] : [birth year] (47 y rs) Name: TARI Cabrales Visit Date: 04/29/2017 0 9:54 am CLOUATRE PERFORMED BY: Performed By: Ana Ross RDMS Attending: Svitlana Thao MD Resident: Mejia Collado MD Referred By: BOWEN HOLLINS Location: [place] SERVICE(S) PROVIDED: URETRO - Retroperitoneal Complete - [facility] [id number] INDICATIONS: history of nephrolithiasis and infected stone. [...] kidney documented in this encounter Care Teams Guest Associate Relationship Specialty Start Date End Date Mariluz Vargas MD PCP - General Family Medicine 11/20/[address] [place] [address] documented as of this encounter
--- OUTSIDE RECORDS SUMMARY | 2022-01-04 01:41 | XMS_ITS | Encounter Summary ---
:1970 [place] [address] Care Team Providers Name Role Phone Mariluz Vargas MD Primary Care Provider Encounter Details Date Type Department Care Team Description 09/24/2016 Hospital Encounter Same Day Program at [facility] Nephrolithiasis Ellen Cassidy Jr., MD [facility] [address] Gomez UROLOGY DEPT. [place], [place] [address] [phone] Social History Tobacco Use Types Packs/Day Years [...] operation. Nelly Noguera MD Urology PGY-3 Pager: [phone] documented in this encounter Miscellaneous Notes Op Note - Nelly Noguera MD - 09/24/2016 6:50 PM EDT Operative Note ?? Patient Name: Tari Mosley : [id number] MR#: [id number] ?? Case Date: 09/24/2016 ?? Surgeon: Surgeon(s) [...] prior Nelly Noguera MD Urology PGY-3 Pager: [phone] Brief Op Note - Nelly Noguera MD - 09/24/2016 5:53 PM EDT Brief Operative Note Patient Name: Tari Mosley : [id number] MR#: [id number] Case Date: 09/24/2016 Surgeon: Surgeon(s) and Role: [...] 01:39 pm) PATIENT INFO: ID #: ? [id number] ?: ??[birth year] (46 yrs) Name: ? TARI V ? Visit Date: 11/15/2016 01:09 pm ? CLOUATRE PERFORMED BY: Performed By: ? Juancho Romero RDMS Attending: ?Kirk VILLASENOR, Chris Martinez Referred By: ?QUENTIN MURPHY Location: ? [place] SERVICE(S) PROVIDED: ??URETRO - Retroperitoneal Complete - I [id number] ? [id number] INDICATIONS: ??s/p bilateral URS 09/24/2016. ?hydro COMPARISON: [...] 01:39 pm ) PATIENT INFO: ID #: [id number] : [birth year] (46 y rs) Name: TARI Cabrales Visit Date: 11/15/2016 0 1:09 pm CLOUATRE PERFORMED BY: Performed By: Juancho Romero RDMS Attending: Aguila Bradley MD Referred By: QUENTIN MURPHY JR Location: [place] SERVICE(S) PROVIDED: URETRO - Retroperitoneal Complete - [facility] 3517 [id number] INDICATIONS: s/p bilateral URS 09/24/2016. ?hydro COMPARISON: [...] ORDERABLES Anaerobic Culture (09/24/2016 6:08 PM EDT) [facility] Method Time Signature Anaerobic No anaerobic [facility] Culture organisms [facility] LABORATORY Specimen Anatomical Collection Method Collection Time Receive d Time (Source) Location / / Volume Laterality Specimen of 09/24/2016 6:08 PM 7 7:12 unknown material EDT PM EDT (specimen) Comment: LEFT RENAL CRUSHED STONE Resulting Agency Comment Spec In Lab [facility] Jr., MD MICROBIOLOGY - GENERAL ORDER PATRICK Performing Organization Address City/[facility]/ZIP Code Phon e Number [address] Tissue culture (09/24/2016 6:08 PM EDT) Component Value Ref Test Analysis Performed At Patholo gist Range Method Time Signature Tissue No growth ELLEN Culture [facility] LABORATORY Gram Stain No WBC's seen. ELLEN No microorganisms seen. [facility] LABORATORY Specimen Anatomical Collection Method Collection Time Receive d Time (Source) Location / / Volume Laterality Specimen of 09/24/2016 6:08 PM 7 7:12 unknown material EDT PM EDT (specimen) Comment: LEFT RENAL CRUSHED STONE Resulting Agency Comment Spec In Lab [facility] Jr., MD MICROBIOLOGY - GENERAL ORDER PATRICK Performing Organization Address City/[facility]/ZIP Code Phon e Number [address] Anaerobic Culture (09/24/2016 6:08 PM EDT) [facility] Method Time Signature Anaerobic No anaerobic ELLEN MURRAY Culture organisms [facility] LABORATORY Specimen Anatomical Collection Method Collection Time Receive d Time (Source) Location / / Volume Laterality Specimen of 09/24/2016 6:08 PM 7 7:23 unknown material EDT PM EDT (specimen) Comment: RIGHT RENAL CRUSHED STONE Resulting Agency Comment Spec In Lab [facility] Jr., MD MICROBIOLOGY - GENERAL ORDER PATRICK Performing Organization Address City/[facility]/[place] [address] (ABNORMAL) Tissue culture (09/24/2016 6:08 PM EDT) Component Value Ref Test Analysis Performed At Patholo gist Range Method Time Signature Tissue Few Escherichia ELLEN Culture coli (A) [facility] LABORATORY Gram Stain Few White Blood Cells seen MA RY No microorganisms seen. [facility] LABORATORY Organism Escherichia coli ELLEN (A) [facility] LABORATORY Specimen Anatomical Collection Method [...] - GENERAL ORDER PATRICK Performing Organization Address City/[facility] Phon e Number [address] Urine culture Cystoscopic Urine (09/24/2016 6:08 PM EDT) [facility] Method Time Signature Urine Culture No growth ELLEN CASSIDY (Less than [facility] 1,000 [facility] cfu/ml). LABORATORY Specimen Anatomical Collection Method Collection Time Receive d Time (Source) Location / / Volume Laterality Urine specimen 09/24/2016 6:08 PM 017 7:15 (specimen) EDT PM EDT Comment: RIGHT RENAL URINE Resulting Agency Comment Spec In Lab [facility] Jr., MD MICROBIOLOGY - GENERAL ORDER PATRICK Performing Organization Address City/[facility] Phon e Number [address] XR Fluoro No Rad [...] City/State/ZIP Code Phon e Number RAD BIN [place] Kidney Stone Analysis (09/24/2016 5:34 PM EDT) Component Value Ref Test Analysis Performed At [facility] Method Time Signature Kidney Stone ELLEN Analysis Test ? Result ?Flag ??Unit ??RefValue [employer] CK [facility] Kidney Stone Analysis [facility] ??Source: ?Lef t Renal LABORATORY ??1st Constituent: ?50% Calcium oxalate monohydrate ??2nd Constituent: ?40% Calcium phosphate (apatite) ??3rd Constituent: ?10% Calcium oxalate dihydrate ? ADDITIONAL INFORMATION ------ ?This test was developed and its performance characteri stics ?determined by [facility] in a manner consistent with CLIA ?requirements. This test has not been cleared or approv ed by ?the U.S. Food and Drug Administration. ?Test Performed by: ?[facility] [employer] [facility] ?[address] [place] [address] Specimen Anatomical Collection Method Collection Time Receive d Time (Source) Location / / Volume Laterality Calculus 09/24/2016 5:34 PM 7 8:56 specimen EDT AM EDT (specimen) Resulting Agency Comment Spec In Lab [facility] Jr., MD BODY FLUIDS AND STOOLS ORDER PATRICK Performing Organization Address City/[facility]/ZIP Code Phon [place] [address] Kidney Stone Analysis (09/24/2016 5:09 PM EDT) Component Value Ref Test Analysis Performed At [facility] Range Method Time Signature Kidney Stone ELLEN Analysis Test ? Result ?Flag ??Unit ??RefValue LANA CK [facility] Kidney Stone Analysis [facility] ??Source: ?Rig Renal LABORATORY ??1st Constituent: ?100% Calcium oxalate monohydrate ? ADDITIONAL INFORMATION ------ ?This test was developed and its performance characteri stics ?determined by [facility] in a manner consistent with CLIA ?requirements. This test has not been cleared or approv ed by ?the U.S. Food and Drug Administration. ?Test Performed by: ?[facility] ?[address] [place] [address] Specimen Anatomical Collection Method Collection Time Receive d Time (Source) Location / / Volume Laterality Calculus 09/24/2016 5:09 PM 7 8:56 specimen EDT AM EDT (specimen) Resulting Agency Comment Spec In Lab [facility] Jr., MD BODY FLUIDS AND STOOLS ORDER PATRICK Performing Organization Address City/State/ZIP Code Phon e Number [address] Urine culture (09/24/2016 4:26 PM EDT) [facility] gist Method Time Signature Urine Culture No growth ELLEN CASSIDY (Less than [address] cfu/ml). LABORATORY Specimen Anatomical Collection Method Collection Time Receive d Time (Source) Location / / Volume Laterality Urine specimen 09/24/2016 4:26 PM 017 7:27 (specimen) EDT PM EDT Comment: BLADDER URINE Resulting Agency Comment Spec In Lab [facility] Murphy Jr., MD MICROBIOLOGY - GENERAL ORDER PATRICK Performing Organization Address City/[facility]/ZIP Code Phon e Number [address] Urine culture (09/24/2016 4:26 PM EDT) [facility] Method Time Signature Urine Culture No growth ELLEN CASSIDY (Less than [address] cfu/ml). LABORATORY Specimen Anatomical Collection Method Collection Time Receive d Time (Source) Location / / Volume Laterality Urine specimen 09/24/2016 4:26 PM 017 7:24 (specimen) EDT PM EDT Comment: LEFT RENAL URINE Resulting Agency Comment Spec In Lab [facility] Jr., MD MICROBIOLOGY - GENERAL ORDER PATRICK Performing Organization Address City/[facility]/ZIP Code Phon e Number [address] documented in this encounter [...] override documented in this encounter Care Teams Commodity Loan Clerk Relationship Specialty Start Date End Date Mariluz Vargas MD PCP - General Family Medicine 11/20/[address] [place] [address] documented as of this encounter
--- OUTSIDE RECORDS SUMMARY | 2022-01-04 01:41 | XMS_ITS | Encounter Summary ---
:1970 Author Organization [facility] [place] [address] Care Team Providers Name Role Phone Mariluz Vargas MD Primary Care Provider Encounter Details Date Type Department Care Team Description 09/23/2016 Telephone Urology at [facility] Feliz Okeefe, [place] [address] Social History Tobacco Use Types Packs/Day [...] per verbal order Dr. Torrez. Adela will fern picker prescription tonight, and start this evening. Escherichia coli 10,000 - 50,000 colonies/mL FELIZ MALLOY LPN documented in this encounter Plan of Treatment Not on filedocumented as of this encounter Visit Diagnoses Not on filedocumented in this encounter Care Teams Truer Pinion And Wheel Relationship Specialty Start Date End Date Mariluz Vargas MD PCP - General Family Medicine 11/20/15 [address] [place] [address] documented as of this encounter
--- OUTSIDE RECORDS SUMMARY | 2022-01-04 01:41 | XMS_ITS | Encounter Summary ---
:1970 [place] [address] Care Team Providers Name Role Phone Mariluz Vargas MD Primary Care Provider Encounter Details Date Type Department Care Team Description 03/15/2016 Hospital Encounter Radiology Library at Gt Mcclellan MD [facility] [place] [address] [place] [address] [phone] (Wo rk) Social History Tobacco Use Types [...] Time Received Time / Laterality Volume Narrative [facility] - 03/27/2016 4:44 PM EST This exam is for storage only and is aut o-finalizing. Oliver Mcclellan MD IMG FILM LIBRARY ORDERABLES Performing Organization Address City/State/ZIP Code Phon e Number [place], [place] documented in this encounter Visit Diagnoses Diagnosis Pain Generalized pain documented in this encounter Care Teams Evaluation Manager Relationship Specialty Start Date End Date Mariluz Vargas MD PCP - General Family Medicine 11/20/[address] [place] [address] documented as of this encounter
--- OUTSIDE RECORDS SUMMARY | 2022-01-04 01:41 | XMS_ITS | Encounter Summary ---
:1970 Author Organization [facility] [place] [address] Care Team Providers Name Role Phone Mariluz Vargas MD Primary Care Provider Encounter Details Date Type Department Care Team Description 03/26/2016 Telephone [place]rology [place] [facility] Arely Preciado, [facility] [place] [address] [facility] [phone] UROLOGY DEPT. [place], [place] [address] (Wo rk) Social History Tobacco [...] for urine infection. She was in the ED-[facility]. For the past 2 months, she has had rectal cramping/also suprapubically. She had some sternal and back pain as well. When in ER, she had a CT done. She saw [facility] SPE[facility] and was told the CT showed that [...] if a formal culture was sent at [facility]. Will get CT report and imaging and culture report. documented in this encounter Plan of Treatment Not on filedocumented as of this encounter Visit Diagnoses Not on filedocumented in this encounter Care Teams Artist Representative Relationship Specialty Start Date End Date Mariluz Vargas MD PCP - General Family Medicine 11/20/[address] [place] [address] documented as of this encounter
--- OUTSIDE RECORDS SUMMARY | 2022-01-04 01:41 | XMS_ITS | Encounter Summary ---
:1970 Author Organization [facility] [place] [address] Care Team Providers Name Role Phone Mariluz Vargas MD Primary Care Provider Encounter Details Date Type Department Care Team Description 05/22/2016 Notes Only Urology at [facility] Arely Preciado, [facility] [place] [address] [facility] [phone] UROLOGY DEPT. [place], [place] [address] (Wo rk) Social History Tobacco [...] is unclear if she was treated by [facility]/Dr. Strickland for this urinary infection. I will have my nurse call her to see how she is doing. documented in this encounter Plan of Treatment Not on filedocumented as of this encounter Visit Diagnoses Not on filedocumented in this encounter Care Teams Trial Examiner Relationship Specialty Start Date End Date Mariluz Vargas MD PCP - General Family Medicine 11/20/[address] [place] [address] documented as of this encounter
--- OUTSIDE RECORDS SUMMARY | 2022-01-04 01:41 | XMS_ITS | Encounter Summary ---
:1970 Author Organization [facility] [place] [address] Care Team Providers Name Role Phone Mariluz Vargas MD Primary Care Provider Encounter Details Date Type Department Care Team Description 07/10/2016 Telephone Urology at [facility] Arely Preciado, [facility] [place] [address] [facility] [phone] UROLOGY DEPT. [place], [place] [address] (Wo rk) Social History Tobacco [...] on filedocumented in this encounter Care Teams Conductor Symphonic Orchestra Relationship Specialty Start Date End Date Mariluz Vargas MD PCP - General Family Medicine 11/20/[address] [place] [address] [address] [place] [address] documented as of this encounter
--- OUTSIDE RECORDS SUMMARY | 2022-01-04 01:41 | XMS_ITS | Encounter Summary ---
:1970 Author Organization [facility] [place] [address] Care Team Providers Name Role Phone Rocio Jose MD Primary Care Provider Encounter Details Date Type Department Care Team Description 05/26/2015 Telephone Urology at [facility] Arely Preciado [facility] [place] [address] [facility] [phone] UROLOGY DEPT. [place], [place] [address] (Wo rk) Social History Tobacco [...] filedocumented in this encounter Care Teams Supervisor Boat Outfitting Relationship Specialty Start Date End Date Rocio Jose MD PCP - General 05/21/10 08/20/15 [address] [place] [address] documented as of this encounter
--- OUTSIDE RECORDS SUMMARY | 2022-01-04 01:41 | XMS_ITS | Encounter Summary ---
:1970 Author Organization [facility] [place] [address] Care Team Providers Name Role Phone Rocio Jose MD Primary Care Provider Encounter Details Date Type Department Care Team Description 04/18/2015 Notes Only Urology at [facility] [place] [address] Social History Tobacco Use Types Packs/Day [...] on filedocumented in this encounter Care Teams Cryptological Technician Relationship Specialty Start Date End Date Rocio Jose MD PCP - General 05/21/10 08/20/15 [address] [place], [place] [address] documented as of this encounter
--- OUTSIDE RECORDS SUMMARY | 2022-01-04 01:41 | XMS_ITS | Encounter Summary ---
:1970 Author Organization [facility] [place] [address] Care Team Providers Name Role Phone Mariluz Vargas MD Primary Care Provider Encounter Details Date Type Department Care Team Description 04/02/2016 Orders Only Urology at [facility] Arely Preciado, [facility] [place] [address] [facility] [phone] UROLOGY DEPT. [place], [place] [address] (Wo rk) Social History Tobacco [...] on filedocumented in this encounter Care Teams Obstetric Assistant Relationship Specialty Start Date End Date Mariluz Vargas MD PCP - General Family Medicine 11/20/[address] [place], [place] [address] documented as of this encounter
--- OUTSIDE RECORDS SUMMARY | 2022-01-04 01:41 | XMS_ITS | Encounter Summary ---
:1970 Author Organization [facility] [place] [address] Care Team Providers Name Role Phone Mariluz Vargas MD Primary Care Provider Encounter Details Date Type Department Care Team Description 09/06/2016 Telephone Urology at [facility] [place] [address] [facility] [phone] UROLOGY DEPT. [place], [place] [address] (Wo rk) Social History Tobacco [...] call about urine culture results. Please call [phone] documented in this encounter Plan of Treatment Not on filedocumented as of this encounter Visit Diagnoses Not on filedocumented in this encounter Care Teams Tape Duplicator Relationship Specialty Start Date End Date Mariluz Vargas MD PCP - General Family Medicine 11/20/15 [address] [place] [address] documented as of this encounter
--- OUTSIDE RECORDS SUMMARY | 2022-01-04 01:41 | XMS_ITS | Encounter Summary ---
:1970 Author Organization [facility] [place] [address] Care Team Providers Name Role Phone Mariluz Vargas MD Primary Care Provider Encounter Details Date Type Department Care Team Description 06/17/2016 Telephone [place] [facility] [place] Preciado, [facility] [place] [address] [facility] [phone] UROLOGY DEPT. [place], [place] [address] (Wo rk) Social History Tobacco [...] full course, or call the urology resident transformation consultant. I asked her to call me about [...] the urine sample given this morning at [facility]. Pt knows it will not be ready but leaving on vacation Friday and currently has medication -nitrofurantoin - to take. Pt is informing Arely of the UTI. Pt would like a call on her Cell Telephone Encounter - Ronan Rojas - 06/17/2016 4:08 PM EST Patient feels she has a UTI - needs slip sent to [facility] for first clean catch in morning on 06/18/16. Pt's #[phone]. documented in this encounter Plan of Treatment Not on filedocumented as of this encounter Visit Diagnoses Not on filedocumented in this encounter Care Teams Superintendent Transportation Relationship Specialty Start Date End Date Mariluz Vargas MD PCP - General Family Medicine 11/20/[address] [facility] [address] [place] [address] documented as of this encounter
--- OUTSIDE RECORDS SUMMARY | 2022-01-04 01:41 | XMS_ITS | Encounter Summary ---
:1970 Author Organization [facility] [place] [address] Care Team Providers Name Role Phone Mariluz Vargas MD Primary Care Provider Encounter Details Date Type Department Care Team Description 02/23/2016 Telephone Urology at [facility] Jocelyn Navarro, [place] [address] Social History Tobacco Use Types Packs/Day [...] The patient will do this tomorrow at [facility]. I have sent an order to them for culture and have added this to the weekend culture list. JOCELYN NAVARRO LPN documented in this encounter Plan of Treatment Not on filedocumented as of this encounter Visit Diagnoses Not on filedocumented in this encounter Care Teams Card Dealer Relationship Specialty Start Date End Date Mariluz Vargas MD PCP - General Family Medicine 11/20/15 [address] [place] [address] documented as of this encounter
--- OUTSIDE RECORDS SUMMARY | 2022-01-04 01:42 | XMS_ITS | Encounter Summary ---
:1970 Author Organization [facility] [place] [address] Care Team Providers Name Role Phone Rocio Jose MD Primary Care Provider Reason for Visit Reason Comments Other Encounter Details Date Type Department Care Team Description 04/11/2015 Telephone Urology at [facility] Arely Preciado, [facility] [place] [address] [facility] [phone] UROLOGY DEPT. [place], [place] [address] (Wo rk) Social History Tobacco Use Types Packs/Day Years Used Date Never Smoker Sex Assigned at Date Recorded Not on file documented as of this encounter Miscellaneous Notes Telephone Encounter - Arely Preciado APRN - 04/11/2015 6:32 PM EST Called pt about her most recent culture: UCx 04/03/15: no treat. Repeat culture proves she clears. urine results: 03/15/15: 10-50 K e.coli ackerman sensitive 03/01/15: 50-99K e.coli tx with keflex Sx are postcoital often. They will try being sexually active next week and let us know if she has symptoms. We discussed postcoital abx now, but she will defer. We also discussed 6 months of prophylaxis, which she will defer. At this time, we will monitor for symptoms. documented in this encounter Plan of Treatment Not on filedocumented as of this encounter Visit Diagnoses Not on filedocumented in this encounter Care Teams Telegraph Installer Relationship Specialty Start Date End Date Rocio Joes MD PCP - General 05/21/10 08/20/[address] [place] [address] documented as of this encounter
--- OUTSIDE RECORDS SUMMARY | 2022-01-04 01:42 | XMS_ITS | Encounter Summary ---
:1970 Author Organization [facility] Address [facility] [place] [address] Care Team Providers Name Role Phone Rocio Jose MD Primary Care Provider Reason for Visit Consultation (Routine) - Closed Specialty Diagnoses / Procedures Referred By Contact Refer red To Contact Urology Diagnoses urgency of urination Mariluz Vargas MD [facility] Urology [address] [place], [place] [address] [place] [address] Phone: Fax: Referral ID Status Reason Start Date Expiration Date Visits V isits Requested Authorized [id number] Closed Consult, 01/31/2015 01/31/2016 2 2 Test & Treat Connection Center Encounter Details Date Type Department Care Team Description 03/01/2015 Office Visit Urology [place] [facility] Arely Preciado, Recurrent UTI [facility] [place] [address] [facility] [phone] UROLOGY DEPT. [place], [place] [address] (Wo rk) Social History [...] and then walk slowly to the bathroom. [place] no more than 3 times per week. Void prior to and at least after intercourse. Further Treatment Options pls see your bar examiner as planned for your cervical cancer Please [...] reviewed. Ms. Sherman was last seen at [facility] in 07/2010 by ERMIAS Suárez for [...] history of cervical cancer and sees her LABOR ECONOMICS PROFESSOR next week. In 07/2014, she saw her [...] feels hot most of the time. 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 She is a non-smoker, non-drinker. FAMILY [...] with reflex Culture (03/01/2015 10:34 AM EST) [facility] Method Time Signature Glucose UA Negative [...] ENNIUM pH UA 6.0 5.0 - 8.0 [facility] MILLENNIUM Blood UA Small (A) Negative mg/dL CERNER MILLENNI UM Ketones UA Negative Negative mg/dL [facility] MILLENN IUM Nitrite UA Positive (A) Negative [facility] MILLENNIU M Leukocytes UA Large (A) Negative mcL [facility] [place] NIUM Appearance UA Hazy (A) Clear CERNER MILLENNIU M Spec [place] UA 1.019 1.002 - 1.030 [facility] MIL LENNIUM Color UA Yellow Yellow [facility] MILLENNIUM RBC UA 5 (H) 0 - 4 /HPF [facility] MILLENNIUM WBC UA >182 (H) 0 - 5 /HPF [facility] MILLENNIUM Bacteria UA Many (A) None /HPF [facility] MILLENNIUM Trans Epith UA <1 <=1 /HPF [facility] MILLENNI UM Culture Reflexed Dup Culture [facility] MILL ENNIUM Specimen Anatomical Collection Method Collection Time Receive d Time (Source) Location / / Volume Laterality Urine specimen 03/01/2015 10:34 5 (specimen) AM EST 11:50 AM EST Resulting Agency Comment Spec In Lab Boone Rodriguez MD URINE ORDERABLES Performing Organization Address City/State/[place] [address] CERNER JENNIFERENNIUM (ABNORMAL) Urine culture Clean Catch Urine (03/01/2015 10:34 AM EST) [facility] Method Time Signature Urine Culture 50,000-99,000 CERN[facility] cfu/[facility] Escherichia coli (A) Organism Escherichia CERNER [...] Organization Address City/State/[place] [address] [facility] documented in this encounter Visit Diagnoses Diagnosis Recurrent UTI Urinary tract infection, site not specif ied documented in this encounter Care Teams A&P Mechanic Relationship Specialty Start Date End Date Rocio Jose MD PCP - General 05/21/10 08/20/15 [address] [place] [address] documented as of this encounter
--- OUTSIDE RECORDS SUMMARY | 2022-01-04 01:42 | XMS_ITS | Encounter Summary ---
:1970 Author Organization [facility] [place] [address] Care Team Providers Name Role Phone Rocio Jose MD Primary Care Provider Encounter Details Date Type Department Care Team Description 03/03/2015 Telephone Urology at [facility] Boone Rodriguez MD [facility] [place] [address] UROLOGY [phone] [place], [place] [address] (Wo rk) Social History Tobacco [...] that the lab order be sent to [facility] and the medication, keflex 500mg po 4 x daily for 7 days be sent to [facility] in [facility]. Medication order sent to [facility] as requested and lab order faxed to [facility]. Lab results: Abnormal Status: Final result 03/03/2015 [...] on filedocumented in this encounter Care Teams Veneer Sander Relationship Specialty Start Date End Date Rocio Jose MD PCP - General 05/21/10 08/20/15 [address] [place] [address] documented as of this encounter
--- OUTSIDE RECORDS SUMMARY | 2022-01-04 01:42 | XMS_ITS | Encounter Summary ---
:1970 Author Organization [facility] Address [facility] [place] [address] Care Team Providers Name Role Phone Rocio Jose MD Primary Care Provider Encounter Details Date Type Department Care Team Description 03/03/2015 Orders Only Urology at [facility] Boone Rodriguez MD Acute UTI ([facility] tra ct infection) [place] [address] UROLOGY [phone] [place], [place] [address] Social History Tobacco Use Types Packs/Day Years Used Date Never Smoker Sex Assigned at Date Recorded Not on file documented as of this encounter Plan of Treatment Not on filedocumented as of this encounter Visit Diagnoses Diagnosis Acute UTI (urinary tract infection) Urinary tract infection, site not specif ied documented in this encounter Care Teams Rehabilitation Coordinator Relationship Specialty Start Date End Date Rocio Jose MD PCP - General 05/21/10 08/20/15 [address] [place], [place] [address] documented as of this encounter
--- OUTSIDE RECORDS SUMMARY | 2022-01-04 01:42 | XMS_ITS | Encounter Summary ---
:1970 Author Organization [facility] Address [facility] [place] [address] Care Team Providers Name Role Phone Rocio Jose MD Primary Care Provider Reason for Referral Consultation (Routine) - Closed Specialty Diagnoses / Procedures Referred By Contact Refer red To Contact Obstetrics and Diagnoses Cervical cancer Dayron Jauregui [place] Intrusion Analyst 5l Gynecology TONYA Mcgee [facility] [address] [place], [place] UROLOGY [place]PT. [address] [place] [address] Referral ID Status Reason Start Date Expiration Date Visits V isits Requested Authorized [id number] Closed Consult, 03/10/2015 03/09/2016 1 1 Test & Treat Reason for Visit Reason Comments Other Encounter Details Date Type Department Care Team Description 03/10/2015 Telephone Urology at [facility] Arely Preciado, [facility] [place] [address] [facility] [phone] UROLOGY DEPT. 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 Ongoing trail maintenance worker issues. She has a trail maintenance worker provider, but prefers to move her care to [facility], preferrably with Dr. Aimee Gonzalez or a trail maintenance worker onc provider. Referral placed per pt request. documented in this encounter Plan of Treatment Scheduled Referrals Name Type Priority Associated Diagnoses Order S chedule Referral to [facility] Referral Routine Cervical cancer Ordered: 03/10/2015 documented as of this encounter Visit Diagnoses Diagnosis Cervical cancer Malignant neoplasm of cervix uteri, unsp ecified site documented in this encounter Care Teams Legislative Analyst Relationship Specialty Start Date End Date Rocio Jose MD PCP - General 05/21/10 08/20/15 [address] [place] [address] documented as of this encounter
--- OUTSIDE RECORDS SUMMARY | 2022-01-04 01:42 | XMS_ITS | Encounter Summary ---
:1970 Author Organization [facility] [address] Care Team Providers Name Role Phone Rocio Jose MD Primary Care Provider Encounter Details Date Type Department Care Team Description 08/30/2010 External Results Urology at [facility] Rosaura Greenberg, [facility] [place] [address] [facility] [phone] UROLOGY DEPT. [place], [place] [address] Social History Tobacco Use Types Packs/Day Years Used Date Never Assessed Sex Assigned at Date Recorded Not on file documented as of this encounter Progress Notes Rosaura Greenberg PA - 08/30/2010 11:56 AM EDT I received the following urine culture results from [facility]: 05/18/10: 10,000-50,000 CFU E. Coli (ackerman [...] on filedocumented in this encounter Care Teams Screedman Relationship Specialty Start Date End Date Rocio Jose MD PCP - General 05/21/10 08/20/15 [address] [place] [address] documented as of this encounter
--- OUTSIDE RECORDS SUMMARY | 2022-01-04 01:42 | XMS_ITS | Encounter Summary ---
:1970 Author Organization [facility] Address [facility] [place] [address] Care Team Providers Name Role Phone Rocio Jose MD Primary Care Provider Encounter Details Date Type Department Care Team Description 05/24/2010 Office Visit Allergy at [facility] Gabe Virgen MD [facility] [place] [address] ALLERGY AND IMMUNOLOGY [phone] [place], [place] [address] (Wo rk) Social History Tobacco [...] Organization Address City/State/[place] [address] CERNER MILLENNIUM documented in this encounter Visit Diagnoses Not on filedocumented in this encounter Care Teams Shell Shop Supervisor Relationship Specialty Start Date End Date Rocio Jose MD PCP - General 05/21/10 08/20/15 [address] [place] [address] documented as of this encounter
--- OUTSIDE RECORDS SUMMARY | 2022-01-04 01:42 | XMS_ITS | Encounter Summary ---
:1970 Author Organization [facility] [place] [address] Care Team Providers Name Role Phone Rocio Jose MD Primary Care Provider Reason for Visit Reason Onset Date Comments Recurrent Urinary Tract Infection 03/21/2015 Encounter Details Date Type Department Care Team Description 03/21/2015 Telephone Obstetrics and Gary Hooper Recu rrent Urinary Gynecology at [facility] [place] [id number] Social History Tobacco Use Types Packs/Day Years Used Date Never Smoker Sex Assigned at Date Recorded Not on file documented as of this encounter Miscellaneous Notes Telephone Encounter - Gary Hooper RN - 03/21/2015 2:16 PM EST Caller: Learning Needs Assessment Reviewed: Yes Subjective Patient presents with: Recurrent Urinary Tract Infection This is a new pt that was referred to TRASH COLLECTOR SUPERVISOR from urology for recurrent UTIs and possible yeast infections. Objective/Assessment Symptom onset: recurrent UTI x 3 years and vaginosis for 1-2 years. Location:urethra and vaginal Duration: Characteristics:Pt reports vaginal discomfort when wiping, urinary urgency, milky discharge, & abdominal pressure. She denies cottage cheese- like or odorsome discharge, flank pain, fevers, urinaryfrequency. Aggravating factors: as stated Relieving factors: has been on macrobid in the past. Timing: Severity: Pertinent Past Medical History:treated for cervical cancer with LEEP in 2005. Urology is attempting to r/o interstitial cystitis. Last pap was in 2013 Plan Intervention/Plan/ Follow Up: attempted to schedule pt with Machelle Mario, but she hanged up the phone before the appointment was confirmed. The pt desired to see Dr. Gonzalez but the earliest appointment was in April 2015. Called pt back after 15 minutes to offer other appointments this week but because of her work schedule and waiting to hear back from urology, the pt refused offers for an appointment and stated that she would call back when she wanted to schedule a visit. documented in this encounter Plan of Treatment Not on filedocumented as of this encounter Visit Diagnoses Not on filedocumented in this encounter Care Teams Mailroom Messenger Relationship Specialty Start Date End Date Rocio Jose MD PCP - General 05/21/10 08/20/15 [address] [place] [address] documented as of this encounter
--- OUTSIDE RECORDS SUMMARY | 2022-01-04 01:42 | XMS_ITS | Encounter Summary ---
:1970 Author Organization [facility] [place] [address] Care Team Providers Name Role Phone Rocio Jose MD Primary Care Provider Encounter Details Date Type Department Care Team Description 09/27/2010 External Results [facility] [place] [facility] Rosaura Greenberg [facility] [place] [address] [facility] [phone] UROLOGY DEPT. [place], [place] [address] Social History Tobacco Use Types Packs/Day Years Used Date Never Assessed Sex Assigned at Date Recorded Not on file documented as of this encounter Progress Notes Rosaura Greenberg PA - 09/27/2010 10:27 AM EDT I received the following results from [facility]: U/A (05/28/10): 0-1 WBC, 0 RBC, no bacteria U/A (07/27/10): 0-1 WBC, 0-1 RBC, no bacteria I received a note from the patient that she has been relatively asymptomatic since her last visit. Rosaura Greenberg PA-C documented in this encounter Plan of Treatment Not on filedocumented as of this encounter Visit Diagnoses Not on filedocumented in this encounter Care Teams Plumbers And Top Helpers Relationship Specialty Start Date End Date Rocio Jose MD PCP - General 05/21/10 08/20/15 [address] [place] [address] documented as of this encounter
--- OUTSIDE RECORDS SUMMARY | 2022-01-04 01:42 | XMS_ITS | Encounter Summary ---
:1970 Author Organization [facility] [place] [address] Care Team Providers Name Role Phone Rocio Jose MD Primary Care Provider Reason for Visit Reason Comments Other Encounter Details Date Type Department Care Team Description 03/21/2015 Telephone Urology at [facility] Arely Preciado, [facility] [place] [address] [facility] [phone] UROLOGY DEPT. [place], [place] [address] (Wo rk) Social History [...] on filedocumented in this encounter Care Teams Stand In Relationship Specialty Start Date End Date Rocio Jose MD PCP - General 05/21/10 08/20/15 [address] [place] [address] documented as of this encounter
--- OUTSIDE RECORDS SUMMARY | 2022-01-04 01:42 | XMS_ITS | Encounter Summary ---
:1970 Author Organization [facility] [place] [address] Care Team Providers Name Role Phone Rocio Jose MD Primary Care Provider Encounter Details Date Type Department Care Team Description 06/01/2010 Office Visit Urology at [facility] Fazal Byrne PA [facility] Teja [facility] [place] [address] UROLOGY DEPT. [phone] [place], [place] [address] Social History Tobacco Use Types [...] URINALYSIS WITH MICROSCOPIC (06/01/2010 12:23 PM EST) [facility] Method Time Signature Glucose UA Negative Negative [...] Appearance UA Clear Clear CERNER MILLENNIUM Spec [place] UA 1.006 1.002 - CERNER 1.030 MILLENNIUM [...] Organization Address City/State/ZIP Code Phon e Number [place] [phone] CERNER MILLENNIUM URINE CULTURE (06/01/2010 11:00 AM EST) [facility] Method Time Signature Urine Culture CERNER ? Patient Name: OLIMPIA, ADELA L ? Or dered By: FAZAL BYRNE ? MR#: [id number] ?LOC: ??5B ? /Sex: ??1970 (40 years), [...] Organization Address City/State/ZIP Code Phon e Number [address] [facility] documented in this encounter Visit Diagnoses Not on filedocumented in this encounter Care Teams Pocket Builder Relationship Specialty Start Date End Date Rocio Jose MD PCP - General 05/21/10 08/20/[address] [place] [address] documented as of this encounter
--- OUTSIDE RECORDS SUMMARY | 2022-01-04 01:42 | XMS_ITS | Encounter Summary ---
:[address] [facility] [place] [address] Care Team Providers Name Role Phone Rocio Jose MD Primary Care Provider Reason for Visit Reason Comments Follow-up reoccuring UTI's Encounter Details Date Type Department Care Team Description 08/13/2010 Follow-Up Urology at [facility] Rosaura Greenberg Recurrent UTI (Primary [facility] B, PA [place]x) [place] [address] UROLOGY DEPT. [place], [place] [address] Social History Tobacco Use Types [...] patient states that they were done at [facility] in [facility] but a request to obtain those records [...] Clean Catch Urine (08/13/2010 5:29 PM EDT) [facility] Method Time Signature Urine Culture CERNER ? Patient Name: ADELA DOAN ? Ordered By: ROSEANN RODRIGUEZ [facility] ? MR#: [id number] ?LOC: ??5B ? /Sex: ??1970 (40 years), [...] Organization Address City/State/[place] [address] [facility] documented in this encounter Visit Diagnoses Diagnosis Recurrent UTI - Primary Urinary tract infection, site not specif ied documented in this encounter Care Teams Relief Docking Master Relationship Specialty Start Date End Date Rocio Jose MD PCP - General 05/21/10 08/20/[address] [place] [address] documented as of this encounter
[2022-01-04 07:42] LABS: Anion Gap 7.8 mmol/L (3-11); BUN 12 mg/dL (7-18); CO2 28.2 mmol/L (21.0-32.0); CREATININE 0.8 mg/dL (0.55-1.02); Calcium 8.4 mg/dL (8.5-10.1); Calculated LDL 48 mg/dL (<100); Chloride 104 mmol/L (98-107); Cholesterol 131 mg/dL (<200); Estimated GFR 89.15 (mL/min/1.73m2); Glucose 100 mg/dL (74-106); HDL Cholesterol 74 mg/dL (40-60); Potassium 3.7 mmol/L (3.5-5.1); Sodium 140 mmol/L (136-145); Triglyceride 45 mg/dL (<150)
[2022-01-04 08:11] LABS: Hemoglobin A1C 5.5 % (<5.7)
== END 2022-01-04 01:40 | disposition home or self-care (01) ==
LOC: LBO 01:39
PROVIDERS: PCP Nurse Practitioner Family; Visit Provider Nurse Practitioner Family
DX: Z00.00 Encounter for general adult medical examination without abnormal findings (principal)
CPT/HCPCS: 36415; 80048; 80061; 83036

== ENCOUNTER 2022-01-10 03:59 | Outpatient (CLI) | payer BC, SELFPAY ==
[2022-01-14 13:49] LABS: ANA Interpretation Positive (Negative); ANA Titer Pattern 1:160 Homogeneous
[2022-01-15 13:32] LABS: dsDNA Ab, IgG <12.3 IU/mL (<30.0)
== END 2022-01-10 04:00 | disposition home or self-care (01) ==
LOC: LBO 03:59
PROVIDERS: PCP Nurse Practitioner Family; Visit Provider Naturopath
DX: R76.8 Other specified abnormal immunological findings in serum (principal)
CPT/HCPCS: 36415; 86038; 86225

== ENCOUNTER 2022-01-18 17:39 | Outpatient (REF) | payer BC, SELFPAY ==
[2022-01-18 12:11] LABS: Bilirubin Negative (Negative); Blood Negative (Negative); Clarity Clear (Clear); Glucose Negative (Negative); Ketones Negative (Negative); Leukocyte Esterase Trace (Negative); Nitrite Negative (Negative); Urobilinogen 0.2 EU/dL (Up TO 0.2)
[2022-01-18 12:17] LABS: Bacteria Rare HPF (Negative); C & S Indicated? Yes; Casts Negative LPF (Negative); Crystals Negative HPF (Negative); Epithelial Cells Rare HPF (Negative); Mucus Negative (Negative); RBC Negative HPF (0-2)
== END 2022-01-18 17:40 | disposition home or self-care (01) ==
LOC: LBN 17:39
PROVIDERS: PCP Nurse Practitioner Family; Visit Provider Nurse Practitioner Family
DX: R35.0 Frequency of micturition (principal)
CPT/HCPCS: 81003; 81015; 87086

== ENCOUNTER 2022-03-15 01:30 | Outpatient (CLI) | payer BC, SELFPAY ==
--- OUTSIDE RECORDS SUMMARY | 2022-03-15 01:33 | XMS_ITS | Encounter Summary ---
:1970 Author Organization [facility] [place] [address] Care Team Providers Name Role Phone Mariluz Vargas MD Primary Care Provider Encounter Details Date Type Department Care Team Description 05/11/2019 Surgery Gastroenterology at [facility] Aguila Cervatnes, COLONOSCOPY FLEXIBLE, [facility] Teja bone MD WITH BX (WRVU 3.66) [place] [address] [facility] [phone] DR GASTROENTEROLOGY [place], [place] [address] Social History Tobacco Use Types Packs/Day Years Used Date Smoking Tobacco: Never Smokeless Tobacco: Never Alcohol Use Standard Drinks/Week Comments Yes 1 (1 standard drink = 0.6 oz pure alcoho l) couple times a month Sex Assigned at Date Recorded Not on [...] documented in this encounter Discharge Instructions Discharge InstructionsGabe Anand, RN - 05/11/2019 8:30 AM EST Colonoscopy: [...] occurs, please contact your Doctor. Please call [phone] before 8pm Mon-Fri with problems, questions or concerns. If you call after 8pm or on weekends, call the Hospital at [phone] and ask to speak to the Bagger And Stock Handler Helper promotions officer and the machine tank operator will contact that person for you. When should you call for help? Call [phone] anytime you think you may need emergency [...] any problems. Where can you learn more? [facility] View your After Visit Summary and more online at [email or web address] If you would like to provide feedback about your hospital experience, please call the Office of Patient and Family Relations at . If you have received this After Visit Summary in error, please immediately return it in person to the department, or notify the [facility] Privacy Office by calling toll free at between the hours of 8AM and 5PM to arrange for our retrieval of the documents at no cost to you. Content Version: 12.2 ?? [id number] [employer]. Care instructions adapted under license by [facility]. If you have questions about a medical condition or this instruction, always ask your healthcare professional. [employer] disclaims any warranty or liability for your [...] Mclain PA-C Section of Gastroenter[place] [address] documented in this encounter Plan of Treatment [...] AM 0 8:25 EST AM EST [facility] [facility] - 05/11/2019 8:25 AM EST Specimen requisition ordered. ??Separate Pathology report to follow Aguila Cervantes MD PATHOLOGY/CYTOLOGY ORDERABLE S Performing Organization Address City/State/[place] [address] Surgical Pathology Report (05/11/2019 8:15 AM EST) Component Value Ref Test Analysis Performed At Patholo gist Range Method Time Signature Surgical [id number] ? Location: 4T; EA07; A [facility] Report The signing pathologist has (i) examined the relevant preparation(s) for the [facility]ORIAL specimen(s) and (ii) rendered or confirmed the diagnosis(es) . HOSPITAL LABORATORY . ?Surgic al Pathology DIAGNOSIS Random colon, ??biopsy: Colonic mucosa with focal no nspecific mild chronic inflammation in lamina propria. CR-PX Electronically signed by: ??Mariana Fox MD Verified: ??05/13/2019 ?Pathologist Performed at: ??-[facility] Dept. of Pathology, [place], [place] CLINICAL INFORMATION Specimen Submitted: A - [...] Organization Address City/State/[place] [address] COLONOSCOPY (05/11/2019 7:38 AM EST) [facility] Method Time Signature COLONOSCOPY [facility] Endoscopy Procedure Date: 05/11/2019 7:38 AM ? Patient Name: Adela Clouatre ? Date of : 1970 ? Age: 49 ? Order #: [id number] ? Instrument Name: [id number] ? Procedure: ? Colonoscopy Indications: ? Hematochezia, [...] a s the ? colonoscope was withdrawn. e ? colonoscopy was performed wit sushant ? difficulty. The patient arelis ated the ? procedure well. The quality o f the ? bowel preparation was evaluat ed using ? the BBPS ([place] Bowel Prepar ation ? Scale) with scores [...] 05/11/2019 fentaNYL 50 mcg/mL multi-dose injection (CANCELED) 802 (Given - Provider: Lee Benites, JENNIFER)08 (Given - Provider: Lee Benites, RN)08 (Given - Provider: Lee Benites RN)08 (Given - Provider: Lee Benties RN) ONCE PRN, Starting Fri05/11/19 at 0803, Until Fri05/11/19 at 1118, Intra- Operative (Intra-Procedure), Routine midazolam (PF) (VERSED) multi-dose injection (CANCELED) 08 (Given - Provider: Lee Benites, RN)08 (Given - Provider: Lee Benites, RN)08 (Given - Provider: Lee Benites, RN) ONCE PRN, Starting Fri05/11/19 at 0803, Until Fri05/11/19 at 1118, Intra- Operative (Intra-Procedure), Routine documented in this encounter Care Teams Office Assistant Relationship Specialty Start Date End Date Mariluz Vargas MD PCP - General Family Medicine 11/20/[address] [place] [address] [address] [place] [address] documented as of this encounter
--- OUTSIDE RECORDS SUMMARY | 2022-03-15 01:33 | XMS_ITS | Encounter Summary ---
:1970 Author Organization [facility] [place] [address] Care Team Providers Name Role Phone Mariluz Vargas MD Primary Care Provider Encounter Details Date Type Department Care Team Description 04/29/2017 Office Visit Urology at [facility] Alvaro Muñiz MD Nephrolithiasis [facility] [place] [address] NEPHROLOGY DEPT. 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, [...] was offered but she has her own continuity clerk The patient is drinking plenty of water, was encouraged to persist with her efforts Recent operative stone extractions because of recurrent UTIs, the patient has no more UTI since RTC in a year documented in this encounter Plan of Treatment Not on filedocumented as of this encounter Visit Diagnoses Diagnosis Nephrolithiasis Calculus of kidney documented in this encounter Care Teams Environmental Services Aide Relationship Specialty Start Date End Date Mariluz Vargas MD PCP - General Family Medicine 11/20/[address] [place] [address] [address] [place] [address] documented as of this encounter
--- OUTSIDE RECORDS SUMMARY | 2022-03-15 01:33 | XMS_ITS | Encounter Summary ---
:1970 Author Organization [facility] Address [address] [place] [address] Care Team Providers Name Role Phone Unavailable Primary Care Provider Unavailable Encounter Details Date Type Department Care Team Description 01/10/2010 Results Only [facility] Tania Webster, MADELINE Laboratory Services - [address] [address] Social History Tobacco Use Types Packs/Day Years Used Date Smoking Tobacco: Never Assessed Sex Assigned at Date Recorded Not on file documented as of this encounter Plan of Treatment Not on filedocumented as of this encounter Procedures Procedure Name Priority Date/Time Associated Diagnosis Comme nts CYTOPATHOLOGY Routine 01/10/2010 0:00 EDT Results for this procedure are i n the results section . documented in this encounter Results CYTOPATHOLOGY (01/10/2010 0:00 EDT) Component Value Ref Test Analysis Performed At [facility] Range Method Time Signature Pathology CYTOPATHOLOGY REPORT ? TOBIAS Report: ? [facility] Reports generated via Markafoni interface contain original data; ? however they are lacking the format of the original report. ? Caution should be taken when reading/interpreting unformatted reports. ? Name: ? ADELA DOAN L ? Accession #: ? [id number] ? : ? 1970 (Age: 40) ??F ?Collect Date: ? 01/10/2010 ? Location: ? [facility] ? R eceive Date: ? 01/11/2010 ? Provider: TANIA M GADIEL BUCKLE SEWER MACHINE ? Copy to: ? Final Report ? [...] by: ? System Interface ? Report date: 01/23/20 ? By the signature above, the attending physician certifies that he/she has ? personally conducted a gross and/or microscopic examination of the described ? specimens and rendered or co nfirmed the above diagnosis. ? End of Report ? Specimen (Source) Anatomical Location Collection Method / Collectio n Time Received Time / Laterality Volume 01/10/2010 01/11/2010 Tania Webster NP PATHOLOGY ORDERABLES Performing Organization Address City/State/ZIP Code Phon e Number [facility] [address] [place] [address] SERVICES [facility] [address] [place] [address] documented in this encounter Visit Diagnoses Not on filedocumented in this encounter
--- OUTSIDE RECORDS SUMMARY | 2022-03-15 01:33 | XMS_ITS | Encounter Summary ---
:1970 Author Organization [facility] [address] Care Team Providers Name Role Phone Mariluz Vargas MD Primary Care Provider Encounter Details Date Type Department Care Team Description 03/05/2019 Telephone Dermatology at [facility] Roxi Dutton MD [address] [facility] [place] [address] [facility] [phone] [place], [place] [address] (Wo rk) Social History Tobacco [...] that that would be ok. Please call [phone] documented in this encounter Plan of Treatment Not on filedocumented as of this encounter Visit Diagnoses Not on filedocumented in this encounter Care Teams Manager Combination Relationship Specialty Start Date End Date Mariluz Vargas MD PCP - General Family Medicine 11/20/[address] [place] [address] documented as of this encounter
--- OUTSIDE RECORDS SUMMARY | 2022-03-15 01:33 | XMS_ITS | Encounter Summary ---
:1970 Author Organization [facility] [place] [address] Care Team Providers Name Role Phone Mariluz Vargas MD Primary Care Provider Encounter Details Date Type Department Care Team Description 04/29/2017 Hospital Encounter Ultrasound at [facility] Dayron Shania, Nephrolithiasis [facility], [address] [place] [address] UROLOGY DEPT. [phone] [place], [place] [address] Social History Tobacco Use Types [...] 10:48 am) PATIENT INFO: ID #: ? [id number] ?: ??[birth year] (47 yrs) Name: ? TARI V ? Visit Date: 04/29/2017 09:54 am ? CLOUATRE PERFORMED BY: Performed By: ? Vandana LOWERY, ??Enio johnson Attending: ?Master VILLASENOR, Kieran Santa. Resident: ? Heaven VILLASENOR, Krista Strange Referred By: ?BOWEN Noriega Location: ? [place] SERVICE(S) PROVIDED: ??URETRO - Retroperitoneal Complete - I [id number] ? [id number] INDICATIONS: ??history of nephrolithiasis and infect ed [...] 10:48 am ) PATIENT INFO: ID #: [id number] : [birth year] (47 y rs) Name: TARI Cabrales Visit Date: 04/29/2017 0 9:54 am CLOUATRE PERFORMED BY: Performed By: Ana Ross RDMS Attending: Svitlana Thao MD Resident: Mejia Collado MD Referred By: BOWEN HOLLINS Location: [place] SERVICE(S) PROVIDED: URETRO - Retroperitoneal Complete - [id number] INDICATIONS: history of nephrolithiasis and infected stone. [...] kidney documented in this encounter Care Teams Academic Registrar Relationship Specialty Start Date End Date Mariluz Vargas MD PCP - General Family Medicine 11/20/[address] [place] [address] documented as of this encounter
--- OUTSIDE RECORDS SUMMARY | 2022-03-15 01:33 | XMS_ITS | Encounter Summary ---
:1970 Author Organization [place] [address] Care Team Providers Name Role Phone Mariluz Vargas MD Primary Care Provider Reason for Visit Reason Comments Skin Lesion Encounter Details Date Type Department Care Team Description 02/25/2019 Office Visit Dermatology at 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 [...] encounter. Roxi Dutton MD Section of Dermatology [facility] cc: Mariluz Vargas MD documented in this encounter Plan of Treatment Not on filedocumented as of this encounter Visit Diagnoses Diagnosis Allergic contact dermatitis, unspecified trigger Fibrous papule of nose Benign neoplasm of skin of other and uns pecified parts of face documented in this encounter Care Teams Factory Hand Relationship Specialty Start Date End Date Mariluz Vargas MD PCP - General Family Medicine 11/20/[address] [place] [address] [address] [place] [address] documented as of this encounter
--- OUTSIDE RECORDS SUMMARY | 2022-03-15 01:33 | XMS_ITS | Encounter Summary ---
:1970 Author Organization [facility] Address [address] [place] [address] Care Team Providers Name Role Phone Unavailable Primary Care Provider Unavailable Encounter Details Date Type Department Care Team Description 06/25/2006 Results Only [facility] - Leana Strickland MD Maple conversion [address] [place] [address] [place] [address] [phone] Social History Tobacco Use Types Packs/Day Years Used Date Smoking Tobacco: Never Assessed Sex Assigned at Date Recorded Not on file documented as of this encounter Plan of Treatment Not on filedocumented as of this encounter Procedures Procedure Name Priority Date/Time Associated Diagnosis Comme [facility] SURGICAL PATHOLOGY Routine 06/25/2006 0:00 EST Re sults for this procedure are i n the results section. documented in this encounter Results SURGICAL PATHOLOGY (06/25/2006 0:00 EST) Component Value Ref Test Analysis Performed At [facility] Method Time Signature Pathology SURGICAL PATHOLOGY REPORT NOMAN PARR Report: Reports generated via electronic interface contain irasema sims data; [facility] MISHRA however they are lacking the format of the original report. Caution should be taken when reading/interpreting unformatte d reports. Name: ? ADELA DOAN ? Accession #: ? [id number] ? : ? 1970 (Age: 36) ??F ? Collect Date: ? 06/25/2006 ? Location: ? [facility] ? Receive Date: ? 06/26/2006 ? Provider: GISELL STRICKLAND MD Copy to: ? Final Pathologic Diagnosis: ? Cervix, 6 o'clock, biopsy: - High grade squamous intraepithelial le lolly (YASHIRA III) with endocervical gland extension. Document reviewed and electronically signed by: Iona Mccauley MD Report ??Date: 06/27/2006 16:23 By the signature above, the attending physician certifies th at he/she has personally conducted a gross and/or microscopic examin ation of the described specimens and rendered or confirmed the above diagnosis. Specimen(s) Received: ? Cx bx @ 6:00 Clinical History: ? Colpo; 03/18/06 Pap ??ASCUS, (+) HPV on BCP; LMP: 05/23 11/25 Gross Description: ? Received in formalin labelled [place] and cx bx at 6 o'clock is a 0.5 x 0.3 x 0.2 cm pale cassidy glis tening portion of mucosa. ??The specimen is submitted intact in one cassette. ??(Sagrario Prajapati)/g End of Report Specimen (Source) Anatomical Collection Method Collection Time Re ceived Time Location / / Volume Laterality 06/25/2006 06/26/2006 5:14 EST Gisell Strickland MD PATHOLOGY ORDERABLES Performing Organization Address City/State/ZIP Code Phon e Number [facility] [address] [place] [address] [facility] [address] [place] [address] documented in this encounter Visit Diagnoses Not on filedocumented in this encounter
--- OUTSIDE RECORDS SUMMARY | 2022-03-15 01:33 | XMS_ITS | Encounter Summary ---
:1970 Author Organization [facility] [place] [address] Care Team Providers Name Role Phone Mariluz Vargas MD Primary Care Provider Encounter Details Date Type Department Care Team Description 11/15/2016 Hospital Encounter Ultrasound at [facility] Quentin Murphy Nephrolithiasis [facility] [place] [address] UROLOGY DEPT. [phone] [place], [place] [address] Social History Tobacco Use Types [...] 01:39 pm) PATIENT INFO: ID #: ? [id number] ?: ??[birth year] (46 yrs) Name: ? ADELA V ? Visit Date: 11/15/2016 01:09 pm ? CLOUATRE PERFORMED BY: Performed By: ? Juancho Romero RDMS Attending: ?Kirk VILLASENOR, Chris Martinez Referred By: ?QUENTIN MURPHY Location: ? [place] SERVICE(S) PROVIDED: ??URETRO - Retroperitoneal Complete - I [id number] ? [id number] INDICATIONS: ??s/p bilateral URS 09/24/2016. ?hydro COMPARISON: [...] 01:39 pm ) PATIENT INFO: ID #: [id number] : [birth year] (46 y rs) Name: ADELA Cabrales Visit Date: 11/15/2016 0 1:09 pm CLOUATRE PERFORMED BY: Performed By: Juancho Romero RDMS Attending: Aguila Bradley MD Referred By: QUENTIN MURPHY JR Location: [place] SERVICE(S) PROVIDED: URETRO - Retroperitoneal Complete - IM [id number] INDICATIONS: s/p bilateral URS 09/24/2016. ?hydro COMPARISON: [...] 11/15 01:39 pm Quentin Murphy Jr., MD [facility] ORDERABLES documented in this encounter Visit Diagnoses Diagnosis Nephrolithiasis Calculus of kidney documented in this encounter Care Teams Brusher Relationship Specialty Start Date End Date Mariluz Vargas MD PCP - General Family Medicine 11/20/[address] [place] [address] [address] [place] [address] documented as of this encounter
--- OUTSIDE RECORDS SUMMARY | 2022-03-15 01:33 | XMS_ITS | Encounter Summary ---
:1970 Author Organization [facility] Address [address] [place] [address] Care Team Providers Name Role Phone Unavailable Primary Care Provider Unavailable Encounter Details Date Type Department Care Team Description 12/14/2008 Orders Only [facility] Eleni Webster NP Services - [place] [address] [address] Social History Tobacco Use Types [...] PAPILLOMA VIRUS DNA TEST (12/14/2008 9:47 EDT) [facility] Method Time Signature Specimen Cervix, TOBIAS Description ThinPrep [facility] vial Result Negative for TOBIAS HPV types [facility] 16, 18, 31, 33, 35, 39, 45, 51, 52, 56, 58, 59, and 68. Report Status Final TOBIAS 12/28/2008 [facility] Specimen Anatomical Collection Method Collection Time Receive d Time (Source) Location / / Volume Laterality 12/14/2008 9:47 12/22/2008 9 :47 EDT EDT Tania Webster NP MICROBIOLOGY - GENERAL ORDER PATRICK Performing Organization Address City/State/ZIP Code Phon e Number [facility] [address] [place] [address] SERVICES [facility] [address] [place] [address] CYTOPATHOLOGY (12/14/2008 0:00 EDT) Component Value Ref Test Analysis Performed At [facility] gist Range Method Time Signature Pathology CYTOPATHOLOGY REPORT ? TOBIAS Report: ? [facility] Reports generated via Ze-gen interface contain original data; ? however they are lacking the format of the original report. ? Caution should be taken when reading/interpreting unformatted reports. ? Name: ? ADELA DOAN ? Accession #: ? [id number] ? : ? 1970 (Age: 38) ??F ?Collect Date: ? 12/14/2008 ? Location: ? [facility] ? Receive Date: ? 12/15/2008 ? Provider: ?TANIA M RO WLETT ASPHALT SCREED OPERATOR ? Copy to: ? Specimen/Source: ? [...] and electr onically signed by: ? Hemalatha Del Real. [place], [place](ASCP) ? Report Date: ??09/02/ 2009 15:33 ? End of Report ? Specimen (Source) Anatomical Location Collection Method / Collectio n Time Received Time / Laterality Volume 12/14/2008 12/15/2008 Tania Webster ASPHALT SCREED OPERATOR PATHOLOGY ORDERABLES Performing Organization Address City/State/ZIP Code Phon e Number [facility] [address] [place] [address] SERVICES [facility] [address] [place] [address] documented in this encounter Visit Diagnoses Not on filedocumented in this encounter
--- OUTSIDE RECORDS SUMMARY | 2022-03-15 01:33 | XMS_ITS | Encounter Summary ---
:1970 Author Organization [facility] Address [address] [place] [address] Care Team Providers Name Role Phone Gabe Oscar MD Primary Care Provider Unavailable Encounter Details Date Type Department Care Team Description 03/31/[address] [facility] Outr Resulting Lab, Pathology & Laboratory Provider [facility] [address] [place] [address] Social History Tobacco Use Types Packs/Day Years [...] encounter Results T3 FREE (03/31/2020 16:02 EST) P athologist Signature T3, Free 2.9 2.8 - 5.3 03/31/2020 [facility] pg/mL 21:36 EST [facility] SERVICES Specimen Anatomical Collection Method Collection Time Receive d Time (Source) Location / / Volume Laterality Blood VENOUS BLOOD / 03/31/2020 16:02 0 Unknown EST 21:07 EST Provider Outr Resulting Lab CHEMISTRY & BLOOD GAS LISA CISNEROS Performing Organization Address City/State/ZIP Code Phon e Number [facility] [address] [place] [address] SERVICES documented in this encounter Visit Diagnoses Not on filedocumented in this encounter Care Teams Assembler Surgical Garment Relationship Specialty Start Date End Date Gabe Oscar MD PCP - General 02/25/15 documented as of this encounter
--- OUTSIDE RECORDS SUMMARY | 2022-03-15 01:33 | XMS_ITS | Encounter Summary ---
:1970 Author Organization [facility] Address [address] [place] [address] Care Team Providers Name Role Phone Unavailable Primary Care Provider Unavailable Encounter Details Date Type Department Care Team Description 01/30/2011 Results Only [facility] Tania Webster, MADELINE Laboratory Services - [address] [address] Social History Tobacco Use Types [...] PAP TEST- RESULT ONLY (01/30/2011 0:00 EDT) Component Value Ref Test Analysis Performed At [facility] Method Time Signature Pathology CYTOPATHOLOGY REPORT MICHELINE Report: [facility] Reports generated via electronic interface contain original data; however they are lacking the format of the original report. Caution should be taken when reading/interpreting unformatte d reports. Name: ? ADELA DOAN ? Accession #: ? [id number] ? : ? 1970 (Age: 41) ??F ?Collect Da te: ? 01/30/2011 ? Location: ? [facility] ? Receive Date: ? 01/31/2011 ? Provider: TANIA WEBSTER NP Copy to: KRISTIE PIZANO MD ? Final Report SPECIMEN ADEQUACY ? Satisfactory for Evaluation - transformation zone component present GENERAL CATEGORIZATION ? Negative for Intraepithelial Lesion or Malignancy ?? Last Menstural Period: 01/15/11 Previous Gynecologic Pathology: YASHIRA III: 06/25 ASC-US: 11/26 Treatment History: Miscellaneous treatment: cold knife 06/25- YASHIRA III Cone biopsy Other: Additional clinical information: 01/10/10 pap negative , - HPV Specimen/Source: ??Pap Test, Cervix/Endocervix, ThinPr ep Imaging System with manual evaluation Document reviewed and electronically signed by: ? Lydia Disla, [facility](ASCP) ? Report ??Date: 02/07/2011 11:13 HPV with Pap Test ? Date Ordered: ? 02/07/2011 ? Status: ?? Lizeth d Out ?Date Complete: ? 02/11/2011 ? By: ??System Interface ? Date Reported: ? 02/11/2011 ? Interpretation RESULT: Negative for HPV types 16, 18, 31, 33, 35, 39, 45, 5 1, 52, 56, 58, 59, and 68. Comments Document reviewed and electronically signed by: ? System Interface ? Report date: 02/11/2011 By the signature above, the attending physician certifies th at he/she has personally conducted a gross and/or microscopic examin ation of the described specimens and rendered or confirmed the above diagnosis. End of Report Specimen (Source) Anatomical Location Collection Method / Collectio n Time Received Time / Laterality Volume 01/30/2011 01/31/2011 Tania Webster NP PATHOLOGY ORDERABLES Performing Organization Address City/State/ZIP Code Phon e Number [facility] [address] [place] [address] SERVICES [facility] [address] [place] [address] documented in this encounter Visit Diagnoses Not on filedocumented in this encounter
--- OUTSIDE RECORDS SUMMARY | 2022-03-15 01:33 | XMS_ITS | Encounter Summary ---
:1970 Author Organization [facility] Address [address] [place] [address] Care Team Providers Name Role Phone Unavailable Primary Care Provider Unavailable Encounter Details Date Type Department Care Team Description 07/31/2006 Results Only [facility] - Leana Strickland MD Maple conversion [address] [place] [address] [place] [address] [phone] Social History Tobacco Use Types Packs/Day Years Used Date Smoking Tobacco: Never Assessed Sex Assigned at Date Recorded Not on file documented as of this encounter Plan of Treatment Not on filedocumented as of this encounter Procedures Procedure Name Priority Date/Time Associated Diagnosis Comme [facility] SURGICAL PATHOLOGY Routine 07/31/2006 0:00 EDT Re sults for this procedure are i n the results section. documented in this encounter Results SURGICAL PATHOLOGY (07/31/2006 0:00 EDT) Component Value Ref Test Analysis Performed At [facility] Method Time Signature Pathology SURGICAL PATHOLOGY REPORT NOMAN PARR Report: Reports generated via electronic interface contain irasema sims data; JOSY MISHRA however they are lacking the format of the original report. Caution should be taken when reading/interpreting unformatte d reports. Name: ? ADELA DOAN ? Accession #: ? [id number] ? : ? 1970 (Age: 36) ??F ? Collect Date: ? 07/31/2006 ? Location: ? [facility] ? Receive Date: ? 07/31/2006 ? Provider: GISELL STRICKLAND MD Copy to: ? Final Pathologic Diagnosis: A. ?Cervix, 6 o'clock, LEEP: 1. 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 See comment. [...] by high grade squamous intraepithelial lesion. The focus in question shows paradoxical maturation and an irregular interface with surro unding tissue, raising the suspicion for microinvasion. 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 ??Lack of specime n orientation precludes assessment of margins, but high grade dysplasia ex tends to one cauterized tissue edge in (A). ??Clinical correl ation is essential. ??Cautery artifact obscures portion of both specimens. ??This case was reviewed at intradepartmental consultation conferenc e. Deeper levels have been examined in (A). Dr. Rocio Alcantar has seen this case in consultati on and concurs. ??(Dr. Patiño)/[facility] Document reviewed and electronically signed by: Juan Patiño MD Report ??Date: 08/05/2006 14:54 By the signature above, the attending physician certifies th at he/she has personally conducted a gross and/or microscopic examin ation of the described specimens and rendered or confirmed the above diagnosis. Specimen(s) Received: A. ?LEEP 6:00 B. ? LEEP 12:00 Clinical History: ? 06/25/06 cx bx ??YASHIRA III; control pills; LMP: 06/20 11/25 Gross Description: ? Received in formalin labelled [place] and LEEP 6:00 is an unoriented, 0.9 [...] submitted as (A). Received in formalin aura d Gladysux and LEEP 12:00 is an unoriented 1.3 x 1.0 cm product of a partial LEEP excision excised to a maximum depth of 0.3 cm. The mucosa is white-cassidy, smo oth and glistening along one half and cassidy-brown and granular along the opposing half. ??The orientation of the ecto- and endocervical region cannot be determined. ??The specimen is quadrisected and entirely submitted as (B1) and (B2). ??(Sagrario Prajapati)/[facility] End of Report Specimen (Source) Anatomical Collection Method Collection Time Re ceived Time Location / / Volume Laterality 07/31/2006 07/31/2006 1:04 EDT Gisell Strickland MD PATHOLOGY ORDERABLES Performing Organization Address City/State/ZIP Code Phon e Number [facility] [address] [place] [address] SERVICES [facility] [address] [place] [address] documented in this encounter Visit Diagnoses Not on filedocumented in this encounter
--- OUTSIDE RECORDS SUMMARY | 2022-03-15 01:33 | XMS_ITS | Encounter Summary ---
:1970 Author Organization [facility] [place] [address] Care Team Providers Name Role Phone Mariluz Vargas MD Primary Care Provider Encounter Details Date Type Department Care Team Description 12/23/2017 Office Visit Urology at [facility] Dayron Hollins, Nephrolithiasis; [facility] TONYA Mcgee History [place] [address] UROLOGY DEPT. [place], [place] [address] (Wo rk) Social History [...] She had recurrent e coli UTIs in [address] was found to have [...] Social History: , no children. 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 Non-smoker, non-drinker Family History: Father has [...] below. Electronically signed by: Sudha navas [facility] [place] ([phone]), at 3:32 PM ? Sudha Das [facility] Physician Electronically Signed Final Report ?? 03:40 pm Narrative 07/16/2018 3:40 PM EDT Renal ?(Signed Final 07/16/2018 03:40 pm) PATIENT INFO: ID #: ? [id number] ?: ??[birth year] (48 yrs) Name: ? ADELA V ? Visit Date: 07/16/2018 02:57 pm ? CLOUATRE PERFORMED BY: Performed By: ? Juancho Romero RDMS Attending: ?Rosario VILLASENOR, Joselito Tavera Referred By: ?ARELY Noriega Location: ? [place] SERVICE(S) PROVIDED: ??URETRO - Retroperitoneal Complete - I [id number] ? [id number] INDICATIONS: ??hx of nephrolithiasis-? new stone bur [...] 03:40 pm ) PATIENT INFO: ID #: [id number] : [birth year] (48 y rs) Name: ADELA Cabrales Visit Date: 07/16/2018 0 2:57 pm CLOUATRE PERFORMED BY: Performed By: Juancho Romero RDMS Attending: Sudha Ponce MD Referred By: ARELY HOLLINS Location: [place] SERVICE(S) PROVIDED: URETRO - Retroperitoneal Complete - [id number] INDICATIONS: hx of nephrolithiasis-? new stone burde [...] he number below. Electronically signed by: Sudha navas, [facility] [place] ([phone]), at 3:32 PM Sudha Das, Staff Lisa hernandez Electronically Signed Final Report 07/16 03:40 pm Arely Hollins APRN IMG US GEN ORDERABLES documented in this encounter Visit Diagnoses Diagnosis Nephrolithiasis Calculus of kidney History of UTI Personal history of urinary (tract) infe ction Nephrolithiasis Calculus of kidney History of UTI Personal history of urinary (tract) infe ction documented in this encounter Care Teams Still Operator Batch Or Continuous Relationship Specialty Start Date End Date Mariluz Vargas MD PCP - General Family Medicine 11/20/[address] [place] [address] documented as of this encounter
--- OUTSIDE RECORDS SUMMARY | 2022-03-15 01:33 | XMS_ITS | Encounter Summary ---
:1970 Author Organization [facility] Address [address] [place] [address] Care Team Providers Name Role Phone Unavailable Primary Care Provider Unavailable Encounter Details Date Type Department Care Team Description 12/02/2007 Before PRISM Converted [facility] - Manohar Webster, Visit (Maple) Maple conversion [employer] [address] [place] [address] Social History Tobacco Use Types Packs/Day Years [...] PAPILLOMA VIRUS DNA TEST (12/02/2007 7:49 EDT) [facility] Method Time Signature Specimen Cervix, TOBIAS Description ThinPrep [facility] vial Result Negative for TOBIAS HPV types [facility] 16, 18, 31, 33, 35, 39, 45, 51, 52, 56, 58, 59, and 68. Report Status Final TOBIAS [id number] [facility] Specimen Anatomical Collection Method Collection Time Receive d Time (Source) Location / / Volume Laterality 12/02/2007 7:49 12/09/2007 7 :49 EDT EDT Tania Webster NP MICROBIOLOGY - GENERAL ORDER PATRICK Performing Organization Address City/State/ZIP Code Phon e Number [facility] [address] [place] [address] SERVICES TOBIAS [facility] [address] [place] [address] CYTOPATHOLOGY (12/02/2007 0:00 EDT) Component Value Ref Test Analysis Performed At [facility] gist Range Method Time Signature Pathology CYTOPATHOLOGY REPORT ? TOBIAS Report: ? [facility] Reports generated via Bevy interface contain original data; ? however they are lacking the format of the original report. ? Caution should be taken when reading/interpreting unformatted reports. ? Name: ? ADELA DOAN ? Accession #: ? [id number] ? : ? 1970 (Age: 37) ??F ?Collect Date: ? 12/02/2007 ? Location: ? [facility] ? Receive Date: ? 12/03/2007 ? Provider: ?TANIA M RO WLETT [employer] ? Copy to: ? Specimen/Source: ? ThinPrep Pap Test, Cervix/Endocervix, processed on Cytyc ThinPrep Imaging System, wit h manual evaluation ? Last Menstrual Period: ? 08/06/08 ? Hormonal/Contraceptive Statu s: ? Oral contraceptives ? Previous Gynecologic Patholo gy: ? YASHIRA III: 04/07 & 05/07 ? YASHIRA II: 07/26 ? Treatment History: ? Cervical biopsy: 06/25 YASHIRA I II with endocervical gland ext. ? LEEP: A-1 YASHIRA III suspicious for microinvasive sq. cell ca. B-1 YASHIRA II 2-ectocx. & endocx. margins neg. for H G dysplasia ? Cone biopsy: 1-YASHIRA III 2-no def. invasion 3-margins ??(More) ? Other: ? Additional clinical informat ion: 12/26 & 05/29 paps neg. ? SPECIMEN ADEQUACY ? Satisfactory for Eval uation ? - transformation zone compon ent present ? GENERAL CATEGORIZATION ? Epithelial Cell Abnor mality ? INTERPRETATION ? Squamous Cell Abnorma lity - Atypical squamous cells, undetermined ? significance (ASC-US). ? EDUCATIONAL NOTES/RECOMMENDA TIONS ? [facility] recommends rolao wing the 2005 Consensus Guidelines for the Management of Women with Abnormal Cervi gianluca Cancer Screening Tests (JLGTD, ? 2007;11(4):201-222). ??Conse nsus guidelines are available online at ? www.ASCCP.org. ? Document reviewed and electr onically signed by: ? Abdelmonem Elhosseiny , MD ? Report Date: ??08/18/ 2008 13:53 ? End of Report ? Specimen (Source) Anatomical Location Collection Method / Collectio n Time Received Time / Laterality Volume 12/02/2007 12/03/2007 Tania Webster [employer] PATHOLOGY ORDERABLES Performing Organization Address City/State/ZIP Code Phon e Number [facility] [address] [place] [address] SERVICES [facility] [address] [place] [address] documented in this encounter Visit Diagnoses Not on filedocumented in this encounter
--- OUTSIDE RECORDS SUMMARY | 2022-03-15 01:33 | XMS_ITS | Encounter Summary ---
:1970 Author Organization [facility] Address [address] [place] [address] Care Team Providers Name Role Phone Unavailable Primary Care Provider Unavailable Encounter Details Date Type Department Care Team Description 03/02/2014 Results Only [facility] Gisell Strickland MD Laboratory Services - [address] [place] [address] [address] [place] [address] [phone] Social History Tobacco Use Types Packs/Day Years [...] PAP TEST- RESULT ONLY (03/02/2014 0:00 EST) Component Value Ref Test Analysis Performed At [facility] Method Time Signature Pathology CYTOPATHOLOGY REPORT [facility] Report: CENTER Reports generated via electronic interface contain origina l data; LABORATORY however they are lacking the format of the original report. SERVICES Caution should be taken when reading/interpreting unformatte d reports. Name: ? ADELA DOAN ? Accession #: ? [id number] ? : ? 1970 (Age: 44) ??F ?Collect Da te: ? 03/02/2014 ? Location: ? [facility] ? Receive Date: ? 03/03/2014 ? Provider: GISELL STRICKLAND MD Copy to: GABY MITCHELL MD ? Final Report SPECIMEN ADEQUACY ? Satisfactory for Evaluation - transformation zone component present GENERAL CATEGORIZATION ? Negative for Intraepithelial Lesion or Malignancy INTERPRETATION ? Reactive cellular karuna nges associated with inflammation present (includes repair). Previous Gynecologic Pathology: YASHIRA III: 2006 Specimen/Source: ??Pap Test, Cervix/Endocervix, ThinPr ep Imaging System with manual evaluation Document reviewed and electronically signed by: ? ERIN BRO MD ? Report ??Date: 03/13/2014 09:27 HPV with Pap Test ? Date Ordered: ? 03/11/2014 ? Status: ?? Lizeth d Out ?Date Complete: ? 03/15/2014 ? By: ??System Interface ? Date Reported: ? 03/15/2014 ? Interpretation RESULT: Negative for HPV. No E6 or E7 mRNA is detected from HPV types 16,18,31,33,35, 39,45,51,52,56,58,59,66, and 68 by tech ed teacher mediated amplification. Comments Document reviewed and electronically signed [...] n Time Received Time / Laterality Volume 03/02/2014 03/03/2014 Gisell Strickland MD PATHOLOGY ORDERABLES Performing Organization Address City/State/ZIP Code Phon e Number [facility] [address] [place] [address] SERVICES documented in this encounter Visit Diagnoses Not on filedocumented in this encounter
--- OUTSIDE RECORDS SUMMARY | 2022-03-15 01:33 | XMS_ITS | Encounter Summary ---
:[address] [facility] Address [address] [place] [address] Care Team Providers Name Role Phone Gabe Oscar MD Primary Care Provider Unavailable Encounter Details Date Type Department Care Team Description 04/18/2015 Results Only [facility] Gisell Mcknight MD [phone] [address] [facility] [place] [address] (Wo rk) Social History Tobacco Use Types [...] PAP TEST- RESULT ONLY (04/18/2015 0:00 EST) Component Value Ref Test Analysis Performed At [facility] Range Method Time Signature Pathology CYTOPATHOLOGY REPORT [facility] Report: CENTER Reports generated via electronic interface contain origina l data; LABORATORY however they are lacking the format of the original report. SERVICES Caution should be taken when reading/interpreting unformatte d reports. Name: ? ADELA DOAN ? Accession #: ? [id number] ? : ? 1970 (Age: [age]) ??F ?Collect Da te: ? 04/18/2015 ? Location: ? [facility] ? Receive Date: ? 04/20/2015 ? Provider: GISELL STRICKLAND MD Copy to: [...] Date Ordered: ? 04/26/2015 ? Status: ?? Signed Out ?Date Complete: ? 04/28/2015 ? By: ??[facility] ? Date Reported: ? 04/28/2015 ? Interpretation RESULT: Negative for HPV. No E6 or E7 mRNA is detected from HPV types 16,18,31,33,35, 39,45,51,52,56,58,59,66, and 68 by virtualization engineer mediated amplification. Comments Document reviewed and electronically [...] n Time Received Time / Laterality Volume 04/18/2015 04/20/2015 Gisell Strickland MD PATHOLOGY ORDERABLES Performing Organization Address City/State/ZIP Code Phon e Number [facility] [address] [place] [address] SERVICES documented in this encounter Visit Diagnoses Not on filedocumented in this encounter Care Teams Tower Erector Helper Relationship Specialty Start Date End Date Gabe Oscar MD PCP - General 02/25/15 documented as of this encounter
--- OUTSIDE RECORDS SUMMARY | 2022-03-15 01:33 | XMS_ITS | Encounter Summary ---
:1970 Author Organization [facility] [place] [address] Care Team Providers Name Role Phone Mariluz Vargas MD Primary Care Provider Encounter Details Date Type Department Care Team Description 05/11/2019 Hospital Encounter Gastroenterology at [facility] Aguila Cervantes, [facility] [place] [address] [facility] [phone] CENTER GASTROENTEROLOGY [place], [place] [address] Social History Tobacco Use Types [...] occurs, please contact your Doctor. Please call [phone] before 8pm Mon-Fri with problems, questions or concerns. If you call after 8pm or on weekends, call the Hospital at [phone] and ask to speak to the Manager Access artifacts conservator and the die sinking machine operator will contact that person for you. When should you call for help? Call 106 anytime you think you may need emergency [...] any problems. Where can you learn more? [facility] View your After Visit Summary and more online at [email or web address] If you would like to provide feedback [...] cost to you. Content Version: 12.2 ?? 4572-9508 [employer]. Care instructions adapted under license by [facility]. If you have questions about a medical condition or this instruction, always ask your healthcare professional. [employer] disclaims any warranty or liability for your [...] Mclain PA-C Section of Gastroenterology [place] [address] documented in this encounter Plan of Treatment [...] AM 0 8:25 EST AM EST Narrative [facility] - 05/11/2019 8:25 AM EST Specimen requisition ordered. ??Separate Pathology report to follow Aguila Cervantes MD PATHOLOGY/CYTOLOGY ORDERABLE S Performing Organization Address City/State/[place] [address] Surgical Pathology Report (05/11/2019 8:15 AM EST) Component Value Ref Test Analysis Performed At Patholo gist Range Method Time Signature Surgical [id number] ? Location: 4T; EA07; A NATALIA Pathology ROSANNA Report The signing pathologist has (i) examined the relevant preparation(s) for the [facility]ORIAL specimen(s) and (ii) rendered or confirmed the diagnosis(es) . HOSPITAL LABORATORY . ?Surgic al Pathology DIAGNOSIS Random colon, ??biopsy: Colonic mucosa with focal no nspecific mild chronic inflammation in lamina propria. CR-PX Electronically signed by: ??Mariana Fox MD Verified: ??05/13/2019 ?Pathologist Performed at: ??-[facility] Dept. of Pathology, [place], [place] CLINICAL INFORMATION Specimen Submitted: A - [...] Organization Address City/State/[place] [address] [facility] COLONOSCOPY (05/11/2019 7:38 AM EST) [facility] Method Time Signature COLONOSCOPY [facility]ATION Endoscopy Procedure Date: 05/11/2019 7:38 AM ? Patient Name: Adela Molsey ? Date of : 1970 ? Age: 49 ? Order #: [id number] ? Instrument Name: [id number] ? Procedure: ? Colonoscopy Indications: ? Hematochezia, Alternating ? constipation and diarrhea, bu rning ? pain with defecation Providers: ? Aguila Cervantes MD, Lee singleton, ? Simona RODRIGUEZ Tech nician Referring MD: ?Mariluz Vargas MD Medicines: ? Midazolam [...] was evaluat ed using ? the BBPS ([place] Bowel Prepar ation ? Scale) with scores [...] 05/09/2019 05/10/2019 05/11/2019 lactated ringers infusion (CANCELED) 07 (New Bag - Provider: Estee Strickland RN) [...] Provider: Lee Benites RN) ONCE PRN, Starting Fri05/11/19 at 0803, Until Fri05/11/19 at 1118, Intra- Operative (Intra-Procedure), Routine midazolam (PF) (VERSED) multi-dose injection (CANCELED) 0803 (Given - Provider: Lee Benites RN)0806 (Given - Provider: Lee Benites, RN)0812 (Given - Provider: Lee Benites, RN) ONCE PRN, Starting e 05/11/19 at 0803, Until e 05/11/19 at 1118, Intra- Operative (Intra-Procedure), Routine documented in this encounter Care Teams Cryptoanalysis Teacher Relationship Specialty Start Date End Date Mariluz Vargas MD PCP - General Family Medicine 11/20/[address] [place] [address] [address] [place] [address] (work) documented as of this encounter
--- OUTSIDE RECORDS SUMMARY | 2022-03-15 01:33 | XMS_ITS | Encounter Summary ---
:1970 Author Organization [facility] [place] [address] Care Team Providers Name Role Phone Mariluz Vargas MD Primary Care Provider Encounter Details Date Type Department Care Team Description 04/29/2017 Office [address] Urology at [facility] Raheem Murphy Jr., Nephrolithiasis [facility] [place] [address] [facility] [phone] UROLOGY DEPT. 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 Non-smoker, non-drinker Family History: Father has [...] liters urine output daily. She will see ANGELO Powell RD for nutrition consult as well. She wishes [...] Recommend that she limit sodium intake to 9690-5478 mg per day. Intervention: - Recommended timing [...] kidney documented in this encounter Care Teams Cyber Analyst Relationship Specialty Start Date End Date Mariluz Vargas MD PCP - General Family Medicine 11/20/[address] [place] [address] documented as of this encounter
--- OUTSIDE RECORDS SUMMARY | 2022-03-15 01:33 | XMS_ITS | Encounter Summary ---
:1970 Author Organization [facility] Address [address] [place] [address] Care Team Providers Name Role Phone Unavailable Primary Care Provider Unavailable Encounter Details Date Type Department Care Team Description 02/01/2013 Results Only [facility] Tania Webster, MADELINE Laboratory Services - [address] [address] Social History Tobacco Use Types [...] PAP TEST- RESULT ONLY (02/01/2013 0:00 EDT) Component Value Ref Test Analysis Performed At [facility] Method Time Signature Pathology CYTOPATHOLOGY REPORT MICHELINE Report: [facility] Reports generated via electronic interface contain original data; however they are lacking the format of the original report. Caution should be taken when reading/interpreting unformatte d reports. Name: ? ADELA DOAN ? Accession #: ? [id number] ? : ? 1970 (Age: 43) ??F ?Collect Da te: ? 02/01/2013 ? Location: ? [facility] ? Receive Date: ? 02/02/2013 ? Provider: TANIA WEBSTER NP Copy to: TANA GIRON MD ? Final [...] Date Ordered: ? 02/08/2013 ? Status: ?? Lizeth d Out ?Date Complete: ? 02/10/2013 ? By: ??System Interface ? Date Reported: ? 02/10/2013 ? Interpretation RESULT: Negative for HPV. No E6 or E7 mRNA is detected from HPV types 16,18,31,33,35, 39,45,51,52,56,58,59,66, and 68 by relays draftsperson mediated amplification. Comments Document reviewed and electronically [...] n Time Received Time / Laterality Volume 02/01/2013 02/02/2013 Tania Webster NP PATHOLOGY ORDERABLES Performing Organization Address City/State/ZIP Code Phon e Number [facility] [address] [place] [address] SERVICES [facility] [address] [phone] documented in this encounter Visit Diagnoses Not on filedocumented in this encounter
--- OUTSIDE RECORDS SUMMARY | 2022-03-15 01:33 | XMS_ITS | Clinical Summary ---
:1970 Author Organization [facility] [place] [address] Care Team Providers Name Role Phone Mariluz [...] Name Administration Dates Next Due Moderna Covid-19 (Hogshead Opener 100mcg) Vaccine 03/28/2021, 2020, 07/18/2020 Family History [...] Health Maintenance Due Date Last Done Comments Hepatitis B vaccine (0-59 yrs) (1 of 1970 3 - 3-dose series) HIV screen 1989 Hepatitis C Screening 1989 Tdap adult 1990 Tetanus vaccine 1990 HPV test 2001 PAP Smear 2001 Breast Cancer Share Decision Needed 2011 Breast Cancer screening 2021 Zoster vaccine (1 of 2) 2021 Covid-19 Vaccine (4 - Booster for 05/23/2021 03/28/2021, , Moderna series) 07/18/2020 Influenza (Flu) vaccine (1 of 1 - 12/20/2021 Influenza standard series) Colonoscopy 05/11/2029 05/11/2019, 05/11/2019 Medical Devices Implanted Type Area Geoscience Professor Device Shelf Model / Identifier Expiration Serial / Lot Date Stent,Contour-Vl,[id number] ([id number]) - [id number] IMPLANTS DO NOT USE Cook 06/06/2019 [id number]-600-[id number] / Implanted: Qty: 1 on 09/24/2016 by Raheem Murphy Jr., MD at [facility] Urological - / [id number] Insurance Payer Benefit Plan Subscriber ID Effective Dates Phone Address Type / Group [employer]UE [employer]BS [facility] [id number] [phone] [address] [place] [address] Advance Directives Latest Code Status on File Code Status Date Activated Date Inactivated Comments Full Code 09/24/2016 3:34 PM 09/24/2016 10:13 PM Question Answer Comments Does patient have capacity to make decision: Yes Care Teams Leading Firefighter Relationship Specialty Start Date End Date Mariluz Vargas MD PCP - General Family Medicine 11/20/[address] [place] [address]
--- OUTSIDE RECORDS SUMMARY | 2022-03-15 01:33 | XMS_ITS | Encounter Summary ---
:1970 Author Organization [facility] [place] [address] Care Team Providers Name Role Phone Mariluz Vargas MD Primary Care Provider Encounter Details Date Type Department Care Team Description 07/16/2018 Hospital Encounter Ultrasound at [facility] Dayron Shania, Nephrolithiasis; [facility] TONYA Mcgee History of UTI [address] [place], [place] C[place] [address] UROLOGY DEPT. [phone] [place], [place] [address] Social History Tobacco Use Types [...] below. Electronically signed by: Sudha navas [facility] [place] ([phone]), at 3:32 PM ? Sudha Das [facility] Physician Electronically Signed Final Report ?? 03:40 pm Narrative 07/16/2018 3:40 PM EDT Renal ?(Signed Final 07/16/2018 03:40 pm) PATIENT INFO: ID #: ? [id number] ?: ??[birth year] (48 yrs) Name: ? ADELA Cabrales ? Visit Date: 07/16/2018 02:57 pm ? CLOUATRE PERFORMED BY: Performed By: ? Juancho Romero RDMS Attending: ?Rosario VILLASENOR, Joselito Tavera Referred By: ?ARELY Noriega Location: ? [place] SERVICE(S) PROVIDED: ??URETRO - Retroperitoneal Complete - I [id number] ? [id number] INDICATIONS: ??hx of nephrolithiasis-? new stone bur [...] 03:40 pm ) PATIENT INFO: ID #: [id number] : [birth year] (48 y rs) Name: ADELA Cabrales Visit Date: 07/16/2018 0 2:57 pm CLOUATRE PERFORMED BY: Performed By: Juancho Romero RDMS Attending: Sudha Ponce MD Referred By: ARELY HOLLINS Location: [place] SERVICE(S) PROVIDED: URETRO - Retroperitoneal Complete - [id number] INDICATIONS: hx of nephrolithiasis-? new stone burde [...] below. Electronically signed by: Sudha navas [facility] [place] ([phone]), at 3:32 PM Sudha Das, Staff Lisa hernandez Electronically Signed Final Report 07/16 03:40 pm Arely Hollins APRN IMG US GEN ORDERABLES documented in this encounter Visit Diagnoses Diagnosis Nephrolithiasis Calculus of kidney History of UTI Personal history of urinary (tract) infe ction documented in this encounter Care Teams Sox Analyst Relationship Specialty Start Date End Date Mariluz Vargas MD PCP - General Family Medicine 11/20/[address] [place] [address] documented as of this encounter
--- OUTSIDE RECORDS SUMMARY | 2022-03-15 01:33 | XMS_ITS | Encounter Summary ---
:1970 Author Organization [facility] [place] [address] Care Team Providers Name Role Phone Mariluz Vargas MD Primary Care Provider Encounter Details Date Type Department Care Team Description 05/07/2019 Telephone [place]astro[place]ology [place] [facility] [place] [address] Social History Tobacco Use Types Packs/Day Years Used Date Smoking Tobacco: Never Smokeless Tobacco: Never Alcohol Use Standard Drinks/Week Comments Yes 1 (1 standard drink = 0.6 oz pure alcoho l) Sex Assigned at Date Recorded Not on file documented as of this encounter Miscellaneous Notes Telephone Encounter - Adalgisa Morrow - 05/07/2019 11:15 AM EST Adela Mosley [id number] Diagnosis/Indication: Rectal hemorrhage 1. Have you ever had a/an Colonoscopy before? Yes: Date 19 years ago in [place] If yes, did you have any problems [...] to patient: You must have a responsible alliance party who will drive you to your [...] on filedocumented in this encounter Care Teams Coal Handler Relationship Specialty Start Date End Date Mariluz Vargas MD PCP - General Family Medicine 11/20/[address] [place] [address] [address] [place] [address] documented as of this encounter
--- OUTSIDE RECORDS SUMMARY | 2022-03-15 01:33 | XMS_ITS | Clinical Summary ---
:1970 Author Organization [facility] Address [address] [place] [address] Care Team Providers Name Role Phone Gabe Oscar MD Primary Care Provider Unavailable Encounters Date Type Specialty Care Team Description 01/11/2022 Lab Requisition Clinical Laboratory Outr Resulting Lab , Provider from Last 3 Months Social History Tobacco Use Types Packs/Day Years Used Date Smoking Tobacco: Never Assessed Sex Assigned at Date Recorded Not on file Plan of Treatment Health Maintenance Due Date Last Done Comments Hepatitis C Screen 1970 COVID-19 Vaccine (#1) 1970 Procedures Procedure Name Priority Date/Time Associated Diagnosis Comme nts ANTI DNA (DOUBLE Routine 01/10/2022 15:45 Results for this STRANDED) EDT procedure are i n the results section. ANTI NUCLEAR AB Routine 01/10/2022 15:45 Results for this (MARIANNA), IFA EDT procedure are i n the results section. from Last 3 Months Results ANTI DNA (DOUBLE STRANDED) (01/10/2022 15:45 EDT) P athologist Signature Anti-DNA <12.3 <30.0 01/15/2022 [facility] (Double IU/mL 13:28 EDT CENTER Stranded) LABORATORY SERVICES Comment: ? Negative: ??<30.0 IU/mL ? Borderline Positive: ??30.0 - 75.0 IU/mL ? Positive: ??>75.0 IU/mL Results were obtained with the [employer] ALCIDES NTA Lite dsDNA SC CAROL assay on the [employer] DSX. Specimen Anatomical Collection Method Collection Time Receive d Time (Source) Location / / Volume Laterality Blood VENOUS BLOOD / 01/10/2022 15:45 2 Unknown EDT 18:19 EDT Provider Outr Resulting Lab IMMUNOLOGY AND SEROLOGY OR DERABLES Performing Organization Address City/Va Hospital/ZIP Code Phon e Number [facility] [address] [place] [address] SERVICES (ABNORMAL) ANTI NUCLEAR AB (MARIANNA), IFA (01/10/2022 15:45 EDT) [facility] Method Time Signature MARIANNA Positive Negative 01/14/2022 [facility] MEDICAL Interpretation (A) 13:44 EDT CENTER LABORATORY SERVICES Comment: For titers greater than or equal to 1:16 0 (except the centromere and nucleolar patterns) it is recommended that specific follow-up autoantibody testing ??(such as for dsDNA and Extractable Nuclear Antig ens) be performed on all diffuse and/or speckled patterns NOTE: For add-on testing dsDNA is stable for 7 days refrigerated while Extractable Nuclear Antigens are only stable for 48 hours refrigerated. MARIANNA Titer and 1:160 Homogeneous 01/14/2022 13:44 E DT [facility] Pattern 1 LABORATORY SERVICES Specimen Anatomical Collection Method Collection Time Receive d Time (Source) Location / / Volume Laterality Blood VENOUS BLOOD / 01/10/2022 15:45 2 Unknown EDT 18:19 EDT Narrative [facility] SERVICES - 01/14/2022 13:44 EDT Results were obtained with the [employer] NOV A Lite HEp-2 MARIANNA Kit by indirect immunofluorescence. Provider Outr Resulting Lab IMMUNOLOGY AND SEROLOGY OR DERABLES Performing Organization Address City/Va Hospital/ZIP Code Phon e Number [facility] [address] [place] [address] SERVICES from Last 3 Months Care Teams Senior It Assistant Relationship Specialty Start Date End Date Gabe Oscar MD PCP - General 02/25/15
--- OUTSIDE RECORDS SUMMARY | 2022-03-15 01:33 | XMS_ITS | Encounter Summary ---
:1970 Author Organization [facility] [place] [address] Care Team Providers Name Role Phone Mariluz Vargas MD Primary Care Provider Encounter Details Date Type Department Care Team Description 07/16/2018 Office Visit [place] [facility] Dayron Jauregui, Recurrent UTI (urinary tract infection); [facility] TONYA Mcgee [address] [place], [place] C[place] [address] UROLOGY DEPT. [phone] [place], [place] [address] Social History Tobacco Use Types [...] in this encounter Progress Notes Arely Preciado, SENIOR STATISTICIAN - 07/16/2018 3:40 PM EDT HPI: Adela [...] Social History: , no children. 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 Non-smoker, non-drinker Family History: Father has [...] kidney documented in this encounter Care Teams Plant General Manager Relationship Specialty Start Date End Date Mariluz Vargas MD PCP - General Family Medicine 11/20/[address] [place] [address] [address] [place] [address] documented as of this encounter
--- OUTSIDE RECORDS SUMMARY | 2022-03-15 01:33 | XMS_ITS | Encounter Summary ---
:1970 Author Organization [facility] Address [address] [place] [address] Care Team Providers Name Role Phone Unavailable Primary Care Provider Unavailable Encounter Details Date Type Department Care Team Description 05/27/2007 Results Only [facility] - Tania Dyson NP conversion [address] [phone] Social History Tobacco Use Types Packs/Day Years [...] this encounter Results CYTOPATHOLOGY (05/27/2007 0:00 EST) Component Value Ref Test Analysis Performed At [facility] Method Time Signature Pathology CYTOPATHOLOGY REPORT MICHELINE Report: [facility] Reports generated via electronic interface contain original data; however they are lacking the format of the original report. Caution should be taken when reading/interpreting unformatte d reports. Name: ? ADELA DOAN ? Accession #: ? [id number] : ? 1970 (Age: 37) ??F ?Collect Date: ? 05/27/2007 Location: ? [facility] ? Receive Date: ? 05/28/2007 Provider: ?TANIA WEBSTER CABLE ASSEMBLER AND SWAGER Copy to: ? Specimen/Source: ? ThinPrep Pap Test, Cervix/Endocervix, processed on [employer] ThinPrep Imaging System, with manual evaluation Last Menstrual Period: ? 05/12/07 Hormonal/Contraceptive Status: ? Oral contraceptives Treatment History: ? LEEP: 07/26 suspicious for micro-invasive sq. cell ca-cold k nife cone Other: ? Additional clinical information: 12/26 pap neg. ? SPECIMEN ADEQUACY ? Satisfactory for Evaluation - transformation zone component present GENERAL CATEGORIZATION ? Negative for Intraepithelial Lesion or Malignancy INTERPRETATION ? Reactive cellular karuna nges associated with inflammation present (includes repair). ? Document reviewed and electronically signed by: ? KRISTIE CANALES MD ? Report Date: ??06/02/2007 18:11 End of Report Specimen (Source) Anatomical Location Collection Method / Collectio n Time Received Time / Laterality Volume 05/27/2007 05/28/2007 Tania Webster NP PATHOLOGY ORDERABLES Performing Organization Address City/State/ZIP Code Phon e Number [facility] [address] [place] [address] SERVICES [facility] [address] [place] [address] documented in this encounter Visit Diagnoses Not on filedocumented in this encounter
--- OUTSIDE RECORDS SUMMARY | 2022-03-15 01:33 | XMS_ITS | Encounter Summary ---
:1970 Author Organization [facility] Address [address] [place] [address] Care Team Providers Name Role Phone Gabe Oscar MD Primary Care Provider Unavailable Encounter Details Date Type Department Care Team Description 01/11/2022 Lab Requisition [facility] Center Outr Resulting Lab, Pathology & Laboratory Provider [facility] [address] [place] [address] Social History Tobacco Use Types Packs/Day Years [...] results section. documented in this encounter Results ANTI DNA (DOUBLE STRANDED) (01/10/2022 15:45 EDT) athologist Signature Anti-DNA <12.3 <30.0 01/15/2022 [facility] (Double IU/mL 13:28 EDT CENTER Stranded) LABORATORY SERVICES Comment: ? Negative: ??<30.0 IU/mL ? Borderline Positive: ??30.0 - 75.0 IU/mL ? Positive: ??>75.0 IU/mL Results were obtained with the [employer] ALCIDES NTA Lite dsDNA SC CAROL assay on the [employer] DSX. Specimen Anatomical Collection Method Collection Time Receive d Time (Source) Location / / Volume Laterality Blood VENOUS BLOOD / 01/10/2022 15:45 2 Unknown EDT 18:19 EDT Provider Outr Resulting Lab IMMUNOLOGY AND SEROLOGY OR DERABLES Performing Organization Address City/[facility]/ZIP Code Phon e Number [facility] [address] [place] [address] SERVICES (ABNORMAL) ANTI NUCLEAR AB (MARIANNA), IFA (01/10/2022 15:45 EDT) [facility] Method Time Signature MARIANNA Positive Negative 01/14/2022 [facility] MEDICAL Interpretation (A) 13:44 EDT [...] and 1:160 Homogeneous 01/14/2022 13:44 E DT [facility] Pattern 1 LABORATORY SERVICES Specimen Anatomical Collection Method Collection Time Receive d Time (Source) Location / / Volume Laterality Blood VENOUS BLOOD / 01/10/2022 15:45 2 Unknown EDT 18:19 EDT Narrative [facility] SERVICES - 01/14/2022 13:44 EDT Results were obtained with the INOVA NOV A Lite HEp-2 MARIANNA Kit by indirect immunofluorescence. Provider Outr Resulting Lab IMMUNOLOGY AND SEROLOGY OR DERABLES Performing Organization Address City/State/ZIP Code Phon e Number [facility] [address] [place] [address] SERVICES documented in this encounter Visit Diagnoses Not on filedocumented in this encounter Care Teams Homebirth Midwife Relationship Specialty Start Date End Date Gabe Oscar MD PCP - General 02/25/15 documented as of this encounter
--- OUTSIDE RECORDS SUMMARY | 2022-03-15 01:33 | XMS_ITS | Encounter Summary ---
:1970 Author Organization [facility] Address [address] [place] [address] Care Team Providers Name Role Phone Unavailable Primary Care Provider Unavailable Encounter Details Date Type Department Care Team Description 09/03/2006 Results Only [facility] - Leana Strickland MD Maple conversion [address] [place] [address] [place] [address] [phone] Social History Tobacco Use Types Packs/Day Years Used Date Smoking Tobacco: Never Assessed Sex Assigned at Date Recorded Not on file documented as of this encounter Plan of Treatment Not on filedocumented as of this encounter Procedures Procedure Name Priority Date/Time Associated Diagnosis Comme [facility] SURGICAL PATHOLOGY Routine 09/03/2006 0:00 EDT Re sults for this procedure are i n the results section. documented in this encounter Results SURGICAL PATHOLOGY (09/03/2006 0:00 EDT) Component Value Ref Test Analysis Performed At [facility] Method Time Signature Pathology SURGICAL PATHOLOGY REPORT NOMAN PARR Report: Reports generated via electronic interface contain irasema sims data; JOSY MISHRA however they are lacking the format of the original report. Caution should be taken when reading/interpreting unformatte d reports. Name: ? ADELA DOAN ? Accession #: ? [id number] ? : ? 1970 (Age: 36) ??F ? Collect Date: ? 09/03/2006 ? Location: ? [facility] ? Receive Date: ? 09/03/2006 ? Provider: GISELL STRICKLAND MD Copy to: SOCO CAZARES MD ? Final Pathologic Diagnosis: ? Cervix, cone biopsy: 1. ?Focal resid ual high grade squamous intraepithelial lesion (YASHIRA III). 2. ? No definitive invasion identified. See comment. ? 3. ?? Margins of resection negative for dysplasia. ? 4. ?? Acute and chron ic cervicitis with features of previous biopsy site. Comment: ? The residual high grade squamous intraepithelial le lolly is focal and present on section (A5). ??T here is a single focus identified which measures 0.25 mm in greatest dimension which has a suggestion of paradoxical maturation. No definitive invasion, however , is identified. ??Deeper levels have been examined on section (A5) and this gely e was reviewed at the intradepartmental consultation conference. ??(Dr. Canales)/[facility] Document reviewed and electronically signed by: KRISTIE CANALES MD Report ??Date: 09/05/2006 17:02 By the signature above, the attending physician certifies th at he/she has personally conducted a gross and/or microscopic examin ation of the described specimens and rendered or confirmed the above diagnosis. Specimen(s) Received: ? Cervical cone bx (suture @ twelve o'clock ??small pie ce) Clinical History: ? YASHIRA III microinvasive; squamous cell carcinoma Gross Description: ? Received in formalin labelled Zeus and sandy ervical cone bx is an oriented conization of cervi x measuring 2.4 cm from 12 to 6 o'clock, 0.9 cm from 3 to 9 o'clock, and is excised to a depth of 1.2 cm. ??There is a suture designating the 12 o'clock aspect as per the accompanying requisition slip. There is a central 1.2 cm patent os. ??T he ectocervix is last-white, smooth to wrinkled. ??There are 0.5 cc of attached cassidy-last, mucinou s material. ??The endocervical margin is inked black and ectocervical inked blue. ??Also received is a cassidy-last, rubbery portion of cervix measuring 1.2 x 0.8 cm and is excised to a depth of 0.3 cm. ??One aspect is surfaced by a cassidy, s mooth to wrinkled mucosa. ??The endocervical margin is [...] mucinous material is submitted as (A10). ??(Liang Giron)/[facility] End of Report Specimen (Source) Anatomical Collection Method Collection Time Re ceived Time Location / / Volume Laterality 09/03/2006 09/03/2006 1:10 EDT Gisell Strickland MD PATHOLOGY ORDERABLES Performing Organization Address City/State/ZIP Code Phon e Number [facility] [address] [place] [address] SERVICES [facility] [address] [place] [address] documented in this encounter Visit Diagnoses Not on filedocumented in this encounter
--- OUTSIDE RECORDS SUMMARY | 2022-03-15 01:33 | XMS_ITS | Encounter Summary ---
:1970 Author Organization [facility] Address [address] [place] [address] Care Team Providers Name Role Phone Unavailable Primary Care Provider Unavailable Encounter Details Date Type Department Care Team Description 01/12/2007 Results Only [facility] - Leana Strickland MD Maple conversion [address] [place] [address] [place] [address] [phone] Social History Tobacco Use Types Packs/Day Years [...] this encounter Results CYTOPATHOLOGY (01/12/2007 0:00 EDT) Component Value Ref Test Analysis Performed At [facility] Method Time Signature Pathology CYTOPATHOLOGY REPORT MICHELINE Report: [facility] Reports generated via electronic interface contain original data; however they are lacking the format of the original report. Caution should be taken when reading/interpreting unformatte d reports. Name: ? ADELA DOAN ? Accession #: ? [id number] : ? 1970 (Age: 37) ??F ?Collect Date: ? 01/12/2007 Location: ? [facility] ? Receive Date: ? 01/13/2007 Provider: ?GISELL STRICKLAND MD Copy to: ? Specimen/Source: ? ThinPrep Pap Test, Cervix/Endocervix, processed on [employer] ThinPrep Imaging System, with manual evaluation Last Menstrual Period: ? 12/17/06 Previous Gynecologic Pathology: ? YASHIRA III: Microinvasive squamous cell carcinoma Other: ? HPVA - HPV testing requested if ASC-US on the current ThinPr ep Pap test. ? SPECIMEN ADEQUACY ? Satisfactory for Evaluation - transformation zone component present GENERAL CATEGORIZATION ? Negative for Intraepithelial Lesion or Malignancy INTERPRETATION ? Reactive cellular karuna nges associated with inflammation present (includes repair). ? Document reviewed and electronically signed by: ? VERNON BARNETT MD [facility] ? Report Date: ??01/19/2007 16:55 End of Report Specimen (Source) Anatomical Location Collection Method / Collectio n Time Received Time / Laterality Volume 01/12/2007 01/13/2007 Gisell Strickland MD PATHOLOGY ORDERABLES Performing Organization Address City/State/ZIP Code Phon e Number [facility] [address] [place] [address] [facility] [address] [place] [address] documented in this encounter Visit Diagnoses Not on filedocumented in this encounter
--- OUTSIDE RECORDS SUMMARY | 2022-03-15 01:34 | XMS_ITS | Encounter Summary ---
:[address] [facility] [place] [address] Care Team Providers Name Role Phone Rocio Jose MD Primary Care Provider Reason for Referral Consultation (Routine) - Closed Specialty Diagnoses / Procedures Referred By Contact Refer red To Contact Obstetrics and Diagnoses Cervical cancer Dayron Jauregui [facility] Staffing Consultant 5l Gynecology TONYA Mcgee [facility] [address] [place] UROLOGY DEPT. [id number] [place] [address] Referral ID Status Reason Start Date Expiration Date Visits V isits Requested Authorized [id number] Closed Consult, 03/10/2015 03/09/2016 1 1 Test & Treat Reason for Visit Reason Comments Other Encounter Details Date Type Department Care Team Description 03/10/2015 Telephone [place] [facility] [place]rely Preciado, [facility] [place] [address] [facility] [phone] UROLOGY DEPT. [place], [place] [address] (Wo rk) Social History Tobacco Use Types Packs/Day Years Used Date Smoking Tobacco: Never Sex Assigned at Date Recorded Not on file documented as of this encounter Miscellaneous Notes Telephone Encounter - Arely Preciado APRN - 03/10/2015 3:48 PM EST Talked to pt, she has a history of asbestos surveyor cancer as well as ? Ongoing asbestos surveyor issues. She has a asbestos surveyor provider, but prefers to move her [place] to [facility], preferrably with Dr. Aimee Gonzalez or a asbestos surveyor onc provider. Referral placed per pt request. documented in this encounter Plan of Treatment Scheduled Referrals Name Type Priority Associated Diagnoses Order S chedule Referral to Ob-Senior Commercial Loan Officer Outpatient Referral Routine Cervical cancer Ordered: 03/10/2015 documented as of this encounter Visit Diagnoses Diagnosis Cervical cancer Malignant neoplasm of cervix uteri, unsp ecified site documented in this encounter Care Teams Manager Technical Relationship Specialty Start Date End Date Rocio Jose MD PCP - General 05/21/10 08/20/15 [address] [place] [address] documented as of this encounter
--- OUTSIDE RECORDS SUMMARY | 2022-03-15 01:34 | XMS_ITS | Encounter Summary ---
:1970 Author Organization [facility] Address [address] [place] [address] Care Team Providers Name Role Phone Rocio Jose MD Primary Care Provider Reason for Visit Consultation (Routine) - Closed Specialty Diagnoses / Procedures Referred By Contact Refer red To Contact Urology Diagnoses urgency of urination Mariluz Vargas MD [facility] [address] [place], [place] [address] [place] [address] Phone: Fax: Referral ID Status Reason Start Date Expiration Date Visits V isits Requested Authorized [id number] Closed Consult, 01/31/2015 01/31/2016 2 2 Test & Treat Connection Center Encounter Details Date Type Department Care Team Description 03/01/2015 Office Visit Urology at [facility] Arely Preciado, Recurrent UTI [facility] [place] [address] [facility] [phone] UROLOGY DEPT. [place], [place] [address] (Wo rk) Social History Tobacco [...] and then walk slowly to the bathroom. [place] no more than 3 times per week. Void prior to and at least after intercourse. Further Treatment Options pls see your control specialist as planned for your cervical cancer Please [...] reviewed. Ms. Sherman was last seen at [facility] in 07/2010 by ERMIAS Suárez for [...] history of cervical cancer and sees her MANAGER CONSUMER next week. In 07/2014, she saw her [...] feels hot most of the time. -- UNDERCOVER OPERATOR - No headaches, dizziness or loss of [...] HISTORY: , no children. 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 She is a non-smoker, non-drinker. FAMILY [...] with reflex Culture (03/01/2015 10:34 AM EST) [facility] Method Time Signature Glucose UA Negative [...] ENNIUM pH UA 6.0 5.0 - 8.0 CERNER MILLENNIUM Blood UA Small (A) Negative mg/dL CERNER MILLENNI UM Ketones UA Negative Negative mg/dL [facility] MILLENN IUM Nitrite UA Positive (A) Negative CERNER MILLENNIU M Leukocytes UA Large (A) Negative mcL [facility] [place] NIUM Appearance UA Hazy (A) Clear CERNER MILLENNIU M Spec Resaca UA 1.019 1.002 - 1.030 [facility] MIL LENNIUM Color UA Yellow Yellow [facility] MILLENNIUM RBC UA 5 (H) 0 - 4 /HPF [facility] MILLENNIUM WBC UA >182 (H) 0 - 5 /HPF [facility] MILLENNIUM Bacteria UA Many (A) None /HPF [facility] MILLENNIUM Trans Epith UA <1 <=1 /HPF [facility] MILLENNI UM Culture Reflexed Dup Culture [facility] MILL ENNIUM Specimen Anatomical Collection Method Collection Time Receive d Time (Source) Location / / Volume Laterality Urine specimen 03/01/2015 10:34 5 (specimen) AM EST 11:50 AM EST Resulting Agency Comment Spec In Lab Boone Rodriguez MD URINE ORDERABLES Performing Organization Address City/State/[place] [address] ALANNANER JENNIFERENNIUM (ABNORMAL) Urine culture Clean Catch Urine (03/01/2015 10:34 AM EST) [facility] Method Time Signature Urine Culture 50,000-99,000 CERNER cfu/ml [facility] Escherichia coli (A) Organism Escherichia CERNER coli [...] Organization Address City/State/[place] [address] [facility] documented in this encounter Visit Diagnoses Diagnosis Recurrent UTI Urinary tract infection, site not specif ied documented in this encounter Care Teams Corset Fitter Relationship Specialty Start Date End Date Rocio Jose MD PCP - General 05/21/10 08/20/15 [address] [place] [address] documented as of this encounter
--- OUTSIDE RECORDS SUMMARY | 2022-03-15 01:34 | XMS_ITS | Encounter Summary ---
:1970 Author Organization [facility] [place] [address] Care Team Providers Name Role Phone Rocio Jose MD Primary Care Provider Encounter Details Date Type Department Care Team Description 04/20/2015 Notes Only [place] [facility] [place] Preciado, [facility] [place] [address] [facility] [phone] UROLOGY DEPT. [place], [place] [address] (Wo rk) Social History Tobacco Use Types Packs/Day Years Used Date Smoking Tobacco: Never Sex Assigned at Date Recorded Not on file documented as of this encounter Progress Notes Jocelyn Navarro LPN - 04/20/2015 8:44 AM EST Urine culture collected 04/18 from [facility] is a no growth. A letter has been printed and sent to the patient's home address. JOCELYN NAVARRO LPN documented in this encounter Plan of Treatment Not on filedocumented as of this encounter Visit Diagnoses Not on filedocumented in this encounter Care Teams Construction And Maintenance Inspector Relationship Specialty Start Date End Date Rocio Jose MD PCP - General 05/21/10 08/20/15 [address] [place] [address] documented as of this encounter
--- OUTSIDE RECORDS SUMMARY | 2022-03-15 01:34 | XMS_ITS | Encounter Summary ---
:1970 Author Organization [facility] [place] [address] Care Team Providers Name Role Phone Mariluz Vargas MD Primary Care Provider Encounter Details Date Type Department Care Team Description 07/10/2016 Telephone Urology at [facility] Arely Preciado, [facility] [place] [address] [facility] [phone] UROLOGY DEPT. [place], [place] [address] (Wo rk) Social History Tobacco Use Types Packs/Day Years Used Date Smoking Tobacco: Never Smokeless Tobacco: Never Alcohol Use Standard Drinks/Week Comments Yes 1 (1 standard drink = 0.6 oz pure alcoho l) Sex Assigned at Date Recorded Not on file documented as of this encounter Miscellaneous Notes Telephone Encounter - Arely Preciado APRN - 07/10/2016 2:36 PM EDT Reviewed her [...] on filedocumented in this encounter Care Teams Cath Lab Relationship Specialty Start Date End Date Mariluz Vargas MD PCP - General Family Medicine 11/20/[address] [place] [address] [address] [place] [address] documented as of this encounter
--- OUTSIDE RECORDS SUMMARY | 2022-03-15 01:34 | XMS_ITS | Encounter Summary ---
:1970 Author Organization [facility] [place] [address] Care Team Providers Name Role Phone Mariluz Vargas MD Primary Care Provider Encounter Details Date Type Department Care Team Description 01/19/2016 Telephone Urology at [facility] Arely Preciado, [facility] [place] [address] [facility] [phone] UROLOGY DEPT. [place], [place] [address] (Wo rk) Social History Tobacco [...] on filedocumented in this encounter Care Teams Continuous Miner Operator Relationship Specialty Start Date End Date Mariluz Vargas MD PCP - General Family Medicine 11/20/[address] [place] [address] documented as of this encounter
--- OUTSIDE RECORDS SUMMARY | 2022-03-15 01:34 | XMS_ITS | Encounter Summary ---
:1970 Author Organization [facility] [place] [address] Care Team Providers Name Role Phone Mariluz Vargas MD Primary Care Provider Encounter Details Date Type Department Care Team Description 03/26/2016 Telephone Urology at [facility] Arely Preciado, [facility] [place] [address] [facility] [phone] UROLOGY DEPT. [place], [place] [address] (Wo rk) Social History Tobacco [...] for urine infection. She was in the ED[facility]. For the past 2 months, she has had rectal cramping/also suprapubically. She had some sternal and back pain as well. When in ER, she had a CT done. She saw LUMBER PLANER and was told the CT showed that [...] if a formal culture was sent at [facility]. Will get CT report and imaging and culture report. documented in this encounter Plan of Treatment Not on filedocumented as of this encounter Visit Diagnoses Not on filedocumented in this encounter Care Teams Collection Systems Consultant Relationship Specialty Start Date End Date Mariluz Vargas MD PCP - General Family Medicine 11/20/[address] [place] [address] documented as of this encounter
--- OUTSIDE RECORDS SUMMARY | 2022-03-15 01:34 | XMS_ITS | Encounter Summary ---
:1970 Author Organization [place] [address] Care Team Providers Name Role Phone Mariluz Vargas MD Primary Care Provider Encounter Details Date Type Department Care Team Description 03/26/2016 Orders Only Urology at [facility] Dayron Jauregui, Kidney stones; [facility] TONYA Mcgee Acute UTI (urinary tract infection) [place] [address] UROLOGY DEPT. [place], [place] [address] Social History Tobacco Use Types [...] ied documented in this encounter Care Teams Crisis Specialist Relationship Specialty Start Date End Date Mariluz Vargas MD PCP - General Family Medicine 11/20/[address] [place], [place] [address] documented as of this encounter
--- OUTSIDE RECORDS SUMMARY | 2022-03-15 01:34 | XMS_ITS | Encounter Summary ---
:1970 Author Organization [facility] [place] [address] Care Team Providers Name Role Phone Mariluz Vargas MD Primary Care Provider Encounter Details Date Type Department Care Team Description 11/15/2016 Office Visit Urology at [facility] Dayron Hollins, Recurrent UTI (urinary tract infection); [facility] TONYA Mcgee Nephrolithiasis; Drive [facility] IC (interstitial cystitis) [place] [address] UROLOGY DEPT. [phone] [place], [place] [address] Social History Tobacco Use Types [...] in this encounter Progress Notes Bowen Preciado, SWIMMING COACH OR INSTRUCTOR - 11/15/2016 2:20 PM EDT UROLOGY CLINIC [...] e.coli 04/17/2016: e.coli 03/28/2016: 10-50 K e.coli ackemran sensitive-she wanted macrobid called in, but will [...] HISTORY: , no children. 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 She is a non-smoker, non-drinker. FAMILY [...] 10:48 am) PATIENT INFO: ID #: ? [id number] ?: ??[birth year] (47 yrs) Name: ? TARI V ? Visit Date: 04/29/2017 09:54 am ? CLOUATRE PERFORMED BY: Performed By: ? Vandana LOWERY, ??Enio johnson Attending: ?Master VILLASENOR, Kieran Pratt. Resident: ? Heaven VILLASENOR, Krista Boothe. Referred By: ?BOWEN Noriega Location: ? [place] SERVICE(S) PROVIDED: ??URETRO - Retroperitoneal Complete - I [id number] ? [id number] INDICATIONS: ??history of nephrolithiasis and infect ed [...] 10:48 am ) PATIENT INFO: ID #: [id number] : [birth year] (47 y rs) Name: TARI Cabrales Visit Date: 04/29/2017 0 9:54 am CLOUATRE PERFORMED BY: Performed By: Ana Ross RDMS Attending: Svitlana Thao MD Resident: Mejia Collado MD Referred By: BOWEN HOLLINS Location: [place] SERVICE(S) PROVIDED: URETRO - Retroperitoneal Complete - [facility] [id number] INDICATIONS: history of nephrolithiasis and infected stone. [...] Time Signature Urine Culture 1,000-9,000 NATALIA cfu/ml [facility] probable LABORATORY contaminant (A) Specimen (Source) Anatomical Collection Method Collection Time Re ceived Time Location / / Volume Laterality Urine specimen 11/15/2016 6:18 11/15/2016 6:18 obtained by clean PM EDT PM EDT catch procedure (specimen) Resulting Agency Comment Spec In Lab Bowen Hollins APRN MICROBIOLOGY - GENERAL ORDER PATRICK Performing Organization Address City/State/[place] [address] [facility] Uric acid (11/15/2016 3:03 PM EDT) athologist Signature Uric Acid 4.9 2.5 - 6.5 [facility] mg/dL [facility] Specimen Anatomical Collection Method Collection Time Receive d Time (Source) Location / / Volume Laterality Blood specimen 11/15/2016 3:03 PM 017 3:06 (specimen) EDT PM EDT Resulting Agency Comment Spec In Lab Bowenchandni Granadozack Hollins APRN CHEMISTRY ORDERABLES Performing Organization Address City/State/[place] [address] [facility] Comprehensive metabolic panel (non-fasting) (11/15/2016 3:03 PM EDT) athologist Signature Glucose Lvl 103 65 - 199 [facility] mg/dL [facility] Comment: Diabetes: >=200 mg/dL plus symp toms BUN 15 8 - 18 mg/dL [facility] Creatinine 0.87 0.70 - 1.20 mg/dL [facility] Comment: Please note that the pediatric reference intervals supplied above were not validated at [facility]. Results from pediatri c patients should be interpreted in conjunction to the patient's age, height and muscle mass. Sodium 142 135 - 145 mmol/L [facility] Potassium 4.3 3.5 - 5.0 mmol/L [facility] Comment: Please note: ??Patients with WBC >100,00 0 may have falsely elevated Potassium levels. ??For accurate Potassium quantif ication in these patients send serum separator tube (gold top) for subsequent determinations. ??Contact the Clinical Chemistry Laboratory if there are any qu estions. Chloride 102 98 - 107 mmol/L [facility] CO2 26 22 - 31 mmol/L [facility] Anion Gap 14 5 - 15 mmol/L [facility] Calcium 9.5 8.5 - 10.5 mg/dL [facility] Total Protein 7.6 6.1 - 8.0 gm/dL [facility] Albumin 4.3 3.2 - 5.2 gm/dL [facility] AST 20 0 - 30 unit/L [facility] ALT 14 0 - 30 unit/L [facility] Alk Phos 55 40 - 104 unit/L [facility] Total Bilirubin 0.5 0.2 - 1.3 mg/dL [facility] Estimated GFR >60 >=60 [facility] Comment: This estimated GFR (eGFR) [...] the following links into your internet browser. [email or web address] Specimen Anatomical Collection Method Collection Time Receive d Time (Source) Location / / Volume Laterality Blood specimen 11/15/2016 3:03 PM 017 3:06 (specimen) EDT PM EDT Resulting Agency Comment Spec In Lab Bowen Hollins APRN CHEMISTRY ORDERABLES Performing Organization Address City/State/[place] [address] documented in this encounter Visit Diagnoses Diagnosis Recurrent UTI (urinary tract infection) Urinary tract infection, site not specif ied Nephrolithiasis Calculus of kidney IC (interstitial cystitis) Chronic interstitial cystitis Nephrolithiasis Calculus of kidney documented in this encounter Care Teams Equipment Superintendent Relationship Specialty Start Date End Date Mariluz Vargas MD PCP - General Family Medicine 11/20/[address] [place] [address] documented as of this encounter
--- OUTSIDE RECORDS SUMMARY | 2022-03-15 01:34 | XMS_ITS | Encounter Summary ---
:1970 Author Organization [facility] [place] [address] Care Team Providers Name Role Phone Mariluz Vargas MD Primary Care Provider Encounter Details Date Type Department Care Team Description 04/04/2016 Orders Only U[place] [facility] A[place] Preciado, [facility] [place] [address] [facility] [phone] UROLOGY DEPT. [place], [place] [address] (Wo rk) Social History Tobacco [...] filedocumented in this encounter Care Teams Family Medicine Resident Relationship Specialty Start Date End Date Mariluz Vargas MD PCP - General Family Medicine 11/20/[address] [place], [place] [address] documented as of this encounter
--- OUTSIDE RECORDS SUMMARY | 2022-03-15 01:34 | XMS_ITS | Encounter Summary ---
:1970 Author Organization [facility] [place] [address] Care Team Providers Name Role Phone Rocio Jose MD Primary Care Provider Reason for Visit Reason Comments Other Encounter Details Date Type Department Care Team Description 03/21/2015 Telephone Urology at [facility] Arely Preciado, [facility] [place] [address] [facility] [phone] UROLOGY DEPT. [place], [place] [address] (Wo rk) Social History Tobacco [...] on filedocumented in this encounter Care Teams Shore Hand Dredge Or Barge Relationship Specialty Start Date End Date Rocio Jose MD PCP - General 05/21/10 08/20/15 [address] [place] [address] documented as of this encounter
--- OUTSIDE RECORDS SUMMARY | 2022-03-15 01:34 | XMS_ITS | Encounter Summary ---
:1970 Author Organization [facility] [place] [address] Care Team Providers Name Role Phone Mariluz Vargas MD Primary Care Provider Encounter Details Date Type Department Care Team Description 06/17/2016 Telephone [place] [facility] Arely Preciado, [facility] [place] [address] [facility] [phone] UROLOGY DEPT. [place], [place] [address] (Wo rk) Social History Tobacco [...] full course, or call the urology resident automation manager. I asked her to call me about [...] the urine sample given this morning at [facility]. Pt knows it will not be ready but leaving on vacation Friday and currently has medication -nitrofurantoin - to take. Pt is informing Arely of the UTI. Pt would like a call on her Cell Telephone Encounter - Ronan Rojas - 06/17/2016 4:08 PM EST Patient feels she has a UTI - needs slip sent to [facility] for first clean catch in morning on 06/18/16. Pt's #[phone]. documented in this encounter Plan of Treatment Not on filedocumented as of this encounter Visit Diagnoses Not on filedocumented in this encounter Care Teams Court Liaison Relationship Specialty Start Date End Date Mariluz Vargas MD PCP - General Family Medicine 11/20/[address] [place] [address] [address] [place] [address] documented as of this encounter
--- OUTSIDE RECORDS SUMMARY | 2022-03-15 01:34 | XMS_ITS | Encounter Summary ---
:1970 Author Organization [facility] [place] [address] Care Team Providers Name Role Phone Mariluz Vargas MD Primary Care Provider Encounter Details Date Type Department Care Team Description 04/02/2016 Orders Only Urology at [facility] Arely Preciado, [facility] [place] [address] [facility] [phone] UROLOGY DEPT. [place], [place] [address] (Wo rk) Social History Tobacco [...] on filedocumented in this encounter Care Teams Fertilizing Machine Operator Relationship Specialty Start Date End Date Mariluz Vargas MD PCP - General Family Medicine 11/20/[address] [place], [place] [address] documented as of this encounter
--- OUTSIDE RECORDS SUMMARY | 2022-03-15 01:34 | XMS_ITS | Encounter Summary ---
:1970 Author Organization [facility] [place] [address] Care Team Providers Name Role Phone Mariluz Vargas MD Primary Care Provider Encounter Details Date Type Department Care Team Description 09/06/2016 Telephone Urology at [facility] Arely Preciado, [facility] [place] [address] [facility] [phone] UROLOGY DEPT. [place], [place] [address] (Wo rk) Social History Tobacco [...] call about urine culture results. Please call [phone] documented in this encounter Plan of Treatment Not on filedocumented as of this encounter Visit Diagnoses Not on filedocumented in this encounter Care Teams Ladle Liner Relationship Specialty Start Date End Date Mariluz Vargas MD PCP - General Family Medicine 11/20/[address] [place] [address] documented as of this encounter
--- OUTSIDE RECORDS SUMMARY | 2022-03-15 01:34 | XMS_ITS | Encounter Summary ---
:1970 Author Organization [facility] [place] [address] Care Team Providers Name Role Phone Rocio Jose MD Primary Care Provider Encounter Details Date Type Department Care Team Description 05/26/2015 Telephone [place] [facility] A[place] Preciado, [facility] [place] [address] [facility] [phone] UROLOGY DEPT. [place], [place] [address] (Wo rk) Social History Tobacco [...] on filedocumented in this encounter Care Teams Business Line Manager Relationship Specialty Start Date End Date Rocio Jose MD PCP - General 05/21/10 08/20/15 [address] [place] [address] documented as of this encounter
--- OUTSIDE RECORDS SUMMARY | 2022-03-15 01:34 | XMS_ITS | Encounter Summary ---
:1970 Author Organization [facility] [place] [address] Care Team Providers Name Role Phone Mariluz Vargas MD Primary Care Provider Encounter Details Date Type Department Care Team Description 07/13/2016 Telephone Urology Franck Peter MD [facility] [place] [address] UROLOGY DEPT [phone] [place], [place] [address] (Wo rk) Social History Tobacco [...] on filedocumented in this encounter Care Teams Local Az Truck Driver Relationship Specialty Start Date End Date Mariluz Vargas MD PCP - General Family Medicine 11/20/15 [address] [facility] [place] [address] documented as of this encounter
--- OUTSIDE RECORDS SUMMARY | 2022-03-15 01:34 | XMS_ITS | Encounter Summary ---
:1970 Author Organization [facility] [place] [place] [address] Care Team Providers Name Role Phone Rocio Jose MD Primary Care Provider Encounter Details Date Type Department Care Team Description 06/02/2015 Telephone Urology at [facility] [place] [address] [facility] [phone] UROLOGY DEPT. [place], [place] [address] (Wo rk) Social History Tobacco Use Types Packs/Day Years Used Date Smoking Tobacco: Never Sex Assigned at Date Recorded Not on file documented as of this encounter Miscellaneous Notes Telephone Encounter - Gabe Alonzo RN - 06/02/2015 4:16 PM EST Lab order faxed to [facility] Lab Telephone Encounter - Gabe Alonzo RN - 06/02/2015 2:36 PM EST Verified patient name and date of Pt returned call and agrees with the plan. Pt would like order sent to [facility] Lab Telephone Encounter - Gabe Alonzo RN [...] system documented in this encounter Care Teams Family Physician Relationship Specialty Start Date End Date Rocio Jose MD PCP - General 05/21/10 08/20/15 [address] [place] [address] documented as of this encounter
--- OUTSIDE RECORDS SUMMARY | 2022-03-15 01:34 | XMS_ITS | Encounter Summary ---
:1970 Author Organization [facility] [place] [address] Care Team Providers Name Role Phone Mariluz Vargas MD Primary Care Provider Encounter Details Date Type Department Care Team Description 09/24/2016 Surgery Main Operating Room Quentin Murphy Jr., CYSTOURETEROSCOPY,[facility] OSTIC,W/ LITHOTRIPSY [facility]. INSERTION OF [facility] INDQUINCY URETERAL [facility] UROLOGY DEPT. STENT ([address]) [place] [address] [place] [address] [phone] (Wo rk) Social History Tobacco Use Types [...] documented in this encounter Discharge Instructions Discharge InstructionsLyToshia iglesias RN - 09/24/2016 6:29 PM EDT POST [...] usually goes away in 12-24 hours. Patient InstructionsVolNelly martini MD - 09/24/2016 12:09 PM EDT DISCHARGE [...] operation. Nelly Noguera MD Urology PGY-3 Pager: [phone] documented in this encounter Miscellaneous Notes Op Note - Nelly Noguera MD - 09/24/2016 6:50 PM EDT Operative Note ?? Patient Name: Tari Mosley : [id number] MR#: [id number] ?? Case Date: 09/24/2016 ?? Surgeon: Surgeon(s) [...] prior Nelly Noguera MD Urology PGY-3 Pager: [phone] Brief Op Note - Nelly Noguera MD - 09/24/2016 5:53 PM EDT Brief Operative Note Patient Name: Tari Mosley : [id number] MR#: [id number] Case Date: 09/24/2016 Surgeon: Surgeon(s) and Role: [...] 01:39 pm) PATIENT INFO: ID #: ? [id number] ?: ??[birth year] (46 yrs) Name: ? TARI Samra ? Visit Date: 11/15/2016 01:09 pm ? CLOUATRE PERFORMED BY: Performed By: ? Juancho Romero RDMS Attending: ?Kirk VILLASENOR, Chris Hatch. Referred By: ?QUENTIN MURPHY Location: ? [place] SERVICE(S) PROVIDED: ??URETRO - Retroperitoneal Complete - I [id number] ? [id number] INDICATIONS: ??s/p bilateral URS 09/24/2016. ?hydro COMPARISON: [...] 01:39 pm ) PATIENT INFO: ID #: [id number] : [birth year] (46 y rs) Name: TARI Cabrales Visit Date: 11/15/2016 0 1:09 pm CLOUATRE PERFORMED BY: Performed By: Juancho Romero RDMS Attending: Aguila Bradley MD Referred By: QUENTIN MURPHY Location: [place] SERVICE(S) PROVIDED: URETRO - Retroperitoneal Complete - [facility] [id number] INDICATIONS: s/p bilateral URS 09/24/2016. ?hydro COMPARISON: [...] ORDERABLES Anaerobic Culture (09/24/2016 6:08 PM EDT) [facility] Method Time Signature Anaerobic No anaerobic [facility] Culture organisms [facility] LABORATORY Specimen Anatomical Collection Method Collection Time Receive d Time (Source) Location / / Volume Laterality Specimen of 09/24/2016 6:08 PM 7 7:12 unknown material EDT PM EDT (specimen) Comment: LEFT RENAL CRUSHED STONE Resulting Agency Comment Spec In Lab Quentin Murphy Jr., MD MICROBIOLOGY - GENERAL ORDER PATRICK Performing Organization Address City/[facility]/[place] [address] Tissue culture (09/24/2016 6:08 PM EDT) Component Value Ref Test Analysis Performed At [facility] g[facility] Range Method Time Signature Tissue No growth NATALIA Culture [facility] LABORATORY Gram Stain No WBC's seen. NATALIA No microorganisms seen. [facility] LABORATORY Specimen Anatomical Collection Method Collection Time Receive d Time (Source) Location / / Volume Laterality Specimen of 09/24/2016 6:08 PM 7 7:12 unknown material EDT PM EDT (specimen) Comment: LEFT RENAL CRUSHED STONE Resulting Agency Comment Spec In Lab Quentin Murphy Jr., MD MICROBIOLOGY - GENERAL ORDER PATRICK Performing Organization Address City/State/[place] [address] Anaerobic Culture (09/24/2016 6:08 PM EDT) [facility] Method Time Signature Anaerobic No anaerobic NATALIA MURPHY Culture organisms [facility] LABORATORY Specimen Anatomical Collection Method Collection Time Receive d Time (Source) Location / / Volume Laterality Specimen of 09/24/2016 6:08 PM 7 7:23 unknown material EDT PM EDT (specimen) Comment: RIGHT RENAL CRUSHED STONE Resulting Agency Comment Spec In Lab Quentin Murphy Jr., MD MICROBIOLOGY - GENERAL ORDER PATRICK Performing Organization Address City/[facility]/[place] [address] (ABNORMAL) Tissue culture (09/24/2016 6:08 PM EDT) Component Value Ref Test Analysis Performed At [facility] gist Range Method Time Signature Tissue Few Escherichia NATALIA Culture coli (A) [facility] LABORATORY Gram Stain Few White Blood Cells seen MA RY No microorganisms seen. [facility] LABORATORY Organism Escherichia coli NATALIA (A) [facility] LABORATORY Specimen Anatomical Collection Method Collection Time [...] - GENERAL ORDER PATRICK Performing Organization Address City/[facility]/ZIP Code Phon e Number [address] Urine culture Cystoscopic Urine (09/24/2016 6:08 PM EDT) [facility] gist Method Time Signature Urine Culture No growth NATALIA MARTE (Less than [facility] 1,000 [facility] cfu/ml). LABORATORY Specimen Anatomical Collection Method Collection Time Receive d Time (Source) Location / / Volume Laterality Urine specimen 09/24/2016 6:08 PM 017 7:15 (specimen) EDT PM EDT Comment: RIGHT RENAL URINE Resulting Agency Comment Spec In Lab Quentin Murphy Jr., MD MICROBIOLOGY - GENERAL ORDER PATRICK Performing Organization Address City/[facility]/ZIP Code Phon e Number [address] XR Fluoro No Rad [...] City/State/ZIP Code Phon e Number RAD BIN [place], [place] Kidney Stone Analysis (09/24/2016 5:34 PM EDT) Component Value Ref Test Analysis Performed At [facility] Range Method Time Signature Kidney Stone NATALIA Analysis Test ? Result ?Flag ??Unit ??RefValue [facility] Kidney Stone Analysis [facility] ??Source: ?Lef t Renal LABORATORY ??1st Constituent: ?50% Calcium oxalate monohydrate ??2nd Constituent: ?40% Calcium phosphate (apatite) ??3rd Constituent: ?10% Calcium oxalate dihydrate ? ADDITIONAL INFORMATION ------ ?This test was developed and its performance characteri stics ?determined by [facility] in a manner consistent with CLIA ?requirements. This test has not been cleared or approv ed by ?the U.S. Food and Drug Administration. ?Test Performed by: ?[facility] [employer] [facility] ?[address] [place] [address] Specimen Anatomical Collection Method Collection Time Receive d Time (Source) Location / / Volume Laterality Calculus 09/24/2016 5:34 PM 7 8:56 specimen EDT AM EDT (specimen) Resulting Agency Comment Spec In Lab Quentin Murphy Jr., MD BODY FLUIDS AND STOOLS ORDER PATRICK Performing Organization Address City/State/ZIP [place] [address] Kidney Stone Analysis (09/24/2016 5:09 PM EDT) Component Value Ref Test Analysis Performed At [facility] Range Method Time Signature Kidney Stone NATALIA Analysis Test ? Result ?Flag ??Unit ??RefValue [facility] Kidney Stone Analysis [facility] ??Source: ?Rig Renal LABORATORY ??1st Constituent: ?100% Calcium oxalate monohydrate ? ADDITIONAL INFORMATION ------ ?This test was developed and its performance characteri stics ?determined by [facility] in a manner consistent with CLIA ?requirements. This test has not been cleared or approv ed by ?the U.S. Food and Drug Administration. ?Test Performed by: ?[facility] [employer] [facility] ?[address] [place] [address] Specimen Anatomical Collection Method Collection Time Receive d Time (Source) Location / / Volume Laterality Calculus 09/24/2016 5:09 PM 7 8:56 specimen EDT AM EDT (specimen) Resulting Agency Comment Spec In Lab Quentin Murphy Jr., MD BODY FLUIDS AND STOOLS ORDER PATRICK Performing Organization Address City/[facility]/ZIP Code Phon e Number [address] Urine culture (09/24/2016 4:26 PM EDT) [facility] Method Time Signature Urine Culture No growth NATALIA MARTE (Less than [address] cfu/ml). LABORATORY Specimen Anatomical Collection Method Collection Time Receive d Time (Source) Location / / Volume Laterality Urine specimen 09/24/2016 4:26 PM 017 7:27 (specimen) EDT PM EDT Comment: BLADDER URINE Resulting Agency Comment Spec In Lab Quentin Murphy Jr., MD MICROBIOLOGY - GENERAL ORDER PATRICK Performing Organization Address [facility]/ZIP Code Phon e Number [address] Urine culture (09/24/2016 4:26 PM EDT) [facility] Method Time Signature Urine Culture No growth NATALIA MARTE (Less than [address] cfu/ml). LABORATORY Specimen Anatomical Collection Method Collection Time Receive d Time (Source) Location / / Volume Laterality Urine specimen 09/24/2016 4:26 PM 017 7:24 (specimen) EDT PM EDT Comment: LEFT RENAL URINE Resulting Agency Comment Spec In Lab Quentin Murphy Jr., MD MICROBIOLOGY - GENERAL ORDER PATRICK Performing Organization Address [facility]/ZIP [facility] Phon e Number [address] documented in this encounter [...] Intravenous, EVERY 5 MIN PRN, Starting on Fri09/24/16 at 1811, Until Fri09/24/16 at 1948, Pain, [...] at 100 mL/hr, Intravenous, CON TINUOUS, Starting Fri09/24/16 at 1330, Until Fri09/24/16 at 1948, [...] mcg/mL) syringe 1900 (Due) 1 dose, Starting Fri09/24/16 at 1851, Unt il 09/25/16 at 0659, TOSHIA GIBSON: cabinet override documented in this encounter Care Teams Knife Setter Relationship Specialty Start Date End Date Mariluz Vargas MD PCP - General Family Medicine 11/20/15 [address] [place] [address] documented as of this encounter
--- OUTSIDE RECORDS SUMMARY | 2022-03-15 01:34 | XMS_ITS | Encounter Summary ---
:1970 Author Organization [facility] [place] [address] Care Team Providers Name Role Phone Rocio Jose MD Primary Care Provider Encounter Details Date Type Department Care Team Description 07/13/2015 Office Visit Urology at [facility] [place] Dayron Jauregui, Recurrent UTI (urinary tract infection); [facility] TONYA Mcgee IC (interstitial cystitis) [place] [address] UROLOGY DEPT. [phone] [place], [place] [address] Social History Tobacco Use Types Packs/Day Years Used Date Smoking Tobacco: Never Alcohol Use Standard Drinks/Week Comments [...] HISTORY: , no children. 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 She is a non-smoker, non-drinker. FAMILY [...] cystitis documented in this encounter Care Teams Primary Clinician Relationship Specialty Start Date End Date Rocio Jose MD PCP - General 05/21/10 08/20/15 [address] [place] [address] documented as of this encounter
--- OUTSIDE RECORDS SUMMARY | 2022-03-15 01:34 | XMS_ITS | Encounter Summary ---
:1970 Author Organization [facility] [place] [address] Care Team Providers Name Role Phone Rocio Jose MD Primary Care Provider Reason for Visit Reason Comments Other Encounter Details Date Type Department Care Team Description 05/19/2015 Telephone Urology at [facility] Arely Preciado, [facility] [place] [address] [facility] [phone] UROLOGY DEPT. [place], [place] [address] (Wo rk) Social History Tobacco Use Types Packs/Day Years Used Date Smoking Tobacco: Never Sex Assigned at Date Recorded Not on file documented as of this encounter Miscellaneous Notes Telephone Encounter - Arely Preciado APRN - 05/19/2015 4:27 PM EST Pt called to let me know that her urinary symptoms are back. She is seeing [facility] next Friday. She will have urine testing there and will let me know the results. documented in this encounter Plan of Treatment Not on filedocumented as of this encounter Visit Diagnoses Not on filedocumented in this encounter Care Teams Delivery Nurse Relationship Specialty Start Date End Date Rocio Jose MD PCP - General 05/21/10 08/20/15 [address] [place] [address] documented as of this encounter
--- OUTSIDE RECORDS SUMMARY | 2022-03-15 01:34 | XMS_ITS | Encounter Summary ---
:1970 Author Organization [facility] Address [facility] [place] [address] Care Team Providers Name Role Phone Rocio Jose MD Primary Care Provider Encounter Details Date Type Department Care Team Description 03/03/2015 Orders Only Urology at [facility] Boone Rodriguez MD Acute UTI ([facility] tra ct infection) [place] [address] UROLOGY [phone] [place], [place] [address] Social History Tobacco Use Types Packs/Day Years Used Date Smoking Tobacco: Never Sex Assigned at Date Recorded Not on file documented as of this encounter Plan of Treatment Not on filedocumented as of this encounter Visit Diagnoses Diagnosis Acute UTI (urinary tract infection) Urinary tract infection, site not specif ied documented in this encounter Care Teams Auditor In Charge Relationship Specialty Start Date End Date Rocio Jose MD PCP - General 05/21/10 08/20/15 [address] [place], [place] [id number] documented as of this encounter
--- OUTSIDE RECORDS SUMMARY | 2022-03-15 01:34 | XMS_ITS | Encounter Summary ---
:1970 Author Organization [facility] Address [facility] [place] [address] Care Team Providers Name Role Phone Mariluz Vargas MD Primary Care Provider Encounter Details Date Type Department Care Team Description 09/25/2016 Telephone Urology José Luis Block MD [facility] [place] [address] UROLOGY DEPT [phone] [place], [place] [address] (Wo rk) Social History Tobacco [...] on filedocumented in this encounter Care Teams Gusset Edger Relationship Specialty Start Date End Date Mariluz Vargas MD PCP - General Family Medicine 11/20/[address] [place] [address] [address] [place] [address] documented as of this encounter
--- OUTSIDE RECORDS SUMMARY | 2022-03-15 01:34 | XMS_ITS | Encounter Summary ---
:1970 Author Organization [facility] [place] [address] Care Team Providers Name Role Phone Mariluz Vargas MD Primary Care Provider Encounter Details Date Type Department Care Team Description 07/09/2016 Hospital Encounter Ultrasound at [facility] Quentin Murphy Nephrolithiasis [facility] [place] [address] UROLOGY DEPT. [phone] [place], [place] [address] Social History Tobacco Use Types [...] 01:27 pm) PATIENT INFO: ID #: ? [id number] ?: ??[birth year] (46 yrs) Name: ? ADELA V ? Visit Date: 07/09/2016 01:06 pm ? CLOUATRE PERFORMED BY: Performed By: ? Vandana LOWERY, ??Enio johnson Attending: ?Rufus VILLASENOR, Chelsea Boogie Referred By: ?QUENTIN MURPHY MD Location: ? [place] SERVICE(S) PROVIDED: ??URETRO - Retroperitoneal Complete - I [id number] ? [id number] INDICATIONS: ??changes in stone size from CT [...] 01:27 pm ) PATIENT INFO: ID #: [id number] : [birth year] (46 y rs) Name: ADELA Cabrales Visit Date: 07/09/2016 0 1:06 pm CLOUATRE PERFORMED BY: Performed By: Ana Ross RDMS Attending: Chelsea Hooper MD Referred By: QUENTIN MURPHY MD Location: [place] SERVICE(S) PROVIDED: URETRO - Retroperitoneal Complete - [facility] [id number] INDICATIONS: changes in stone size from CT [...] Signed Final Report 07/09 01:27 pm Quentin Murpyh Jr., MD IMG US GEN ORDERABLES documented in this encounter Visit Diagnoses Diagnosis Nephrolithiasis Calculus of kidney documented in this encounter Care Teams Tool Mechanic Relationship Specialty Start Date End Date Mariluz Vargas MD PCP - General Family Medicine 11/20/[address] [place] [address] documented as of this encounter
--- OUTSIDE RECORDS SUMMARY | 2022-03-15 01:34 | XMS_ITS | Encounter Summary ---
:1970 Author Organization [facility] [place] [address] Care Team Providers Name Role Phone Mariluz Vargas MD Primary Care Provider Encounter Details Date Type Department Care Team Description 09/24/2016 Hospital Encounter Same Day Program at [facility] Nephrolithiasis Ellen Cassidy Jr., MD [facility] [address] UROLOGY DEPT. [place], [place] [phone] Social History Tobacco Use Types Packs/Day Years [...] operation. Nelly Noguera MD Urology PGY-3 Pager: [phone] documented in this encounter Miscellaneous Notes Op Note - Nelly Noguera MD - 09/24/2016 6:50 PM EDT Operative Note ?? Patient Name: Tari Mosley : [id number] MR#: [id number] ?? Case Date: 09/24/2016 ?? Surgeon: Surgeon(s) [...] prior Nelly Noguera MD Urology PGY-3 Pager: [phone] Brief Op Note - Nelly Noguera MD - 09/24/2016 5:53 PM EDT Brief Operative Note Patient Name: Tari Mosley : [id number] MR#: [id number] Case Date: 09/24/2016 Surgeon: Surgeon(s) and Role: [...] 01:39 pm) PATIENT INFO: ID #: ? [id number] ?: ??[birth year] (46 yrs) Name: ? TARI V ? Visit Date: 11/15/2016 01:09 pm ? CLOUATRE PERFORMED BY: Performed By: ? Juancho Romero RDMS Attending: ?Kirk VILLASENOR, Chris Martinez Referred By: ?QUENTIN MURPHY JR Location: ? [place] SERVICE(S) PROVIDED: ??URETRO - Retroperitoneal Complete - I [id number] ? [id number] INDICATIONS: ??s/p bilateral URS 09/24/2016. ?hydro COMPARISON: [...] 01:39 pm ) PATIENT INFO: ID #: [id number] : [birth year] (46 y rs) Name: TARI Cabrales Visit Date: 11/15/2016 0 1:09 pm CLOUATRE PERFORMED BY: Performed By: Juancho Romero RDMS Attending: Aguila Bradley MD Referred By: QUENTIN MURPHY JR Location: [place] SERVICE(S) PROVIDED: URETRO - Retroperitoneal Complete - [id number] INDICATIONS: s/p bilateral URS 09/24/2016. ?hydro COMPARISON: [...] 11/15 01:39 pm Quentin Murphy Jr., MD [facility] US GEN ORDERABLES Anaerobic Culture (09/24/2016 6:08 PM EDT) [facility] Method Time Signature Anaerobic No anaerobic [facility] Culture organisms [facility] LABORATORY Specimen Anatomical Collection Method Collection Time Receive d Time (Source) Location / / Volume Laterality Specimen of 09/24/2016 6:08 PM 7 7:12 unknown material EDT PM EDT (specimen) Comment: LEFT RENAL CRUSHED STONE Resulting Agency Comment Spec In Lab Quentin Murphy Jr., MD MICROBIOLOGY - GENERAL ORDER PATRICK Performing Organization Address City/[facility]/ZIP Code Phon e Number [address] Tissue culture (09/24/2016 6:08 PM EDT) Component Value Ref Test Analysis Performed At Patholo gist Range Method Time Signature Tissue No growth ELLEN Culture [facility]OR[facility] Gram Stain No WBC's seen. ELLEN No microorganisms seen. [facility] LABORATORY Specimen Anatomical Collection Method Collection Time Receive d Time (Source) Location / / Volume Laterality Specimen of 09/24/2016 6:08 PM 7 7:12 unknown material EDT PM EDT (specimen) Comment: LEFT RENAL CRUSHED STONE Resulting Agency Comment Spec In Lab Quentin Murphy Jr., MD MICROBIOLOGY - GENERAL ORDER PATRICK Performing Organization Address City/[facility]/ZIP [place] [address] Anaerobic Culture (09/24/2016 6:08 PM EDT) [facility] Method Time Signature Anaerobic No anaerobic [place] Culture organisms [facility] LABORATORY Specimen Anatomical Collection Method Collection Time Receive d Time (Source) Location / / Volume Laterality Specimen of 09/24/2016 6:08 PM 7 7:23 unknown material EDT PM EDT (specimen) Comment: RIGHT RENAL CRUSHED STONE Resulting Agency Comment Spec In Lab Quentin Murphy Jr., MD MICROBIOLOGY - GENERAL ORDER PATRICK Performing Organization Address City/[facility]/[place]IP [place] [address] (ABNORMAL) Tissue culture (09/24/2016 6:08 PM EDT) Component Value Ref Test Analysis Performed At Patholo gist Range Method Time Signature Tissue Few Escherichia ELLEN Culture coli (A) [facility] Gram Stain Few White Blood Cells seen [place] RY No microorganisms seen. [facility] Organism Escherichia coli ELLEN (A) [facility] Specimen Anatomical Collection Method Collection Time [...] Organization Address City/[facility] Code Phon e Number [address] Urine culture Cystoscopic Urine (09/24/2016 6:08 PM EDT) [facility] Method Time Signature Urine Culture No growth ELLEN ROSANNA (Less than [facility] 1,000 [facility] cfu/ml). LABORATORY Specimen Anatomical Collection Method Collection Time Receive d Time (Source) Location / / Volume Laterality Urine specimen 09/24/2016 6:08 PM 017 7:15 (specimen) EDT PM EDT Comment: RIGHT RENAL URINE Resulting Agency Comment Spec In Lab Quentin Murphy Jr., MD MICROBIOLOGY - GENERAL ORDER PATRICK Performing Organization Address City/[facility] Phon e Number [address] XR Fluoro No Rad <1Hr - OR Use (09/24/2016 6:07 PM EDT) Specimen (Source) Anatomical Location Collection Method / Collectio n Time Received Time / Laterality Volume Narrative DH RAD - 09/24/2016 6:07 PM EDT This order does not need a radiologist i nterpretation. ?? Quentin Murphy Jr., MD IMG FLUORO ORDERABLES Performing Organization Address City/State/ZIP Code Phon e Number RAD [place], [place] Kidney Stone Analysis (09/24/2016 5:34 PM EDT) Component Value Ref Test Analysis Performed At [facility] Range Method Time Signature Kidney Stone ELLEN Analysis Test ? Result ?Flag ??Unit ??RefValue [employer] CK [facility] Kidney Stone Analysis [facility] ??Source: ?Lef t Renal LABORATORY ??1st Constituent: ?50% Calcium oxalate monohydrate ??2nd Constituent: ?40% Calcium phosphate (apatite) ??3rd Constituent: ?10% Calcium oxalate dihydrate ? ADDITIONAL INFORMATION ------ ?This test was developed and its performance characteri stics ?determined by [facility] in a manner consistent with CLIA ?requirements. This test has not been cleared or approv ed by ?the U.S. Food and Drug Administration. ?Test Performed by: ?[facility] [employer] [facility] ?[address] [place] [address] Specimen Anatomical Collection Method Collection Time Receive d Time (Source) Location / / Volume Laterality Calculus 09/24/2016 5:34 PM 7 8:56 specimen EDT AM EDT (specimen) Resulting Agency Comment Spec In Lab Quentin Murphy Jr., MD BODY FLUIDS AND STOOLS ORDER PATRICK Performing Organization Address City/State/ZIP Code Phon e [place] [address] Kidney Stone Analysis (09/24/2016 5:09 PM EDT) Component Value Ref Test Analysis Performed At [facility] Range Method Time Signature Kidney Stone ELLEN Analysis Test ? Result ?Flag ??Unit ??RefValue ALLENNJ CK [facility] Kidney Stone Analysis [facility] ??Source: ?Rig Renal LABORATORY ??1st Constituent: ?100% Calcium oxalate monohydrate ? ADDITIONAL INFORMATION ------ ?This test was developed and its performance characteri stics ?determined by [facility] in a manner consistent with CLIA ?requirements. This test has not been cleared or approv ed by ?the U.S. Food and Drug Administration. ?Test Performed by: ?[facility] ?[address] [place] [address] Specimen Anatomical Collection Method Collection Time Receive d Time (Source) Location / / Volume Laterality Calculus 09/24/2016 5:09 PM 7 8:56 specimen EDT AM EDT (specimen) Resulting Agency Comment Spec In Lab Quentin Murphy Jr., MD BODY FLUIDS AND STOOLS ORDER PATRICK Performing Organization Address City/[facility]/ZIP Code Phon e Number [address] Urine culture (09/24/2016 4:26 PM EDT) [facility] Method Time Signature Urine Culture No growth ELLEN CASSIDY (Less than [address] cfu/ml). LABORATORY Specimen Anatomical Collection Method Collection Time Receive d Time (Source) Location / / Volume Laterality Urine specimen 09/24/2016 4:26 PM 017 7:27 (specimen) EDT PM EDT Comment: BLADDER URINE Resulting Agency Comment Spec In Lab Quentin Murphy Jr., MD MICROBIOLOGY - GENERAL ORDER PATRICK Performing Organization Address [facility]/ZIP Code Phon e Number [address] Urine culture (09/24/2016 4:26 PM EDT) [facility] Method Time Signature Urine Culture No growth ELLEN CASSIDY (Less than [address] cfu/ml). LABORATORY Specimen Anatomical Collection Method Collection Time Receive d Time (Source) Location / / Volume Laterality Urine specimen 09/24/2016 4:26 PM 017 7:24 (specimen) EDT PM EDT Comment: LEFT RENAL URINE Resulting Agency Comment Spec In Lab Quentin Murphy Jr., MD MICROBIOLOGY - GENERAL ORDER PATRICK Performing Organization Address City/[facility]/ZIP [facility] Phon e Number [address] documented in this encounter [...] PRN, Starting on 09/24/16 at 1811, Until 09/24/16 at 1948, [...] Start ing e 09/24/16 at 1938, Until e 09/24/16 at 2213, Pain, Maximum dose of [...] override documented in this encounter Care Teams Adhesive Primer Relationship Specialty Start Date End Date Mariluz Vargas MD PCP - General Family Medicine 11/20/[address] [place] [address] documented as of this encounter
--- OUTSIDE RECORDS SUMMARY | 2022-03-15 01:34 | XMS_ITS | Encounter Summary ---
:1970 Author Organization [facility] [place] [address] Care Team Providers Name Role Phone Mariluz Vargas MD Primary Care Provider Encounter Details Date Type Department Care Team Description 04/02/2016 Telephone Urology at [facility] Arely Preciado, [facility] [place] [address] [facility] [phone] UROLOGY DEPT. [place], [place] [address] (Wo rk) Social History Tobacco [...] 04/02/2016 9:12 AM EST Talked to Ms. Mosley. She has no fever/chills or flank pain. [...] 01:27 pm) PATIENT INFO: ID #: ? [id number] ?: ??[birth year] (46 yrs) Name: ? TARI Cabrales ? Visit Date: 07/09/2016 01:06 pm ? CLOUATRE PERFORMED BY: Performed By: ? Vandana LOWERY, ??Enio johnson Attending: ?Rufus VILLASENOR, Chelsea Pratt . Referred By: ?QUENTIN MURPHY MD Location: ? [place] SERVICE(S) PROVIDED: ??URETRO - Retroperitoneal Complete - I [id number] ? [id number] INDICATIONS: ??changes in stone size from CT [...] Procedure Note Chelsea Hooper MD - 07/09/2016Formattchalo singleton of this note might be different from the original. Renal (Signed Final 07/09/2016 01:27 pm ) PATIENT INFO: ID #: [id number] : [birth year] (46 y rs) Name: TARI Cabrales Visit Date: 07/09/2016 0 1:06 pm CLOUATRE PERFORMED BY: Performed By: Ana Ross RDMS Attending: Chelsea Hooper MD Referred By: QUENTIN MURPHY MD Location: [place] SERVICE(S) PROVIDED: URETRO - Retroperitoneal Complete - IM [id number] INDICATIONS: changes in stone size from CT [...] 07/09 01:27 pm Quentin Murphy Jr., MD IM US GEN ORDERABLES documented in this encounter Visit Diagnoses Diagnosis Nephrolithiasis Calculus of kidney Nephrolithiasis Calculus of kidney documented in this encounter Care Teams Flight Engineer Inspector Relationship Specialty Start Date End Date Mariluz Vargas MD PCP - General Family Medicine 11/20/[address] [place] [address] documented as of this encounter
--- OUTSIDE RECORDS SUMMARY | 2022-03-15 01:34 | XMS_ITS | Encounter Summary ---
:1970 Author Organization [facility] [address] Care Team Providers Name Role Phone Rocio Jose MD Primary Care Provider Reason for Visit Reason Onset Date Comments Dysuria 03/21/2015 Encounter Details Date Type Department Care Team Description 03/21/2015 Telephone Obstetrics and Gynecology at [facility] Dysuria [facility] [place] [address] Social History Tobacco Use Types Packs/Day [...] on filedocumented in this encounter Care Teams Night Worker Relationship Specialty Start Date End Date Rocio Jose MD PCP - General 05/21/10 08/20/15 [address] [place] [address] documented as of this encounter
--- OUTSIDE RECORDS SUMMARY | 2022-03-15 01:34 | XMS_ITS | Encounter Summary ---
:1970 Author Organization [facility] [place] [address] Care Team Providers Name Role Phone Rocio Jose MD Primary Care Provider Reason for Visit Reason Comments Follow-up Encounter Details Date Type Department Care Team Description 08/08/2015 Office Visit Obstetrics and Aimee Gonzalez, Vaginal irritation; [place]cology at [facility] Dyspareunia (CODE) [facility] [place] [address] OBSTETRICS & [phone] GYNECOLOGY [place], [place] [address] Social History Tobacco Use Types [...] her care wth Dr Gisell Strickland at [facility] as well as with Urology at [facility]. Interval hx: She had a good trip to [facility] shortly after her last visit here.. Everything [...] when used a different generic->had bladder issues. [place], hut something hard in there- Discussed [...] but she has not used. Brief exam Pediatric Allergist: Patient's last menstrual period was 07/29/2015..On OCs [...] other STD's. No new sexual partners. Past OB-Pediatric Allergist Hx:G0. Pap 2005 in [place] [facility], moved to [place]. 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 Normal since with annual Paps, last 04/04. Review of Systems ROS:See HPI above Patient's medications, allergies, past medical, surgical, social and family histories were reviewed and updated as appropriate. 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 Pelvic exam-External genitalia including Bartholin, urethral, and Kremmling's glands are within normal limits; no erythema, [...] (CODE) documented in this encounter Care Teams Forge Shop Supervisor Relationship Specialty Start Date End Date Rocio Jose MD PCP - General 05/21/10 08/20/15 [address] [place] [address] documented as of this encounter
--- OUTSIDE RECORDS SUMMARY | 2022-03-15 01:34 | XMS_ITS | Encounter Summary ---
:1970 Author Organization [facility] [place] [address] Care Team Providers Name Role Phone Mariluz Vargas MD Primary Care Provider Encounter Details Date Type Department Care Team Description 03/15/2016 Hospital Encounter Radiology Library at Gt Mcclellan MD [facility] [place] [address] [place] [address] [phone] (Wo rk) Social History Tobacco Use Types [...] Time Received Time / Laterality Volume Narrative BIN - 03/27/2016 4:44 PM EST This exam is for storage only and is aut o-finalizing. Oliver Mcclellan MD IMG FILM LIBRARY ORDERABLES Performing Organization Address City/State/ZIP Code Phon e Number [place], [place] documented in this encounter Visit Diagnoses Diagnosis Pain Generalized pain documented in this encounter Care Teams Motorcycle Mechanic Apprentice Relationship Specialty Start Date End Date Mariluz Vargas MD PCP - General Family Medicine 11/20/15 [facility] [address] [place] [address] documented as of this encounter
--- OUTSIDE RECORDS SUMMARY | 2022-03-15 01:34 | XMS_ITS | Encounter Summary ---
:1970 Author Organization [facility] [place] [address] Care Team Providers Name Role Phone Mariluz Vargas MD Primary Care Provider Encounter Details Date Type Department Care Team Description 10/14/2016 Notes Only Urology at [facility] José Luis Block MD [facility] [place] [address] UROLOGY DEPT [phone] [place], [place] [address] (Wo rk) Social History Tobacco [...] on filedocumented in this encounter Care Teams Assistant Guest Services Manager Relationship Specialty Start Date End Date Mariluz Vargas MD PCP - General Family Medicine 11/20/15 [address] [place] [address] documented as of this encounter
--- OUTSIDE RECORDS SUMMARY | 2022-03-15 01:34 | XMS_ITS | Encounter Summary ---
:1970 Author Organization [place] [address] Care Team Providers Name Role Phone Mariluz Vargas MD Primary Care Provider Encounter Details Date Type Department Care Team Description 09/25/2016 Telephone Urology at [facility] Raheem Murphy Jr., MD [facility] [place] [address] UROLOGY DEPT. [phone] [place], [place] [address] (Wo rk) Social History Tobacco [...] You can give her a call at [phone]. Thank you. Telephone Encounter - Cortney Dotson - 09/25/2016 8:17 AM EDT Pt had surgery 09/24 called to report she is in a lot of pain. Paged resolution rep doctor. documented in this encounter Plan of Treatment Not on filedocumented as of this encounter Visit Diagnoses Not on filedocumented in this encounter Care Teams International Coordinator Relationship Specialty Start Date End Date Mariluz Vargas MD PCP - General Family Medicine 11/20/[address] [place] [address] [address] [place] [address] documented as of this encounter
--- OUTSIDE RECORDS SUMMARY | 2022-03-15 01:34 | XMS_ITS | Encounter Summary ---
:1970 Author Organization [facility] [place] [address] Care Team Providers Name Role Phone Mariluz Vargas MD Primary Care Provider Encounter Details Date Type Department Care Team Description 07/09/2016 Office Visit Urology at [facility] Dayron Jauregui, Recurrent UTI (urinary tract infection); [facility] TONYA Mc[address]e [address] [place], [place] CENTER [address] UROLOGY DEPT. [phone] [place], [place] [address] Social History Tobacco Use [...] EDT documented in this encounter Progress Notes Rikki Preciadoley, FOUNDRY OPERATOR - 07/09/2016 1:40 PM EDT UROLOGY CLINIC [...] HISTORY: , no children. 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 She is a non-smoker, non-drinker. FAMILY [...] be staged, also bleeding, infection, readmission, stroke, NE, , prolonged hospital stay, risk of injury [...] fatigued enough that she would consider a termite exterminator helper management option for her UTIs/stones. ??? OAB [...] Clean Catch Urine (07/09/2016 2:27 PM EDT) [facility] Method Time Signature Urine Culture 10,000-49,000 NATALIA cfu/ml [facility] (A) [facility] LABORATORY Organism Escherichia NATALIA coli (A) [facility]OR[facility] Specimen (Source) Anatomical Collection Method Collection [...] Organization Address City/State/[place] [address] documented in this encounter Visit Diagnoses Diagnosis Recurrent UTI (urinary tract infection) Urinary tract infection, site not specif ied Nephrolithiasis Calculus of kidney documented in this encounter Care Teams Turner In Relationship Specialty Start Date End Date Mariluz Vargas MD PCP - General Family Medicine 11/20/[address] [place] [address] documented as of this encounter
--- OUTSIDE RECORDS SUMMARY | 2022-03-15 01:34 | XMS_ITS | Encounter Summary ---
:1970 Author Organization [facility] [place] [address] Care Team Providers Name Role Phone Rocio Jose MD Primary Care Provider Encounter Details Date Type Department Care Team Description 04/07/2015 Notes Only Urology at [facility] [place] [address] [facility] [phone] UROLOGY DEPT. [place], [place] [address] (Wo rk) Social History Tobacco Use Types Packs/Day Years Used Date Smoking Tobacco: Never Sex Assigned at Date Recorded Not on file documented as of this encounter Progress Notes Palmira Reyes LNA - 04/07/2015 1:33 PM EST Urine culture from [facility] on 04/04/2015 will be a no treat per Dr. Hankins 10,000-50,000 gram positive mixed rina documented in this encounter Plan of Treatment Not on filedocumented as of this encounter Visit Diagnoses Not on filedocumented in this encounter Care Teams Director Of The Biophysics Facility Relationship Specialty Start Date End Date Rocio Jose MD PCP - General 05/21/10 08/20/15 [address] [place] [address] documented as of this encounter
--- OUTSIDE RECORDS SUMMARY | 2022-03-15 01:34 | XMS_ITS | Encounter Summary ---
:1970 Author Organization [facility] [place] [address] Care Team Providers Name Role Phone Rocio Jose MD Primary Care Provider Reason for Visit Reason Comments Other Encounter Details Date Type Department Care Team Description 06/09/2015 Telephone Urology at [facility] Arely Preciado, [facility] [place] [address] [facility] [phone] UROLOGY DEPT. [place], [place] [address] (Wo rk) Social History Tobacco [...] BID x 7 days was sent to [facility] in [facility]. Also advised pt to always give a first morning urine as the urine specimen if symptoms re-occur. Pt verbalized understanding. Telephone Encounter - Arely Preciado APRN - 06/09/2015 3:57 PM EST Pt supposed to leave first morning urine for culture. The first morning sample was done at [facility] yesterday. The med is Nitrofurantoin Bucks-MCR that worked for her. Adela is about to leave for vacation on Friday evening, and won't be back until 06/25. She would like to get a script in before then for abx if necessary or to take with her. She has an appt on 07/04/15with vt. Will keep that until we get her culture results. documented in this encounter Plan of Treatment Not on filedocumented as of this encounter Visit Diagnoses Not on filedocumented in this encounter Care Teams Process Area Supervisor Relationship Specialty Start Date End Date Rocio Jose MD PCP - General 05/21/10 08/20/15 [address] [place] [address] documented as of this encounter
--- OUTSIDE RECORDS SUMMARY | 2022-03-15 01:34 | XMS_ITS | Encounter Summary ---
:1970 Author Organization [facility] [place] [address] Care Team Providers Name Role Phone Rocio Jose MD Primary Care Provider Reason for Visit Reason Onset Date Comments Results 10/03/2010 Encounter Details Date Type Department Care Team Description 10/03/2010 Telephone Urology at [facility] Rosaura Greenberg PA Results [facility] [place] [address] UROLOGY DEPT. [phone] [place], [place] [address] Social History Tobacco Use Types Packs/Day Years Used Date Smoking Tobacco: Never Assessed Sex Assigned at Date Recorded Not on file documented as of this encounter Miscellaneous Notes Telephone Encounter - Rosaura Greenberg PA - 10/03/2010 4:56 PM EDT I spoke with the patient to review the external results we received. It appears that she had at least 3 symptomatic E. Coli UTIs in the period between October 2009 and April 2010. She has not had documented infections since that time and her most recent urinalyses have been negative. Overall she thinksthat things have been getting better, though she has self-treated without obtaining cultures on at least 2 occasions. Given that she appears to be doing better, I think we can hold off on further evaluation (cystoscopy) for now. However, I told her that I would have a low threshold for arranging this and for starting 6-month antibiotic prophylaxis if she has recurrent UTIs going forward. I asked her to call with symptoms so that we can fax an order for a urine culture to her local lab and obtain those results here. She is in agreement with the plan. She will follow-up at scheduled in 6 months. Rosaura Greenberg PA-C documented in this encounter Plan of Treatment Not on filedocumented as of this encounter Visit Diagnoses Not on filedocumented in this encounter Care Teams Adult Day Care Worker Relationship Specialty Start Date End Date Rocio Jose MD PCP - General 05/21/10 08/20/15 [address] [place] [address] documented as of this encounter
--- OUTSIDE RECORDS SUMMARY | 2022-03-15 01:34 | XMS_ITS | Encounter Summary ---
:1970 Author Organization [facility] [place] [address] Care Team Providers Name Role Phone Mariluz Vargas MD Primary Care Provider Encounter Details Date Type Department Care Team Description 09/23/2016 Telephone Urology at [facility] Feliz Okeefe, [place] [address] Social History Tobacco Use Types Packs/Day [...] per verbal order Dr. Torrez. Adela will pickers material handlers prescription tonight, and start this evening. Escherichia coli 10,000 - 50,000 colonies/mL FELIZ MALLOY LPN documented in this encounter Plan of Treatment Not on filedocumented as of this encounter Visit Diagnoses Not on filedocumented in this encounter Care Teams Postal Service Sectional Center Manager Relationship Specialty Start Date End Date Mariluz Vargas MD PCP - General Family Medicine 11/20/[address] [place] [address] documented as of this encounter
--- OUTSIDE RECORDS SUMMARY | 2022-03-15 01:34 | XMS_ITS | Encounter Summary ---
:1970 Author Organization [facility] [place] [address] Care Team Providers Name Role Phone Mariluz Vargas MD Primary Care Provider Encounter Details Date Type Department Care Team Description 02/23/2016 Telephone Urology at [facility] Jocelyn Navarro, [place] [address] Social History Tobacco Use Types Packs/Day [...] The patient will do this tomorrow at [facility]. I have sent an order to them for culture and have added this to the weekend culture list. JOCELYN NAVARRO LPN documented in this encounter Plan of Treatment Not on filedocumented as of this encounter Visit Diagnoses Not on filedocumented in this encounter Care Teams Zipper Ironer Relationship Specialty Start Date End Date Mariluz Vargas MD PCP - General Family Medicine 11/20/15 [address] [place] [address] documented as of this encounter
--- OUTSIDE RECORDS SUMMARY | 2022-03-15 01:34 | XMS_ITS | Encounter Summary ---
:1970 Author Organization [facility] [place] [address] Care Team Providers Name Role Phone Mariluz Vargas MD Primary Care Provider Encounter Details Date Type Department Care Team Description 05/22/2016 Notes Only Urology at [facility] Arely Preciado, [facility] [place] [address] [facility] [phone] UROLOGY DEPT. [place], [place] [address] (Wo rk) Social History Tobacco [...] is unclear if she was treated by [facility]/Dr. Strickland for this urinary infection. I will have my nurse call her to see how she is doing. documented in this encounter Plan of Treatment Not on filedocumented as of this encounter Visit Diagnoses Not on filedocumented in this encounter Care Teams Measurement Analyst Relationship Specialty Start Date End Date Mariluz Vargas MD PCP - General Family Medicine 11/20/[address] [place] [address] documented as of this encounter
--- OUTSIDE RECORDS SUMMARY | 2022-03-15 01:34 | XMS_ITS | Encounter Summary ---
:1970 Author Organization [facility] [place] [address] Care Team Providers Name Role Phone Mariluz Vargas MD Primary Care Provider Reason for Visit Reason Comments Skin Check Encounter Details Date Type Department Care Team Description 11/20/2015 Office [facility]; [facility] Vergara angioma; [address] [place] [address] [facility] [phone] RD-DERMATOLOGY [place], [place] [address] Social History Tobacco Use Types Packs/Day Years Used Date Smoking Tobacco: Never Smokeless Tobacco: Never Alcohol Use Standard Drinks/Week Comments Yes 1 (1 standard drink = 0.6 oz pure alcoho l) Sex Assigned at Date Recorded Not on file documented as of this encounter Patient Instructions Patient InstructionsMax Sears CMA - 11/20/2015 8:30 AM EDT Caring for [...] dirty areas. Avoid harsh soaps such as Sierra Leonean Spring, Ivory, or Dial as these can be drying. ?? Immediately after bathing, apply a bland, preferably fragrance-free moisturizer to your skin. Ointments work better than creams, which work better than lotions. Look for the following brands: Vaseline 100% petroleum jelly, Vanicream, Neutrogena, CeraVe, Cetaphil, Aveeno, Lubriderm, or Eucerin. ?? For itchy areas, you can apply hydrocortisone 1% cream (prhk-ayj-bsozczk product) for 1-2 weeks. Do not use [...] evaluated. documented in this encounter Progress Notes Nevlile Farmer MD - 11/20/2015 8:30 AM EDT [...] or other skin disease Social/Occupational History: Occupation: [employer] Review of Systems: General: Feels well Skin: [...] in the presence of MD Max García [facility] I performed the above scribed service and agree with the accuracy of the documentation in this encounter, Neville Farmer MD Reviewed and signed by Neville Farmer MD Resident in Dermatology [facility] Staff technician support engineer: Elly Haq MD Section of Dermatology [facility] Elly Haq MD - 11/20/2015 8:30 AM EDT I was the supervising physician working with dermatology resident Dr. Tor Farmer in the dermatology clinic during this patient visit. The level of Resident supervision for this patient visit was indirect supervision with direct supervision immediately available. (definition: [facility] GME Policy Statement on Graduate Medical Education, [...] d documented in this encounter Care Teams Education Assistant Relationship Specialty Start Date End Date Mariluz Vargas MD PCP - General Family Medicine 11/20/[address] [place] [address] documented as of this encounter
--- OUTSIDE RECORDS SUMMARY | 2022-03-15 01:34 | XMS_ITS | Encounter Summary ---
:1970 Author Organization [place] [address] Care Team Providers Name Role Phone Mariluz Vargas MD Primary Care Provider Encounter Details Date Type Department Care Team Description 07/04/2016 Telephone Urology at [facility] Arely Preciado, [facility] [place] [address] [facility] [phone] UROLOGY DEPT. [place], [place] [address] (Wo rk) Social History Tobacco [...] can she have it? Please call on [phone]. Thanks. documented in this encounter Plan of Treatment Not on filedocumented as of this encounter Visit Diagnoses Not on filedocumented in this encounter Care Teams Communications Media Professor Relationship Specialty Start Date End Date Mariluz Vargas MD PCP - General Family Medicine 11/20/[address] [place] [address] [address] [place] [address] documented as of this encounter
--- OUTSIDE RECORDS SUMMARY | 2022-03-15 01:34 | XMS_ITS | Encounter Summary ---
:1970 Author Organization [facility] [place] [address] Care Team Providers Name Role Phone Mariluz Vargas MD Primary Care Provider Reason for Visit Reason Comments Nephrolithiasis Encounter Details Date Type Department Care Team Description 10/01/2016 Office Visit Urology at [facility] Raheem Murphy Jr., Nephrolithiasis [facility] [place] [address] [facility] [phone] UROLOGY DEPT. [place], [place] [address] (Wo rk) Social History Tobacco [...] Social History: , no children. 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 Non-smoker, non-drinker ?? Family History: Father [...] any hydronephrosis; plan follow up with Akilah Maguire APRN 2)Mixed CaOx stone. We reviewedgeneral d ietary [...] kidney documented in this encounter Care Teams Fisherman Helper Relationship Specialty Start Date End Date Mariluz Vargas MD PCP - General Family Medicine 11/20/[address] [place] [address] [address] [place] [address] documented as of this encounter
--- OUTSIDE RECORDS SUMMARY | 2022-03-15 01:34 | XMS_ITS | Encounter Summary ---
:1970 Author Organization [facility] [place] [address] Care Team Providers Name Role Phone Rocio Jose MD Primary Care Provider Reason for Visit Reason Onset Date Comments Results 06/01/2015 Encounter Details Date Type Department Care Team Description 06/01/2015 Telephone Obstetrics and Gynec ology at [facility] [place] [address] Social History Tobacco Use Types Packs/Day [...] on filedocumented in this encounter Care Teams Broaching Machine Repairer Relationship Specialty Start Date End Date Rocio Jose MD PCP - General 05/21/10 08/20/15 [address] [place] [address] documented as of this encounter
--- OUTSIDE RECORDS SUMMARY | 2022-03-15 01:34 | XMS_ITS | Encounter Summary ---
:1970 Author Organization [facility] [place] [address] Care Team Providers Name Role Phone Mariluz Vargas MD Primary Care Provider Encounter Details Date Type Department Care Team Description 09/18/2016 Orders Only Urology at [facility] Raheem Murphy Symptom involving [facility] [place] [address] UROLOGY DEPT. [place], [place] [address] Social History Tobacco Use Types [...] bladder documented in this encounter Care Teams Automobile Radio Repairer Relationship Specialty Start Date End Date Mariluz Vargas MD PCP - General Family Medicine 11/20/[address] [place], [place] [address] documented as of this encounter
--- OUTSIDE RECORDS SUMMARY | 2022-03-15 01:34 | XMS_ITS | Encounter Summary ---
:1970 Author Organization [facility] [place] [address] Care Team Providers Name Role Phone Mariluz Vargas MD Primary Care Provider Encounter Details Date Type Department Care Team Description 03/01/2016 Telephone Urology at [facility] Arely Preciado, [facility] [place] [address] [facility] [phone] UROLOGY DEPT. [place], [place] [address] (Wo rk) Social History Tobacco Use Types Packs/Day Years Used Date Smoking Tobacco: Never Smokeless Tobacco: Never Alcohol Use Standard Drinks/Week Comments Yes 1 (1 standard drink = 0.6 oz pure alcoho l) Sex Assigned at Date Recorded Not on file documented as of this encounter Miscellaneous Notes Telephone Encounter - Arely Preciado, TONYA - 03/01/2016 8:29 AM EST ----- Message [...] She is going to be consulting a Shift Production Supervisor as well. She will start taking her [...] on filedocumented in this encounter Care Teams Primary Care Coordinator Relationship Specialty Start Date End Date Mariluz Vargas MD PCP - General Family Medicine 11/20/[address] [place] [address] documented as of this encounter
--- OUTSIDE RECORDS SUMMARY | 2022-03-15 01:34 | XMS_ITS | Encounter Summary ---
:1970 Author Organization [facility] [place] [address] Care Team Providers Name Role Phone Mariluz Vargas MD Primary Care Provider Reason for Visit Reason Comments Nephrolithiasis Encounter Details Date Type Department Care Team Description 09/04/2016 Office Visit Urology at [facility] Quentin Murphy Jr., Nephrolithiasis [facility] [place] [address] [facility] [phone] UROLOGY DEPT. [place], [place] [address] (Wo rk) Social History Tobacco [...] Social History: , no children. 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 Non-smoker, non-drinker Family History: Father has [...] will have her meet with our surgical rn and schedule the surgery at her earliest convenience. We will collect urine today for culture for pre-operative counseling. Nelly Noguera MD Urology PGY-3 Pager: [phone] STAFF ADDENDUM: I saw and examined Adela [...] Clean Catch Urine (09/04/2016 6:13 PM EDT) [facility] Method Time Signature Urine Culture Greater than NATALIA 100,000 cfu/ml [facility] (A) [facility] Organism Escherichia NATALIA coli (A) [facility] Specimen (Source) Anatomical Collection Method Collection [...] Organization Address City/State/[place] [address] documented in this encounter Visit Diagnoses Diagnosis Nephrolithiasis Calculus of kidney documented in this encounter Care Teams Manager Of Tires Sales Relationship Specialty Start Date End Date Mariluz Vargas MD PCP - General Family Medicine 11/20/[address] [place] [address] documented as of this encounter
--- OUTSIDE RECORDS SUMMARY | 2022-03-15 01:34 | XMS_ITS | Encounter Summary ---
:1970 Author Organization [facility] [place] [address] Care Team Providers Name Role Phone Rocio Jose MD Primary Care Provider Encounter Details Date Type Department Care Team Description 04/18/2015 Notes Only Urology at [facility] [place] [address] Social History Tobacco Use Types Packs/Day [...] on filedocumented in this encounter Care Teams Mechanical Test Technician Relationship Specialty Start Date End Date Rocio Jose MD PCP - General 05/21/10 08/20/15 [address] [place], [place] [address] documented as of this encounter
--- OUTSIDE RECORDS SUMMARY | 2022-03-15 01:34 | XMS_ITS | Encounter Summary ---
:1970 Author Organization [facility] [place] [address] Care Team Providers Name Role Phone Rocio Jose MD Primary Care Provider Reason for Visit Reason Comments Dyspareunia Consultation (Routine) - Closed Specialty Diagnoses / Procedures Referred By Contact Refer red To Contact Obstetrics and Diagnoses Cervical cancer Dayron Vásquez [facility] Lpn Care Manager 5l Gynecology TONYA Mcgee [facility] [place] [facility] [address] [place] UROLOGY DEPT. [phone] [place] [address] Referral ID Status Reason Start Date Expiration Date Visits V isits Requested Authorized [id number] Closed Consult, 03/10/2015 03/09/2016 1 1 Test & Treat Encounter Details Date Type Department Care Team Description 05/23/2015 Office Visit Obstetrics and Oliver Mcclellan MD [facility] [place] [address] Vulvovaginal discomfort; Gynecology at [facility] Aimee Gonzalez MD [facility] OBSTETRICS & [place] [address] Dysuria; [facility] Cervical polyp; Drive History [place] [address] Social History Tobacco Use Types Packs/Day [...] had care wth Dr Gisell Strickland at [facility] as well as with Urology at [facility] A) UTI's- Reports she has been seen [...] Dr Strickland document several negative U/As in 1290-8086, as well as +urine cultures in 10/28 [...] at intercourse approx 1-2 wksago. At last ware tester visit, very burny. Right now everything is [...] tampons without a problem, Super Playtex, plastic building wrecker; tries to avoid fragrance. Uses pantiliners- Cameron. Usually wears a thong for underwear, tries to wear cotton as much as can. 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 D) Oral cold sores, on Valcyclovir Funeral Attendant: No LMP recorded..On OCs for 25 yrs [...] of STD's. No new sexual partners. Past OB-Funeral Attendant Hx: Pap 2005 in [place], moved to [place]. Colposcopy 04/27 --> LEEP 06/25 Margins not [...] as appropriate. Social Hx: Lives with in [facility]. 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 Location: [address] [place] [address] Pathology [facility] Report The signing pathologist has (i) examined the relevant preparation(s) for the specimen(s) and (ii) rendered or confirmed the diagnosis(es) . . ?Surgic al Pathology DIAGNOSIS Benign endocervical polyp. 05/25/15 ARS 05/25/15 Verified by: ? Jus Rocha MD ?Pathologist ?(Electronic Signature ) The attending pathologist [...] MD PATHOLOGY/CYTOLOGY ORDERABLE S Performing Organization Address [facility]/ZIP Code Phon e Number [address] AWAIS RODRIGUEZENNIUM Specimen to [...] MD PATHOLOGY/CYTOLOGY ORDERABLE S Performing Organization Address [facility]/ZIP [facility] [place] [address] CERNER MILLENNIUM Yeast culture Vaginal (05/23/2015 2:52 PM EST) [facility] gist Method Time Signature Yeast Culture No Yeast CERNER isolated MILLENNIUM Specimen Anatomical Collection Method Collection Time Receive d Time (Source) Location / / Volume Laterality Vaginal 05/23/2015 2:52 PM 6 3:51 EST PM EST Resulting Agency Comment Spec In Lab Aimee Gonzalez MD MICROBIOLOGY - GENERAL ORDER PATRICK Performing Organization Address City/[facility]/[place] [address] CERNER MILLENNIUM (ABNORMAL) Urinalysis with reflex Culture (05/23/2015 8:25 AM EST) [facility] Method Time Signature Glucose UA Negative [...] UA Clear Clear CERNER MILLENNIU M Spec [place] UA 1.011 1.002 - 1.030 CERNER MIL [...] Gonzalez MD URINE ORDERABLES Performing Organization Address City/[facility]/[place] [address] CERNER MILLENNIUM (ABNORMAL) POCT urine dipstick (05/23/2015 8:25 AM EST) P athologist Signature POC Sp Temple 1.015 1.002 - 1.030 POC pH, UA [...] Urine Culture 1,000-9,000 cfu/ml mixed mucosal rina [facility] 1,000-9,000 cfu/ml Gram Negative organisms [facility] Note: Multiple bacterial morphotypes pre sent. [...] Organization Address City/State/[place] [address] [facility] documented in this encounter Visit Diagnoses Diagnosis Vulvovaginal discomfort Unspecified symptom associated with fema le genital organs Dysuria Cervical polyp Mucous polyp of cervix History of abnormal cervical Pap smear Personal history of other genital system and obstetric disorders documented in this encounter Care Teams Adjunct Instructor In Economics Relationship Specialty Start Date End Date Rocio Jose MD PCP - General 05/21/10 08/20/15 [address] [place] [address] documented as of this encounter
--- OUTSIDE RECORDS SUMMARY | 2022-03-15 01:34 | XMS_ITS | Encounter Summary ---
:1970 Author Organization [facility] [place] [address] Care Team Providers Name Role Phone Mariluz Vargas MD Primary Care Provider Encounter Details Date Type Department Care Team Description 09/24/2016 Anesthesia Event Main Operating Room Bonifacio Taylor MD [facility] [place] [address] Chris Sosa MD [facility] [place] [address] [place] [address] Anesthesia Record Procedure Summary Procedure Name Responsible Anesthesia Start Anesthesia Stop Anesthesiologist Time Time CYSTOURETEROSCOPY,Gal Mccray MD 09/24/16 1545 10/05 1800 [employer],W/ [employer] INSERTION OF INDWELLING URETERAL STENT (WRVU 8) (Right: Ureter) Events Date Time Event Comment 09/24/2016 1333 1545 AN Verify 1545 Start 1548 An Start Data 1552 An Induction 1553 An Intubation 1559 Anesthesia Ready 1608 Procedure Start 1649 Handoff Intra-procedure anesthesia care was transferred afte r review of the patient's history, current anesthetic/surgical status and plan, accord ing to the ANES Provider Handoff Checklis t. 1750 Extubation/LMA Out 175 an stop data 1800 Recovery or ICU [...] Duran Del la R, RN arm), right; fiya-lhn-kxovab catheter system; 20 gauge; jennifer Duffy; 09/24/16; 1946 Supraglottic Mask Ventilation: Not 09/24/16 1552 by Peace, 1754 by Attempted (0); LMA Type: SOUTH Sunshine Sarah J, CRNA iGel; LMA Size: 3; Inserted by: SOUTH Hand [...] Taylor MD - 09/24/2016 6:12 PM EDT [facility] Department of Anesthesiology Post-procedure Note Patient: Adela Samra Clouatre Procedure Summary Date Anesthesia Start Anesthesia Stop Room / Location 09/24/16 1545 1800 [facility] OR [facility] MAIN OR Procedure Diagnosis Surgeon Responsible [...] Anesthesiologist: Chris Hidalgo MD; Gal Taylor MD SOCIAL MEDIA COORDINATOR: Ann Marie Bautista CRNA; Ann Marie Hand CRNA Last (1hr) Vitals: BP Temp Pulse Resp SpO2 Patient Location: PACU/[facility] Level of Consciousness: Conscious but Sleepy [...] consented to blood products. Plan discussed with SOCIAL MEDIA COORDINATOR. PAT Staff Note documented in this encounter [...] mL/hr documented in this encounter Care Teams Auto Glass Worker Relationship Specialty Start Date End Date Mariluz Vargas MD PCP - General Family Medicine 11/20/15 [address] [place] [address] documented as of this encounter
--- OUTSIDE RECORDS SUMMARY | 2022-03-15 01:35 | XMS_ITS | Encounter Summary ---
:1970 Author Organization [facility] [place] [address] Care Team Providers Name Role Phone Rocio Jose MD Primary Care Provider Encounter Details Date Type Department Care Team Description 09/27/2010 External Results Urology at [facility] Rosaura Greenberg [facility] [place] [address] [facility] [phone] UROLOGY DEPT. [place], [place] [address] Social History Tobacco Use Types Packs/Day Years Used Date Smoking Tobacco: Never Assessed Sex Assigned at Date Recorded Not on file documented as of this encounter Progress Notes Rosaura Greenberg PA - 09/27/2010 10:27 AM EDT I received the following results from [facility]: U/A (05/28/10): 0-1 WBC, 0 RBC, no bacteria U/A (07/27/10): 0-1 WBC, 0-1 RBC, no bacteria I received a note from the patient that she has been relatively asymptomatic since her last visit. Rosaura Greenberg PA-C documented in this encounter Plan of Treatment Not on filedocumented as of this encounter Visit Diagnoses Not on filedocumented in this encounter Care Teams Regulatory Submissions Specialist Relationship Specialty Start Date End Date Rocio Jose MD PCP - General 05/21/10 08/20/15 [address] [place] [address] documented as of this encounter
--- OUTSIDE RECORDS SUMMARY | 2022-03-15 01:35 | XMS_ITS | Encounter Summary ---
:1970 Author Organization [facility] Address [facility] [place] [address] Care Team Providers Name Role Phone Rocio Jose MD Primary Care Provider Encounter Details Date Type Department Care Team Description 05/24/2010 Office [place] [facility] [place]abe Virgen [place] [facility] [place] [address] ALLERGY AND IMMUNOLOGY [phone] [place], [place] [address] (Wo rk) Social History Tobacco [...] Address City/State/[place] [address] CERNER MILLENNIUM documented in this encounter Visit Diagnoses Not on filedocumented in this encounter Care Teams Fabrication Manager Relationship Specialty Start Date End Date Rocio Jose MD PCP - General 05/21/10 08/20/15 [address] [place] [address] documented as of this encounter
--- OUTSIDE RECORDS SUMMARY | 2022-03-15 01:35 | XMS_ITS | Encounter Summary ---
:1970 Author Organization [facility] Address [facility] [place] [address] Care Team Providers Name Role Phone Rocio Jose MD Primary Care Provider Encounter Details Date Type Department Care Team Description 06/01/2010 [place] [facility] [place]azal Byrne [place] [facility] D [facility] [place] [address] UROLOGY DEPT. [phone] [place], [place] [address] Social History Tobacco Use Types [...] URINALYSIS WITH MICROSCOPIC (06/01/2010 12:23 PM EST) [facility] Method Time Signature Glucose UA Negative [...] Appearance UA Clear Clear CERNER MILLENNIUM Spec [place] UA 1.006 1.002 - CERNER 1.030 MILLENNIUM [...] Organization Address City/State/[place] [address] CERNER MILLENNIUM URINE CULTURE (06/01/2010 11:00 AM EST) [facility] Method Time Signature Urine Culture [facility] ? Patient Name: OLIMPIA, ADELA L ? Or dered By: FAZAL BYRNE ? MR#: [id number] ?LOC: ??5B ? /Sex: ??1970 (40 years), [...] Organization Address City/State/ZIP Code Phon e Number [address] LABORATORY [facility] documented in this encounter Visit Diagnoses Not on filedocumented in this encounter Care Teams Commercial Artist Lettering Relationship Specialty Start Date End Date Rocio Jose MD PCP - General 05/21/10 08/20/15 [address] [place] [address] documented as of this encounter
--- OUTSIDE RECORDS SUMMARY | 2022-03-15 01:35 | XMS_ITS | Encounter Summary ---
:1970 Author Organization [facility] [place] [address] Care Team Providers Name Role Phone Rocio Jose MD Primary Care Provider Reason for Visit Reason Comments Follow-up reoccuring UTI's Encounter Details Date Type Department Care Team Description 08/13/2010 Follow-Up Urology at [facility] [place] Rosaura Greenberg Recurrent UTI (Primary [facility] ERMIAS [place]) [place] [address] UROLOGY DEPT. [place], [place] [address] Social History Tobacco Use Types [...] documented in this encounter Progress Notes Jackie Joy, [place] - 08/13/2010 5:29 PM EDT Addended by: [...] states that they were done at [facility] in [facility] but a request to obtain those [...] Clean Catch Urine (08/13/2010 5:29 PM EDT) [facility] Method Time Signature Urine Culture CERNER ? Patient Name: ADELA DOAN ? Ordered By: ROSEANN RODRIGUEZ [facility] ? MR#: [id number] ?LOC: ??5B ? /Sex: ??1970 (40 years), [...] Organization Address City/State/[place] [address] [facility] documented in this encounter Visit Diagnoses Diagnosis Recurrent UTI - Primary Urinary tract infection, site not specif ied documented in this encounter Care Teams Desktop Analyst Relationship Specialty Start Date End Date Rocio Jose MD PCP - General 05/21/10 08/20/[address] [place] [address] documented as of this encounter
--- OUTSIDE RECORDS SUMMARY | 2022-03-15 01:35 | XMS_ITS | Encounter Summary ---
:1970 Author Organization [facility] [place] [address] Care Team Providers Name Role Phone Rocio Jose MD Primary Care Provider Encounter Details Date Type Department Care Team Description 08/30/2010 External Results Urology at [facility] Rosaura Greenberg, [facility] [place] [address] [facility] [phone] UROLOG[address] DEPT. [place], [place] [address] Social History Tobacco Use Types Packs/Day Years Used Date Smoking Tobacco: Never Assessed Sex Assigned at Date Recorded Not on file documented as of this encounter Progress Notes Rosaura Greenberg PA - 08/30/2010 11:56 AM EDT I received the following urine culture results from [facility]: 05/18/10: 10,000-50,000 CFU E. Coli (ackerman [...] on filedocumented in this encounter Care Teams Sleeve Machine Tender Relationship Specialty Start Date End Date Rocio Jose MD PCP - General 05/21/10 08/20/15 [address] [place] [address] documented as of this encounter
[2022-03-15 14:31] LABS: Vitamin D 25 Total 55.3 ng/mL (30-100)
[2022-03-18 09:08] LABS: LH 3.4 mIU/mL (See Note)
[2022-03-18 09:11] LABS: FSH 3.5 mIU/mL (See Note)
== END 2022-03-15 01:31 | disposition home or self-care (01) ==
LOC: LBO 01:31
PROVIDERS: PCP Nurse Practitioner Family; Visit Provider Naturopath
DX: E55.9 Vitamin D deficiency, unspecified (principal); N95.1 Menopausal and female climacteric states
CPT/HCPCS: 36415; 82306; 83001; 83002

== ENCOUNTER → 2022-04-03 01:07 | Outpatient (CLI) | payer BC, SELFPAY ==
--- NOTE | 2022-04-03 | DI.MAMMO_ITS ---
Exam(s) MAMMO SCREENING EXAM: MAMMO SCREENING CLINICAL HISTORY: SCREENING, Z12.31 TECHNIQUE: Bilateral full field digital CC and MLO mammographic images were obtained with 3D tomosyn thesis and utilizing computer aided detection (CAD). COMPARISON: Available for comparison. FINDINGS: Masses/Architectural Distortion: None seen. Microcalcifications: No suspicious pleomorphic-type are seen. Skin Thickening/Nipple Retraction: None. IMPRESSION: 1. No significant interval change with no specific features of malignancy noted. 2. Unless there is more urgent need, screening mammography is recommended, as per [place] [employer] guidelines. BI-RADS Category 1 - Negative Breast Density - Category C - Heterogeneously dense Breast density category C or D implies that the patient has dense breast tissue. Dense breast tissue is very common and is not abnormal but dense breast tissue can make it harder to find cancer on a ma mmogram. Also, dense breast tissue may increase their breast cancer risk. This information about the result of the mammogram report was provided to the patient to raise their awareness. Use this report when you speak with the patient about their risks for breast cancer, which includes their family hist ory. At that time, you may recommend for more screening tests (Ultrasound or MRI) as they might be us eful based on their risk. A negative radiographic report should not delay biopsy if a dominant or clinically suspicious mass is present. Up to ten percent of cancers are not identified on mammography. A negative report may reinforce clinical impression. Adenosis and dense breasts may obscure an underlying neoplasm. False positive reports average 6 to 10%. Patient will receive a letter notifying them of these results.
== END ==
PROVIDERS: PCP Nurse Practitioner Family; Visit Provider Nurse Practitioner Women's Health
DX: Z12.31 Encounter for screening mammogram for malignant neoplasm of breast (principal); R92.8 Other abnormal and inconclusive findings on diagnostic imaging of breast
CPT/HCPCS: 77063; 77067

== ENCOUNTER 2022-04-19 00:17 | Outpatient (CLI) | payer BC, SELFPAY ==
--- NOTE | 2022-04-19 08:00 | DI.DEXA_ITS ---
Exam(s) XR DEXA BONE DENSITY W/WO DAR EXAM: XR DEXA BONE DENSITY W/WO DAR CLINICAL HISTORY: height loss,R29.890 TECHNIQUE: Splice C densitometer analysis of left hip, lumbar spine and left forearm. COMPARISON: CR XR LUMBAR SPINE COMPLETE from 12/19/2021 FINDINGS: Lateral view of the thoracic and lumbar spine shows no evidence of compression fractures. Bone mineral density measurements of the lumbar spine correspond to a total T-score of -0.7, in the normal range. Bone mineral density measurements of the left hip correspond to a total T-score of -0.3. The femora l neck T-score is 0, in the normal range.. The left forearm bone mineral density measurements correspond to a T-score of the distal 3rd of 1.5, in the normal range.. IMPRESSION: Normal bone mineral density.
== END 2022-04-19 00:37 ==
LOC: DI 00:17
PROVIDERS: PCP Nurse Practitioner Family; Visit Provider Nurse Practitioner Family
DX: R29.890 Loss of height (principal); Z13.820 Encounter for screening for osteoporosis
CPT/HCPCS: 77080

== ENCOUNTER 2022-05-09 02:44 | Outpatient (CLI) | payer BC, SELFPAY ==
--- NOTE | 2022-05-09 08:00 | DI.MRI_ITS ---
Exam(s) MR LUMBAR SPINE WO EXAM: MR LUMBAR SPINE WO CLINICAL HISTORY: chronic low back pain,M54.50,G89.29. TECHNIQUE: Multiplanar multisequence MRI of the Lumbar spine was performed. COMPARISON: CT ABD PELVIS WITH CONTRAST from 03/14/2016 CR XR DEXA BONE DENSITY W/WO DAR from 04/19/2022 FINDINGS: Conus medullaris is at normal level. There is no evidence of conus mass nor subjacent clumping of in trathecal nerve roots to suggest arachnoiditis. The distal thecal sac appears unremarkable.There is no evidence of Tarlov intrasacral cysts nor other significant findings within the sacral canal Bones:There are no fractures nor ominous osseous lesions in the lumbar vertebral bodies and visualize d sacrum. Modic type 1 sub endplate marrow edema changes are seen at L5-S1 level (see below). With respect to the individual levels... T12-L1: Unremarkable L1-2: Normal disc height and signal. No disc herniation nor central canal stenosis.No foraminal steno sis L2-3: Normal disc height. No disc herniation nor central canal stenosis.No foraminal stenosis.No face t arthropathy. L3-4: Normal disc height. No disc herniation or central canal stenosis.No foraminal stenosis.No face t arthropathy. L4-5: Normal disc height and signal. No disc herniation. No central canal stenosis. No foraminal s tenosis. No significant facet arthropathy. L5-S1: This level exhibits advanced disc space narrowing, Modic type 1 sub endplate marrow edema blue ges on both sides of the disc space as well as anterolisthesis of L5 upon S1 with approximately 5 mil limeters anterior slippage of L5 upon S1, this being related to bilateral pars interarticularis defec ts at L5 level. There is typical pseudo herniation of the annulus but no distinct focal disc herniat ion. AP diameter of the central canal is increased at this level because of the pars defects. Later al recesses are carried forward. There is mild vertical foraminal stenosis on both sides related to the disc height loss here. There is element of mild impingement of the exiting nerve roots bilateral ly at the level of the exiting neural foramina bilaterally. Soft tissues: paraspinal soft tissues appear unremarkable. IMPRESSION: 1. Main finding here is at L5-S1 level where there is chronic advanced disc space narrowing and anter olisthesis of L5 upon S1 due to bilateral pars defects (which are evident on prior CT scan of the abd omen 2016). There is no disc herniation at this level. No central canal stenosis. Mild bilateral f oraminal stenosis due to disc height loss. If clinically indicated flexion and extension lateral teresa in films can be performed to determine the true amount of slippage of L5 upon S1 during everyday acti vities. 2. All of the other disc spaces appear unremarkable. DATA REPOSITORY:
== END 2022-05-09 03:04 ==
PROVIDERS: PCP Nurse Practitioner Family; Visit Provider Nurse Practitioner Family
DX: M54.59 Other low back pain (principal); G89.29 Other chronic pain; M51.37 Other intervertebral disc degeneration, lumbosacral region; M43.17 Spondylolisthesis, lumbosacral region
CPT/HCPCS: 72148

== ENCOUNTER 2022-05-21 15:46 | Outpatient (CLI) | payer BC, SELFPAY ==
--- NOTE | 2022-05-21 | DI.RAD_ITS ---
Exam(s) XR LUMBAR SPINE FLEX/EXT ONLY EXAM: XR LUMBAR SPINE FLEX/EXT ONLY CLINICAL HISTORY: SPONDYLOLISTHESIS LUMBAR REGION M43.16. TECHNIQUE: 2D digital imaging was performed of the lumbar spine. Two images were obtained. Lateral flexion and extension views were obtained. COMPARISON: CR XR LUMBAR SPINE COMPLETE from 12/19/2021 MR MR LUMBAR SPINE WO from 05/09/2022 FINDINGS: This is a limited examination consisting only of lateral views. BONES: No gross abnormality is seen on the lateral views. Vertebral bodies are unremarkable. No face t hypertrophy identified. DISKS: There is disc space narrowing and a vacuum disc at L5-S1. ALIGNMENT: There is again seen grade 1 spondylolisthesis of L5 on S1 secondary to pars defects. Ther e is no significant change with flexion or extension. SOFT TISSUE: Normal. IMPRESSION: Stable grade 1 spondylolisthesis of L5 on S1 with flexion and extension. DATA REPOSITORY: RADIATION DOSE DELIVERED:
== END 2022-05-21 16:06 ==
PROVIDERS: PCP Nurse Practitioner Family; Visit Provider Physician Assistant Medical
DX: M43.17 Spondylolisthesis, lumbosacral region (principal); M51.37 Other intervertebral disc degeneration, lumbosacral region
CPT/HCPCS: 72120

== ENCOUNTER 2022-07-24 21:07 | Outpatient (REF) | payer BC, SELFPAY | END 2022-07-24 21:08 | disposition home or self-care (01) | LOC: LBN 21:07 | PROVIDERS: PCP Nurse Practitioner Family; Visit Provider Nurse Practitioner Family | DX: R35.0 Frequency of micturition (principal) | CPT/HCPCS: 87077; 87086; 87186 ==

== ENCOUNTER 2022-08-06 15:07 | Outpatient (REF) | payer BC, SELFPAY ==
[2022-08-05 22:13] LABS: Bacteria Few HPF (Negative); C & S Indicated? C&S Done As Ordered; Casts Negative LPF (Negative); Crystals Negative HPF (Negative); Epithelial Cells Rare HPF (Negative); Mucus Trace (Negative); WBC 20-50 HPF (0-5)
== END 2022-08-06 15:08 | disposition home or self-care (01) ==
LOC: LBN 15:07
PROVIDERS: PCP Nurse Practitioner Family; Visit Provider Nurse Practitioner Family
DX: N39.0 Urinary tract infection, site not specified (principal)
CPT/HCPCS: 81015; 87086

== ENCOUNTER 2023-03-14 01:29 | Outpatient (CLI) | payer BC, SELFPAY ==
[2023-03-14 11:00] LABS: ESR 4 mm/hr (0-30)
[2023-03-14 11:01] LABS: Abs Immature Grans 0.02 10^3/uL (0.0-0.06); Absolute Basophil Count 0.07 10^3/uL (0.0-0.2); Absolute Eosinophil Count 0.07 10^3/uL (0.0-0.7); Absolute Lymphocyte Count 2.26 10^3/uL (1.2-3.4); Absolute Neutrophil Count 3.07 10^3/uL (1.2-6.7); Basophils % 1.1; Eosinophils % 1.1; HGB 13.2 g/dL (11.2-15.7); Immature Grans % 0.3; Lymphocytes % 37.1; MCH 31.8 pg (27.0-33.0); MCHC 33.8 % (32.0-36.0); MCV 94 fL (80-95); MPV 10.5 fL (8.0-11.0); Monocytes % 9.9; Neutrophils % 50.5; Platelet Count 220 10^3/uL (130-400); RBC 4.15 10^6/uL (3.93-5.22); RDW 12.4 % (11.7-14.6); RDW-SD 43.3 fL; WBC 6.09 10^3/uL (4.4-10.8)
[2023-03-14 11:25] LABS: Hemoglobin A1C 5.4 % (<5.7)
[2023-03-14 11:31] LABS: Vitamin D 25 Total 54.4 ng/mL (30-100)
[2023-03-14 11:36] LABS: ALT 23 U/L (14-59); AST 15 U/L (15-37); Albumin 3.7 g/dL (3.4-5.0); Alkaline Phosphatase 77 U/L (46-116); BUN 10 mg/dL (7-18); Bilirubin, Total 0.7 mg/dL (0.2-1.0); CREATININE 0.8 mg/dL (0.55-1.02); Calcium 8.8 mg/dL (8.5-10.1); Calculated LDL 41 mg/dL (<100); Chloride 103 mmol/L (98-107); Cholesterol 128 mg/dL (<200); Ferritin 94 ng/mL (8-252); Folate > 20.0 ng/mL (8.6-20.0); Glucose 100 mg/dL (74-106); HDL Cholesterol 82 mg/dL (40-60); Potassium 3.3 mmol/L (3.5-5.1); Sodium 136 mmol/L (136-145); Total Protein 7.7 g/dL (6.4-8.2); Triglyceride 28 mg/dL (<150); Vitamin B12 1271 pg/mL (193-986)
[2023-03-14 11:43] LABS: C-Reactive Protein 0.14 mg/dL (0.0-0.3)
[2023-03-14 11:46] LABS: Iron 108 ug/dL (50-170); Total Iron Binding Capacity 293 ug/dL (250-450); Transferrin Sat 37 % (15-50)
[2023-03-16 11:53] LABS: EBV EA IgG Positive (Negative)
[2023-03-17 10:51] LABS: EBNA IgG Positive (Negative); EBV Interpretation (See Note); VCA IgG Positive (Negative); VCA IgM Negative (Negative)
[2023-03-17 13:59] LABS: M. pneumoniae Ab, IgG Positive (Negative); M. pneumoniae Ab, IgM Reactive (Negative)
[2023-03-19 15:11] LABS: HLA-B27 Result Negative
[2023-04-18 15:50] LABS: M. pneumoniae Ab, IgM by IFA Negative (Negative)
== END 2023-03-14 01:30 | disposition home or self-care (01) ==
PROVIDERS: PCP Nurse Practitioner Family; Visit Provider Naturopath
DX: M54.50 Low back pain, unspecified (principal); Z13.220 Encounter for screening for lipoid disorders; E55.9 Vitamin D deficiency, unspecified; R53.83 Other fatigue; M43.17 Spondylolisthesis, lumbosacral region
CPT/HCPCS: 36415; 80053; 80061; 82306; 85652; 86663; 86738; 86812; 82607; 82728; 82746; 83036; 83540; 83550; 85025; 86140; 86664; 86665; 87798

== ENCOUNTER → 2023-04-15 00:41 | Outpatient (CLI) | payer BC, SELFPAY ==
--- NOTE | 2023-04-15 | DI.MAMMO_ITS ---
Exam(s) MAMMO SCREENING EXAM: MAMMO SCREENING CLINICAL HISTORY: BREAST CANCER SCREENING Z12.31 TECHNIQUE: Bilateral full field digital CC and MLO mammographic images were obtained with 3D tomosyn thesis and utilizing computer aided detection (CAD). COMPARISON: 2013 through 2021 FINDINGS: Masses/Architectural Distortion: None seen. Microcalcifications: No suspicious pleomorphic-type are seen. Skin Thickening/Nipple Retraction: None. IMPRESSION: 1. No significant interval change with no specific features of malignancy noted. 2. Unless there is more urgent need, screening mammography is recommended, as per [place] [employer] guidelines. BI-RADS Category 1 - Negative Breast Density - Category C - Heterogeneously dense Breast density category C or D implies that the patient has dense breast tissue. Dense breast tissue is very common and is not abnormal but dense breast tissue can make it harder to find cancer on a ma mmogram. Also, dense breast tissue may increase their breast cancer risk. This information about the result of the mammogram report was provided to the patient to raise their awareness. Use this report when you speak with the patient about their risks for breast cancer, which includes their family hist ory. At that time, you may recommend for more screening tests (Ultrasound or MRI) as they might be us eful based on their risk. A negative radiographic report should not delay biopsy if a dominant or clinically suspicious mass is present. Up to ten percent of cancers are not identified on mammography. A negative report may reinforce clinical impression. Adenosis and dense breasts may obscure an underlying neoplasm. False positive reports average 6 to 10%. Patient will receive a letter notifying them of these results.
== END ==
PROVIDERS: PCP Nurse Practitioner Family; Visit Provider Nurse Practitioner Women's Health
DX: Z12.31 Encounter for screening mammogram for malignant neoplasm of breast (principal)
CPT/HCPCS: 77063; 77067

== ENCOUNTER 2023-05-12 04:45 | Outpatient (CLI) | payer BC, SELFPAY ==
[2023-05-12 08:24] LABS: Abs Immature Grans 0.02 10^3/uL (0.0-0.06); Absolute Basophil Count 0.06 10^3/uL (0.0-0.2); Absolute Eosinophil Count 0.08 10^3/uL (0.0-0.7); Absolute Lymphocyte Count 1.59 10^3/uL (1.2-3.4); Absolute Monocyte Count 0.52 10^3/uL (0.1-0.8); Absolute Neutrophil Count 3.11 10^3/uL (1.2-6.7); Basophils % 1.1; Eosinophils % 1.5; HCT 38.9 % (36.0-46.0); HGB 13.1 g/dL (11.2-15.7); Immature Grans % 0.4; Lymphocytes % 29.6; MCHC 33.7 % (32.0-36.0); MCV 95 fL (80-95); MPV 10.6 fL (8.0-11.0); Monocytes % 9.7; Neutrophils % 57.7; Platelet Count 173 10^3/uL (130-400); RBC 4.09 10^6/uL (3.93-5.22); RDW 12.8 % (11.7-14.6); RDW-SD 45.1 fL; WBC 5.38 10^3/uL (4.4-10.8)
[2023-05-12 09:11] LABS: Folate > 20.0 ng/mL (8.6-20.0); Vitamin B12 820 pg/mL (193-986)
[2023-05-16 08:55] LABS: Methylmalonic Acid 0.13 nmol/mL (<=0.40)
[2023-05-16 12:09] LABS: Beta-CrossLaps (B-CTx) 266 pg/mL
== END 2023-05-12 04:46 | disposition home or self-care (01) ==
PROVIDERS: PCP Nurse Practitioner Family; Visit Provider Naturopath
DX: R79.89 Other specified abnormal findings of blood chemistry (principal); M81.0 Age-related osteoporosis without current pathological fracture
CPT/HCPCS: 36415; 80186; 82523; 82607; 82746; 85025

== ENCOUNTER → 2023-09-01 13:47 | Outpatient (CLI) | payer BC, SELFPAY ==
--- NOTE | 2023-09-01 08:30 | DI.RAD_ITS ---
Exam(s) XR LUMBAR SPINE COMPLETE EXAM: XR LUMBAR SPINE COMPLETE CLINICAL HISTORY: low back pain after fall,acute exac.,m54.50,W19,XXA. TECHNIQUE: 2D digital imaging was performed of the lumbar spine. Five images were obtained. AP, la teral, right oblique, left oblique and L5-S1 spot views were obtained. COMPARISON: CR XR LUMBAR SPINE COMPLETE from 12/19/2021 CR XR LUMBAR SPINE FLEX/EXT ONLY from 05/21/2022 FINDINGS: BONES: No fracture or destructive lesion. Vertebral bodies are unremarkable. No facet hypertrophy joan ntified. DISKS: There is disc space narrowing seen at T11-T12 and T12-L1. There is also marked disc space lucia rowing at L5-S1. ALIGNMENT: There is again seen grade 2 spondylolisthesis of L5 on S1. There is L5 spondylolysis. SOFT TISSUE: Normal. IMPRESSION: 1. No acute fracture or subluxation. 2. L5 spondylolysis and grade 2 spondylolisthesis of L5 on S1 is again seen. DATA REPOSITORY: RADIATION DOSE DELIVERED:
== END ==
PROVIDERS: PCP Nurse Practitioner Family; Visit Provider Nurse Practitioner Family
DX: W19.XXXA Unspecified fall, initial encounter (principal); M54.50 Low back pain, unspecified; G89.29 Other chronic pain
CPT/HCPCS: 72110

== ENCOUNTER 2024-04-28 03:59 | Outpatient (CLI) | payer BC, SELFPAY ==
[2024-04-28 07:43] LABS: Abs Immature Grans 0.01 10^3/uL (0.0-0.06); Absolute Basophil Count 0.07 10^3/uL (0.0-0.2); Absolute Eosinophil Count 0.08 10^3/uL (0.0-0.7); Absolute Lymphocyte Count 1.54 10^3/uL (1.2-3.4); Absolute Monocyte Count 0.49 10^3/uL (0.1-0.8); Basophils % 1.6 %; Eosinophils % 1.9 %; HCT 38.8 % (36.0-46.0); Immature Grans % 0.2 %; Lymphocytes % 36.2 %; MCH 31.7 pg (27.0-33.0); MCHC 33.5 % (32.0-36.0); MCV 95 fL (80-95); MPV 10.2 fL (8.0-11.0); Monocytes % 11.5 %; Neutrophils % 48.6 %; Platelet Count 216 10^3/uL (130-400); RDW 12.6 % (11.7-14.6); RDW-SD 43.6 fL; WBC 4.25 10^3/uL (4.4-10.8)
[2024-04-28 07:44] LABS: Absolute Neutrophil Count 2.07 10^3/uL (1.2-6.7)
[2024-04-28 09:13] LABS: Iron 120 ug/dL (50-170); Total Iron Binding Capacity 311 ug/dL (250-450); Transferrin Sat 39 % (15-50)
[2024-04-28 09:41] LABS: ALT 26 U/L (14-59); AST 22 U/L (15-37); Albumin 3.9 g/dL (3.4-5.0); Alkaline Phosphatase 75 U/L (46-116); Anion Gap 7.5 mmol/L (3-11); BUN 18 mg/dL (7-18); CO2 29.5 mmol/L (21.0-32.0); CREATININE 0.8 mg/dL (0.55-1.02); Calcium 9.2 mg/dL (8.5-10.1); Calculated LDL 55 mg/dL (<100); Chloride 104 mmol/L (98-107); Cholesterol 153 mg/dL (<200); Estimated GFR 88.05 (mL/min/1.73m2); Ferritin 106 ng/mL (8-252); Folate 15.6 ng/mL (8.6-20.0); Glucose 88 mg/dL (74-106); HDL Cholesterol 93 mg/dL (40-60); Potassium 4.2 mmol/L (3.5-5.1); Sodium 141 mmol/L (136-145); TSH 2.25 uIU/mL (0.36-3.74); Total Protein 7.3 g/dL (6.4-8.2); Triglyceride 26 mg/dL (<150); Vitamin B12 683 pg/mL (193-986)
[2024-04-28 09:58] LABS: FREE T4 0.91 ng/dL (0.76-1.46)
[2024-04-28 19:01] LABS: T3,Free 3.6 pg/mL (2.8-5.3)
[2024-04-28 19:28] LABS: Homocysteine 8.4 umol/L (5.0-13.9)
[2024-04-28 20:02] LABS: FSH 81.1 mIU/mL (See Note)
[2024-04-30 09:04] LABS: DHEA Sulfate 84 ug/dL (56-283)
[2024-04-30 09:34] LABS: Apolipoprotein A1, S 186 mg/dL (>=140); Apolipoprotein B, S 49 mg/dL (See Comment); Apolipoprotein B/A 1 ratio 0.3 (See Comment)
[2024-05-06 14:31] LABS: EBV EA IgG Equivocal (Negative)
== END 2024-04-28 04:00 | disposition home or self-care (01) ==
PROVIDERS: PCP Nurse Practitioner Family; Visit Provider Naturopath
DX: Z78.0 Asymptomatic menopausal state (principal); Z13.220 Encounter for screening for lipoid disorders; R53.83 Other fatigue; G93.32 Myalgic encephalomyelitis/chronic fatigue syndrome
CPT/HCPCS: 36415; 80053; 80061; 82172; 82627; 83090; 86663; 82607; 82728; 82746; 83001; 83540; 83550; 84439; 84443; 84481; 85025

== ENCOUNTER 2024-05-04 02:03 | Outpatient (CLI) | payer BC, SELFPAY ==
--- NOTE | 2024-05-04 07:45 | DI.MAMMO_ITS ---
Exam(s) MAMMO SCREENING EXAM: MAMMO SCREENING CLINICAL HISTORY: SCREENING MAMMO Z12.31 TECHNIQUE: Mammograms were interpreted according to the usual protocol including computer analysis w [employer] CAD system, tomosynthesis and C-view imaging. COMPARISON: 2014 through 2022 FINDINGS: The breasts are composed of heterogeneously dense fibroglandular densities, Breast Density category C . No suspicious masses or suspicious microcalcifications are seen. No skin thickening or abnormal axillary lymph nodes are seen. There has been no significant change from prior exams. IMPRESSION: BI-RADS Category 1, Negative mammogram. Yearly screening mammography is recommended. Breast Density Category C, heterogeneously Dense. The mammogram demonstrates the patient's breast tissue is dense. Dense breast tissue is very common a nd is not abnormal but dense breast tissue can make it harder to find cancer on a mammogram. Also, de nse breast tissue may increase breast cancer risk. This information about the result of the mammogram report was provided to the patient to raise their awareness. Use this report when you speak with the patient about their risks for breast cancer, which includes their family history. At that time, you may recommend additional screening tests (Ultrasound or MRI) as they might be useful based on their r isk. A negative radiographic report should not delay biopsy if a dominant or clinically suspicious mass is present. Up to ten percent of cancers are not identified on mammography. A negative report may reinforce clinical impression. Adenosis and dense breasts may obscure an underlying neoplasm. False positive reports average 6 to 10%.
== END 2024-05-04 02:23 ==
LOC: DI 02:03
PROVIDERS: PCP Nurse Practitioner Family; Visit Provider Nurse Practitioner Women's Health
DX: Z12.31 Encounter for screening mammogram for malignant neoplasm of breast (principal); R92.333 Mammographic heterogeneous density, bilateral breasts
CPT/HCPCS: 77063; 77067

== ENCOUNTER 2024-06-03 02:27 | Outpatient (CLI) | payer BC, SELFPAY ==
--- NOTE | 2024-06-03 06:30 | DI.MRI_ITS ---
Exam(s) MR BRAIN WO EXAM: MR BRAIN WO CLINICAL HISTORY: memory loss,r41.3 TECHNIQUE: Multiplanar multisequence MRI of the brain was performed. COMPARISON: No exams were available for comparison FINDINGS: CEREBRAL PARENCHYMA: There is no evidence of intracranial hemorrhage, mass effect, or shift of midline structures. There are no extra-axial fluid collections. Ventricles are not enlarged or shifted. No evidence of cerebe llar tonsillar ectopia. There is no significant focal signal abnormality in the cerebellar hemispheres nor within the celena, m idbrain, and thalami. There is no abnormal signal abnormality in the periventricular white matter. There is no significant focal signal abnormality evident on diffusion imaging to suggest acute ischem ic event. Amount of involutional change consistent with patient's age. There is no prominent atrophy. PITUITARY GLAND: No mass nor parasellar abnormality. No obvious abnormality in the cavernous sinuses. FLOW VOIDS: The expected flow void are noted. No evidence of obvious aneurysm nor obvious vascular ma lformation. PARANASAL SINUSES: The visualized paranasal sinuses appear unremarkable. No obvious finding ORBITS: No obvious findings. IMPRESSION: No significant intracranial findings on this noninfused MRI scan of the brain. DATA REPOSITORY:
== END 2024-06-03 02:47 ==
LOC: DI 02:27
PROVIDERS: PCP Nurse Practitioner Family; Visit Provider Nurse Practitioner Family
DX: R41.3 Other amnesia (principal)
CPT/HCPCS: 70551